=== PATIENT | male | born 1950 | race Caucasian/White ===

== ENCOUNTER 2017-08-21 06:51 | Inpatient (IN) | payer OTHER, MEDICARE ==
[2017-08-21] VITALS (21 sets, daily range): BP systolic 114–261; BP diastolic 72–143; PULSE 70–98; RESP 18–24; TEMP 97.6–98.5; O2SAT 94–99
[~2017-08-21] VITALS: Ht 182.9 cm; Wt 78.9 kg
[~2017-08-21 06:51] MED LIST: LAMO150; OMEP20CA5; WELL200T
[2017-08-21] MEDS ORDERED: SODIUM CHLOR 0.9% 1000 ML INJ 1,000 ML IV ONE (07:06)
[2017-08-21] MEDS ORDERED: niCARdipine INJ 25 MG in SODIUM CHLOR 0.9% 250 ML INJ 240 ML IV PRN ×2 (07:15→08:45)
--- NOTE | 2017-08-21 07:25 | PD ---
HPI Chief Complaint: stroke alert Time Seen by Provider: 07:06 Travel History International Travel<30 days: No Contact w/Intl Traveler<30days: No History of Present Illness HPI 67-year-old male patient presents to the ER today for several days history of headaches worsened at 6:30 AM today. He was noted to be disoriented this morning while he was at work, has a mild left facial droop and mild left-sided weakness. He could not give me much further history, appears somewhat disoriented. Modifying Factors: None Associated Signs & Symptoms: Stroke alert, disorientation, headache Risk Factors: None PFSH Past Medical History Depression: Yes Social History Alcohol Use: Yes (NONE TODAY. "NOT MY DRUG OF CHOICE.") Tobacco Use: Yes (HALF A PACK PER DAY) Substance Use: Yes (PT REFUSES TO ELABORATE. STATES "PRETTY MUCH EVERYTHING.") Allergies-Medications (Allergen,Severity, Reaction): Coded Allergies: No Known Allergies (Verified , 08/21/17) Reported Meds & Prescriptions Reported Meds & Active Scripts Active Active Prescriptions or Reported Medications Unobtainable Review of Systems ROS Limitations: Altered Mental Status Physical Exam Narrative GENERAL: Well-developed elderly white male patient currently in moderate distress, answering some questions. Awake, alert, disoriented. SKIN: Focused skin assessment warm/dry. HEAD: Atraumatic. Normocephalic. EYES: Pupils equal and round. No scleral icterus. No injection or drainage. ENT: No nasal bleeding or discharge. Mucous membranes pink and moist. NECK: Trachea midline. No JVD. CARDIOVASCULAR: Regular rate and rhythm. No murmur appreciated. RESPIRATORY: No accessory muscle use. Clear to auscultation. Breath sounds equal bilaterally. GASTROINTESTINAL: Abdomen soft, non-tender, nondistended. Hepatic and splenic margins not palpable. MUSCULOSKELETAL: No obvious deformities. No clubbing. No cyanosis. No edema. NEUROLOGICAL: Awake and alert, disoriented. Mild left facial droop. Mild left- sided weakness and drift. Normal speech. PSYCHIATRIC: Appropriate mood and affect; insight and judgment normal. Data Data Last Documented VS Vital Signs Date Time Temp Pulse Resp B/P (MAP) Pulse Ox O2 Delivery O2 Flow Rate FiO2 08/21/17 07:20 97 Nasal Cannula 2.00 08/21/17 07:20 08/21/17 07:00 98.0 85 18 Orders Orders Diet Npo (08/21/17 Breakfast) Activity Bed Rest (08/21/17 ) Electrocardiogram (08/21/17 ) I-Stat Creatinine (08/21/17 07:06) I-Stat Profile (08/21/17 07:06) Prothrombin Time / Inr (Pt) (08/21/17 07:06) Act Partial Throm Time (Ptt) (08/21/17 07:06) Complete Blood Count With Diff (08/21/17 07:06) Fibrinogen (08/21/17 07:06) Creatine Kinase (Cpk) (08/21/17 07:06) Troponin I (08/21/17 07:06) Ua Includes Microscopic (08/21/17 07:06) Drug Screen, Random Urine (08/21/17 07:06) Type And Screen (08/21/17 07:06) Ct Brain W/O Iv Contrast(Rout) (08/21/17 ) Consult Neurology (08/21/17 ) Blood Glucose (08/21/17 07:06) Ecg Monitoring (08/21/17 07:06) Neuro Checks Q2HX12,Q4H (08/21/17 07:06) Nursing Bedside Swallow Assess .ONCE (08/21/17 07:06) Iv Access Insert/Monitor (08/21/17 07:06) NPO (08/21/17 07:06) Oximetry (08/21/17 07:06) Oxygen Administration (08/21/17 07:06) Sodium Chlor 0.9% 1000 Ml Inj (Ns 1000 M (08/21/17 07:06) Resp Oxygen Ed C Titrat 1-4 L (08/21/17 07:06) Cath For Specimen (08/21/17 07:06) Nicardipine Inj (Cardene Inj) (08/21/17 07:15) Nicardipine Inj (Cardene Inj) (08/21/17 07:06) Cta Brain W Iv Contrast W 3d (08/21/17 07:25) Admit Order (Ed Use Only) (08/21/17 07:25) Labs Laboratory Tests Test 08/21/17 07:05 White Blood Count 12.9 TH/MM3 Red Blood Count 4.71 MIL/MM3 Hemoglobin 15.0 GM/DL Bedside Hemoglobin 15.3 G/DL Hematocrit 43.6 % Bedside Hematocrit 45.0 % Mean Corpuscular Volume 92.7 FL Mean Corpuscular Hemoglobin 31.8 PG Mean Corpuscular Hemoglobin Concent 34.3 % Red Cell Distribution Width 12.7 % Platelet Count 271 TH/MM3 Mean Platelet Volume 8.6 FL Neutrophils (%) (Auto) 68.4 % Lymphocytes (%) (Auto) 22.3 % Monocytes (%) (Auto) 8.3 % Eosinophils (%) (Auto) 0.6 % Basophils (%) (Auto) 0.4 % Neutrophils # (Auto) 8.9 TH/MM3 Lymphocytes # (Auto) 2.9 TH/MM3 Monocytes # (Auto) 1.1 TH/MM3 Eosinophils # (Auto) 0.1 TH/MM3 Basophils # (Auto) 0.0 TH/MM3 CBC Comment DIFF FINAL Differential Comment Prothrombin Time 10.6 SEC Prothromb Time International Ratio 1.0 RATIO Activated Partial Thromboplast Time 26.9 SEC Fibrinogen 337 mg/dL Bedside Sodium 140 MMOL/L Bedside Potassium 3.6 MMOL/L Bedside Chloride 101 MMOL/L Bedside Blood Urea Nitrogen 16 MG/DL Bedside Creatinine 1.0 MG/DL Bedside Glucose 135 MG/DL MDM Medical Screen Exam Complete: Yes Emergency Medical Condition: Yes Medical Record Reviewed: Yes Differential Diagnosis Stroke alert: Ischemic CVA versus hypertensive emergency versus ICH Narrative Course Stroke alert was initially called by Dr. Alexander, I arrived and took the case over in the room. Blood sugar is within normal limits. He is somewhat disoriented. History is limited by disorientation. However, he appears to have had several days of headaches and have worsened at work at 6:30 AM. CAT scan shows bilateral frontal hemorrhages and case was discussed with Dr. Kong who advises CTA for further evaluation to rule out aneurysm. He will accept the case For admission. In addition, case was discussed with Dr. Flores of radiology who advises MRI/MRA for further evaluation to rule out mass as well. Patient at this point was started on Cardene drip to decrease his blood pressure which was initially 200 systolic. Go blood pressure is 140/100. At this point, patient is admitted to neurosurgery service to the ICU for further treatment. While awaiting CTA, patient has a seizure and 2 mg IV of Ativan was given which stopped the seizure. I have discussed this issue with Dr. Kong who would like me to start the patient on 1000 mg of Cerebyx IV. Aggregate critical care time was 35 minutes. Time to perform other separately billable procedures was not included in the critical care time. My time did not include minutes spent treating any other patients simultaneously or on activities that did not directly contribute to the patient's treatment. The services I provided to this patient were to treat and/or prevent clinically significant deterioration that could result in: Worsening ICH, herniation, I provided critical care services requiring my management, as noted below: Chart data review, documentation time, medication orders and management, vital sign assessments/reviewing monitor data, ordering and reviewing lab tests, ordering and interpreting/reviewing x-rays and diagnostic studies, care of the patient and discussion of the patient with the admitting physicians. Stroke Alert NIHSS NIH Stroke Scale Result: 14 NIHSS Time Completed: 07:25 Thrombolytic Contraindications Contraindications: CT Intracranial Bleed Diagnosis Diagnosis: Primary Impression: Intracranial hemorrhage Admitting Physician Requests: Admit Scripts Unable to Obtain Active Prescriptions or Reported Meds Lisa Dykes MD Aug 21, 2017 07:25
[2017-08-21 07:30] LABS: AUTOMATED NEUTROPHIL # 8.9 TH/MM3 (1.8-7.7); BASOPHIL % 0.4 % (0.0-2.0); EOSINOPHIL # 0.1 TH/MM3 (0-0.4); EOSINOPHIL % 0.6 % (0.0-4.0); HEMATOCRIT 43.6 % (39.0-51.0); LYMPH % 22.3 % (9.0-44.0); LYMPHOCYTE # 2.9 TH/MM3 (1.0-4.8); MEAN CELL VOLUME 92.7 FL (80.0-100.0); MEAN CORPUSCULAR HEMOGLOBIN 31.8 PG (27.0-34.0); MEAN CORPUSCULAR HGB CONC 34.3 % (32.0-36.0); MEAN PLATELET VOLUME 8.6 FL (7.0-11.0); MONO % 8.3 % (0.0-8.0); MONOCYTE # 1.1 TH/MM3 (0-0.9); NEUT % 68.4 % (16.0-70.0); PLATELET COUNT 271 TH/MM3 (150-450); RED BLOOD COUNT 4.71 MIL/MM3 (4.50-5.90); RED CELL DISTRIBUTION WIDTH 12.7 % (11.6-17.2); WHITE BLOOD COUNT 12.9 TH/MM3 (4.0-11.0)
--- NOTE | 2017-08-21 07:35 | RADRPT ---
EXAM DATE/TIME: 08/21/2017 07:10 CORRECTION Corrected on: August 30, 2017; Removed the Copy To Dr. Sherie THACKER COMPARISON: No previous studies available for comparison. INDICATIONS : Stroke alert. Confused, left arm deficit RADIATION DOSE: 45.99 CTDIvol (mGy) This report was called by Dr. Flores to at 7: 25 AM on 08/21/17. MEDICAL HISTORY : Non-responsive. SURGICAL HISTORY : Non-responsive. ENCOUNTER: Initial ACUITY: 1 day PAIN SCALE: Non-responsive LOCATION: cranial TECHNIQUE: Multiple contiguous axial images were obtained of the head. Using automated exposure control and adj ustment of the mA and/or kV according to patient size, radiation dose was kept as low as reasonably a chievable to obtain optimal diagnostic quality images. DICOM format image data is available electro nically for review and comparison. FINDINGS: There is acute parenchymal hemorrhage within the frontal lobes bilaterally with associated edema thro ughout the frontal lobes. The hemorrhage measures 5.5 x 4.3 cm and extends across the midline. There is mass effect upon the corpus callosum. There is also probable extra-axial component along the right side of the falx which measures 1.8 cm transversex 3.2 cm AP. No significant midline shift is noted. The ventricles, sulci and cisterns are unremarkable. The bone windows are unremarkable. CONCLUSION: Acute parenchymal hemorrhage within the frontal lobes bilaterally measuring 5.5 x 4.3 cm which crosses midline and demonstrates associated edema throughout the frontal lobes and mass eff ect upon the corpus callosum. There is an extra-axial component along the right side of the false whi ch measures 1.8 cm transverse x 3.2 cm AP. Differential diagnosis includes hemorrhagic infarct, post- traumatic hemorrhage, hemorrhagic mass, and ruptured aneurysm. Lukas Flores MD on August 21, 2017 at 7:22 Board Certified Radiologist. Board Certified Radiologist. This report was verified electronically.
[2017-08-21] MEDS ORDERED: LORazepam 2 MG/ML VIAL ONE ×2 (07:38→07:40)
[2017-08-21 07:40] LABS: PROTHROMBIN TIME - PATIENT 10.6 SEC (9.8-11.6)
[2017-08-21] MEDS ORDERED: LORazepam 2 MG/ML VIAL IV PUSH ONE (07:45)
[2017-08-21 07:46] LABS: TROPONIN I LESS THAN 0.02 NG/ML (0.02-0.05)
[2017-08-21] MEDS ORDERED: IODIXANOL 320 MG/ML 10 ML VIAL (for Rad CT) IVCONTRAST ONE (07:51)
[2017-08-21] MEDS ORDERED: FOSPHENYTOIN INJ 1,000 MGPE in SODIUM CHLORIDE 0.9% INJ 50 ML IV ONE (08:00)
--- NOTE | 2017-08-21 08:13 | RADRPT ---
EXAM DATE/TIME: 08/21/2017 07:47 CORRECTION Corrected on: August 30, 2017; removed Copy ao Dr. THACKER COMPARISON: No previous studies available for comparison. INDICATIONS : Stroke alert, altered mental status. IV CONTRAST: 50 cc Visipaque (iodixanol) IV ; Cumulative dose for multiple exams. RADIATION DOSE: 26.15 CTDIvol (mGy) ; Combined studies MEDICAL HISTORY : Non-responsive. SURGICAL HISTORY : Non-responsive. ENCOUNTER: Initial ACUITY: 1 day PAIN SCALE: Non-responsive LOCATION: cranial TECHNIQUE: Volumetric scanning was performed using a multi-row detector CT scanner. The data was post processed with a variety of visualization algorithms including full volume maximum intensity projection, multi -planar sliding thin slab reformation, curved planar reformation, and surface rendering techniques. Using automated exposure control and adjustment of the mA and/or kV according to patient size, radiat ion dose was kept as low as reasonably achievable to obtain optimal diagnostic quality images. DICO M format image data is available electronically for review and comparison. FINDINGS: Anterior circulation: Distal intracranial internal carotid arteries are patent with flow extending to the middle and anteri or cerebral arteries. There is no evidence for aneurysm, vessel truncation or stenosis, and no eviden ce for vascular malformation. Posterior circulation: Symmetric distal vertebral arteries with flow extending to basilar artery. origin of the right MORN[employer] BAB[employer]. There is no evidence for aneurysm, vessel truncation or stenosis, and no evidence for vascular malformation. Redemonstration of intracranial hemorrhage in the bilateral frontal lobes. CONCLUSION: 1. Negative head CTA exam. Specifically, no evidence for aneurysm or large vessel occlusion. Wil Lopez MD on August 21, 2017 at 8:01 Board Certified Radiologist. Board Certified Radiologist. This report was verified electronically.
--- NOTE | 2017-08-21 08:24 | RADRPT ---
EXAM DATE/TIME: 08/21/2017 07:47 CORRECTION Corrected on: August 30, 2017; removed copy to Dr. Sherie THACKER COMPARISON: No previous studies available for comparison. INDICATIONS : Stroke alert, altered mental status. IV CONTRAST: 50 cc Visipaque (iodixanol) IV ; Cumulative dose for multiple exams. RADIATION DOSE: 26.15 CTDIvol (mGy) ; Combined studies MEDICAL HISTORY : Non-responsive. SURGICAL HISTORY : Non-responsive. ENCOUNTER: Initial ACUITY: 1 day PAIN SCALE: Non-responsive LOCATION: neck Elevated flow velocities and ICA/CCA ratios have been found to correlate with increased degrees of vessel stenosis, calculated as percentage of diameter relative to a normal segment of distal ICA/CCA. TECHNIQUE: Volumetric scanning was performed using a multirow detector CT scanner. The data was post processed with a variety of visualization algorithms including full-volume maximum intensity projection, multip lanar sliding thin-slab reformation, curved-planar reformation, and surface-rendering techniques. Us ing automated exposure control and adjustment of the mA and/or kV according to patient size, radiatio n dose was kept as low as reasonably achievable to obtain optimal diagnostic quality images. DICOM f ormat image data is available electronically for review and comparison. FINDINGS: AORTIC ARCH: There is a three-vessel origin of the great vessels from the aorta. No evidence of ostial narrowing. RIGHT CAROTID: The common carotid artery is intact. The carotid bulb has a normal configuration without ulceration o r narrowing. The internal carotid artery lumen is smooth without stenosis. The external carotid bret ry is intact. LEFT CAROTID: The common carotid artery is intact. The carotid bulb has a normal configuration without ulceration or narrowing. The internal carotid artery lumen is smooth without stenosis. The external carotid ar nel is intact. VERTEBRALS: The vertebral arteries have a symmetric diameter. No stenotic lesions are seen. CONCLUSION: 1. See the CT of the brain reported separately. 2. Patent carotid arteries and vertebral arteries. Alexis Villa Jr., MD on August 21, 2017 at 8:18 Board Certified Radiologist. Board Certified Radiologist. This report was verified electronically.
[2017-08-21] MEDS ORDERED: ONDANSETRON HCL 4 MG/2 ML VIAL IV PUSH PRN (08:45)
[2017-08-21] MEDS ORDERED: SODIUM CHLORIDE 0.9% FLUSH 10 ML FLUSH IV FLUSH PRN ×2 (08:45→10:45)
--- NOTE | 2017-08-21 08:52 | HHI.HP ---
HPI Service Neurosurgery Primary Care Physician Mateusz Rehman DO History of Present Illness 67-year-old male presents to the emergency room today approximately 7 AM with history of headache for several days, increasing significantly at 6:30 AM today. His initial blood pressure was 261/143. He was placed on a nicardipine drip for initial blood pressure control. 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 He was reportedly awake and alert upon presentation to the emergency room, with left facial and upper extremity weakness. He reportedly developed increasing speech difficulty following a CT scan this morning, and subsequently was noted to have a seizure which was initially treated with Ativan. Since then he has been more lethargic and nonverbal. Review of Systems Patient presently lethargic, nonverbal, unable to obtain review of systems Past Family Social History Allergies: Coded Allergies: No Known Allergies (Verified , 08/21/17) Social History Occasional alcohol Smokes one half pack cigarettes per day Physical Exam Vital Signs Vital Signs Date Time Temp Pulse Resp B/P (MAP) Pulse Ox O2 Delivery O2 Flow Rate FiO2 08/21/17 08:22 86 164/85 08/21/17 08:17 84 195/98 08/21/17 08:15 87 20 164/85 (111) 98 Nasal Cannula 2.00 08/21/17 07:45 83 18 176/87 (116) 98 Nasal Cannula 2.00 08/21/17 07:25 95 Nasal Cannula 2.00 08/21/17 07:20 81 20 195/98 (130) 96 Nasal Cannula 2.00 08/21/17 07:20 97 Nasal Cannula 2.00 08/21/17 07:20 97 Nasal Cannula 2.00 08/21/17 07:00 98.0 85 18 215/105 (141) 95 08/21/17 06:56 79 18 261/143 (182) 98 202/104 (136) Physical Exam GENERAL: This is a well-nourished, well-developed patient, examining the emergency room. Lethargic. SKIN: No abrasions, contusion, rash noted. Skin warm and dry. HEAD: Atraumatic. Normocephalic. No temporal or scalp tenderness. EYES: Sclerae are clear and nonicteric ENT: No facial edema or ecchymosis. No periorbital edema. No palpable facial fracture or deformity. NECK: Trachea midline. No cervical spine tenderness. CARDIOVASCULAR: Regular rate and rhythm without murmurs, gallops, or rubs. RESPIRATORY: Clear to auscultation. Breath sounds equal bilaterally. No wheezes , rales, or rhonchi. GASTROINTESTINAL: Abdomen soft, nondistended. No hepato-splenomegaly, or palpable masses. No guarding. MUSCULOSKELETAL: Extremities without cyanosis, or edema. No joint tenderness, or edema noted. No calf tenderness. Dorsalis pedis pulses 2+ bilateral NEUROLOGICAL: Lethargic Nonverbal Does not definitely follow commands. Mild right grasp, but not definitely to command. Primary judgment and insight cannot be assessed due to decreased mental status No agitation Pupils are 4 mm and reactive to light. He has a right gaze preference-disconjugate. Absent oculocephalic movements past the midline to the left. Withdraws right upper and lower extremity moderate to deep pain. Moderate movement spontaneous and to deep pain right upper and lower extremity. Diminished movements left upper and lower extremity to deep pain. Mohsen's absent bilaterally No ankle clonus Plantar responses absent bilateral Fine motor movements cannot be tested due to altered mental status Laboratory Laboratory Tests Test 08/21/17 07:05 White Blood Count 12.9 Red Blood Count 4.71 Hemoglobin 15.0 Bedside Hemoglobin 15.3 Hematocrit 43.6 Bedside Hematocrit 45.0 Mean Corpuscular Volume 92.7 Mean Corpuscular Hemoglobin 31.8 Mean Corpuscular Hemoglobin Concent 34.3 Red Cell Distribution Width 12.7 Platelet Count 271 Mean Platelet Volume 8.6 Neutrophils (%) (Auto) 68.4 Lymphocytes (%) (Auto) 22.3 Monocytes (%) (Auto) 8.3 Eosinophils (%) (Auto) 0.6 Basophils (%) (Auto) 0.4 Neutrophils # (Auto) 8.9 Lymphocytes # (Auto) 2.9 Monocytes # (Auto) 1.1 Eosinophils # (Auto) 0.1 Basophils # (Auto) 0.0 CBC Comment DIFF FINAL Differential Comment Prothrombin Time 10.6 Prothromb Time International Ratio 1.0 Activated Partial Thromboplast Time 26.9 Fibrinogen 337 Bedside Sodium 140 Bedside Potassium 3.6 Bedside Chloride 101 Bedside Blood Urea Nitrogen 16 Bedside Creatinine 1.0 Bedside Glucose 135 Total Creatine Kinase 85 Troponin I LESS THAN 0.02 Result Diagram: 08/21/17 0705 Caprini VTE Risk Assessment Caprini VTE Risk Assessment: Mod/High Risk (score >= 2) VTE Pharm Contraindication: Hemorrhage Caprini Risk Assessment Model Point Value = 1 Point Value = 2 Point Value = 3 Point Value = 5 Age 41-60 Minor surgery BMI > 25 kg/m2 Swollen legs Varicose veins or History of unexplained or recurrent spontaneous Oral contraceptives or hormone replacement Sepsis (< 1 month) Serious lung disease, including pneumonia (< 1 month) Abnormal pulmonary function Acute myocardial infarction Congestive heart failure (< 1 month) History of inflammatory bowel disease Medical patient at bed rest Age 61-74 Arthroscopic surgery Major open surgery (> 45 min) Laparoscopic surgery (> 45 min) Malignancy Confined to bed (> 72 hours) Immobilizing plaster cast Central venous access Age >= 75 History of VTE Family history of VTE Factor V Leiden Prothrombin [id number] Lupus anticoagulant Anticardiolipin antibodies Elevated serum homocysteine Heparin-induced thrombocytopenia Other congenital or acquired thrombophilia Stroke (< 1 month) Elective arthroplasty Hip, pelvis, or leg fracture Acute spinal cord injury (< 1 month) Prophylaxis Regimen Total Risk Factor Score Risk Level Prophylaxis Regimen 0-1 Low Early ambulation 2 Moderate Order ONE of the following: *Sequential Compression Device (SCD) *Heparin 5000 units SQ BID 3-4 Higher Order ONE of the following medications: *Heparin 5000 units SQ TID *Enoxaparin/Lovenox 40 mg SQ daily (WT < 150 kg, CrCl > 30 mL/min) *Enoxaparin/Lovenox 30 mg SQ daily (WT < 150 kg, CrCl > 10-29 mL/min) *Enoxaparin/Lovenox 30 mg SQ BID (WT < 150 kg, CrCl > 30 mL/min) AND/OR *Sequential Compression Device (SCD) 5 or more Highest Order ONE of the following medications: *Heparin 5000 units SQ TID (Preferred with Epidurals) *Enoxaparin/Lovenox 40 mg SQ daily (WT < 150 kg, CrCl > 30 mL/min) *Enoxaparin/Lovenox 30 mg SQ daily (WT < 150 kg, CrCl > 10-29 mL/min) *Enoxaparin/Lovenox 30 mg SQ BID (WT < 150 kg, CrCl > 30 mL/min) AND *Sequential Compression Device (SCD) Assessment and Plan Assessment and Plan Impression: 1. Bifrontal spontaneous intracranial hemorrhage 2. New onset seizure 3. Hypertension 4. Chronic tobacco use Plan: Admit intensive surgical care unit ISC vital signs and neuro checks Blood pressure control to target systolic blood pressure less than 140. Nicardipine initiated. Seizure. Initial Ativan in the emergency room. Cerebyx initiated in the emergency room MRI and MRA brain pending Follow-up CT scan head in a.m. 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
[2017-08-21] MEDS ORDERED: D5-NS + KCL 20 MEQ INJ 1,000 ML IV SCH (09:00)
[2017-08-21] MEDS ORDERED: SODIUM CHLORIDE 0.9% FLUSH 10 ML FLUSH IV FLUSH SCH (09:00)
[2017-08-21] MEDS: DOCUSATE SODIUM 100 MG CAP PO SCH ×2 (09:00→21:09)
[2017-08-21 09:20] LABS: BILIRUBIN, URINE NEG (NEG); BLOOD, URINE NEG (NEG); GLUCOSE,URINE 150 mg/dL (NEG); HYALINE CAST, URINE 4 /lpf (RARE); KETONE, URINE NEG (NEG); MUCUS URINE FEW /lpf (OCC); NITRITE,URINE NEG (NEG); SQUAMOUS EPITHELIAL CELL URINE <1 /hpf (0-5); URINE COLOR YELLOW (YELLW/STRAW); URINE LEUKOCYTE ESTERASE NEG (NEG)
[2017-08-21] MEDS ORDERED: ETOMIDATE 40 MG/20 ML VIAL ONE (09:30)
[2017-08-21] MEDS ORDERED: ROCURONIUM INJ 50 MG/5 ML VIAL ONE (09:30)
[2017-08-21] MEDS ORDERED: PROPOFOL 500 MG/50 ML INJ 50 ML ONE (09:32)
[2017-08-21] MEDS: PANTOPRAZOLE SODIUM 40 MG VIAL IVP SCH (10:11)
[2017-08-21] MEDS ORDERED: CHLORHEXIDINE GLUCONATE 2 % 1 PACK (2 CLOTHS) TOP PRN (10:45)
[2017-08-21] MEDS ORDERED: MISCELLANEOUS NURSING INFORMATION XX SCH (10:45)
--- NOTE | 2017-08-21 11:06 | RADRPT ---
EXAM DATE/TIME: 08/21/2017 11:31 CORRECTION Corrected on: August 30, 2017; removed copy to Dr. Sherie THACKER COMPARISON: No previous studies available for comparison. INDICATIONS : Verify central line placement. MEDICAL HISTORY : None. SURGICAL HISTORY : None. ENCOUNTER: Subsequent ACUITY: 1 day PAIN SCORE: Non-responsive. LOCATION: Bilateral chest FINDINGS: A single portable frontal view of the chest shows a right-sided internal jugular vein central venous line. The tip projects over the cavoatrial junction. No pneumothorax. Tip of the endotracheal tube 4 cm proximal to the jolene. Nasogastric tube tip in the region of the body the stomach. Heart is vincent l in size. No infiltrate or effusion. Aorta is calcified and mildly tortuous. Prior cement augmentati on changes at the thoracolumbar junction. CONCLUSION: 1. Central line in good position without pneumothorax. Alexis Villa Jr., MD on August 21, 2017 at 11:02 Board Certified Radiologist. Board Certified Radiologist. This report was verified electronically.
[2017-08-21] MEDS: SODIUM CHLOR 0.9% 1000 ML INJ 1,000 ML IV SCH (12:00)
[2017-08-21] MEDS: INSULIN ASPART SUPPLEMENTAL SCALE SQ SCH ×2 (12:00→17:57)
[2017-08-21] MEDS ORDERED: DEXTROSE 50% IN WATER 50 ML VIAL(D50) IV PUSH PRN (12:15)
[2017-08-21] MEDS ORDERED: GLUCAGON 1 MG/ML VIAL OTHER PRN (12:15)
[2017-08-21] MEDS: PROPOFOL 1000 MG/100 ML INJ 100 ML IV PRN ×3 (12:22→23:12)
--- NOTE | 2017-08-21 12:37 | PD.CONS ---
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 His headache worsened which worsened around 6:30 AM. Patient was evaluated in the ER stroke alert was called. A head CT revealed intraparenchymal hemorrhage involving frontal lobes. Patient was evaluated by Dr. Vizcaino from neurosurgery who admitted the patient to the ICU. Reportedly patient had seizures in the ER for which she received Ativan 2 mg IV and was loaded with fosphenytoin 1 g IV. Subsequently he was transferred to the ICU where I evaluated him immediately on his arrival. At that time he was extremely encephalopathic, stupor O's, nonverbal. I did not feel patient is protecting his airway at the time. I also noted some rhythmic jaw movements consistent with seizure activity. Patient was given Ativan 4 mg IV stat and I proceeded with emergent intubation and patient was placed on mechanical ventilation. A central line was placed emergently as well. Subsequently discussed with Dr. Vizcaino wish to proceed with MRI/MRA of the brain for further evaluation. Patient was sedated with propofol following intubation. He was on a nicardipine drip on arrival as his blood pressure in the ER was 200s systolic. History was obtained by reviewing records and discussion with Dr. Vizcaino and nursing staff. [facility] Past Medical History Depression: Yes Social History Alcohol Use: Yes (NONE TODAY. "NOT MY DRUG OF CHOICE.") Tobacco Use: Yes (HALF A PACK PER DAY) Substance Use: Yes (PT REFUSES TO ELABORATE. STATES "PRETTY MUCH EVERYTHING.") Allergies-Medications (Allergen,Severity, Reaction): Coded Allergies: No Known Allergies (Verified , 08/21/17) Reported Meds & Prescriptions Reported Meds & Active Scripts Active Active Prescriptions or Reported Medications Unobtainable Review of Systems ROS Limitations: Intubated Physical Exam Vital Signs Vital Signs Date Time Temp Pulse Resp B/P (MAP) Pulse Ox O2 Delivery O2 Flow Rate FiO2 08/21/17 12:17 94 50 08/21/17 10:10 98 50 08/21/17 09:15 95 24 97 Nasal Cannula 2.00 08/21/17 09:00 95 18 144/95 (111) 97 Nasal Cannula 2.00 08/21/17 08:45 90 18 153/83 (106) 96 Nasal Cannula 2.00 08/21/17 08:22 86 164/85 08/21/17 08:17 84 195/98 08/21/17 08:15 87 20 164/85 (111) 98 Nasal Cannula 2.00 08/21/17 07:45 83 18 176/87 (116) 98 Nasal Cannula 2.00 08/21/17 07:25 95 Nasal Cannula 2.00 08/21/17 07:20 81 20 195/98 (130) 96 Nasal Cannula 2.00 08/21/17 07:20 97 Nasal Cannula 2.00 08/21/17 07:20 97 Nasal Cannula 2.00 08/21/17 07:00 98.0 85 18 215/105 (141) 95 08/21/17 06:56 79 18 261/143 (182) 98 202/104 (136) Physical Exam Physical Exam Narrative HEENT/ Neuro: Sedated, orally intubated, no pallor or icterus, tongue/ mucosa moist, left-sided facial weakness, decreased movement in left upper and lower extremities compared to right with painful stimuli prior to intubation. Pupils 3 mm bilaterally reacting actively to light. Neck: No JVD Chest/Pulm: on mech vent, good air entry bilaterally, no wheezing or crackles CVS: S1-S2 regular, no murmur GI/abdomen: soft, nontender, bowel sounds sluggish Extremities: warm bilaterally, no edema Laboratory Laboratory Tests Test 08/21/17 07:05 08/21/17 08:30 08/21/17 11:52 White Blood Count 12.9 Red Blood Count 4.71 Hemoglobin 15.0 Bedside Hemoglobin 15.3 Hematocrit 43.6 Bedside Hematocrit 45.0 Mean Corpuscular Volume 92.7 Mean Corpuscular Hemoglobin 31.8 Mean Corpuscular Hemoglobin Concent 34.3 Red Cell Distribution Width 12.7 Platelet Count 271 Mean Platelet Volume 8.6 Neutrophils (%) (Auto) 68.4 Lymphocytes (%) (Auto) 22.3 Monocytes (%) (Auto) 8.3 Eosinophils (%) (Auto) 0.6 Basophils (%) (Auto) 0.4 Neutrophils # (Auto) 8.9 Lymphocytes # (Auto) 2.9 Monocytes # (Auto) 1.1 Eosinophils # (Auto) 0.1 Basophils # (Auto) 0.0 CBC Comment DIFF FINAL Differential Comment Prothrombin Time 10.6 Prothromb Time International Ratio 1.0 Activated Partial Thromboplast Time 26.9 Fibrinogen 337 Bedside Sodium 140 Bedside Potassium 3.6 Bedside Chloride 101 Bedside Blood Urea Nitrogen 16 Bedside Creatinine 1.0 Bedside Glucose 135 Total Creatine Kinase 85 Troponin I LESS THAN 0.02 Urine Color YELLOW Urine Turbidity CLEAR Urine pH 6.0 Urine Specific [place] 1.031 Urine Protein 30 Urine Glucose (UA) 150 Urine Ketones NEG Urine Occult Blood NEG Urine Nitrite NEG Urine Bilirubin NEG Urine Urobilinogen LESS THAN 2.0 Urine Leukocyte Esterase NEG Urine RBC 1 Urine WBC 3 Urine Squamous Epithelial Cells <1 Urine Hyaline Casts 4 Urine Mucus FEW Urine Opiates Screen NEG Urine Barbiturates Screen NEG Urine Amphetamines Screen POS Urine Benzodiazepines Screen NEG Urine Cocaine Screen NEG Urine Cannabinoids Screen NEG Blood Gas Puncture Site ART LINE Blood Gas Patient Temperature 98.6 Blood Gas HCO3 24 Blood Gas Base Excess -0.5 Blood Gas Oxygen Saturation 92 Arterial Blood pH 7.38 Arterial Blood Partial Pressure CO2 42 Arterial Blood Partial Pressure O2 76 Arterial Blood Oxygen Content 17.4 Arterial Blood Carboxyhemoglobin 1.4 Arterial Blood Methemoglobin 0.8 Blood Gas Hemoglobin 13.4 Oxygen Delivery Device VENTILATOR Blood Gas Ventilator Setting PRVC/VT500/R16/P5 Blood Gas Inspired Oxygen 50 Result Diagram: 08/21/17704 Imaging Last Impressions Neck CTA 08/21/1743 Signed Impressions: Service Date/Time: Monday, August 21, 2017 07:47 - CONCLUSION: 1. See the CT of the brain reported separately. 2. Patent carotid arteries and vertebral arteries. Alexis Villa Jr., MD Head CTA 08/21/17 0725 Signed Impressions: Service Date/Time: Monday, August 21, 2017 07:47 - CONCLUSION: 1. Negative head CTA exam. Specifically, no evidence for aneurysm or large vessel occlusion. Wil Lopez MD Head CT 08/21/17 0000 Signed Impressions: Service Date/Time: Monday, August 21, 2017 07:10 - CONCLUSION: Acute parenchymal hemorrhage within the frontal lobes bilaterally measuring 5.5 x 4.3 cm which crosses midline and demonstrates associated edema throughout the frontal lobes and mass effect upon the corpus callosum. There is an extra- axial component along the right side of the false which measures 1.8 cm transverse x 3.2 cm AP. Differential diagnosis includes hemorrhagic infarct, post-traumatic hemorrhage, hemorrhagic mass, and ruptured aneurysm. Lukas Flores MD Chest X-Ray 08/21/17 0000 Signed Impressions: Service Date/Time: Monday, August 21, 2017 11:31 - CONCLUSION: 1. Central line in good position without pneumothorax. Alexis Villa Jr., MD Assessment and Plan Assessment and Plan 67 year-old male with: Intracerebral hemorrhage involving frontal lobes Encephalopathy Seizure Acute respiratory failure requiring mechanical ventilation Hypertensive emergency Plan: Neuro: Sedation with propofol, follow neuro status. Awaiting MRI MRA brain. Neurosurgery following. Anticonvulsants per neurosurgery. Patient has been loaded with fosphenytoin. Repeat head CT in a.m. Cardiovascular: Nicardipine drip to keep systolic blood pressure below 1 40 mmHg. Pulmonary: Intubated for airway protection. Continue mechanical ventilation, vent bundle, bronchodilators as needed. GI/liver: Nothing by mouth for now. Start tube feeds if okay with neurosurgery Renal/: IV hydration, strict intake output, monitor and replete electrolytes, follow BUN/creatinine. ID: No indication for antibiotics at this time. Heme: Follow CBC and coags Endocrine: SSI for glycemic control if needed. Prophylaxis: PPI/SCDs. Subcutaneous heparin to be cleared by neurosurgery. Condition critical Time spent on critical care excluding procedures 60 minutes Nilson López MD Aug 21, 2017 12:37
--- NOTE | 2017-08-21 12:42 | PD.PROCEDR ---
Procedure Note Procedure Procedure: Endotracheal intubation Preop diagnosis: Intracerebral hemorrhage, seizures, hypertensive emergency Postop diagnosis: Same Indication: Airway protection Sedation used: Etomidate 40 mg, fentanyl 200 mcg, rocuronium 50 mg IV Procedure: Patient was preoxygenated with 100% oxygen via Ambu bag with bag mask ventilation, following induction of sedation and neuromuscular blockade, direct laryngoscopy was performed using a Mac 4 blade with good visualization of vocal cords. An 8 Icelandic ET tube was passed through the vocal cords under direct visualization up to the 23 centimeter desmond and after inflating cuff of ET tube, correct placement was confirmed using bagging with good color change on CO2 detector, 5 point auscultation and chest rise with ventilation. Patient was connected to mechanical ventilation. Patient tolerated the procedure well with no immediate complications noted. Postprocedure chest x-ray was ordered. Nilson López MD Aug 21, 2017 12:42
--- NOTE | 2017-08-21 12:44 | PD.PROCEDR ---
Central Line Procedure REASON FOR PROCEDURE Central venous access PROCEDURE PERFORMED Central line placement: Right internal jugular vein CONSENT Informed consent for procedure was not obtained as this was an emergent procedure. ANESTHESIA Local injection of 1% Lidocaine DESCRIPTION OF THE PROCEDURE The patient was placed in supine, mild Trendelenburg position. The area was exposed and cleansed with ChloraPrep, times two. Large sterile drape was used to cover the patient, with the site exposed, under sterile conditions including cap, face mask, sterile gown, and sterile gloves. On single attempt, the introducer needle was inserted with negative pressure in syringe and venous flash was obtained. The guide wire was then advanced without any restriction and the needle was removed. The dilator was used without any complications. Using Seldinger technique a 20 cm antimicrobial coated triple lumen catheter was advanced over the guide wire to a depth of 18 centimeters. The guide wire was removed. All ports were aspirated with dark venous blood return and flushed easily with sterile saline. All ports were capped. Antibiotic disc was placed around central line at puncture site. The central line was secured to the skin with a stat lock. The area was bandaged with sterile see-through central line bandage. Off note there was initial failed attempt at cannulating right subclavian vein. RADIOLOGICAL DATA Ultrasound guidance was used to locate the right internal jugular vein. COMPLICATIONS: No apparent complications ESTIMATED BLOOD LOSS: Less than 1 cc. Nilson López MD Aug 21, 2017 12:44
[2017-08-21] MEDS ORDERED: NOREPINEPHRINE 4 MG/4 ML AMP ONE (15:31)
[2017-08-21] MEDS ORDERED: GADODIAMIDE PF 287 MG/ML 20 ML VIAL (for RAD MRI) IVCONTRAST ONE (16:27)
[2017-08-21] MEDS: RESP: ALBUTEROL 2.5 MG/IPRATROPIUM 0.5 MG NEB (SCH) NEB ×2 (17:04→21:32)
--- NOTE | 2017-08-21 17:27 | RADRPT ---
EXAM DATE/TIME: 08/21/2017 16:02 [facility] COMPARISON: No previous studies available for comparison. INDICATIONS : Hemorrhage. Mass. Cephalgia. MEDICAL HISTORY : Sleep apnea. Hepatitis C. SURGICAL HISTORY : Kyphoplasty. ENCOUNTER: Subsequent ACUITY: 1 day PAIN SCORE: Nonresponsive. LOCATION: head. Please note a normal MRA of the brain does not entirely exclude the possibility of a small aneurysm, nor the possibility of distal intracranial vessel disease. TECHNIQUE: 3D time of flight MRA was performed. Source images, multiplanar STS MIP, and 3D volume MIP reconstru ctions were reviewed. FINDINGS: There is excellent visualization of the major intracranial arteries out to the second-order branch ve ssels. There is no evidence for aneurysm, vessel truncation or stenosis, and no evidence for vascula r malformation. Complete [place] with a widely patent right posterior communicating artery. Anterior to zulma cating artery is widely patent as well. Left posterior commuting artery is diminutive but also patent . Patient is right vertebral dominant. There appears to be parenchymal hemorrhage in both frontal lob es, left greater than right. CONCLUSION: 1. MRA suggest parenchymal hemorrhage in both frontal lobes, left greater than right. 2. However, the intracranial vessels are all widely patent without aneurysmal disease. Christiano Falk MD on August 21, 2017 at 17:21 Board Certified Radiologist. This report was verified electronically.
[2017-08-21] MEDS ORDERED: NOREPINEPHRINE INJ 4 MG in SODIUM CHLOR 0.9% 250 ML INJ 250 ML IV PRN (18:00)
[2017-08-21] MEDS: PHENYTOIN INJ 100 MG/2 ML VIAL IV SCH ×2 (18:20→21:08)
[2017-08-21] MEDS: cloNIDine HCL 0.1 MG TAB PO PRN (18:20)
[2017-08-21] MEDS: LABETALOL HCL 100 MG/20 ML VIAL IV PRN (18:21)
--- NOTE | 2017-08-21 18:41 | RADRPT ---
EXAM DATE/TIME: 08/21/2017 16:02 [facility] COMPARISON: MRA BRAIN W/O CONTRAST, August 21, 2017, 16:02. CT BRAIN W/O CONTRAST, August 21, 2017, 7:10. INDICATIONS : Hemorrhage. Mass. Cephalgia. CONTRAST: 16 cc Omniscan (gadodiamide) IV MEDICAL HISTORY : Sleep apnea. SURGICAL HISTORY : Kyphoplasty. ENCOUNTER: Subsequent ACUITY: 1 day PAIN SCORE: Nonresponsive. LOCATION: head. TECHNIQUE: Multiplanar, multisequence MRI of the brain was performed both prior to and following the administrat ion of paramagnetic contrast. FINDINGS: There is evolving hematoma in the frontal regions bilaterally, parafalcine in location on both sides with heterogeneous evolving signal characteristics indicating largely subacute age hemorrhage. There is moderate surrounding edema signal. The overall dimension of the process measuring approximately 4. 9 x 5.4 x 7 cm (sagittal x AP x transverse). There is effacement of the frontal cortical sulci. There is posterior displacement of the genu region of corpus callosum and of the frontal horns of the late ral ventricles which are moderately compressed. Other than mild subjective prominence of enhancing ve ssels along the falx in this region, there is no abnormal enhancement within the process to suggest a n underlying mass. No other similar lesions are present elsewhere. There is patchy mild T2 prolongati on in other areas in the periventricular and subcortical white matter which may be microvascular isch emic in etiology. There is nothing to elsewhere suggest acute infarction. There are tiny bilateral la cunar infarcts in the basal ganglia which appear old. The extracranial structures are grossly benign and intact. 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 Saw Higginbotham MD on August 21, 2017 at 18:22 Board Certified Radiologist. This report was verified electronically.
[2017-08-21] MEDS: CHLORHEXIDINE 0.12% (ORAL KIT) 15 ML CUP MT SCH (20:00)
[2017-08-21] MEDS: SODIUM CHLORIDE 0.9% FLUSH 10 ML FLUSH IV FLUSH SCH (21:00)
--- NOTE | 2017-08-21 21:08 | EKG ---
Date Performed: 08/21/2017 Time Performed: 07:24:16 PTAGE: 67 years EKG: Sinus rhythm BORDERLINE LEFT AXIS DEVIATION MINIMAL VOLTAGE CRITERIA FOR LVH, CONSIDER NORMAL VARIANT MINIMAL ST DEPRESSION BORDERLINE ECG NO PREVIOUS TRACING DOCTOR: Yoseph Saeed Interpretating Date/Time 08/21/2017 21:08:05
[2017-08-22] VITALS (21 sets, daily range): BP systolic 118–154; BP diastolic 58–80; PULSE 73–88; RESP 20–24; TEMP 98.1–99.6; O2SAT 92–100
[2017-08-22] MEDS: SODIUM CHLOR 0.9% 1000 ML INJ 1,000 ML IV SCH ×4 (01:20→14:15)
[2017-08-22 03:48] LABS: AUTOMATED NEUTROPHIL # 10.1 TH/MM3 (1.8-7.7); BASOPHIL # 0.1 TH/MM3 (0-0.2); BASOPHIL % 0.4 % (0.0-2.0); EOSINOPHIL # 0.1 TH/MM3 (0-0.4); EOSINOPHIL % 0.6 % (0.0-4.0); HEMATOCRIT 36.9 % (39.0-51.0); HEMOGLOBIN 12.7 GM/DL (13.0-17.0); LYMPHOCYTE # 1.8 TH/MM3 (1.0-4.8); MEAN CELL VOLUME 91.8 FL (80.0-100.0); MEAN CORPUSCULAR HEMOGLOBIN 31.6 PG (27.0-34.0); MEAN CORPUSCULAR HGB CONC 34.5 % (32.0-36.0); MEAN PLATELET VOLUME 8.6 FL (7.0-11.0); MONO % 8.3 % (0.0-8.0); MONOCYTE # 1.1 TH/MM3 (0-0.9); NEUT % 76.7 % (16.0-70.0); PLATELET COUNT 225 TH/MM3 (150-450); RED BLOOD COUNT 4.02 MIL/MM3 (4.50-5.90); WHITE BLOOD COUNT 13.2 TH/MM3 (4.0-11.0)
[2017-08-22] MEDS: LABETALOL HCL 100 MG/20 ML VIAL IV PRN ×2 (03:50→21:17)
[2017-08-22] MEDS: CHLORHEXIDINE GLUCONATE 2 % 1 PACK (2 CLOTHS) TOP SCH (03:57)
[2017-08-22] MEDS: PROPOFOL 1000 MG/100 ML INJ 100 ML IV PRN ×6 (03:58→23:44)
[2017-08-22 04:00] LABS: PROTHROMBIN TIME - PATIENT 10.6 SEC (9.8-11.6)
[2017-08-22] MEDS: RESP: ALBUTEROL 2.5 MG/IPRATROPIUM 0.5 MG NEB (SCH) NEB ×4 (04:06→19:24)
[2017-08-22] MEDS: cloNIDine HCL 0.1 MG TAB PO PRN (04:10)
[2017-08-22 04:11] LABS: BICARBONATE 24.5 MEQ/L (21.0-32.0); CALCIUM 8.2 MG/DL (8.5-10.1); CREATININE 0.87 MG/DL (0.60-1.30)
--- NOTE | 2017-08-22 04:52 | RADRPT ---
EXAM DATE/TIME: 08/22/2017 04:35 [facility] COMPARISON: No previous studies available for comparison. INDICATIONS : Follow up hemorrhage. RADIATION DOSE: 47.09 CTDIvol (mGy) MEDICAL HISTORY : Non-responsive. SURGICAL HISTORY : Non-responsive. ENCOUNTER: Subsequent ACUITY: 2 days PAIN SCALE: Non-responsive LOCATION: cranial TECHNIQUE: Multiple contiguous axial images were obtained of the head. Using automated exposure control and adj ustment of the mA and/or kV according to patient size, radiation dose was kept as low as reasonably a chievable to obtain optimal diagnostic quality images. DICOM format image data is available electro nically for review and comparison. FINDINGS: CEREBRUM: Bifrontal hemorrhages and adjacent to vasogenic edema are slightly less prominent. Intraventricular h emorrhage bilaterally. The ventricles are normal for age. No evidence of midline shift, mass lesion or acute infarction. No extra-axial fluid collections are seen. POSTERIOR FOSSA: The cerebellum and brainstem are intact. The 4th ventricle is midline. The cerebellopontine angle i s unremarkable. EXTRACRANIAL: The visualized portion of the orbits is intact. SKULL: The calvaria is intact. No evidence of skull fracture. CONCLUSION: 1. Evolving and slightly less prominent bifrontal hemorrhages. 2. Minimal intraventricular hemorrhage. Anthony Patel MD on August 22, 2017 at 4:49 Board Certified Radiologist. This report was verified electronically.
[2017-08-22] MEDS: INSULIN ASPART SUPPLEMENTAL SCALE SQ SCH ×4 (05:51→17:32)
[2017-08-22] MEDS: PHENYTOIN INJ 100 MG/2 ML VIAL IV SCH ×3 (05:51→22:01)
[2017-08-22] MEDS: CHLORHEXIDINE 0.12% (ORAL KIT) 15 ML CUP MT SCH ×2 (08:18→20:20)
[2017-08-22] MEDS: DOCUSATE SODIUM 100 MG CAP PO SCH ×2 (08:41→22:02)
[2017-08-22] MEDS: SODIUM CHLORIDE 0.9% FLUSH 10 ML FLUSH IV FLUSH SCH ×2 (08:41→20:20)
[2017-08-22] MEDS: PANTOPRAZOLE SODIUM 40 MG VIAL IVP SCH (08:41)
--- NOTE | 2017-08-22 09:37 | HHI.NSPN ---
(Issac Duncan) History Chief Complaint: Unable to obtain due to patient's clinical condition. (Issac Duncan) Interval History 08/21: 67-year-old male presents to the emergency room today approximately 7 AM with history of headache for several days, increasing significantly at 6:30 AM today. His initial blood pressure was 261/143. He was placed on a nicardipine drip for initial blood pressure control. 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 He was reportedly awake and alert upon presentation to the emergency room, with left facial and upper extremity weakness. He reportedly developed increasing speech difficulty following a CT scan this morning, and subsequently was noted to have a seizure which was initially treated with Ativan. Since then he has been more lethargic and nonverbal. 08/22: The patient is obtunded this morning but he is sedated with propofol. Nursing reports that he is off all other sedation and blood pressure drips. She also reports that the patient is spontaneously moving his extremities and responds to noxious stimulation. He did go for a repeat CT brain this morning (Issac Duncan) System Review Comments Unable to obtain due to patient's clinical condition. (Issac Duncan) Exam Results 08/20/17 08/20/17 08/21/17 08/21/17 08/22/17 08/22/17 06:00 18:00 06:00 18:00 06:00 18:00 Intake Total 1052 ml 1165 ml 1000 ml Output Total 1250 ml 625 ml Balance -198 ml 540 ml 1000 ml Intake IV Total 1052 ml 1165 ml 1000 ml Output Urine Total 1100 ml 375 ml Gastric Drainage Total 150 ml 250 ml # Bowel Movements 0 0 Laboratory Tests Vital Signs Date Time Temp Pulse Resp B/P (MAP) Pulse Ox O2 Delivery O2 Flow Rate FiO2 08/22/17 08:04 93 50 08/22/17 08:04 92 50 08/22/17 08:00 80 08/22/17 08:00 50 08/22/17 07:00 94 Mechanical Ventilator 50 08/22/17 06:00 77 08/22/17 05:12 99 100 08/22/17 04:06 100 Ventilator 08/22/17 04:00 50 08/22/17 04:00 100 50 08/22/17 04:00 79 08/22/17 04:00 98.1 81 24 126/80 (95) 98 08/22/17 02:00 88 08/22/17 00:19 96 50 08/22/17 00:18 97 Ventilator 08/22/17 00:09 96 50 08/22/17 00:00 50 08/22/17 00:00 98.9 81 24 121/66 (84) 96 08/22/17 00:00 83 08/21/17 22:00 80 08/21/17 21:33 95 50 08/21/17 21:33 95 50 08/21/17 20:00 98.5 70 24 114/75 (88) 98 08/21/17 20:00 70 08/21/17 20:00 50 08/21/17 19:00 97 Mechanical Ventilator 50 08/21/17 18:00 80 08/21/17 18:00 80 08/21/17 16:58 98 50 08/21/17 16:15 24 08/21/17 16:00 82 08/21/17 16:00 98.0 82 24 142/84 (103) 96 08/21/17 16:00 82 08/21/17 16:00 50 08/21/17 15:45 99 50 08/21/17 15:31 145/81 08/21/17 14:00 82 08/21/17 13:37 95 50 08/21/17 12:17 94 50 08/21/17 12:00 97.6 82 22 119/77 (91) 94 08/21/17 12:00 82 08/21/17 12:00 50 08/21/17 10:10 98 50 08/21/17 09:30 97.8 98 22 124/72 (89) 99 08/21/17 09:15 95 24 97 Nasal Cannula 2.00 08/21/17 09:00 95 18 144/95 (111) 97 Nasal Cannula 2.00 08/21/17 08:45 90 18 153/83 (106) 96 Nasal Cannula 2.00 08/21/17 08:22 86 164/85 08/21/17 08:17 84 195/98 08/21/17 08:15 87 20 164/85 (111) 98 Nasal Cannula 2.00 08/21/17 07:45 83 18 176/87 (116) 98 Nasal Cannula 2.00 08/21/17 07:25 95 Nasal Cannula 2.00 08/21/17 07:20 81 20 195/98 (130) 96 Nasal Cannula 2.00 08/21/17 07:20 97 Nasal Cannula 2.00 08/21/17 07:20 97 Nasal Cannula 2.00 08/21/17 07:00 98.0 85 18 215/105 (141) 95 08/21/17 06:56 79 18 261/143 (182) 98 202/104 (136) (Issac Duncan) Physical Examination GENERAL: Obtunded, sedated with propofol 50 mcg/kg/min, intubated and mechanically ventilated. No apparent distress. SKIN: Warm, dry & intact w/o any evident rashes, ulcerations or other lesions. HEENT: Normocephalic, atraumatic. PERRLA 4 mm brisk. Orally intubated. OGT. NECK: No JVD, trachea midline. CARDIOVASCULAR: S1S2 w/RRR w/o M/G/R, radial & pedal pulses 2+ bilaterally, cap refill < 2 sec, no pedal edema. RESPIRATORY: CTAB w/o W/R/R, equal excursion, nonlaboured, intubated and mechanically ventilated. GASTROINTESTINAL: Abdomen soft, bowel sounds not appreciated, OGT to LIWS. GENITOURINARY: Thomas catheter to BSD. MUSCULOSKELETAL: MOLINA to some degree to stimulation, no evident deformity or clubbing. NEUROLOGICAL: Obtunded, GCS 6T (E1 V1T M4). Orally intubated. No eye opening to any stimulation. PERRLA 4 mm brisk. Positive cough reflex. Does not follow any commands. Moves right foot > left foot to local noxious stimulation, no movement of BUE. Moves all extremities RLE>LLE>RUE>LUE to central noxious stimulation. (Issac Duncan) Lab, Micro, Other Results I have personally reviewed all imaging. The CT brain this morning demonstrates continued evolution of the bifrontal haemorrhages which are smaller in size when compared to yesterday. There is now present a small amount of intraventricular haemorrhage bilaterally. Recent Impressions Head CT 08/22/17 0600 Signed Impressions: Service Date/Time: July 04:35 - CONCLUSION: 1. Evolving and slightly less prominent bifrontal hemorrhages. 2. Minimal intraventricular hemorrhage. Anthony Patel MD Neck CTA 08/21/17 0743 Signed Impressions: Service Date/Time: Monday, August 21, 2017 07:47 - CONCLUSION: 1. See the CT of the brain reported separately. 2. Patent carotid arteries and vertebral arteries. Alexis Villa Jr., MD Head CTA 08/21/17 0725 Signed Impressions: Service Date/Time: Monday, August 21, 2017 07:47 - CONCLUSION: 1. Negative head CTA exam. Specifically, no evidence for aneurysm or large vessel occlusion. Wil Lopez MD Head Magnetic Resonance Angiography 08/21/17 0000 Signed Impressions: Service Date/Time: Monday, August 21, 2017 16:02 - CONCLUSION: 1. MRA suggest parenchymal hemorrhage in both frontal lobes, left greater than right. 2. However, the intracranial vessels are all widely patent without aneurysmal disease. Christiano Falk MD Head CT 08/21/17 0000 Signed Impressions: Service Date/Time: Monday, August 21, 2017 07:10 - CONCLUSION: Acute parenchymal hemorrhage within the frontal lobes bilaterally measuring 5.5 x 4.3 cm which crosses midline and demonstrates associated edema throughout the frontal lobes and mass effect upon the corpus callosum. There is an extra- axial component along the right side of the false which measures 1.8 cm transverse x 3.2 cm AP. Differential diagnosis includes hemorrhagic infarct, post-traumatic hemorrhage, hemorrhagic mass, and ruptured aneurysm. Lukas Flores MD Chest X-Ray 08/21/17 0000 Signed Impressions: Service Date/Time: Monday, August 21, 2017 11:31 - CONCLUSION: 1. Central line in good position without pneumothorax. 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 Saw Higginbotham MD Laboratory Tests Test 08/21/17 07:05 08/21/17 08:30 08/21/17 10:00 08/21/17 11:52 White Blood Count 12.9 TH/MM3 Red Blood Count 4.71 MIL/MM3 Hemoglobin 15.0 GM/DL Bedside Hemoglobin 15.3 G/DL Hematocrit 43.6 % Bedside Hematocrit 45.0 % Mean Corpuscular Volume 92.7 FL Mean Corpuscular Hemoglobin 31.8 PG Mean Corpuscular Hemoglobin Concent 34.3 % Red Cell Distribution Width 12.7 % Platelet Count 271 TH/MM3 Mean Platelet Volume 8.6 FL Neutrophils (%) (Auto) 68.4 % Lymphocytes (%) (Auto) 22.3 % Monocytes (%) (Auto) 8.3 % Eosinophils (%) (Auto) 0.6 % Basophils (%) (Auto) 0.4 % Neutrophils # (Auto) 8.9 TH/MM3 Lymphocytes # (Auto) 2.9 TH/MM3 Monocytes # (Auto) 1.1 TH/MM3 Eosinophils # (Auto) 0.1 TH/MM3 Basophils # (Auto) 0.0 TH/MM3 CBC Comment DIFF FINAL Differential Comment Prothrombin Time 10.6 SEC Prothromb Time International Ratio 1.0 RATIO Activated Partial Thromboplast Time 26.9 SEC Fibrinogen 337 mg/dL Bedside Sodium 140 MMOL/L Bedside Potassium 3.6 MMOL/L Bedside Chloride 101 MMOL/L Bedside Blood Urea Nitrogen 16 MG/DL Bedside Creatinine 1.0 MG/DL Bedside Glucose 135 MG/DL Total Creatine Kinase 85 U/L Troponin I LESS THAN 0.02 NG/ML Urine Color YELLOW Urine Turbidity CLEAR Urine pH 6.0 Urine Specific [place] 1.031 Urine Protein 30 mg/dL Urine Glucose (UA) 150 mg/dL Urine Ketones NEG mg/dL Urine Occult Blood NEG Urine Nitrite NEG Urine Bilirubin NEG Urine Urobilinogen LESS THAN 2.0 MG/DL Urine Leukocyte Esterase NEG Urine RBC 1 /hpf Urine WBC 3 /hpf Urine Squamous Epithelial Cells <1 /hpf Urine Hyaline Casts 4 /lpf Urine Mucus FEW /lpf Urine Opiates Screen NEG Urine Barbiturates Screen NEG Urine Amphetamines Screen POS Urine Benzodiazepines Screen NEG Urine Cocaine Screen NEG Urine Cannabinoids Screen NEG Nasal Screen MRSA (PCR) MRSA NOT DETECTED Blood Gas Puncture Site ART LINE Blood Gas Patient Temperature 98.6 Blood Gas HCO3 24 mmol/L Blood Gas Base Excess -0.5 mmol/L Blood Gas Oxygen Saturation 92 % Arterial Blood pH 7.38 Arterial Blood Partial Pressure CO2 42 mmHg Arterial Blood Partial Pressure O2 76 mmHg Arterial Blood Oxygen Content 17.4 Vol % Arterial Blood Carboxyhemoglobin 1.4 % Arterial Blood Methemoglobin 0.8 % Blood Gas Hemoglobin 13.4 G/DL Oxygen Delivery Device VENTILATOR Blood Gas Ventilator Setting PRVC/VT500/R16/P5 Blood Gas Inspired Oxygen 50 % Test 08/22/17 02:19 08/22/17 03:20 08/22/17 03:40 Blood Gas Puncture Site TD Blood Gas Patient Temperature 98.6 Blood Gas HCO3 22 mmol/L Blood Gas Base Excess -2.0 mmol/L Blood Gas Oxygen Saturation 92 % Arterial Blood pH 7.44 Arterial Blood Partial Pressure CO2 32 mmHg Arterial Blood Partial Pressure O2 69 mmHg Arterial Blood Oxygen Content 18.7 Vol % Arterial Blood Carboxyhemoglobin 1.2 % Arterial Blood Methemoglobin 0.7 % Blood Gas Hemoglobin 14.5 G/DL Oxygen Delivery Device VENTILATOR Blood Gas Ventilator Setting PRVC /AC Blood Gas Inspired Oxygen 50 % White Blood Count 13.2 TH/MM3 Red Blood Count 4.02 MIL/MM3 Hemoglobin 12.7 GM/DL Hematocrit 36.9 % Mean Corpuscular Volume 91.8 FL Mean Corpuscular Hemoglobin 31.6 PG Mean Corpuscular Hemoglobin Concent 34.5 % Red Cell Distribution Width 13.0 % Platelet Count 225 TH/MM3 Mean Platelet Volume 8.6 FL Neutrophils (%) (Auto) 76.7 % Lymphocytes (%) (Auto) 14.0 % Monocytes (%) (Auto) 8.3 % Eosinophils (%) (Auto) 0.6 % Basophils (%) (Auto) 0.4 % Neutrophils # (Auto) 10.1 TH/MM3 Lymphocytes # (Auto) 1.8 TH/MM3 Monocytes # (Auto) 1.1 TH/MM3 Eosinophils # (Auto) 0.1 TH/MM3 Basophils # (Auto) 0.1 TH/MM3 CBC Comment DIFF FINAL Differential Comment Prothrombin Time 10.6 SEC Prothromb Time International Ratio 1.0 RATIO Activated Partial Thromboplast Time 25.7 SEC Blood Urea Nitrogen 13 MG/DL Creatinine 0.87 MG/DL Random Glucose 109 MG/DL Calcium Level 8.2 MG/DL Sodium Level 139 MEQ/L Potassium Level 3.9 MEQ/L Chloride Level 107 MEQ/L Carbon Dioxide Level 24.5 MEQ/L Anion Gap 8 MEQ/L Estimat Glomerular Filtration Rate 88 ML/MIN (Issac Duncan) Medical Decision Making Impression and Plan Impression: 1. Bifrontal spontaneous intracranial hemorrhage 2. New onset seizure 3. Hypertension 4. Chronic tobacco use Obtunded but sedated, moves extremities to noxious stimulation. Labs & imaging reviewed. Evolving but slightly smaller bifrontal haemorrhages with small amount of intraventricular haemorrhage. Plan: Discussed plan of care with Nursing. Critical care management per [employer]. Frequent vital signs and neuro checks Target SBP < 140. Phenytoin for seizures. Non-chemical DVT prophylaxis. Ulcer prophylaxis. ADDENDUM at 1706: This practitioner called and spoke with the patient 's spouse around 1530 or so this afternoon in regards to the patient's physical exam and repeat CT findings from this morning. She verbalised her understanding and her questions were answered. BET (Issac Duncan) Attending Statement No significant change in neurologic exam today. Patient remains obtunded, not following commands. Follow-up CT scan had 08/22/17 images reviewed. Stable, slightly improved bifrontal hemorrhage. Continuing close neurologic checks and ISC. Ventilatory support Hypertension control Non chemical DVT prophylaxis (Martin Kong MD) Issac Duncna Aug 22, 2017 09:37 Martin Kong MD Aug 22, 2017 22:36
[2017-08-22] MEDS ORDERED: SOFO1TAB (12:58)
[2017-08-22] MEDS ORDERED: LAMI200T PO (13:02)
--- NOTE | 2017-08-22 14:01 | HHI.CCPN ---
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 His headache worsened which worsened around 6:30 AM. Patient was evaluated in the ER stroke alert was called. A head CT revealed intraparenchymal hemorrhage involving frontal lobes. Patient was evaluated by Dr. Kong from neurosurgery who admitted the patient to the ICU. Reportedly patient had seizures in the ER for which she received Ativan 2 mg IV and was loaded with fosphenytoin 1 g IV. Subsequently he was transferred to the ICU where I evaluated him immediately on his arrival. At that time he was extremely encephalopathic, stupor O's, nonverbal. I did not feel patient is protecting his airway at the time. I also noted some rhythmic jaw movements consistent with seizure activity. Patient was given Ativan 4 mg IV stat and I proceeded with emergent intubation and patient was placed on mechanical ventilation. A central line was placed emergently as well. Subsequently discussed with Dr. Kong wish to proceed with MRI/MRA of the brain for further evaluation. Patient was sedated with propofol following intubation. He was on a nicardipine drip on arrival as his blood pressure in the ER was 200s systolic. History was obtained by reviewing records and discussion with Dr. Kong and nursing staff. 08/22: Unresponsive aside from withdrawal lower extremities to painful stimulation. No obvious seizure activity. Ventilator dependent. Frontal bleeds are being absorbed, no new bleeding. Objective Vital Signs Date Time Temp Pulse Resp B/P (MAP) Pulse Ox O2 Delivery O2 Flow Rate FiO2 08/22/17 12:00 98.9 76 21 118/58 (78) 96 08/22/17 12:00 60 08/22/17 07:00 Mechanical Ventilator 08/21/17 09:15 2.00 Intake and Output 08/22/17 08/22/17 08/23/17 08:00 16:00 00:00 Intake Total 2076 ml Output Total 625 ml Balance 1451 ml Result Diagram: 08/22/17 0320 08/22/17 0320 Other Results Laboratory Tests Test 08/22/17 02:19 Blood Gas Puncture Site TD Blood Gas Patient Temperature 98.6 Blood Gas HCO3 22 mmol/L (22-26) Blood Gas Base Excess -2.0 mmol/L (-2-2) Blood Gas Oxygen Saturation 92 % (90-100) Arterial Blood pH 7.44 (7.380-7.420) Arterial Blood Partial Pressure CO2 32 mmHg (38-42) Arterial Blood Partial Pressure O2 69 mmHg (61-120) Arterial Blood Oxygen Content 18.7 Vol % (12.0-20.0) Arterial Blood Carboxyhemoglobin 1.2 % (0-4) Arterial Blood Methemoglobin 0.7 % (0-2) Blood Gas Hemoglobin 14.5 G/DL (12.0-16.0) Oxygen Delivery Device VENTILATOR Blood Gas Ventilator Setting PRVC /AC Blood Gas Inspired Oxygen 50 % Imaging Last Impressions Neck CTA 08/21/17 0743 Signed Impressions: Service Date/Time: Monday, August 21, 2017 07:47 - CONCLUSION: 1. See the CT of the brain reported separately. 2. Patent carotid arteries and vertebral arteries. Alexis Villa Jr., MD Head CTA 08/21/17 0725 Signed Impressions: Service Date/Time: Monday, August 21, 2017 07:47 - CONCLUSION: 1. Negative head CTA exam. Specifically, no evidence for aneurysm or large vessel occlusion. Wil Lopez MD Head CT 08/21/17 0000 Signed Impressions: Service Date/Time: Monday, August 21, 2017 07:10 - CONCLUSION: Acute parenchymal hemorrhage within the frontal lobes bilaterally measuring 5.5 x 4.3 cm which crosses midline and demonstrates associated edema throughout the frontal lobes and mass effect upon the corpus callosum. There is an extra- axial component along the right side of the false which measures 1.8 cm transverse x 3.2 cm AP. Differential diagnosis includes hemorrhagic infarct, post-traumatic hemorrhage, hemorrhagic mass, and ruptured aneurysm. Lukas Flores MD Chest X-Ray 08/21/17 0000 Signed Impressions: Service Date/Time: Monday, August 21, 2017 11:31 - CONCLUSION: 1. Central line in good position without pneumothorax. Alexis Villa Jr., MD Objective Remarks Physical Exam Narrative HEENT/ Neuro: Sedated, no pallor or icterus, tongue/ mucosa moist, left-sided facial weakness. Pupils 3 mm bilaterally reacting actively to light. Neck: No JVD, orally intubated. Chest/Pulm: on mech vent, good air entry bilaterally, no wheezing or crackles CVS: S1-S2 regular, no murmur, no JVD. GI/abdomen: soft, nontender, bowel sounds active. Extremities: warm bilaterally, no edema, well perfused. A/P Assessment and Plan 67 year-old male with: Intracerebral hemorrhage involving frontal lobes Encephalopathy Seizure Acute respiratory failure requiring mechanical ventilation Hypertensive emergency Plan: Neuro: Sedation with propofol, follow neuro status. Awaiting MRI MRA brain. Neurosurgery following. Anticonvulsants per neurosurgery. Patient has been loaded with fosphenytoin. Repeat head CT in a.m. Cardiovascular: Nicardipine drip to keep systolic blood pressure below 1 40 mmHg. Pulmonary: Intubated for airway protection. Continue mechanical ventilation, vent bundle, bronchodilators as needed. GI/liver: Nothing by mouth for now. Start tube feeds if okay with neurosurgery Renal/: IV hydration, strict intake output, monitor and replete electrolytes, follow BUN/creatinine. ID: No indication for antibiotics at this time. Heme: Follow CBC and coags Endocrine: SSI for glycemic control if needed. Prophylaxis: PPI/SCDs. Subcutaneous heparin to be cleared by neurosurgery. Overall impression: He remains critically ill and neurologically unstable following a bifrontal lobe brain hemorrhage. Unable to wean ventilator. Critical Care 39 mins Shan Seo MD Aug 22, 2017 14:01
--- NOTE | 2017-08-22 20:59 | OTSOAPIP ---
RN ASKED TO HOLD EVALUATION THIS AM DUE TO VITALS. WILL REATTEMPT. Therapist: Amanda Tai OTR/L Signature on file
--- NOTE | 2017-08-22 20:59 | OTSOAPIP ---
RN ASKED TO HOLD EVALUATION THIS AM DUE TO VITALS. WILL REATTEMPT. Therapist: Amanda Tai OTR/L Signature on file
--- NOTE | 2017-08-22 20:59 | OTSOAPIP ---
RN ASKED TO HOLD EVALUATION THIS AM DUE TO VITALS. WILL REATTEMPT. Therapist: Amanda Tai OTR/L Signature on file
[2017-08-22] MEDS: lamoTRIgine 100 MG TAB PO SCH (22:02)
[2017-08-23] VITALS (19 sets, daily range): BP systolic 115–138; BP diastolic 54–67; PULSE 70–84; RESP 19–27; TEMP 98.8–100.7; O2SAT 92–99
[2017-08-23] MEDS: RESP: ALBUTEROL 2.5 MG/IPRATROPIUM 0.5 MG NEB (SCH) NEB ×4 (00:54→20:10)
--- NOTE | 2017-08-23 02:13 | HHI.CCPN ---
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 His headache worsened which worsened around 6:30 AM. Patient was evaluated in the ER stroke alert was called. A head CT revealed intraparenchymal hemorrhage involving frontal lobes. Patient was evaluated by Dr. Kong from neurosurgery who admitted the patient to the ICU. Reportedly patient had seizures in the ER for which she received Ativan 2 mg IV and was loaded with fosphenytoin 1 g IV. Subsequently he was transferred to the ICU where I evaluated him immediately on his arrival. At that time he was extremely encephalopathic, stupor O's, nonverbal. I did not feel patient is protecting his airway at the time. I also noted some rhythmic jaw movements consistent with seizure activity. Patient was given Ativan 4 mg IV stat and I proceeded with emergent intubation and patient was placed on mechanical ventilation. A central line was placed emergently as well. Subsequently discussed with Dr. Kong wish to proceed with MRI/MRA of the brain for further evaluation. Patient was sedated with propofol following intubation. He was on a nicardipine drip on arrival as his blood pressure in the ER was 200s systolic. History was obtained by reviewing records and discussion with Dr. Kong and nursing staff. 08/22: Unresponsive aside from withdrawal lower extremities to painful stimulation. No obvious seizure activity. Ventilator dependent. Frontal bleeds are being absorbed, no new bleeding. 08/23: Remains sedated, orally intubated on mechanical ventilation. Reportedly is on Epclusa which is used for hepatitis C treatment. Objective Vital Signs Date Time Temp Pulse Resp B/P (MAP) Pulse Ox O2 Delivery O2 Flow Rate FiO2 08/23/17 00:54 95 50 08/23/17 00:00 99.2 76 25 135/66 (89) 08/22/17 07:00 Mechanical Ventilator 08/21/17 09:15 2.00 Result Diagram: 08/22/17 0320 08/22/17 0320 Other Results Laboratory Tests Test 08/22/17 02:19 Blood Gas Puncture Site TD Blood Gas Patient Temperature 98.6 Blood Gas HCO3 22 mmol/L (22-26) Blood Gas Base Excess -2.0 mmol/L (-2-2) Blood Gas Oxygen Saturation 92 % (90-100) Arterial Blood pH 7.44 (7.380-7.420) Arterial Blood Partial Pressure CO2 32 mmHg (38-42) Arterial Blood Partial Pressure O2 69 mmHg (61-120) Arterial Blood Oxygen Content 18.7 Vol % (12.0-20.0) Arterial Blood Carboxyhemoglobin 1.2 % (0-4) Arterial Blood Methemoglobin 0.7 % (0-2) Blood Gas Hemoglobin 14.5 G/DL (12.0-16.0) Oxygen Delivery Device VENTILATOR Blood Gas Ventilator Setting PRVC /AC Blood Gas Inspired Oxygen 50 % Imaging Last Impressions Neck CTA 08/21/17 0743 Signed Impressions: Service Date/Time: Monday, August 21, 2017 07:47 - CONCLUSION: 1. See the CT of the brain reported separately. 2. Patent carotid arteries and vertebral arteries. Alexis Villa Jr., MD Head CTA 08/21/17 0725 Signed Impressions: Service Date/Time: Monday, August 21, 2017 07:47 - CONCLUSION: 1. Negative head CTA exam. Specifically, no evidence for aneurysm or large vessel occlusion. Wil Lopez MD Head CT 08/21/17 0000 Signed Impressions: Service Date/Time: Monday, August 21, 2017 07:10 - CONCLUSION: Acute parenchymal hemorrhage within the frontal lobes bilaterally measuring 5.5 x 4.3 cm which crosses midline and demonstrates associated edema throughout the frontal lobes and mass effect upon the corpus callosum. There is an extra- axial component along the right side of the false which measures 1.8 cm transverse x 3.2 cm AP. Differential diagnosis includes hemorrhagic infarct, post-traumatic hemorrhage, hemorrhagic mass, and ruptured aneurysm. Lukas Flores MD Chest X-Ray 08/21/17 0000 Signed Impressions: Service Date/Time: Monday, August 21, 2017 11:31 - CONCLUSION: 1. Central line in good position without pneumothorax. Alexis Villa Jr., MD Objective Remarks Physical Exam Narrative HEENT/ Neuro: Sedated, no pallor or icterus, tongue/ mucosa moist, left-sided facial weakness. Pupils 3 mm bilaterally reacting actively to light. Neck: No JVD, orally intubated. Chest/Pulm: on mech vent, good air entry bilaterally, no wheezing or crackles CVS: S1-S2 regular, no murmur, no JVD. GI/abdomen: soft, nontender, bowel sounds active. Extremities: warm bilaterally, no edema, well perfused. A/P Assessment and Plan 67 year-old male with: Intracerebral hemorrhage involving frontal lobes Encephalopathy Seizure Acute respiratory failure requiring mechanical ventilation Hypertensive emergency ? Hepatitis C Plan: Neuro: Sedation with propofol, added fentanyl gtt. follow neuro status. Awaiting MRI MRA brain. Neurosurgery following. Continue phenytoin, check Dilantin level in a.m. Home dose Lamictal resumed 08/22. Repeat head CT per neurosurgery Cardiovascular: Nicardipine drip to keep systolic blood pressure below 140 mmHg. Pulmonary: Intubated for airway protection. Continue mechanical ventilation, vent bundle, bronchodilators as needed. Thick pulmonary secretions. We'll send sputum for Gram stain and cultures GI/liver: Start tube feeds with Jevity and advanced to goal as tolerated. Patient reportedly on Epclusa which is a medication for hepatitis C. Renal/: IV hydration, strict intake output, monitor and replete electrolytes, follow BUN/creatinine. ID: No indication for antibiotics at this time. On epclusa at home for ? Hep C Heme: Follow CBC and coags Endocrine: SSI for glycemic control if needed. Prophylaxis: PPI/SCDs. Subcutaneous heparin to be cleared by neurosurgery. Overall impression: He remains critically ill and neurologically unstable following a bifrontal lobe brain hemorrhage. Unable to wean ventilator. Critical Care 30 mins Nilson López MD Aug 23, 2017 02:13
[2017-08-23] MEDS: PROPOFOL 1000 MG/100 ML INJ 100 ML IV PRN ×6 (02:44→21:34)
[2017-08-23] MEDS: fentaNYL DRIP 250 ML IV PRN ×2 (02:45→22:25)
[2017-08-23] MEDS: CHLORHEXIDINE GLUCONATE 2 % 1 PACK (2 CLOTHS) TOP SCH (03:22)
[2017-08-23] MEDS: SODIUM CHLOR 0.9% 1000 ML INJ 1,000 ML IV SCH ×2 (03:22→15:36)
[2017-08-23] MEDS: LABETALOL HCL 100 MG/20 ML VIAL IV PRN (04:13)
[2017-08-23 04:30] LABS: AUTOMATED NEUTROPHIL # 9.6 TH/MM3 (1.8-7.7); BASOPHIL # 0.1 TH/MM3 (0-0.2); BASOPHIL % 0.6 % (0.0-2.0); EOSINOPHIL # 0.3 TH/MM3 (0-0.4); HEMOGLOBIN 11.6 GM/DL (13.0-17.0); LYMPH % 14.1 % (9.0-44.0); LYMPHOCYTE # 1.8 TH/MM3 (1.0-4.8); MEAN CELL VOLUME 93.1 FL (80.0-100.0); MEAN CORPUSCULAR HEMOGLOBIN 30.9 PG (27.0-34.0); MEAN CORPUSCULAR HGB CONC 33.2 % (32.0-36.0); MEAN PLATELET VOLUME 8.5 FL (7.0-11.0); MONOCYTE # 1.2 TH/MM3 (0-0.9); NEUT % 74.3 % (16.0-70.0); PLATELET COUNT 201 TH/MM3 (150-450); RED BLOOD COUNT 3.76 MIL/MM3 (4.50-5.90); WHITE BLOOD COUNT 12.9 TH/MM3 (4.0-11.0)
[2017-08-23 04:42] LABS: BICARBONATE 23.7 MEQ/L (21.0-32.0); CALCIUM 8.4 MG/DL (8.5-10.1); CREATININE 0.74 MG/DL (0.60-1.30)
[2017-08-23] MEDS: INSULIN ASPART SUPPLEMENTAL SCALE SQ SCH ×4 (05:23→18:00)
--- NOTE | 2017-08-23 06:14 | RADRPT ---
EXAM DATE/TIME: 08/23/2017 05:59 CORRECTION Corrected on: August 30, 2017; Removed Copy To Dr. Sherie THACKER COMPARISON: CHEST SINGLE AP, August 21, 2017, 11:31. INDICATIONS : Respiratory failure. MEDICAL HISTORY : None. SURGICAL HISTORY : None. ENCOUNTER: Subsequent ACUITY: 2 days PAIN SCORE: Non-responsive. LOCATION: Bilateral chest FINDINGS: A large right pneumothorax has developed. Mild bibasilar atelectasis noted. No pleural effusion. No Heart size stable, within normal limits. Endotracheal tube tip is approximately 3 cm above the jolene. There is a right internal jugular centr al venous catheter with tip in the right atrium. CONCLUSION: 1. New large pneumothorax on the right. Slight tension component. Patient's nurse Radha was notified by phone. 2. Mild atelectasis of both bases. Saw Peng MD on August 23, 2017 at 6:10 Board Certified Radiologist. Board Certified Radiologist. This report was verified electronically.
[2017-08-23] MEDS: PHENYTOIN INJ 100 MG/2 ML VIAL IV SCH ×3 (06:44→21:10)
--- NOTE | 2017-08-23 08:53 | HHI.NSPN ---
(Issac Duncan) History Chief Complaint: Unable to obtain due to patient's clinical condition. (Issac Duncan) Interval History 08/21: 67-year-old male presents to the emergency room today approximately 7 AM with history of headache for several days, increasing significantly at 6:30 AM today. His initial blood pressure was 261/143. He was placed on a nicardipine drip for initial blood pressure control. 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 He was reportedly awake and alert upon presentation to the emergency room, with left facial and upper extremity weakness. He reportedly developed increasing speech difficulty following a CT scan this morning, and subsequently was noted to have a seizure which was initially treated with Ativan. Since then he has been more lethargic and nonverbal. 08/22: The patient is obtunded this morning but he is sedated with propofol. Nursing reports that he is off all other sedation and blood pressure drips. She also reports that the patient is spontaneously moving his extremities and responds to noxious stimulation. He did go for a repeat CT brain this morning. 08/23: The patient is agitated and thrashing about in bed when seen. Nursing and the Hydrodynamics Professor are present and a needle decompression had been done for a pneumothorax on the right side which was demonstrated on his CXR this morning. They were preparing to place a right-sided chest tube. The patient continues to be intubated and mechanically ventilated. He does have propofol for sedation and fentanyl for pain management infusing. (Issac Duncan) System Review Comments Unable to obtain due to patient's clinical condition. (Issac Duncan) Exam Results 08/21/17 08/21/17 08/22/17 08/22/17 08/23/17 08/23/17 06:00 18:00 06:00 18:00 06:00 18:00 Intake Total 1052 ml 1165 ml 2000 ml 2638 ml 900 ml Output Total 1250 ml 625 ml 900 ml 2325 ml Balance -198 ml 540 ml 1100 ml 2638 ml -1425 ml Intake IV Total 1052 ml 1165 ml 2000 ml 2638 ml 900 ml Output Urine Total 1100 ml 375 ml 500 ml 1925 ml Gastric Drainage Total 150 ml 250 ml 400 ml 400 ml # Bowel Movements 0 0 0 0 Vital Signs Date Time Temp Pulse Resp B/P (MAP) Pulse Ox O2 Delivery O2 Flow Rate FiO2 08/23/17 07:39 93 40 08/23/17 07:32 94 40 08/23/17 06:00 79 08/23/17 04:00 80 08/23/17 04:00 99.9 80 22 120/54 (76) 92 08/23/17 04:00 40 08/23/17 03:57 96 45 08/23/17 02:00 77 08/23/17 00:54 95 50 08/23/17 00:00 99.2 76 25 135/66 (89) 98 08/23/17 00:00 60 08/23/17 00:00 76 08/22/17 22:00 73 08/22/17 20:00 79 08/22/17 20:00 60 08/22/17 20:00 99.1 79 21 154/69 (97) 99 08/22/17 19:24 95 60 08/22/17 18:00 79 08/22/17 16:00 60 08/22/17 16:00 99.6 78 22 146/72 (96) 99 08/22/17 16:00 86 08/22/17 15:43 95 60 08/22/17 14:00 78 08/22/17 12:00 98.9 76 21 118/58 (78) 96 08/22/17 12:00 60 08/22/17 12:00 76 08/22/17 11:53 97 60 08/22/17 10:28 60 08/22/17 10:00 79 08/22/17 09:31 50 08/22/17 08:04 93 50 08/22/17 08:04 92 50 08/22/17 08:00 98.9 76 20 126/64 (84) 94 Automatic Cuff 08/22/17 08:00 80 08/22/17 08:00 50 08/22/17 07:00 94 Mechanical Ventilator 50 08/22/17 06:00 77 08/22/17 05:12 99 100 08/22/17 04:06 100 Ventilator 08/22/17 04:00 50 08/22/17 04:00 100 50 08/22/17 04:00 79 08/22/17 04:00 98.1 81 24 126/80 (95) 98 08/22/17 02:00 88 08/22/17 00:19 96 50 08/22/17 00:18 97 Ventilator 08/22/17 00:09 96 50 08/22/17 00:00 50 08/22/17 00:00 98.9 81 24 121/66 (84) 96 08/22/17 00:00 83 08/21/17 22:00 80 08/21/17 21:33 95 50 08/21/17 21:33 95 50 08/21/17 20:00 98.5 70 24 114/75 (88) 98 08/21/17 20:00 70 08/21/17 20:00 50 08/21/17 19:00 97 Mechanical Ventilator 50 08/21/17 18:00 80 08/21/17 18:00 80 08/21/17 16:58 98 50 08/21/17 16:15 24 08/21/17 16:00 82 08/21/17 16:00 98.0 82 24 142/84 (103) 96 08/21/17 16:00 82 08/21/17 16:00 50 08/21/17 15:45 99 50 08/21/17 15:31 145/81 08/21/17 14:00 82 08/21/17 13:37 95 50 08/21/17 12:17 94 50 08/21/17 12:00 97.6 82 22 119/77 (91) 94 08/21/17 12:00 82 08/21/17 12:00 50 08/21/17 10:10 98 50 08/21/17 09:30 97.8 98 22 124/72 (89) 99 08/21/17 09:15 95 24 97 Nasal Cannula 2.00 08/21/17 09:00 95 18 144/95 (111) 97 Nasal Cannula 2.00 08/21/17 08:45 90 18 153/83 (106) 96 Nasal Cannula 2.00 08/21/17 08:22 86 164/85 08/21/17 08:17 84 195/98 08/21/17 08:15 87 20 164/85 (111) 98 Nasal Cannula 2.00 08/21/17 07:45 83 18 176/87 (116) 98 Nasal Cannula 2.00 08/21/17 07:25 95 Nasal Cannula 2.00 08/21/17 07:20 81 20 195/98 (130) 96 Nasal Cannula 2.00 08/21/17 07:20 97 Nasal Cannula 2.00 08/21/17 07:20 97 Nasal Cannula 2.00 08/21/17 07:00 98.0 85 18 215/105 (141) 95 08/21/17 06:56 79 18 261/143 (182) 98 202/104 (136) (Issac Duncan) Physical Examination GENERAL: Agitated and thrashing about in bed, propofol 50 mcg/kg/min infusing for sedation and has fentanyl 100 mcg/hr for pain control, intubated and mechanically ventilated. SKIN: Warm, dry & intact w/o any evident rashes, ulcerations or other lesions except for 16 gauge angiocath insertion site to right upper chest wall. HEENT: Normocephalic, atraumatic. PERRLA 4 mm brisk. Orally intubated. OGT. NECK: No JVD, trachea midline. CARDIOVASCULAR: S1S2 w/RRR w/o M/G/R, radial & pedal pulses 2+ bilaterally, cap refill < 2 sec, no pedal edema. RESPIRATORY: CTAB w/o W/R/R, equal excursion, moderately laboured, intubated and mechanically ventilated, 16 gauge angiocath to right upper chest wall for needle decompression. GASTROINTESTINAL: Abdomen soft, bowel sounds not appreciated, OGT to LIWS w/ greenish drainage. GENITOURINARY: Thomas catheter to BSD w/clear yellow urine. MUSCULOSKELETAL: Moving RUE & BLE spontaneously, no evident deformity or clubbing. NEUROLOGICAL: Agitated and thrashing about in bed, GCS 7T (E2 V1T M4). Orally intubated. Partial eye opening to central noxious stimulation. PERRLA 4 mm brisk. Positive cough reflex. Does not follow any commands. Withdraws BLE to local noxious stimulation and moves all extremities to central noxious stimulation. (Issac Duncan) Lab, Micro, Other Results Recent Impressions Chest X-Ray 10/27/17 0600 Signed Impressions: Service Date/Time: Wednesday, August 23, 2017 05:59 - CONCLUSION: 1. New large pneumothorax on the right. Slight tension component. Patient's nurse Radha was notified by phone. 2. Mild atelectasis of both bases. Saw Peng MD Chest X-Ray 08/23/17 0000 Signed Impressions: Service Date/Time: Wednesday, August 23, 2017 09:54 - CONCLUSION: 1. Interval right chest tube placement with resolution of right-sided pneumothorax. 2. Remaining tubes and lines are stable, as above. 3. Mild bibasilar airspace disease, likely atelectasis. Wil Lopez MD Head CT [id number] Signed Impressions: Service Date/Time: July 04:35 - CONCLUSION: 1. Evolving and slightly less prominent bifrontal hemorrhages. 2. Minimal intraventricular hemorrhage. Anthony Patel MD Neck CTA 08/21/1743 Signed Impressions: Service Date/Time: Monday, August 21, 2017 07:47 - CONCLUSION: 1. See the CT of the brain reported separately. 2. Patent carotid arteries and vertebral arteries. Alexis Villa Jr., MD Head CTA 08/21/[id number] Signed Impressions: Service Date/Time: Monday, August 21, 2017 07:47 - CONCLUSION: 1. Negative head CTA exam. Specifically, no evidence for aneurysm or large vessel occlusion. Wil Lopez MD Head Magnetic Resonance Angiography 08/21/17 Signed Impressions: Service Date/Time: Monday, August 21, 2017 16:02 - CONCLUSION: 1. MRA suggest parenchymal hemorrhage in both frontal lobes, left greater than right. 2. However, the intracranial vessels are all widely patent without aneurysmal disease. Christiano Falk MD Head CT 08/21/17 Signed Impressions: Service Date/Time: Monday, August 21, 2017 07:10 - CONCLUSION: Acute parenchymal hemorrhage within the frontal lobes bilaterally measuring 5.5 x 4.3 cm which crosses midline and demonstrates associated edema throughout the frontal lobes and mass effect upon the corpus callosum. There is an extra- axial component along the right side of the false which measures 1.8 cm transverse x 3.2 cm AP. Differential diagnosis includes hemorrhagic infarct, post-traumatic hemorrhage, hemorrhagic mass, and ruptured aneurysm. Lukas Flores MD Chest X-Ray 08/21/17 0000 Signed Impressions: Service Date/Time: Monday, August 21, 2017 11:31 - CONCLUSION: 1. Central line in good position without pneumothorax. 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 Saw Higginbotham MD Laboratory Tests Test 08/21/17 07:05 08/21/17 08:30 08/21/17 10:00 08/21/17 11:52 White Blood Count 12.9 TH/MM3 Red Blood Count 4.71 MIL/MM3 Hemoglobin 15.0 GM/DL Bedside Hemoglobin 15.3 G/DL Hematocrit 43.6 % Bedside Hematocrit 45.0 % Mean Corpuscular Volume 92.7 FL Mean Corpuscular Hemoglobin 31.8 PG Mean Corpuscular Hemoglobin Concent 34.3 % Red Cell Distribution Width 12.7 % Platelet Count 271 TH/MM3 Mean Platelet Volume 8.6 FL Neutrophils (%) (Auto) 68.4 % Lymphocytes (%) (Auto) 22.3 % Monocytes (%) (Auto) 8.3 % Eosinophils (%) (Auto) 0.6 % Basophils (%) (Auto) 0.4 % Neutrophils # (Auto) 8.9 TH/MM3 Lymphocytes # (Auto) 2.9 TH/MM3 Monocytes # (Auto) 1.1 TH/MM3 Eosinophils # (Auto) 0.1 TH/MM3 Basophils # (Auto) 0.0 TH/MM3 CBC Comment DIFF FINAL Differential Comment Prothrombin Time 10.6 SEC Prothromb Time International Ratio 1.0 RATIO Activated Partial Thromboplast Time 26.9 SEC Fibrinogen 337 mg/dL Bedside Sodium 140 MMOL/L Bedside Potassium 3.6 MMOL/L Bedside Chloride 101 MMOL/L Bedside Blood Urea Nitrogen 16 MG/DL Bedside Creatinine 1.0 MG/DL Bedside Glucose 135 MG/DL Total Creatine Kinase 85 U/L Troponin I LESS THAN 0.02 NG/ML Urine Color YELLOW Urine Turbidity CLEAR Urine pH 6.0 Urine Specific [place] 1.031 Urine Protein 30 mg/dL Urine Glucose (UA) 150 mg/dL Urine Ketones NEG mg/dL Urine Occult Blood NEG Urine Nitrite NEG Urine Bilirubin NEG Urine Urobilinogen LESS THAN 2.0 MG/DL Urine Leukocyte Esterase NEG Urine RBC 1 /hpf Urine WBC 3 /hpf Urine Squamous Epithelial Cells <1 /hpf Urine Hyaline Casts 4 /lpf Urine Mucus FEW /lpf Urine Opiates Screen NEG Urine Barbiturates Screen NEG Urine Amphetamines Screen POS Urine Benzodiazepines Screen NEG Urine Cocaine Screen NEG Urine Cannabinoids Screen NEG Nasal Screen MRSA (PCR) MRSA NOT DETECTED Blood Gas Puncture Site ART LINE Blood Gas Patient Temperature 98.6 Blood Gas HCO3 24 mmol/L Blood Gas Base Excess -0.5 mmol/L Blood Gas Oxygen Saturation 92 % Arterial Blood pH 7.38 Arterial Blood Partial Pressure CO2 42 mmHg Arterial Blood Partial Pressure O2 76 mmHg Arterial Blood Oxygen Content 17.4 Vol % Arterial Blood Carboxyhemoglobin 1.4 % Arterial Blood Methemoglobin 0.8 % Blood Gas Hemoglobin 13.4 G/DL Oxygen Delivery Device VENTILATOR Blood Gas Ventilator Setting [id number]/R16/[id number] Blood Gas Inspired Oxygen 50 % Test 08/22/17 02:19 08/22/17 03:20 08/22/17 03:40 08/23/17 04:20 Blood Gas Puncture Site TD Blood Gas Patient Temperature 98.6 Blood Gas HCO3 22 mmol/L Blood Gas Base Excess -2.0 mmol/L Blood Gas Oxygen Saturation 92 % Arterial Blood pH 7.44 Arterial Blood Partial Pressure CO2 32 mmHg Arterial Blood Partial Pressure O2 69 mmHg Arterial Blood Oxygen Content 18.7 Vol % Arterial Blood Carboxyhemoglobin 1.2 % Arterial Blood Methemoglobin 0.7 % Blood Gas Hemoglobin 14.5 G/DL Oxygen Delivery Device VENTILATOR Blood Gas Ventilator Setting PRVC /AC Blood Gas Inspired Oxygen 50 % White Blood Count 13.2 TH/MM3 12.9 TH/MM3 Red Blood Count 4.02 MIL/MM3 3.76 MIL/MM3 Hemoglobin 12.7 GM/DL 11.6 GM/DL Hematocrit 36.9 % 35.0 % Mean Corpuscular Volume 91.8 FL 93.1 FL Mean Corpuscular Hemoglobin 31.6 PG 30.9 PG Mean Corpuscular Hemoglobin Concent 34.5 % 33.2 % Red Cell Distribution Width 13.0 % 13.0 % Platelet Count 225 TH/MM3 201 TH/MM3 Mean Platelet Volume 8.6 FL 8.5 FL Neutrophils (%) (Auto) 76.7 % 74.3 % Lymphocytes (%) (Auto) 14.0 % 14.1 % Monocytes (%) (Auto) 8.3 % 9.0 % Eosinophils (%) (Auto) 0.6 % 2.0 % Basophils (%) (Auto) 0.4 % 0.6 % Neutrophils # (Auto) 10.1 TH/MM3 9.6 TH/MM3 Lymphocytes # (Auto) 1.8 TH/MM3 1.8 TH/MM3 Monocytes # (Auto) 1.1 TH/MM3 1.2 TH/MM3 Eosinophils # (Auto) 0.1 TH/MM3 0.3 TH/MM3 Basophils # (Auto) 0.1 TH/MM3 0.1 TH/MM3 CBC Comment DIFF FINAL DIFF FINAL Differential Comment Prothrombin Time 10.6 SEC Prothromb Time International Ratio 1.0 RATIO Activated Partial Thromboplast Time 25.7 SEC Blood Urea Nitrogen 13 MG/DL 9 MG/DL Creatinine 0.87 MG/DL 0.74 MG/DL Random Glucose 109 MG/DL 107 MG/DL Calcium Level 8.2 MG/DL 8.4 MG/DL Sodium Level 139 MEQ/L 143 MEQ/L Potassium Level 3.9 MEQ/L 3.7 MEQ/L Chloride Level 107 MEQ/L 111 MEQ/L Carbon Dioxide Level 24.5 MEQ/L 23.7 MEQ/L Anion Gap 8 MEQ/L 8 MEQ/L Estimat Glomerular Filtration Rate 88 ML/MIN 106 ML/MIN (Issac Duncan) Medical Decision Making Impression and Plan Impression: 1. Bifrontal spontaneous intracranial hemorrhage 2. New onset seizure 3. Hypertension 4. Chronic tobacco use Agitated due to pneumothorax, moves extremities to noxious stimulation. Evolving but slightly smaller bifrontal haemorrhages with small amount of intraventricular haemorrhage on CT . Reviewed labs & imaging for today. Plan: Discussed plan of care with Nursing & Hydrodynamics Professor. Critical care management per Hydrodynamics Professor. Frequent vital signs and neuro checks Target SBP < 140. Phenytoin for seizures. Non-chemical DVT prophylaxis. Ulcer prophylaxis. (Issac Duncan) Attending Statement The exam, history, and the medical decision-making described in the above note were completed with the assistance of the mid-level provider. I reviewed and agree with the findings presented. I attest that I had a [id number] encounter with the patient on the same day, and personally performed and documented my assessment and findings in the medical record. A chest tube has been placed for small pneumothorax On examination this morning the patient is intubated and sedated. Off sedation he opens his eyes spontaneously. He moves all extremities purposeful but does not definitely follow commands. He reaches up for the endotracheal tube. Pupils are 4 mm minimally reactive. Mild disconjugate extraocular movements. He tries to sit up in bed. somewhat agitated with sedation decreased. Continuing intensive care neurologic checks. CPAP trials Decreased sedation as tolerated Plan follow-up CT scan head next 2-3 days depending on clinical status Non-chemical DVT prophylaxis (Martin Kong MD) Issac Duncan Aug 23, 2017 08:53 Martin Kong MD Aug 23, 2017 21:06
--- NOTE | 2017-08-23 08:55 | PD.PROCEDR ---
Procedure Note Procedure DX: Spontaneous Pneumothorax OP: Insertion Right Chest Tube ([id number]) Surgeon: Jose De Jesus Seo M.D. Procedure: Time out performed. Large right pneumothorax confirmed by chest film. Right anterior chest wall prepped and draped. Sedation administered 100 mics Fentanyl, propofol infusing at 50 mics/kg/min. 11 blade knife used to make 2 mm skin incision over 3rd rib in the mid-clavicular line. 10 Fr pigtail catheter inserted over the top of the 3rd rib and angled to the apex. Ventilator disconnected during 5 seconds of insertion. Tube connected to suction device and air leak detected as expected. Tube connected to skin with stop lock. CXR ordered, will review. Shan Seo MD Aug 23, 2017 08:55
--- NOTE | 2017-08-23 08:55 | PD.PROCEDR ---
Procedure Note Procedure DX: Spontaneous Pneumothorax OP: Insertion Right Chest Tube ([id number]) Surgeon: Jose De Jesus Seo M.D. Procedure: Time out performed. Large right pneumothorax confirmed by chest film. Right anterior chest wall prepped and draped. Sedation administered 100 mics Fentanyl, propofol infusing at 50 mics/kg/min. 11 blade knife used to make 2 mm skin incision over 3rd rib in the mid-clavicular line. 10 Fr pigtail catheter inserted over the top of the 3rd rib and angled to the apex. Ventilator disconnected during 5 seconds of insertion. Tube connected to suction device and air leak detected as expected. Tube connected to skin with stop lock. CXR ordered, will review. Shan Seo MD Aug 23, 2017 08:55
--- NOTE | 2017-08-23 08:55 | PD.PROCEDR ---
Procedure Note Procedure DX: Spontaneous Pneumothorax OP: Insertion Right Chest Tube ([id number]) Surgeon: Jose De Jesus Seo M.D. Procedure: Time out performed. Large right pneumothorax confirmed by chest film. Right anterior chest wall prepped and draped. Sedation administered 100 mics Fentanyl, propofol infusing at 50 mics/kg/min. 11 blade knife used to make 2 mm skin incision over 3rd rib in the mid-clavicular line. 10 Fr pigtail catheter inserted over the top of the 3rd rib and angled to the apex. Ventilator disconnected during 5 seconds of insertion. Tube connected to suction device and air leak detected as expected. Tube connected to skin with stop lock. CXR ordered, will review. Shan Seo MD Aug 23, 2017 08:55
[2017-08-23] MEDS: SODIUM CHLORIDE 0.9% FLUSH 10 ML FLUSH IV FLUSH SCH ×2 (09:00→21:00)
[2017-08-23] MEDS: DOCUSATE SODIUM 100 MG CAP PO SCH ×2 (09:03→21:00)
[2017-08-23] MEDS: CHLORHEXIDINE 0.12% (ORAL KIT) 15 ML CUP MT SCH ×2 (09:03→20:00)
[2017-08-23] MEDS: lamoTRIgine 100 MG TAB PO SCH ×2 (09:05→21:09)
[2017-08-23] MEDS: PANTOPRAZOLE SODIUM 40 MG VIAL IVP SCH (09:06)
--- NOTE | 2017-08-23 09:25 | RADRPT ---
EXAM DATE/TIME: 08/23/2017 09:54 [facility] COMPARISON: CHEST SINGLE AP, August 23, 2017, 5:59. INDICATIONS : Pneumothorax. MEDICAL HISTORY : None. SURGICAL HISTORY : None. ENCOUNTER: Subsequent ACUITY: 1 day PAIN SCORE: Non-responsive. LOCATION: Bilateral chest FINDINGS: Stable ETT and right IJ central line. NGT courses beyond the GE junction with tip omitted from the im age. Interval placement of right-sided chest tube with tip in the upper right hemithorax with interva l resolution of right-sided pneumothorax. Mild bibasilar airspace disease. Cardiomediastinal contours are stable. Remainder of exam is unchanged. CONCLUSION: 1. Interval right chest tube placement with resolution of right-sided pneumothorax. 2. Remaining tubes and lines are stable, as above. 3. Mild bibasilar airspace disease, likely atelectasis. Wil Lopez MD on August 23, 2017 at 9:21 Board Certified Radiologist. This report was verified electronically.
--- NOTE | 2017-08-23 09:25 | RADRPT ---
EXAM DATE/TIME: 08/23/2017 09:54 [facility] COMPARISON: CHEST SINGLE AP, August 23, 2017, 5:59. INDICATIONS : Pneumothorax. MEDICAL HISTORY : None. SURGICAL HISTORY : None. ENCOUNTER: Subsequent ACUITY: 1 day PAIN SCORE: Non-responsive. LOCATION: Bilateral chest FINDINGS: Stable ETT and right IJ central line. NGT courses beyond the GE junction with tip omitted from the im age. Interval placement of right-sided chest tube with tip in the upper right hemithorax with interva l resolution of right-sided pneumothorax. Mild bibasilar airspace disease. Cardiomediastinal contours are stable. Remainder of exam is unchanged. CONCLUSION: 1. Interval right chest tube placement with resolution of right-sided pneumothorax. 2. Remaining tubes and lines are stable, as above. 3. Mild bibasilar airspace disease, likely atelectasis. iWl Lopez MD on August 23, 2017 at 9:21 Board Certified Radiologist. This report was verified electronically.
[2017-08-24] VITALS (17 sets, daily range): BP systolic 101–123; BP diastolic 46–50; PULSE 72–83; RESP 14; TEMP 98.8–101.5; O2SAT 95–100
[2017-08-24] MEDS: PROPOFOL 1000 MG/100 ML INJ 100 ML IV PRN ×7 (01:01→21:44)
[2017-08-24] MEDS: SODIUM CHLOR 0.9% 1000 ML INJ 1,000 ML IV SCH ×2 (03:16→16:39)
[2017-08-24] MEDS: RESP: ALBUTEROL 2.5 MG/IPRATROPIUM 0.5 MG NEB (SCH) NEB ×4 (03:23→19:47)
[2017-08-24] MEDS: CHLORHEXIDINE GLUCONATE 2 % 1 PACK (2 CLOTHS) TOP SCH (04:00)
[2017-08-24 04:35] LABS: AUTOMATED NEUTROPHIL # 5.1 TH/MM3 (1.8-7.7); BASOPHIL % 0.5 % (0.0-2.0); EOSINOPHIL # 0.5 TH/MM3 (0-0.4); EOSINOPHIL % 5.9 % (0.0-4.0); HEMATOCRIT 32.1 % (39.0-51.0); HEMOGLOBIN 10.8 GM/DL (13.0-17.0); LYMPH % 24.8 % (9.0-44.0); LYMPHOCYTE # 2.2 TH/MM3 (1.0-4.8); MEAN CELL VOLUME 94.3 FL (80.0-100.0); MEAN CORPUSCULAR HEMOGLOBIN 31.7 PG (27.0-34.0); MEAN CORPUSCULAR HGB CONC 33.6 % (32.0-36.0); MEAN PLATELET VOLUME 8.5 FL (7.0-11.0); MONO % 11.4 % (0.0-8.0); NEUT % 57.4 % (16.0-70.0); PLATELET COUNT 184 TH/MM3 (150-450); WHITE BLOOD COUNT 8.8 TH/MM3 (4.0-11.0)
[2017-08-24] MEDS: PHENYTOIN INJ 100 MG/2 ML VIAL IV SCH ×3 (05:08→21:31)
[2017-08-24] MEDS: INSULIN ASPART SUPPLEMENTAL SCALE SQ SCH ×5 (05:42→23:38)
--- NOTE | 2017-08-24 07:07 | HHI.CCPN ---
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 His headache worsened which worsened around 6:30 AM. Patient was evaluated in the ER stroke alert was called. A head CT revealed intraparenchymal hemorrhage involving frontal lobes. Patient was evaluated by Dr. Kong from neurosurgery who admitted the patient to the ICU. Reportedly patient had seizures in the ER for which she received Ativan 2 mg IV and was loaded with fosphenytoin 1 g IV. Subsequently he was transferred to the ICU where I evaluated him immediately on his arrival. At that time he was extremely encephalopathic, stupor O's, nonverbal. I did not feel patient is protecting his airway at the time. I also noted some rhythmic jaw movements consistent with seizure activity. Patient was given Ativan 4 mg IV stat and I proceeded with emergent intubation and patient was placed on mechanical ventilation. A central line was placed emergently as well. Subsequently discussed with Dr. Kong wish to proceed with MRI/MRA of the brain for further evaluation. Patient was sedated with propofol following intubation. He was on a nicardipine drip on arrival as his blood pressure in the ER was 200s systolic. History was obtained by reviewing records and discussion with Dr. Kong and nursing staff. 08/22: Unresponsive aside from withdrawal lower extremities to painful stimulation. No obvious seizure activity. Ventilator dependent. Frontal bleeds are being absorbed, no new bleeding. 08/23: Remains sedated, orally intubated on mechanical ventilation. Reportedly is on Epclusa which is used for hepatitis C treatment. 08/24: Moves 4 limbs. Gas exchange acceptable. Right lung expanded after chest tube. Family conveys concerns about prior drug habituation, will stop narcotics and stick with propofol. Objective Vital Signs Date Time Temp Pulse Resp B/P (MAP) Pulse Ox O2 Delivery O2 Flow Rate FiO2 08/24/17 04:00 98.8 74 14 108/46 (66) 97 08/24/17 04:00 40 08/22/17 07:00 Mechanical Ventilator 08/21/17 09:15 2.00 Intake and Output 08/24/17 08/24/17 08/25/17 08:00 16:00 00:00 Intake Total 2188 ml Output Total 550 ml Balance 1638 ml Result Diagram: 08/24/17 0417 08/23/17 0420 Imaging Last Impressions Neck CTA 08/21/17 0743 Signed Impressions: Service Date/Time: Monday, August 21, 2017 07:47 - CONCLUSION: 1. See the CT of the brain reported separately. 2. Patent carotid arteries and vertebral arteries. Alexis Villa Jr., MD Head CTA 08/21/17 0725 Signed Impressions: Service Date/Time: Monday, August 21, 2017 07:47 - CONCLUSION: 1. Negative head CTA exam. Specifically, no evidence for aneurysm or large vessel occlusion. Wil Lopez MD Head CT 08/21/17 0000 Signed Impressions: Service Date/Time: Monday, August 21, 2017 07:10 - CONCLUSION: Acute parenchymal hemorrhage within the frontal lobes bilaterally measuring 5.5 x 4.3 cm which crosses midline and demonstrates associated edema throughout the frontal lobes and mass effect upon the corpus callosum. There is an extra- axial component along the right side of the false which measures 1.8 cm transverse x 3.2 cm AP. Differential diagnosis includes hemorrhagic infarct, post-traumatic hemorrhage, hemorrhagic mass, and ruptured aneurysm. Lukas Flores MD Chest X-Ray 08/21/17 0000 Signed Impressions: Service Date/Time: Monday, August 21, 2017 11:31 - CONCLUSION: 1. Central line in good position without pneumothorax. Alexis Villa Jr., MD Objective Remarks Physical Exam Narrative HEENT/ Neuro: Sedated, no pallor or icterus, tongue/ mucosa moist. Pupils 2 mm bilaterally reacting actively to light. Neck: No JVD, orally intubated. Supple. Chest/Pulm: on mech vent, good air entry bilaterally, no wheezing or crackles CVS: S1-S2 regular, no murmur, no JVD. GI/abdomen: soft, nontender, bowel sounds active. Extremities: warm bilaterally, no edema, well perfused. Neuro: Moves 4 limbs. A/P Assessment and Plan 67 year-old male with: Intracerebral hemorrhage involving frontal lobes Encephalopathy Seizure Acute respiratory failure requiring mechanical ventilation Hypertensive emergency ? Hepatitis C Plan: Neuro: Sedation with propofol, added fentanyl gtt. follow neuro status. Awaiting MRI MRA brain. Neurosurgery following. Continue phenytoin, check Dilantin level in a.m. Home dose Lamictal resumed 08/22. Repeat head CT per neurosurgery Cardiovascular: Nicardipine drip to keep systolic blood pressure below 140 mmHg. Pulmonary: Intubated for airway protection. Continue mechanical ventilation, vent bundle, bronchodilators as needed. Thick pulmonary secretions. We'll send sputum for Gram stain and cultures GI/liver: Start tube feeds with Jevity and advanced to goal as tolerated. Patient reportedly on Epclusa which is a medication for hepatitis C. Renal/: IV hydration, strict intake output, monitor and replete electrolytes, follow BUN/creatinine. ID: No indication for antibiotics at this time. On epclusa at home for ? Hep C Heme: Follow CBC and coags Endocrine: SSI for glycemic control if needed. Prophylaxis: PPI/SCDs. Subcutaneous heparin to be cleared by neurosurgery. Overall impression: He remains critically ill and neurologically unstable following a bifrontal lobe brain hemorrhage. Unable to wean ventilator. Short SBTs not tolerated. I discussed his care in detail with his twin sister at the bedside. Critical Care 34 mins Shan Seo MD Aug 24, 2017 07:07
[2017-08-24] MEDS: CHLORHEXIDINE 0.12% (ORAL KIT) 15 ML CUP MT SCH ×2 (08:00→20:39)
[2017-08-24] MEDS: SODIUM CHLORIDE 0.9% FLUSH 10 ML FLUSH IV FLUSH SCH ×2 (08:05→20:39)
[2017-08-24] MEDS: PANTOPRAZOLE SODIUM 40 MG VIAL IVP SCH (08:31)
[2017-08-24] MEDS: lamoTRIgine 100 MG TAB PO SCH ×2 (08:31→20:39)
[2017-08-24] MEDS: DOCUSATE SODIUM 100 MG CAP PO SCH ×2 (08:31→20:40)
[2017-08-24] MEDS: SERTRALINE HCL 100 MG TAB PO SCH (10:32)
--- NOTE | 2017-08-24 10:45 | HHI.NSPN ---
(Issac Duncan) History Chief Complaint: Unable to obtain due to patient's clinical condition. (Issac Duncan) Interval History 08/21: 67-year-old male presents to the emergency room today approximately 7 AM with history of headache for several days, increasing significantly at 6:30 AM today. His initial blood pressure was 261/143. He was placed on a nicardipine drip for initial blood pressure control. 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 He was reportedly awake and alert upon presentation to the emergency room, with left facial and upper extremity weakness. He reportedly developed increasing speech difficulty following a CT scan this morning, and subsequently was noted to have a seizure which was initially treated with Ativan. Since then he has been more lethargic and nonverbal. 08/22: The patient is obtunded this morning but he is sedated with propofol. Nursing reports that he is off all other sedation and blood pressure drips. She also reports that the patient is spontaneously moving his extremities and responds to noxious stimulation. He did go for a repeat CT brain this morning. 08/23: The patient is agitated and thrashing about in bed when seen. Nursing and the Documentation Billing Clerk are present and a needle decompression had been done for a pneumothorax on the right side which was demonstrated on his CXR this morning. They were preparing to place a right-sided chest tube. The patient continues to be intubated and mechanically ventilated. He does have propofol for sedation and fentanyl for pain management infusing. 08/24: The patient is obtunded this morning when seen. He is on propofol for sedation. He remains intubated and mechanically ventilated with a right-sided chest tube. Nursing reports his fentanyl was stopped about 20 minutes prior to being seen. She also reports that the patient is being restarted on his psych meds prior to weaning his sedation. (Issac Duncan) System Review Comments Unable to obtain due to patient's clinical condition. (Issac Duncan) Exam Results 10/2608/22/17 08/23/17 08/23/17 08/24/17 08/24/17 06:00 18:00 06:00 18:00 06:00 18:00 Intake Total 1165 ml 2000 ml 2638 ml 1064 ml 2188 ml 107 ml Output Total 625 ml 900 ml 2925 ml 550 ml Balance 540 ml 1100 ml 2638 ml -1861 ml 1638 ml 107 ml Intake IV Total 1165 ml 2000 ml 2638 ml 1000 ml 1469 ml 107 ml Tube Feeding 64 ml 539 ml Other 180 ml Output Urine Total 375 ml 500 ml 2525 ml 550 ml Gastric Drainage Total 250 ml 400 ml 400 ml Chest Tube Drainage Total 0 ml 0 ml # Bowel Movements 0 0 0 0 Vital Signs Date Time Temp Pulse Resp B/P (MAP) Pulse Ox O2 Delivery O2 Flow Rate FiO2 08/24/17 08:34 97 40 08/24/17 08:00 83 08/24/17 08:00 40 08/24/17 04:00 98.8 74 14 108/46 (66) 97 08/24/17 04:00 74 08/24/17 04:00 40 08/24/17 03:24 99 40 08/24/17 02:00 74 08/24/17 00:00 98.8 74 14 110/50 (70) 99 08/24/17 00:00 99 40 08/24/17 00:00 40 08/24/17 00:00 74 08/23/17 22:00 76 08/23/17 20:11 96 40 08/23/17 20:00 40 08/23/17 20:00 79 08/23/17 20:00 98.8 79 27 126/64 (84) 98 08/23/17 18:00 70 08/23/17 16:00 76 08/23/17 16:00 40 08/23/17 16:00 100.4 76 19 129/54 (79) 99 08/23/17 15:48 98 40 08/23/17 14:00 82 08/23/17 12:00 99.6 76 20 138/67 (90) 98 08/23/17 12:00 76 08/23/17 12:00 40 08/23/17 11:32 40 08/23/17 11:32 96 40 08/23/17 10:00 84 08/23/17 08:00 84 08/23/17 08:00 100.7 84 22 115/58 (77) 93 08/23/17 08:00 40 08/23/17 07:39 93 40 08/23/17 07:32 94 40 08/23/17 06:00 79 08/23/17 04:00 80 08/23/17 04:00 99.9 80 22 120/54 (76) 92 08/23/17 04:00 40 08/23/17 03:57 96 45 08/23/17 02:00 77 08/23/17 00:54 95 50 08/23/17 00:00 99.2 76 25 135/66 (89) 98 08/23/17 00:00 60 08/23/17 00:00 76 08/22/17 22:00 73 08/22/17 20:00 79 08/22/17 20:00 60 08/22/17 20:00 99.1 79 21 154/69 (97) 99 08/22/17 19:24 95 60 08/22/17 18:00 79 08/22/17 16:00 60 08/22/17 16:00 99.6 78 22 146/72 (96) 99 08/22/17 16:00 86 08/22/17 15:43 95 60 08/22/17 14:00 78 08/22/17 12:00 98.9 76 21 118/58 (78) 96 08/22/17 12:00 60 08/22/17 12:00 76 08/22/17 11:53 97 60 08/22/17 10:28 60 08/22/17 10:00 79 08/22/17 09:31 50 08/22/17 08:04 93 50 08/22/17 08:04 92 50 08/22/17 08:00 98.9 76 20 126/64 (84) 94 Automatic Cuff 08/22/17 08:00 80 08/22/17 08:00 50 08/22/17 07:00 94 Mechanical Ventilator 50 08/22/17 06:00 77 08/22/17 05:12 99 100 08/22/17 04:06 100 Ventilator 08/22/17 04:00 50 08/22/17 04:00 100 50 08/22/17 04:00 79 08/22/17 04:00 98.1 81 24 126/80 (95) 98 08/22/17 02:00 88 08/22/17 00:19 96 50 08/22/17 00:18 97 Ventilator 08/22/17 00:09 96 50 08/22/17 00:00 50 08/22/17 00:00 98.9 81 24 121/66 (84) 96 08/22/17 00:00 83 08/21/17 22:00 80 08/21/17 21:33 95 50 08/21/17 21:33 95 50 08/21/17 20:00 98.5 70 24 114/75 (88) 98 08/21/17 20:00 70 08/21/17 20:00 50 08/21/17 19:00 97 Mechanical Ventilator 50 08/21/17 18:00 80 08/21/17 18:00 80 08/21/17 16:58 98 50 08/21/17 16:15 24 08/21/17 16:00 82 08/21/17 16:00 98.0 82 24 142/84 (103) 96 08/21/17 16:00 82 08/21/17 16:00 50 08/21/17 15:45 99 50 08/21/17 15:31 145/81 08/21/17 14:00 82 08/21/17 13:37 95 50 08/21/17 12:17 94 50 08/21/17 12:00 97.6 82 22 119/77 (91) 94 08/21/17 12:00 82 08/21/17 12:00 50 (Issac Duncan) Physical Examination GENERAL: Obtunded but on propofol 50 mcg/kg/min for sedation, intubated and mechanically ventilated. SKIN: Warm, dry & intact w/o any evident rashes, ulcerations or other lesions except for a right-sided chest tube insertion site. HEENT: Normocephalic, atraumatic. PERRLA 3 mm brisk. Orally intubated. OGT. NECK: No JVD, trachea midline. CARDIOVASCULAR: S1S2 w/RRR w/o M/G/R, radial & pedal pulses 2+ bilaterally, cap refill < 2 sec, no pedal edema. Monitor is sinus rhythm w/o any ectopy noted. RESPIRATORY: CTAB w/o W/R/R, equal excursion, nonlaboured, intubated and mechanically ventilated, right-sided chest tube. GASTROINTESTINAL: Abdomen soft, bowel sounds not appreciated, OGT w/enteral feeds. GENITOURINARY: Thomas catheter to BSD w/clear yellow urine. MUSCULOSKELETAL: MOLINA to noxious stimulation, no evident deformity or clubbing. NEUROLOGICAL: Obtunded but sedated, GCS 6T (E1 V1T M4). Orally intubated. No eye opening to central noxious stimulation. PERRLA 3 mm brisk. Positive cough reflex. Does not follow any commands. Slight withdrawal right foot > left foot w/trace movement LUE to local noxious stimulation but none to RUE, moves all extremities to central noxious stimulation. (Issac Duncan) Lab, Micro, Other Results Recent Impressions Chest X-Ray 08/23/17 0600 Signed Impressions: Service Date/Time: Wednesday, August 23, 2017 05:59 - CONCLUSION: 1. New large pneumothorax on the right. Slight tension component. Patient's nurse Radha was notified by phone. 2. Mild atelectasis of both bases. Saw Peng MD Chest X-Ray 08/23/17 0000 Signed Impressions: Service Date/Time: Wednesday, August 23, 2017 09:54 - CONCLUSION: 1. Interval right chest tube placement with resolution of right-sided pneumothorax. 2. Remaining tubes and lines are stable, as above. 3. Mild bibasilar airspace disease, likely atelectasis. Wil Lopez MD Head CT 08/22/17 0600 Signed Impressions: Service Date/Time: July 04:35 - CONCLUSION: 1. Evolving and slightly less prominent bifrontal hemorrhages. 2. Minimal intraventricular hemorrhage. Anthony Patel MD Laboratory Tests Test 08/21/17 11:52 08/22/17 02:19 08/22/17 03:20 08/22/17 03:40 Blood Gas Puncture Site ART LINE TD Blood Gas Patient Temperature 98.6 98.6 Blood Gas HCO3 24 mmol/L 22 mmol/L Blood Gas Base Excess -0.5 mmol/L -2.0 mmol/L Blood Gas Oxygen Saturation 92 % 92 % Arterial Blood pH 7.38 7.44 Arterial Blood Partial Pressure CO2 42 mmHg 32 mmHg Arterial Blood Partial Pressure O2 76 mmHg 69 mmHg Arterial Blood Oxygen Content 17.4 Vol % 18.7 Vol % Arterial Blood Carboxyhemoglobin 1.4 % 1.2 % Arterial Blood Methemoglobin 0.8 % 0.7 % Blood Gas Hemoglobin 13.4 G/DL 14.5 G/DL Oxygen Delivery Device VENTILATOR VENTILATOR Blood Gas Ventilator Setting PRVC/VT500/R16/P5 PRVC /AC Blood Gas Inspired Oxygen 50 % 50 % White Blood Count 13.2 TH/MM3 Red Blood Count 4.02 MIL/MM3 Hemoglobin 12.7 GM/DL Hematocrit 36.9 % Mean Corpuscular Volume 91.8 FL Mean Corpuscular Hemoglobin 31.6 PG Mean Corpuscular Hemoglobin Concent 34.5 % Red Cell Distribution Width 13.0 % Platelet Count 225 TH/MM3 Mean Platelet Volume 8.6 FL Neutrophils (%) (Auto) 76.7 % Lymphocytes (%) (Auto) 14.0 % Monocytes (%) (Auto) 8.3 % Eosinophils (%) (Auto) 0.6 % Basophils (%) (Auto) 0.4 % Neutrophils # (Auto) 10.1 TH/MM3 Lymphocytes # (Auto) 1.8 TH/MM3 Monocytes # (Auto) 1.1 TH/MM3 Eosinophils # (Auto) 0.1 TH/MM3 Basophils # (Auto) 0.1 TH/MM3 CBC Comment DIFF FINAL Differential Comment Prothrombin Time 10.6 SEC Prothromb Time International Ratio 1.0 RATIO Activated Partial Thromboplast Time 25.7 SEC Blood Urea Nitrogen 13 MG/DL Creatinine 0.87 MG/DL Random Glucose 109 MG/DL Calcium Level 8.2 MG/DL Sodium Level 139 MEQ/L Potassium Level 3.9 MEQ/L Chloride Level 107 MEQ/L Carbon Dioxide Level 24.5 MEQ/L Anion Gap 8 MEQ/L Estimat Glomerular Filtration Rate 88 ML/MIN Test 08/23/17 04:20 08/24/17 04:17 White Blood Count 12.9 TH/MM3 8.8 TH/MM3 Red Blood Count 3.76 MIL/MM3 3.40 MIL/MM3 Hemoglobin 11.6 GM/DL 10.8 GM/DL Hematocrit 35.0 % 32.1 % Mean Corpuscular Volume 93.1 FL 94.3 FL Mean Corpuscular Hemoglobin 30.9 PG 31.7 PG Mean Corpuscular Hemoglobin Concent 33.2 % 33.6 % Red Cell Distribution Width 13.0 % 13.0 % Platelet Count 201 TH/MM3 184 TH/MM3 Mean Platelet Volume 8.5 FL 8.5 FL Neutrophils (%) (Auto) 74.3 % 57.4 % Lymphocytes (%) (Auto) 14.1 % 24.8 % Monocytes (%) (Auto) 9.0 % 11.4 % Eosinophils (%) (Auto) 2.0 % 5.9 % Basophils (%) (Auto) 0.6 % 0.5 % Neutrophils # (Auto) 9.6 TH/MM3 5.1 TH/MM3 Lymphocytes # (Auto) 1.8 TH/MM3 2.2 TH/MM3 Monocytes # (Auto) 1.2 TH/MM3 1.0 TH/MM3 Eosinophils # (Auto) 0.3 TH/MM3 0.5 TH/MM3 Basophils # (Auto) 0.1 TH/MM3 0.0 TH/MM3 CBC Comment DIFF FINAL DIFF FINAL Differential Comment Blood Urea Nitrogen 9 MG/DL Creatinine 0.74 MG/DL Random Glucose 107 MG/DL Calcium Level 8.4 MG/DL Sodium Level 143 MEQ/L Potassium Level 3.7 MEQ/L Chloride Level 111 MEQ/L Carbon Dioxide Level 23.7 MEQ/L Anion Gap 8 MEQ/L Estimat Glomerular Filtration Rate 106 ML/MIN (Issac Duncan) Medical Decision Making Impression and Plan Impression: 1. Bifrontal spontaneous intracranial hemorrhage 2. New onset seizure 3. Hypertension 4. Chronic tobacco use Obtunded but sedated, moves extremities to noxious stimulation. Evolving but slightly smaller bifrontal haemorrhages with small amount of intraventricular haemorrhage on CT . Reviewed labs for today. Plan: Discussed plan of care with Nursing & patient's sister. Critical care management per Documentation Billing Clerk. Frequent vital signs and neuro checks Target SBP < 140. Phenytoin for seizures. Non-chemical DVT prophylaxis. Ulcer prophylaxis. (Issac Duncan) Attending Statement The exam, history, and the medical decision-making described in the above note were completed with the assistance of the mid-level provider. I reviewed and agree with the findings presented. I attest that I had a [id number] encounter with the patient on the same day, and personally performed and documented my assessment and findings in the medical record. On my examination today the patient remains intubated and sedated. He remains on propofol and a low dose fentanyl. Although fentanyl is being weaned as much as possible due to history of substance abuse, he still becomes agitated without a low dose and no coverage. With sedation decreased he has spontaneous eye opening. Does not follow commands but moves all extremities with good strength and is purposeful with the upper extremities. Continue to wean sedation as tolerated. Continuing Dilantin for seizure prophylaxis Anticipate follow-up CT scan on 08/26/17 if he otherwise remains neurologically stable. Call placed to the patient's sister today and a message left on voice mail. (Martin Kong MD) Issac Duncan Aug 24, 2017 10:45 Martin Kong MD Aug 24, 2017 21:31
[2017-08-24] MEDS: fentaNYL DRIP 250 ML IV PRN ×2 (12:01→21:32)
[2017-08-24] MEDS ORDERED: DICL75TA PO (12:51)
[2017-08-25] VITALS (15 sets, daily range): BP systolic 95–136; BP diastolic 54–78; PULSE 72–80; RESP 14–20; TEMP 98.4–100.9; O2SAT 92–97
[2017-08-25] MEDS: PROPOFOL 1000 MG/100 ML INJ 100 ML IV PRN ×2 (01:30→06:00)
[2017-08-25] MEDS: RESP: ALBUTEROL 2.5 MG/IPRATROPIUM 0.5 MG NEB (SCH) NEB ×3 (03:24→15:43)
[2017-08-25] MEDS: CHLORHEXIDINE GLUCONATE 2 % 1 PACK (2 CLOTHS) TOP SCH (03:24)
[2017-08-25] MEDS: SODIUM CHLOR 0.9% 1000 ML INJ 1,000 ML IV SCH ×2 (03:31→19:48)
[2017-08-25 03:42] LABS: BASOPHIL % 0.2 % (0.0-2.0); EOSINOPHIL # 0.6 TH/MM3 (0-0.4); EOSINOPHIL % 5.5 % (0.0-4.0); HEMATOCRIT 32.7 % (39.0-51.0); HEMOGLOBIN 10.8 GM/DL (13.0-17.0); LYMPH % 11.2 % (9.0-44.0); LYMPHOCYTE # 1.1 TH/MM3 (1.0-4.8); MEAN CELL VOLUME 93.6 FL (80.0-100.0); MEAN CORPUSCULAR HEMOGLOBIN 30.8 PG (27.0-34.0); MEAN CORPUSCULAR HGB CONC 32.9 % (32.0-36.0); MEAN PLATELET VOLUME 8.6 FL (7.0-11.0); MONO % 13.1 % (0.0-8.0); MONOCYTE # 1.3 TH/MM3 (0-0.9); PLATELET COUNT 194 TH/MM3 (150-450)
[2017-08-25 03:58] LABS: BICARBONATE 25.9 MEQ/L (21.0-32.0); CALCIUM 7.6 MG/DL (8.5-10.1); CREATININE 0.62 MG/DL (0.60-1.30)
[2017-08-25] MEDS: PHENYTOIN INJ 100 MG/2 ML VIAL IV SCH ×3 (05:23→21:17)
[2017-08-25] MEDS: fentaNYL DRIP 250 ML IV PRN (06:01)
--- NOTE | 2017-08-25 07:06 | HHI.CCPN ---
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 His headache worsened which worsened around 6:30 AM. Patient was evaluated in the ER stroke alert was called. A head CT revealed intraparenchymal hemorrhage involving frontal lobes. Patient was evaluated by Dr. Kong from neurosurgery who admitted the patient to the ICU. Reportedly patient had seizures in the ER for which she received Ativan 2 mg IV and was loaded with fosphenytoin 1 g IV. Subsequently he was transferred to the ICU where I evaluated him immediately on his arrival. At that time he was extremely encephalopathic, stupor O's, nonverbal. I did not feel patient is protecting his airway at the time. I also noted some rhythmic jaw movements consistent with seizure activity. Patient was given Ativan 4 mg IV stat and I proceeded with emergent intubation and patient was placed on mechanical ventilation. A central line was placed emergently as well. Subsequently discussed with Dr. Kong wish to proceed with MRI/MRA of the brain for further evaluation. Patient was sedated with propofol following intubation. He was on a nicardipine drip on arrival as his blood pressure in the ER was 200s systolic. History was obtained by reviewing records and discussion with Dr. Kong and nursing staff. 08/22: Unresponsive aside from withdrawal lower extremities to painful stimulation. No obvious seizure activity. Ventilator dependent. Frontal bleeds are being absorbed, no new bleeding. 08/23: Remains sedated, orally intubated on mechanical ventilation. Reportedly is on Epclusa which is used for hepatitis C treatment. 08/24: Moves 4 limbs. Gas exchange acceptable. Right lung expanded after chest tube. Family conveys concerns about prior drug habituation, will stop narcotics and stick with propofol. 08/25: Remains sedated, orally intubated on mechanical ventilation. Objective Vital Signs Date Time Temp Pulse Resp B/P (MAP) Pulse Ox O2 Delivery O2 Flow Rate FiO2 08/25/17 06:00 74 08/25/17 04:02 97 40 08/25/17 04:00 100.1 14 130/56 (80) 08/22/17 07:00 Mechanical Ventilator 08/21/17 09:15 2.00 Intake and Output 08/25/17 08/25/17 08/26/17 08:00 16:00 00:00 Intake Total 830 ml Output Total 628 ml Balance 202 ml Result Diagram: 08/25/17 0329 08/25/17 0329 Imaging Last Impressions Neck CTA 08/21/17 0743 Signed Impressions: Service Date/Time: Monday, August 21, 2017 07:47 - CONCLUSION: 1. See the CT of the brain reported separately. 2. Patent carotid arteries and vertebral arteries. Alexis Villa Jr., MD Head CTA 08/21/17 0725 Signed Impressions: Service Date/Time: Monday, August 21, 2017 07:47 - CONCLUSION: 1. Negative head CTA exam. Specifically, no evidence for aneurysm or large vessel occlusion. Wil Lopez MD Head CT 08/21/17 0000 Signed Impressions: Service Date/Time: Monday, August 21, 2017 07:10 - CONCLUSION: Acute parenchymal hemorrhage within the frontal lobes bilaterally measuring 5.5 x 4.3 cm which crosses midline and demonstrates associated edema throughout the frontal lobes and mass effect upon the corpus callosum. There is an extra- axial component along the right side of the false which measures 1.8 cm transverse x 3.2 cm AP. Differential diagnosis includes hemorrhagic infarct, post-traumatic hemorrhage, hemorrhagic mass, and ruptured aneurysm. Lukas Flores MD Chest X-Ray 08/21/17 0000 Signed Impressions: Service Date/Time: Monday, August 21, 2017 11:31 - CONCLUSION: 1. Central line in good position without pneumothorax. Alexis Villa Jr., MD Objective Remarks Physical Exam Narrative HEENT/ Neuro: Sedated, no pallor or icterus, tongue/ mucosa moist. Pupils 2 mm bilaterally reacting actively to light. Neck: No JVD, orally intubated. Supple. Chest/Pulm: on mech vent, good air entry bilaterally, no wheezing or crackles CVS: S1-S2 regular, no murmur, no JVD. GI/abdomen: soft, nontender, bowel sounds active. Extremities: warm bilaterally, no edema, well perfused. Neuro: Moves 4 limbs. A/P Assessment and Plan 67 year-old male with: Intracerebral hemorrhage involving frontal lobes Encephalopathy Seizure Acute respiratory failure requiring mechanical ventilation Hypertensive emergency Hepatitis C H/O substance abuse Plan: Neuro: Sedation with propofol, attempt to titrate off fentanyl gtt. follow neuro status. Awaiting MRI MRA brain. Neurosurgery following. Continue phenytoin, Home dose Lamictal resumed 08/22. Repeat head CT per neurosurgery Cardiovascular: Nicardipine drip to keep systolic blood pressure below 140 mmHg. Pulmonary: Intubated for airway protection. Continue mechanical ventilation, vent bundle, bronchodilators as needed. Thick pulmonary secretions. F/u sputum for Gram stain and cultures. s/p chest tube for rt pneumothorax. GI/liver: Continue tube feeds with Jevity and advanced to goal as tolerated. Patient reportedly on Epclusa which is a medication for hepatitis C. Renal/: IV hydration, strict intake output, monitor and replete electrolytes, follow BUN/creatinine. ID: No indication for antibiotics at this time. On epclusa at home for ? Hep C Heme: Follow CBC and coags Endocrine: SSI for glycemic control if needed. Prophylaxis: PPI/SCDs. Subcutaneous heparin to be cleared by neurosurgery. Overall impression: He remains critically ill and neurologically unstable following a bifrontal lobe brain hemorrhage. Unable to wean ventilator. Short SBTs not tolerated. Dr. Seo discussed his care in detail with his twin sister at the bedside on 08/24 Critical Care 30 mins Nilson López MD Aug 25, 2017 07:06
[2017-08-25] MEDS ORDERED: fentaNYL DRIP 250 ML IV PRN (07:30)
[2017-08-25] MEDS ORDERED: DEXMEDETOMIDINE HCL 200 MCG/2 ML VIAL IV PUSH ONE ×2 (07:30→08:00)
[2017-08-25] MEDS: CHLORHEXIDINE 0.12% (ORAL KIT) 15 ML CUP MT SCH ×2 (08:00→19:36)
[2017-08-25] MEDS: lamoTRIgine 100 MG TAB PO SCH ×2 (08:36→20:20)
[2017-08-25] MEDS: DEXMEDETOMIDINE INJ 200 MCG in SODIUM CHLORIDE 0.9% INJ 50 ML IV PRN ×6 (08:36→17:01)
[2017-08-25] MEDS: PANTOPRAZOLE SODIUM 40 MG VIAL IVP SCH (08:36)
[2017-08-25] MEDS: SERTRALINE HCL 100 MG TAB PO SCH (08:36)
[2017-08-25] MEDS: SODIUM CHLORIDE 0.9% FLUSH 10 ML FLUSH IV FLUSH SCH ×2 (08:36→20:20)
[2017-08-25] MEDS: DOCUSATE SODIUM 100 MG CAP PO SCH ×2 (08:36→20:20)
[2017-08-25] MEDS: PIPERACIL-TAZO 4.5 GM PREMIX 100 ML IV SCH ×3 (08:36→19:36)
[2017-08-25] MEDS ORDERED: NOREPINEPHRINE-DEXTROSE DRIP 250 ML IV ONE (08:50)
[2017-08-25] MEDS ORDERED: VANCOMYCIN INJ 1,350 MG in SODIUM CHLORID 0.9% 500 ML INJ 500 ML IV ONE (09:00)
--- NOTE | 2017-08-25 09:21 | HHI.NSPN ---
(Issac Duncan) History Chief Complaint: Unable to obtain due to patient's clinical condition. (Issac Duncan) Interval History 08/21: 67-year-old male presents to the emergency room today approximately 7 AM with history of headache for several days, increasing significantly at 6:30 AM today. His initial blood pressure was 261/143. He was placed on a nicardipine drip for initial blood pressure control. 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 He was reportedly awake and alert upon presentation to the emergency room, with left facial and upper extremity weakness. He reportedly developed increasing speech difficulty following a CT scan this morning, and subsequently was noted to have a seizure which was initially treated with Ativan. Since then he has been more lethargic and nonverbal. 08/22: The patient is obtunded this morning but he is sedated with propofol. Nursing reports that he is off all other sedation and blood pressure drips. She also reports that the patient is spontaneously moving his extremities and responds to noxious stimulation. He did go for a repeat CT brain this morning. 08/23: The patient is agitated and thrashing about in bed when seen. Nursing and the Emergency Man are present and a needle decompression had been done for a pneumothorax on the right side which was demonstrated on his CXR this morning. They were preparing to place a right-sided chest tube. The patient continues to be intubated and mechanically ventilated. He does have propofol for sedation and fentanyl for pain management infusing. 08/24: The patient is obtunded this morning when seen. He is on propofol for sedation. He remains intubated and mechanically ventilated with a right-sided chest tube. Nursing reports his fentanyl was stopped about 20 minutes prior to being seen. She also reports that the patient is being restarted on his psych meds prior to weaning his sedation. 08/25: When seen this morning the patient continues to be obtunded. He remains intubated and on mechanical ventilation. He had been on propofol which was discontinued and started on dexmedetomidine this morning. The fentanyl drip was also discontinued. The Emergency Man was in the room discussing the plan of care with the patient's sister when the patient was seen. After seen the Emergency Man notified this practitioner that the patient was now following commands and the patient was seen again and did follow commands for this practitioner and open his eyes to voice. (Issac Duncan) System Review Comments Unable to obtain due to patient's clinical condition. (Issac Duncan) Exam Results 08/23/17 08/23/17 08/24/17 08/24/17 08/25/17 08/25/17 06:00 18:00 06:00 18:00 06:00 18:00 Intake Total 2638 ml 1064 ml 2188 ml 2131 ml 863 ml Output Total 2925 ml 550 ml 650 ml 628 ml Balance 2638 ml -1861 ml 1638 ml 1481 ml 235 ml Intake IV Total 2638 ml 1000 ml 1469 ml 1314 ml 33 ml Tube Feeding 64 ml 539 ml 817 ml 590 ml Other 180 ml 240 ml Output Urine Total 2525 ml 550 ml 650 ml 625 ml Gastric Drainage Total 400 ml Chest Tube Drainage Total 0 ml 0 ml 0 ml 3 ml # Bowel Movements 0 0 0 0 Vital Signs Date Time Temp Pulse Resp B/P (MAP) Pulse Ox O2 Delivery O2 Flow Rate FiO2 08/25/17 08:32 94 40 08/25/17 06:00 74 08/25/17 04:02 97 40 08/25/17 04:00 100.1 76 14 130/56 (80) 97 08/25/17 04:00 40 08/25/17 04:00 76 08/25/17 02:00 74 08/25/17 01:20 92 40 08/25/17 00:00 40 08/25/17 00:00 72 08/25/17 00:00 99.3 72 14 126/54 (78) 96 08/24/17 22:00 74 08/24/17 20:00 99.1 72 14 120/50 (73) 100 08/24/17 20:00 72 08/24/17 20:00 40 08/24/17 19:48 98 40 08/24/17 18:00 72 08/24/17 16:05 98 40 08/24/17 16:00 100.2 75 14 117/49 (71) 95 08/24/17 16:00 40 08/24/17 16:00 75 08/24/17 14:00 77 08/24/17 12:30 96 40 08/24/17 12:00 83 08/24/17 12:00 40 08/24/17 12:00 101.5 83 14 101/50 (67) 95 08/24/17 10:00 83 08/24/17 08:34 97 40 08/24/17 08:00 83 08/24/17 08:00 40 08/24/17 08:00 98.9 78 14 123/48 (73) 97 08/24/17 07:45 96 50 08/24/17 04:00 98.8 74 14 108/46 (66) 97 08/24/17 04:00 74 08/24/17 04:00 40 08/24/17 03:24 99 40 08/24/17 02:00 74 08/24/17 00:00 98.8 74 14 110/50 (70) 99 08/24/17 00:00 99 40 08/24/17 00:00 40 08/24/17 00:00 74 08/23/17 22:00 76 08/23/17 20:11 96 40 08/23/17 20:00 40 08/23/17 20:00 79 08/23/17 20:00 98.8 79 27 126/64 (84) 98 08/23/17 18:00 70 08/23/17 16:00 76 08/23/17 16:00 40 08/23/17 16:00 100.4 76 19 129/54 (79) 99 08/23/17 15:48 98 40 08/23/17 14:00 82 08/23/17 12:00 99.6 76 20 138/67 (90) 98 08/23/17 12:00 76 08/23/17 12:00 40 08/23/17 11:32 40 08/23/17 11:32 96 40 08/23/17 10:00 84 08/23/17 08:00 84 08/23/17 08:00 100.7 84 22 115/58 (77) 93 08/23/17 08:00 40 08/23/17 07:39 93 40 08/23/17 07:32 94 40 08/23/17 06:00 79 08/23/17 04:00 80 08/23/17 04:00 99.9 80 22 120/54 (76) 92 08/23/17 04:00 40 08/23/17 03:57 96 45 08/23/17 02:00 77 08/23/17 00:54 95 50 08/23/17 00:00 99.2 76 25 135/66 (89) 98 08/23/17 00:00 60 08/23/17 00:00 76 08/22/17 22:00 73 08/22/17 20:00 79 08/22/17 20:00 60 08/22/17 20:00 99.1 79 21 154/69 (97) 99 08/22/17 19:24 95 60 08/22/17 18:00 79 08/22/17 16:00 60 08/22/17 16:00 99.6 78 22 146/72 (96) 99 08/22/17 16:00 86 08/22/17 15:43 95 60 08/22/17 14:00 78 08/22/17 12:00 98.9 76 21 118/58 (78) 96 08/22/17 12:00 60 08/22/17 12:00 76 08/22/17 11:53 97 60 08/22/17 10:28 60 08/22/17 10:00 79 08/22/17 09:31 50 (Issac Duncan) Physical Examination GENERAL: Obtunded but on dexmedetomidine 0.4 mcg/kg/hr for sedation, intubated and mechanically ventilated. SKIN: Warm, dry & intact w/o any evident rashes, ulcerations or other lesions except for a right-sided chest tube insertion site. HEENT: Normocephalic, atraumatic. PERRLA 3 mm brisk. Orally intubated. OGT. NECK: No JVD, trachea midline. CARDIOVASCULAR: S1S2 w/RRR w/o M/G/R, radial & pedal pulses 2+ bilaterally, cap refill < 2 sec, no pedal edema. Monitor is sinus rhythm w/o any ectopy noted. The patient had been on a norepinephrine drip at 2 mcg/min for blood pressure support due to it dropping when the dexmedetomidine was initiated. RESPIRATORY: CTAB w/o W/R/R but diminished, equal excursion, nonlaboured, intubated and mechanically ventilated, right-sided chest tube. GASTROINTESTINAL: Abdomen soft, bowel sounds not appreciated, OGT w/enteral feeds. GENITOURINARY: Thomas catheter to BSD w/clear yellow urine. MUSCULOSKELETAL: MOLINA to noxious stimulation, no evident deformity or clubbing. UPON REPEAT EXAMINATION MOVED ALL EXTREMITIES STRONGLY TO COMMAND. NEUROLOGICAL: Obtunded but sedated, GCS 6T (E1 V1T M4). UPON REPEAT EXAMINATION LETHARGIC, GCS 10T (E3 V1T M6). Orally intubated. No eye opening to central noxious stimulation. PERRLA 3 mm brisk. UPON REPEAT EXAMINATION OPENED EYES TO VOICE. Did not follow any commands. UPON REPEAT EXAMINATION THE PATIENT DID FOLLOW SIMPLE COMMANDS. Withdrawal both feet & RUE to local noxious stimulation but none to LUE, moves all extremities to central noxious stimulation. UPON REPEAT EXAMINATION THE PATIENT DID STRONGLY MOVE ALL EXTREMITIES TO COMMAND. (Issac Duncan) Lab, Micro, Other Results Recent Impressions Chest X-Ray 08/23/17 0600 Signed Impressions: Service Date/Time: Wednesday, August 23, 2017 05:59 - CONCLUSION: 1. New large pneumothorax on the right. Slight tension component. Patient's nurse Radha was notified by phone. 2. Mild atelectasis of both bases. Saw Peng MD Chest X-Ray 08/23/17 0000 Signed Impressions: Service Date/Time: Wednesday, August 23, 2017 09:54 - CONCLUSION: 1. Interval right chest tube placement with resolution of right-sided pneumothorax. 2. Remaining tubes and lines are stable, as above. 3. Mild bibasilar airspace disease, likely atelectasis. Wil Lopez MD Laboratory Tests Test 08/23/17 04:20 08/24/17 04:17 08/25/17 03:29 White Blood Count 12.9 TH/MM3 8.8 TH/MM3 10.0 TH/MM3 Red Blood Count 3.76 MIL/MM3 3.40 MIL/MM3 3.50 MIL/MM3 Hemoglobin 11.6 GM/DL 10.8 GM/DL 10.8 GM/DL Hematocrit 35.0 % 32.1 % 32.7 % Mean Corpuscular Volume 93.1 FL 94.3 FL 93.6 FL Mean Corpuscular Hemoglobin 30.9 PG 31.7 PG 30.8 PG Mean Corpuscular Hemoglobin Concent 33.2 % 33.6 % 32.9 % Red Cell Distribution Width 13.0 % 13.0 % 13.0 % Platelet Count 201 TH/MM3 184 TH/MM3 194 TH/MM3 Mean Platelet Volume 8.5 FL 8.5 FL 8.6 FL Neutrophils (%) (Auto) 74.3 % 57.4 % 70.0 % Lymphocytes (%) (Auto) 14.1 % 24.8 % 11.2 % Monocytes (%) (Auto) 9.0 % 11.4 % 13.1 % Eosinophils (%) (Auto) 2.0 % 5.9 % 5.5 % Basophils (%) (Auto) 0.6 % 0.5 % 0.2 % Neutrophils # (Auto) 9.6 TH/MM3 5.1 TH/MM3 7.0 TH/MM3 Lymphocytes # (Auto) 1.8 TH/MM3 2.2 TH/MM3 1.1 TH/MM3 Monocytes # (Auto) 1.2 TH/MM3 1.0 TH/MM3 1.3 TH/MM3 Eosinophils # (Auto) 0.3 TH/MM3 0.5 TH/MM3 0.6 TH/MM3 Basophils # (Auto) 0.1 TH/MM3 0.0 TH/MM3 0.0 TH/MM3 CBC Comment DIFF FINAL DIFF FINAL DIFF FINAL Differential Comment Blood Urea Nitrogen 9 MG/DL 8 MG/DL Creatinine 0.74 MG/DL 0.62 MG/DL Random Glucose 107 MG/DL 112 MG/DL Calcium Level 8.4 MG/DL 7.6 MG/DL Sodium Level 143 MEQ/L 139 MEQ/L Potassium Level 3.7 MEQ/L 3.7 MEQ/L Chloride Level 111 MEQ/L 107 MEQ/L Carbon Dioxide Level 23.7 MEQ/L 25.9 MEQ/L Anion Gap 8 MEQ/L 6 MEQ/L Estimat Glomerular Filtration Rate 106 ML/MIN 130 ML/MIN (Issac Duncan) Medical Decision Making Impression and Plan Impression: 1. Bifrontal spontaneous intracranial hemorrhage 2. New onset seizure 3. Hypertension 4. Chronic tobacco use Lethargic, responds to voice and follows commands, moves extremities. Evolving but slightly smaller bifrontal haemorrhages with small amount of intraventricular haemorrhage on CT . Reviewed labs for today. Plan: Discussed plan of care with Nursing, Emergency Man & patient's family. Critical care management per Emergency Man. Frequent vital signs and neuro checks Target SBP < 140. Phenytoin for seizures. Non-chemical DVT prophylaxis. Ulcer prophylaxis. Wean sedation & vent as possible. CT brain in AM. (Issac Duncan) Attending Statement The exam, history, and the medical decision-making described in the above note were completed with the assistance of the mid-level provider. I reviewed and agree with the findings presented. I attest that I had a [id number] encounter with the patient on the same day, and personally performed and documented my assessment and findings in the medical record. On my examination 08/25/17, the patient is recently extubated. Respirations cut auscultation, nonlabored Cardiac regular Abdomen soft Occasional eye opening spontaneously and to voice. Says a few words occasionally in response to questions. He moves all extremities with moderate strength intermittent but is not following commands well. Pupils 3-4 mm mildly reactive. Mildly disconjugate extraocular movements. Remainder of cranial nerves cannot be adequately tested due to altered mental status. Hoffmans response absent bilateral No ankle clonus Discussed with risk control consultant Discussed with family in the room On Precedex for agitation postextubation Continue close intensive care neurologic checks and vital signs Continue non-chemical DVT prophylaxis Ulcer prophylaxis Continuing medications for seizure Plan follow-up CT scan had 08/26/17 (Martin Kong MD) Issac Duncan Aug 25, 2017 09:21 Martin Kong MD Aug 25, 2017 11:43
[2017-08-25] MEDS: RESP: ALBUTEROL 2.5 MG/IPRATROPIUM 0.5 MG NEB (PRN) INH ×2 (10:00→19:23)
[2017-08-25] MEDS: methylPREDNISolone SOD SUCC 40 MG/1 ML VIAL IV PUSH SCH ×2 (10:00→20:20)
[2017-08-25] MEDS ORDERED: [UNRECOGNIZED DRUG - OTHER] PO SCH (10:06)
[2017-08-25] MEDS ORDERED: EPCLUSA PO SCH (10:06)
--- NOTE | 2017-08-25 10:37 | RADRPT ---
EXAM DATE/TIME: 08/25/2017 11:07 [facility] COMPARISON: CHEST SINGLE AP, August 23, 2017, 9:54. INDICATIONS : Short of breath. MEDICAL HISTORY : None. SURGICAL HISTORY : None. ENCOUNTER: Subsequent ACUITY: 4 - 6 days PAIN SCORE: Non-responsive. LOCATION: Bilateral chest FINDINGS: A small right-sided chest tube is again noted. There is no recurrent pneumothorax. A right internal jugular central line has its tip in the right atrium. The heart is stable. Bibasilar atelectatic c hanges are noted. CONCLUSION: 1. No recurrent pneumothorax. 2. Bibasilar atelectatic changes. Lukas Flores MD on August 25, 2017 at 10:32 Board Certified Radiologist. This report was verified electronically.
[2017-08-25] MEDS ORDERED: SOFOSBUVIR PO SCH (11:30)
[2017-08-25] MEDS ORDERED: VELPATASVIR PO SCH (11:30)
[2017-08-25] MEDS: INSULIN ASPART SUPPLEMENTAL SCALE SQ SCH ×3 (12:00→23:45)
[2017-08-25] MEDS: NICOTINE 7 MG/24 HR PATCH T-DERMAL SCH (13:40)
[2017-08-25 14:00] LABS: BILIRUBIN, URINE NEG (NEG); BLOOD, URINE SMALL (NEG); GLUCOSE,URINE 1000 mg/dL (NEG); KETONE, URINE NEG (NEG); MUCUS URINE FEW /lpf (OCC); NITRITE,URINE NEG (NEG); PH, URINE 6.5 (5.0-8.5); URINE COLOR YELLOW (YELLW/STRAW); URINE LEUKOCYTE ESTERASE NEG (NEG)
[2017-08-25] MEDS ORDERED: SODIUM CHLORID 0.9% 500 ML INJ 500 ML IV SCH (14:30)
[2017-08-25] MEDS ORDERED: LORazepam 2 MG/ML VIAL ONE (14:49)
[2017-08-25] MEDS: DEXMEDETOMIDINE INJ 1,000 MCG in SODIUM CHLOR 0.9% 250 ML INJ 240 ML IV PRN (19:48)
[2017-08-25] MEDS: LORazepam 2 MG/ML VIAL IV PRN (20:26)
[2017-08-26] VITALS (14 sets, daily range): BP systolic 121–132; BP diastolic 67–82; PULSE 71–82; RESP 13–24; TEMP 98.5–99.9; O2SAT 92–96
[2017-08-26] MEDS: LORazepam 2 MG/ML VIAL IV PRN ×2 (00:50→05:06)
[2017-08-26] MEDS: PIPERACIL-TAZO 4.5 GM PREMIX 100 ML IV SCH ×4 (01:14→20:06)
[2017-08-26] MEDS: RESP: ALBUTEROL 2.5 MG/IPRATROPIUM 0.5 MG NEB (PRN) INH (01:42)
[2017-08-26] MEDS: DEXMEDETOMIDINE INJ 1,000 MCG in SODIUM CHLOR 0.9% 250 ML INJ 240 ML IV PRN ×2 (02:40→06:33)
[2017-08-26 03:04] LABS: AUTOMATED NEUTROPHIL # 7.6 TH/MM3 (1.8-7.7); BASOPHIL % 0.2 % (0.0-2.0); EOSINOPHIL % 0.3 % (0.0-4.0); HEMATOCRIT 31.4 % (39.0-51.0); HEMOGLOBIN 10.7 GM/DL (13.0-17.0); LYMPH % 13.4 % (9.0-44.0); LYMPHOCYTE # 1.3 TH/MM3 (1.0-4.8); MEAN CELL VOLUME 91.8 FL (80.0-100.0); MEAN CORPUSCULAR HEMOGLOBIN 31.3 PG (27.0-34.0); MEAN CORPUSCULAR HGB CONC 34.1 % (32.0-36.0); MEAN PLATELET VOLUME 8.5 FL (7.0-11.0); MONOCYTE # 1.1 TH/MM3 (0-0.9); NEUT % 75.1 % (16.0-70.0); PLATELET COUNT 181 TH/MM3 (150-450); RED BLOOD COUNT 3.42 MIL/MM3 (4.50-5.90); RED CELL DISTRIBUTION WIDTH 12.5 % (11.6-17.2)
[2017-08-26 03:19] LABS: ALBUMIN 2.4 GM/DL (3.4-5.0); ALT (GPT) 17 U/L (12-78); AST (GOT) 21 U/L (15-37); BICARBONATE 24.6 MEQ/L (21.0-32.0); BLOOD UREA NITROGEN 13 MG/DL (7-18); CALCIUM 7.8 MG/DL (8.5-10.1); CHLORIDE 105 MEQ/L (98-107); CREATININE 0.74 MG/DL (0.60-1.30); GLOMERULAR FILTRATION RATE 106 ML/MIN (>89); GLUCOSE,RANDOM 134 MG/DL (74-106); SODIUM (NA) 136 MEQ/L (136-145)
[2017-08-26 03:21] LABS: ALKALINE PHOSPHATASE 40 U/L (45-117); TOTAL BILIRUBIN ADULT 0.7 MG/DL (0.2-1.0); TOTAL PROTEIN 6.4 GM/DL (6.4-8.2)
[2017-08-26] MEDS: CHLORHEXIDINE GLUCONATE 2 % 1 PACK (2 CLOTHS) TOP SCH (03:47)
--- NOTE | 2017-08-26 04:56 | RADRPT ---
EXAM DATE/TIME: 08/26/2017 04:35 [facility] COMPARISON: CTA BRAIN W 3D RECON, August 21, 2017, 7:47. MRA BRAIN W/O CONTRAST, August 21, 2017, 16:02. MRI BRAIN W & W/O CONTRAST, August 21, 2017, 16:02. CT BRAIN W/O CONTRAST, August 22, 2017, 4:35. INDICATIONS : Follow up hemorrhage. RADIATION DOSE: 61.99 CTDIvol (mGy) ; Tabletop CT Head MEDICAL HISTORY : Non-responsive. SURGICAL HISTORY : Non-responsive. ENCOUNTER: Subsequent ACUITY: 1 week PAIN SCALE: Non-responsive LOCATION: cranial TECHNIQUE: Multiple contiguous axial images were obtained of the head. Using automated exposure control and adj ustment of the mA and/or kV according to patient size, radiation dose was kept as low as reasonably a chievable to obtain optimal diagnostic quality images. DICOM format image data is available electro nically for review and comparison. FINDINGS: Evolving bifrontal hemorrhage is noted. No new acute findings present. Minimal intraventricular blood and subarachnoid blood is less conspicuous than on prior. Mass effect in the frontal regions is stab le. CONCLUSION: Evolving bifrontal hemorrhage Saw Higginbotham MD on August 26, 2017 at 4:51 Board Certified Radiologist. This report was verified electronically.
[2017-08-26] MEDS: PHENYTOIN INJ 100 MG/2 ML VIAL IV SCH ×3 (05:06→21:54)
[2017-08-26] MEDS: INSULIN ASPART SUPPLEMENTAL SCALE SQ SCH ×3 (05:55→18:00)
[2017-08-26] MEDS: RESP: ALBUTEROL 2.5 MG/IPRATROPIUM 0.5 MG NEB (SCH) NEB ×3 (07:33→21:44)
[2017-08-26] MEDS: CHLORHEXIDINE 0.12% (ORAL KIT) 15 ML CUP MT SCH ×2 (08:00→19:42)
[2017-08-26] MEDS: methylPREDNISolone SOD SUCC 40 MG/1 ML VIAL IV PUSH SCH ×2 (08:59→20:07)
[2017-08-26] MEDS: NICOTINE 7 MG/24 HR PATCH T-DERMAL SCH (08:59)
[2017-08-26] MEDS: PANTOPRAZOLE SODIUM 40 MG VIAL IVP SCH (08:59)
[2017-08-26] MEDS: SODIUM CHLORIDE 0.9% FLUSH 10 ML FLUSH IV FLUSH SCH ×2 (08:59→20:06)
[2017-08-26] MEDS: SERTRALINE HCL 100 MG TAB PO SCH (09:00)
[2017-08-26] MEDS: REMOVE OLD PATCH T-DERMAL SCH (09:00)
[2017-08-26] MEDS: DOCUSATE SODIUM 100 MG CAP PO SCH ×2 (09:00→20:07)
[2017-08-26] MEDS: lamoTRIgine 100 MG TAB PO SCH ×2 (09:00→20:07)
--- NOTE | 2017-08-26 09:30 | HHI.CCPN ---
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 His headache worsened which worsened around 6:30 AM. Patient was evaluated in the ER stroke alert was called. A head CT revealed intraparenchymal hemorrhage involving frontal lobes. Patient was evaluated by Dr. Kong from neurosurgery who admitted the patient to the ICU. Reportedly patient had seizures in the ER for which she received Ativan 2 mg IV and was loaded with fosphenytoin 1 g IV. Subsequently he was transferred to the ICU where I evaluated him immediately on his arrival. At that time he was extremely encephalopathic, stupor O's, nonverbal. I did not feel patient is protecting his airway at the time. I also noted some rhythmic jaw movements consistent with seizure activity. Patient was given Ativan 4 mg IV stat and I proceeded with emergent intubation and patient was placed on mechanical ventilation. A central line was placed emergently as well. Subsequently discussed with Dr. Kong wish to proceed with MRI/MRA of the brain for further evaluation. Patient was sedated with propofol following intubation. He was on a nicardipine drip on arrival as his blood pressure in the ER was 200s systolic. History was obtained by reviewing records and discussion with Dr. Kong and nursing staff. 08/22: Unresponsive aside from withdrawal lower extremities to painful stimulation. No obvious seizure activity. Ventilator dependent. Frontal bleeds are being absorbed, no new bleeding. 08/23: Remains sedated, orally intubated on mechanical ventilation. Reportedly is on Epclusa which is used for hepatitis C treatment. 08/24: Moves 4 limbs. Gas exchange acceptable. Right lung expanded after chest tube. Family conveys concerns about prior drug habituation, will stop narcotics and stick with propofol. 08/25: Remains sedated, orally intubated on mechanical ventilation. 08/26: Extubated following C Pap trial on 08/25. Was requiring nonrebreather facemask however now on 6 L nasal cannula. On Precedex gtt. Required Ativan when necessary for anxiety/severe restlessness. Currently drowsy at the time of my evaluation however just received Ativan earlier this morning. Appears comfortable on 6 L nasal cannula. Objective Vital Signs Date Time Temp Pulse Resp B/P (MAP) Pulse Ox O2 Delivery O2 Flow Rate FiO2 08/26/17 07:34 94 Nasal Cannula 6.00 1030/17 06:00 74 08/26/17 04:00 98.5 19 121/72 (88) 08/25/17 09:20 40 Intake and Output 08/26/17 08/26/17 08/27/17 08:00 16:00 00:00 Intake Total 20 ml Output Total 925 ml Balance -905 ml Result Diagram: 08/26/17 0253 08/26/17 0253 Imaging Last Impressions Neck CTA 08/21/17 0743 Signed Impressions: Service Date/Time: Monday, August 21, 2017 07:47 - CONCLUSION: 1. See the CT of the brain reported separately. 2. Patent carotid arteries and vertebral arteries. Alexis Villa Jr., MD Head CTA 08/21/1725 Signed Impressions: Service Date/Time: Monday, August 21, 2017 07:47 - CONCLUSION: 1. Negative head CTA exam. Specifically, no evidence for aneurysm or large vessel occlusion. Wil Lopez MD Head CT 08/21/17 0000 Signed Impressions: Service Date/Time: Monday, August 21, 2017 07:10 - CONCLUSION: Acute parenchymal hemorrhage within the frontal lobes bilaterally measuring 5.5 x 4.3 cm which crosses midline and demonstrates associated edema throughout the frontal lobes and mass effect upon the corpus callosum. There is an extra- axial component along the right side of the false which measures 1.8 cm transverse x 3.2 cm AP. Differential diagnosis includes hemorrhagic infarct, post-traumatic hemorrhage, hemorrhagic mass, and ruptured aneurysm. Lukas Flores MD Chest X-Ray 08/21/17 0000 Signed Impressions: Service Date/Time: Monday, August 21, 2017 11:31 - CONCLUSION: 1. Central line in good position without pneumothorax. Alexis Villa Jr., MD Objective Remarks Physical Exam Narrative HEENT/ Neuro: Drowsy, encephalopathic, no pallor or icterus, tongue/ mucosa moist. Pupils 2 mm bilaterally reacting actively to light. Moves all 4 extremities. Was following commands yesterday. Neck: No JVD, Supple. Chest/Pulm: good air entry bilaterally, no wheezing or crackles. Scattered rhonchi. CVS: S1-S2 regular, no murmur, no JVD. GI/abdomen: soft, nontender, bowel sounds active. Extremities: warm bilaterally, no edema, well perfused. A/P Assessment and Plan 67 year-old male with: Intracerebral hemorrhage involving frontal lobes Encephalopathy Seizure Acute respiratory failure Right pneumothorax status post chest tube placement MSSA pneumonia Sepsis Hypertensive emergency Hepatitis C H/O substance abuse Plan: Neuro: Off propofol and fentanyl drips since 08/25. Started on Precedex for agitation/delirium. Ativan/Haldol when necessary ordered following extubation on 08/25. Neurosurgery following. Continue phenytoin, Home dose Lamictal resumed 08/22. Repeat head CT per neurosurgery Cardiovascular: Off nicardipine gtt. Continue IV fluids. Pulmonary: Extubated on 08/25, initially on nonrebreather facemask, currently on 6 L nasal cannula. bronchodilators as needed. Thick pulmonary secretions. Sputum cultures growing MSSA. s/p chest tube for rt pneumothorax. Follow-up repeat chest x-ray. GI/liver: Speech and swallow evaluation if neurologic status improves. May require Dobbhoff for tube feeds. Patient reportedly on Epclusa which is a medication for hepatitis C. Renal/: IV hydration, strict intake output, monitor and replete electrolytes, follow BUN/creatinine. ID: Sputum cultures growing MSSA. Concern for aspiration. Started on IV Zosyn on 08/25. Received 1 dose of vancomycin on 08/25.. On epclusa at home for ? Hep C Heme: Follow CBC. Endocrine: SSI for glycemic control if needed. Prophylaxis: PPI/SCDs. Subcutaneous heparin to be cleared by neurosurgery. Further recommendations per neurosurgery. Updated patient's family on 08/25 as well as 08/26 regarding current clinical status and plan of care and they voiced understanding and were agreeable. Nilson López MD Aug 26, 2017 09:30
--- NOTE | 2017-08-26 09:34 | RADRPT ---
EXAM DATE/TIME: 08/26/2017 09:45 [facility] COMPARISON: CHEST SINGLE AP, August 25, 2017, 11:07. INDICATIONS : Follow up respiratory failure. MEDICAL HISTORY : Non-responsive. SURGICAL HISTORY : Non-responsive. ENCOUNTER: Subsequent ACUITY: 1 week PAIN SCORE: Non-responsive. LOCATION: Bilateral chest FINDINGS: A small right chest tube is again noted. There is no pneumothorax. Patchy opacity is noted within t he right upper lung field consistent with possible pneumonia. A right internal jugular central line has its tip in the right atrium. The heart is stable. CONCLUSION: 1. Patchy opacity within the right upper lung field consistent with probable pneumonia. Clinical co rrelation is recommended. No pneumothorax. Lukas Flores MD on August 26, 2017 at 9:22 Board Certified Radiologist. This report was verified electronically.
--- NOTE | 2017-08-26 09:49 | HHI.NSPN ---
History Chief Complaint: Unable to obtain due to patient's clinical condition. Interval History 08/21: 67-year-old male presents to the emergency room today approximately 7 AM with history of headache for several days, increasing significantly at 6:30 AM today. His initial blood pressure was 261/143. He was placed on a nicardipine drip for initial blood pressure control. 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 He was reportedly awake and alert upon presentation to the emergency room, with left facial and upper extremity weakness. He reportedly developed increasing speech difficulty following a CT scan this morning, and subsequently was noted to have a seizure which was initially treated with Ativan. Since then he has been more lethargic and nonverbal. 08/22: The patient is obtunded this morning but he is sedated with propofol. Nursing reports that he is off all other sedation and blood pressure drips. She also reports that the patient is spontaneously moving his extremities and responds to noxious stimulation. He did go for a repeat CT brain this morning. 08/23: The patient is agitated and thrashing about in bed when seen. Nursing and the Assistant Community Manager are present and a needle decompression had been done for a pneumothorax on the right side which was demonstrated on his CXR this morning. They were preparing to place a right-sided chest tube. The patient continues to be intubated and mechanically ventilated. He does have propofol for sedation and fentanyl for pain management infusing. 08/24: The patient is obtunded this morning when seen. He is on propofol for sedation. He remains intubated and mechanically ventilated with a right-sided chest tube. Nursing reports his fentanyl was stopped about 20 minutes prior to being seen. She also reports that the patient is being restarted on his psych meds prior to weaning his sedation. 08/25: When seen this morning the patient continues to be obtunded. He remains intubated and on mechanical ventilation. He had been on propofol which was discontinued and started on dexmedetomidine this morning. The fentanyl drip was also discontinued. The Assistant Community Manager was in the room discussing the plan of care with the patient's sister when the patient was seen. After seen the Assistant Community Manager notified this practitioner that the patient was now following commands and the patient was seen again and did follow commands for this practitioner and open his eyes to voice. 08/26/17: Extubated. Remains on Precedex drip for agitation. Spontaneous eye opening. He knows his family. Answers a few questions yes/no. Follows commands all extremities. 08/26/17 CT scan had stable right frontal intracranial hemorrhage with local mass effect. Exam Results Vital Signs Date Time Temp Pulse Resp B/P (MAP) Pulse Ox O2 Delivery O2 Flow Rate FiO2 08/26/17 07:34 94 Nasal Cannula 6.00 08/26/17 06:00 74 08/26/17 04:00 98.5 19 121/72 (88) 08/25/17 09:20 40 Intake and Output 08/26/17 08/26/17 08/27/17 08:00 16:00 00:00 Intake Total 20 ml Output Total 925 ml Balance -905 ml Physical Examination GENERAL: Moderately G. On Precedex IV. Mild agitation SKIN: Warm, dry & intact w/o any evident rashes, ulcerations or other lesions except for a right-sided chest tube insertion site. HEENT: No facial edema or ecchymosis. No periorbital edema. NECK: No JVD, trachea midline. CARDIOVASCULAR: Regular without murmur RESPIRATORY: Clear to auscultation. Mild tachypnea. Nonlabored GASTROINTESTINAL: Abdomen soft, bowel sounds diminished. GENITOURINARY: Thomas catheter to BSD w/clear yellow urine. MUSCULOSKELETAL: No edema or cyanosis in the extremities. The lumbar joint deformity NEUROLOGICAL: Moderate lethargy. Opens eyes briefly to voice and sternal rub Pupils mid range, reactive to light Mildly disconjugate extraocular movements Focuses and follows brief to command and voice. Answer some simple questions yes/no. Is able to tolerate living with his family at bedside. Moves all extremities with moderate strength brief to command Mohsen's response absent bilateral No ankle clonus Fine motor cannot be tested due to altered mental status Lab, Micro, Other Results 08/26/2017 CT scan head images reviewed. This study reveals relatively stable bifrontal parenchymal hemorrhages with local mass effect. Head CT 08/26/17 0600 Signed Impressions: Service Date/Time: Jules, August 26, 2017 04:35 - CONCLUSION: Evolving bifrontal hemorrhage Saw Higginbotham MD Laboratory Tests Test 08/25/17 13:29 08/26/17 02:53 Urine Color YELLOW Urine Turbidity CLEAR Urine pH 6.5 Urine Specific Allison 1.023 Urine Protein 30 mg/dL Urine Glucose (UA) 1000 mg/dL Urine Ketones NEG mg/dL Urine Occult Blood SMALL Urine Nitrite NEG Urine Bilirubin NEG Urine Urobilinogen 2.0 MG/DL Urine Leukocyte Esterase NEG Urine RBC 16 /hpf Urine Mucus FEW /lpf Microscopic Urinalysis Comment CATH-CULT NOT IND White Blood Count 10.0 TH/MM3 Red Blood Count 3.42 MIL/MM3 Hemoglobin 10.7 GM/DL Hematocrit 31.4 % Mean Corpuscular Volume 91.8 FL Mean Corpuscular Hemoglobin 31.3 PG Mean Corpuscular Hemoglobin Concent 34.1 % Red Cell Distribution Width 12.5 % Platelet Count 181 TH/MM3 Mean Platelet Volume 8.5 FL Neutrophils (%) (Auto) 75.1 % Lymphocytes (%) (Auto) 13.4 % Monocytes (%) (Auto) 11.0 % Eosinophils (%) (Auto) 0.3 % Basophils (%) (Auto) 0.2 % Neutrophils # (Auto) 7.6 TH/MM3 Lymphocytes # (Auto) 1.3 TH/MM3 Monocytes # (Auto) 1.1 TH/MM3 Eosinophils # (Auto) 0.0 TH/MM3 Basophils # (Auto) 0.0 TH/MM3 CBC Comment DIFF FINAL Differential Comment Blood Urea Nitrogen 13 MG/DL Creatinine 0.74 MG/DL Random Glucose 134 MG/DL Total Protein 6.4 GM/DL Albumin 2.4 GM/DL Calcium Level 7.8 MG/DL Alkaline Phosphatase 40 U/L Aspartate Amino Transf (AST/SGOT) 21 U/L Alanine Aminotransferase (ALT/SGPT) 17 U/L Total Bilirubin 0.7 MG/DL Sodium Level 136 MEQ/L Potassium Level 3.7 MEQ/L Chloride Level 105 MEQ/L Carbon Dioxide Level 24.6 MEQ/L Anion Gap 6 MEQ/L Estimat Glomerular Filtration Rate 106 ML/MIN Medical Decision Making Impression and Plan Impression: 1. Stable bifrontal parenchymal intracranial hemorrhages. 2. Hypertension 3. History of depression, bipolar Plan: Findings were discussed with the patient's family at bedside. His CT scan and neurologic exam remained stable. Plan to continue ISC observation at present due to persistent agitation, on Precedex drip. Continue scheduled and as needed antihypertensive medications. Plan follow-up CT scan head later in the week, or as needed if any significant neurologic changes. Sodium 136 today. Follow-up sodium level 08/27/17 Martin Kong MD Aug 26, 2017 09:49
[2017-08-26] MEDS ORDERED: INFLUENZA VIRUS VACCINE (QUADRIVALENT) 0.5 ML SYR IM ONE (10:00)
[2017-08-26] MEDS: SODIUM CHLOR 0.9% 1000 ML INJ 1,000 ML IV SCH (12:27)
[2017-08-26] MEDS ORDERED: POTASSIUM CHLOR 40 MEQ PREMIX 100 ML IV ONE (12:30)
[2017-08-26] MEDS ORDERED: FUROSEMIDE 20 MG/2 ML VIAL IV PUSH ONE (12:30)
[2017-08-26] MEDS ORDERED: LORazepam 2 MG/ML VIAL IV PRN (14:00)
[2017-08-27] VITALS (14 sets, daily range): BP systolic 121–161; BP diastolic 74–87; PULSE 68–87; RESP 23–26; TEMP 97.6–99; O2SAT 95–98
[2017-08-27] MEDS: DEXMEDETOMIDINE INJ 1,000 MCG in SODIUM CHLOR 0.9% 250 ML INJ 240 ML IV PRN ×2 (01:01→16:06)
[2017-08-27] MEDS: PIPERACIL-TAZO 4.5 GM PREMIX 100 ML IV SCH (01:46)
[2017-08-27] MEDS: CHLORHEXIDINE GLUCONATE 2 % 1 PACK (2 CLOTHS) TOP SCH (03:13)
[2017-08-27] MEDS: RESP: ALBUTEROL 2.5 MG/IPRATROPIUM 0.5 MG NEB (SCH) NEB ×4 (04:05→19:52)
[2017-08-27] MEDS: PHENYTOIN INJ 100 MG/2 ML VIAL IV SCH ×3 (05:40→21:06)
[2017-08-27] MEDS: INSULIN ASPART SUPPLEMENTAL SCALE SQ SCH ×3 (06:00→16:00)
[2017-08-27 06:22] LABS: BICARBONATE 22.6 MEQ/L (21.0-32.0); CALCIUM 7.8 MG/DL (8.5-10.1); CREATININE 0.7 MG/DL (0.60-1.30)
--- NOTE | 2017-08-27 08:29 | HHI.CCPN ---
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 His headache worsened which worsened around 6:30 AM. Patient was evaluated in the ER stroke alert was called. A head CT revealed intraparenchymal hemorrhage involving frontal lobes. Patient was evaluated by Dr. Kong from neurosurgery who admitted the patient to the ICU. Reportedly patient had seizures in the ER for which she received Ativan 2 mg IV and was loaded with fosphenytoin 1 g IV. Subsequently he was transferred to the ICU where I evaluated him immediately on his arrival. At that time he was extremely encephalopathic, stupor O's, nonverbal. I did not feel patient is protecting his airway at the time. I also noted some rhythmic jaw movements consistent with seizure activity. Patient was given Ativan 4 mg IV stat and I proceeded with emergent intubation and patient was placed on mechanical ventilation. A central line was placed emergently as well. Subsequently discussed with Dr. Kong wish to proceed with MRI/MRA of the brain for further evaluation. Patient was sedated with propofol following intubation. He was on a nicardipine drip on arrival as his blood pressure in the ER was 200s systolic. History was obtained by reviewing records and discussion with Dr. Kong and nursing staff. 08/22: Unresponsive aside from withdrawal lower extremities to painful stimulation. No obvious seizure activity. Ventilator dependent. Frontal bleeds are being absorbed, no new bleeding. 08/23: Remains sedated, orally intubated on mechanical ventilation. Reportedly is on Epclusa which is used for hepatitis C treatment. 08/24: Moves 4 limbs. Gas exchange acceptable. Right lung expanded after chest tube. Family conveys concerns about prior drug habituation, will stop narcotics and stick with propofol. 08/25: Remains sedated, orally intubated on mechanical ventilation. 08/26: Extubated following C Pap trial on 08/25. Was requiring nonrebreather facemask however now on 6 L nasal cannula. On Precedex gtt. Required Ativan when necessary for anxiety/severe restlessness. Currently drowsy at the time of my evaluation however just received Ativan earlier this morning. Appears comfortable on 6 L nasal cannula. 08/27: Had some disorientation and hallucinations last night. This morning he is awake and alert. Following commands. On 5 L nasal cannula. No air leak in right sided pigtail catheter which was placed to underwater seal. On Precedex 0.8 mcg/kg/hr at the time of my evaluation. Objective Vital Signs Date Time Temp Pulse Resp B/P (MAP) Pulse Ox O2 Delivery O2 Flow Rate FiO2 08/27/17 07:27 96 Nasal Cannula 4.00 08/27/17 06:00 68 08/27/17 04:00 98.5 25 129/76 (93) 08/25/17 09:20 40 Intake and Output 08/27/17 08/27/17 08/28/17 08:00 16:00 00:00 Intake Total 664 ml Output Total 1400 ml Balance -736 ml Result Diagram: 08/26/17 0253 08/27/17 0530 Imaging Last Impressions Neck CTA 08/21/17 0743 Signed Impressions: Service Date/Time: Monday, August 21, 2017 07:47 - CONCLUSION: 1. See the CT of the brain reported separately. 2. Patent carotid arteries and vertebral arteries. Alexis Villa Jr., MD Head CTA 08/21/1725 Signed Impressions: Service Date/Time: Monday, August 21, 2017 07:47 - CONCLUSION: 1. Negative head CTA exam. Specifically, no evidence for aneurysm or large vessel occlusion. Wil Lopez MD Head CT 08/21/17 0000 Signed Impressions: Service Date/Time: Monday, August 21, 2017 07:10 - CONCLUSION: Acute parenchymal hemorrhage within the frontal lobes bilaterally measuring 5.5 x 4.3 cm which crosses midline and demonstrates associated edema throughout the frontal lobes and mass effect upon the corpus callosum. There is an extra- axial component along the right side of the false which measures 1.8 cm transverse x 3.2 cm AP. Differential diagnosis includes hemorrhagic infarct, post-traumatic hemorrhage, hemorrhagic mass, and ruptured aneurysm. Lukas Flores MD Chest X-Ray 08/21/17 0000 Signed Impressions: Service Date/Time: Monday, August 21, 2017 11:31 - CONCLUSION: 1. Central line in good position without pneumothorax. Alexis Villa Jr., MD Objective Remarks Physical Exam Narrative HEENT/ Neuro: Drowsy, easily arousable, no pallor or icterus, tongue/ mucosa moist. Pupils 2 mm bilaterally reacting actively to light. Moves all 4 extremities. Following commands. Neck: No JVD, Supple. Chest/Pulm: good air entry bilaterally, no wheezing or crackles. Scattered rhonchi. Right sided pigtail catheter in place with no air leak changed from - 20 cm water pressure to underwater seal CVS: S1-S2 regular, no murmur, no JVD. GI/abdomen: soft, nontender, bowel sounds active. Extremities: warm bilaterally, no edema, well perfused. A/P Assessment and Plan 67 year-old male with: Intracerebral hemorrhage involving frontal lobes Encephalopathy Seizure Acute respiratory failure Right pneumothorax status post chest tube placement MSSA pneumonia Sepsis Hypertensive emergency Hepatitis C H/O substance abuse Plan: Neuro: Off propofol and fentanyl drips since 08/25. On Precedex for agitation/ delirium. Ativan/Haldol when necessary ordered following extubation on 08/25. Neurosurgery following. Continue phenytoin, Home dose Lamictal resumed 08/22. Repeat head CT per neurosurgery Cardiovascular: Off nicardipine gtt. Continue IV fluids. Pulmonary: Extubated on 08/25, initially on nonrebreather facemask, currently on 6 L nasal cannula. bronchodilators as needed. Thick pulmonary secretions. Sputum cultures growing MSSA. s/p chest tube for rt pneumothorax. Follow-up repeat chest x-ray and if no pneumothorax we'll plan on discontinuing chest tube. GI/liver: Speech and swallow evaluation if neurologic status improves. May require Dobbhoff for tube feeds. Patient reportedly on Epclusa for hepatitis C. Renal/: IV hydration, strict intake output, monitor and replete electrolytes, follow BUN/creatinine. ID: Sputum cultures growing MSSA. Concern for aspiration. Started on IV Zosyn on 08/25, de-escalate to Rocephin 1 g IV daily on 08/27. Received 1 dose of vancomycin on 08/25.. On epclusa at home for ? Hep C Heme: Follow CBC. Endocrine: SSI for glycemic control if needed. Prophylaxis: PPI/SCDs. Subcutaneous heparin to be cleared by neurosurgery. Further recommendations per neurosurgery. Updated patient's family on 08/25, 08/26, 08/27 regarding current clinical status and plan of care and they voiced understanding and were agreeable. Nilson López MD Aug 27, 2017 08:29
[2017-08-27] MEDS ORDERED: MAGNESIUM SULFATE INJ 2 GM in SODIUM CHLORIDE 0.9% INJ 96 ML IV PRN (08:30)
[2017-08-27] MEDS ORDERED: MAGNESIUM SULFATE INJ 4 GM in SODIUM CHLORIDE 0.9% INJ 92 ML IV PRN (08:30)
[2017-08-27] MEDS ORDERED: POTASSIUM CHLOR 40 MEQ PREMIX 100 ML IV PRN ×2 (08:30)
[2017-08-27] MEDS ORDERED: POTASSIUM PHOSPHATE MONOBASIC 500 MG TAB PO/TUBE PRN (08:30)
[2017-08-27] MEDS ORDERED: POTASSIUM PHOSPHATE MONOBASIC 500 MG TAB PO PRN (08:30)
[2017-08-27] MEDS ORDERED: MAGNESIUM OXIDE 400 MG TAB PO PRN (08:30)
[2017-08-27] MEDS ORDERED: POTASSIUM PHOSPHATE INJ 30 MMOL in SODIUM CHLOR 0.9% 250 ML INJ 250 ML IV PRN (08:30)
[2017-08-27] MEDS ORDERED: SODIUM PHOSPHATE INJ 30 MMOL in SODIUM CHLOR 0.9% 250 ML INJ 240 ML IV PRN (08:30)
[2017-08-27] MEDS: DOCUSATE SODIUM 100 MG CAP PO SCH ×2 (09:00→21:00)
[2017-08-27] MEDS: CHLORHEXIDINE 0.12% (ORAL KIT) 15 ML CUP MT SCH ×2 (09:01→21:06)
[2017-08-27] MEDS: SODIUM CHLORIDE 0.9% FLUSH 10 ML FLUSH IV FLUSH SCH ×2 (09:02→21:07)
[2017-08-27] MEDS: PANTOPRAZOLE SODIUM 40 MG VIAL IVP SCH (09:02)
[2017-08-27] MEDS: methylPREDNISolone SOD SUCC 40 MG/1 ML VIAL IV PUSH SCH (09:02)
[2017-08-27] MEDS: SERTRALINE HCL 100 MG TAB PO SCH (09:03)
[2017-08-27] MEDS: lamoTRIgine 100 MG TAB PO SCH ×2 (09:03→21:06)
[2017-08-27] MEDS: NICOTINE 7 MG/24 HR PATCH T-DERMAL SCH (09:04)
[2017-08-27] MEDS: REMOVE OLD PATCH T-DERMAL SCH (09:04)
[2017-08-27] MEDS: cefTRIAXone INJ 1,000 MG in SODIUM CHLORIDE 0.9% INJ 100 ML IV SCH (09:10)
--- NOTE | 2017-08-27 09:12 | RADRPT ---
EXAM DATE/TIME: 08/27/2017 08:30 CORRECTION Corrected on: August 27, 2017; Updated report time [facility] COMPARISON: CHEST SINGLE AP, August 26, 2017, 9:45. INDICATIONS : Shortness of breath. MEDICAL HISTORY : Sleep apnea. Hepatitis C. SURGICAL HISTORY : Kyphoplasty. ENCOUNTER: Subsequent ACUITY: 1 day PAIN SCORE: Non-responsive. LOCATION: Bilateral chest FINDINGS: Right chest instruments projected of the mid chest. Right internal jugular catheter tip projects at the right atrium. There is persistent patchy infiltrate in the lateral right upper lung, similar in size to prior. No new infiltrates seen. The heart is normal size. No evidence of pneumothorax. CONCLUSION: Stable patchy infiltrate in the upper lateral right lung. Alexis Rizo MD on August 27, 2017 at 9:09 Board Certified Radiologist. This report was verified electronically.
--- NOTE | 2017-08-27 09:13 | HHI.NSPN ---
(Issac Duncan) History Chief Complaint: Slight headache (Issac Duncan) Interval History 08/21: 67-year-old male presents to the emergency room today approximately 7 AM with history of headache for several days, increasing significantly at 6:30 AM today. His initial blood pressure was 261/143. He was placed on a nicardipine drip for initial blood pressure control. 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 He was reportedly awake and alert upon presentation to the emergency room, with left facial and upper extremity weakness. He reportedly developed increasing speech difficulty following a CT scan this morning, and subsequently was noted to have a seizure which was initially treated with Ativan. Since then he has been more lethargic and nonverbal. 08/22: The patient is obtunded this morning but he is sedated with propofol. Nursing reports that he is off all other sedation and blood pressure drips. She also reports that the patient is spontaneously moving his extremities and responds to noxious stimulation. He did go for a repeat CT brain this morning. 08/23: The patient is agitated and thrashing about in bed when seen. Nursing and the Textile Machinery Instructor are present and a needle decompression had been done for a pneumothorax on the right side which was demonstrated on his CXR this morning. They were preparing to place a right-sided chest tube. The patient continues to be intubated and mechanically ventilated. He does have propofol for sedation and fentanyl for pain management infusing. 08/24: The patient is obtunded this morning when seen. He is on propofol for sedation. He remains intubated and mechanically ventilated with a right-sided chest tube. Nursing reports his fentanyl was stopped about 20 minutes prior to being seen. She also reports that the patient is being restarted on his psych meds prior to weaning his sedation. 08/25: When seen this morning the patient continues to be obtunded. He remains intubated and on mechanical ventilation. He had been on propofol which was discontinued and started on dexmedetomidine this morning. The fentanyl drip was also discontinued. The Textile Machinery Instructor was in the room discussing the plan of care with the patient's sister when the patient was seen. After seen the Textile Machinery Instructor notified this practitioner that the patient was now following commands and the patient was seen again and did follow commands for this practitioner and open his eyes to voice. 08/26/17: Extubated. Remains on Precedex drip for agitation. Spontaneous eye opening. He knows his family. Answers a few questions yes/no. Follows commands all extremities. 08/26/17 CT scan had stable right frontal intracranial hemorrhage with local mass effect. 08/27: This morning the patient is awake and alert. He is mildly agitated and fidgeting about in bed. The dexmedetomidine is still infusing for sedation this morning. He replies he is doing good when asked. He does endorse a slight headache which he says is getting better as well as some slight dizziness. His is present in the room and states that he was up most of the night. (Issac Duncan) System Review Comments NEUROLOGICAL: Slight headache that is getting better, slight dizziness. The remainder of the ROS is negative. (Issac Duncan) Exam Results 08/25/17 08/25/17 08/26/17 08/26/17 08/27/17 08/27/17 06:00 18:00 06:00 18:00 06:00 18:00 Intake Total 863 ml 2951 ml 260 ml 1575 ml 964 ml Output Total 628 ml 920.0 ml 925 ml 1500 ml 1400 ml Balance 235 ml 2031.0 ml -665 ml 75 ml -436 ml Intake Oral 480 ml 260 ml 480 ml 240 ml IV Total 33 ml 2245 ml 1095 ml 724 ml Tube Feeding 590 ml 226 ml Other 240 ml Output Urine Total 625 ml 800 ml 925 ml 1500 ml 1400 ml Tube Feeding Residual Discard 120.0 ml Chest Tube Drainage Total 3 ml 0 ml 0 ml 0 ml 0 ml # Bowel Movements 0 0 0 0 4 Vital Signs Date Time Temp Pulse Resp B/P (MAP) Pulse Ox O2 Delivery O2 Flow Rate FiO2 08/27/17 07:27 96 Nasal Cannula 4.00 08/27/17 06:00 68 08/27/17 04:00 98.5 68 25 129/76 (93) 96 08/27/17 04:00 68 08/27/17 02:00 70 08/27/17 00:00 74 08/27/17 00:00 97.6 74 23 121/74 (90) 95 08/26/17 22:00 76 08/26/17 21:44 96 Nasal Cannula 5.00 08/26/17 20:00 72 08/26/17 20:00 98.7 72 24 132/82 (99) 93 08/26/17 19:00 94 Nasal Cannula 5.00 08/26/17 18:00 71 08/26/17 16:00 71 19 121/73 (89) 94 08/26/17 16:00 76 08/26/17 14:00 76 08/26/17 12:00 99.9 77 20 126/73 (90) 92 08/26/17 12:00 77 08/26/17 10:00 82 08/26/17 08:00 98.7 74 13 132/75 (94) 95 08/26/17 08:00 75 08/26/17 07:34 94 Nasal Cannula 6.00 08/26/17 07:00 95 Nasal Cannula 6.00 08/26/17 06:00 74 08/26/17 04:00 78 08/26/17 04:00 98.5 78 19 121/72 (88) 92 08/26/17 02:00 82 08/26/17 00:00 99.1 77 18 124/67 (86) 93 Arterial Line 08/26/17 00:00 77 08/25/17 22:00 76 08/25/17 20:00 98.4 80 20 136/58 (84) 93 08/25/17 20:00 80 08/25/17 19:23 93 Nasal Cannula 6.00 08/25/17 19:00 95 Nasal Cannula 6.00 08/25/17 18:10 99 Nasal Cannula 6.00 08/25/17 16:00 100.7 78 14 120/60 (80) 97 08/25/17 16:00 97 Partial Non-Rebreather 15.00 08/25/17 16:00 78 08/25/17 12:00 100.9 72 17 127/70 (89) 94 08/25/17 12:00 72 08/25/17 10:10 92 Partial Non-Rebreather 15.00 08/25/17 10:00 97 Partial Rebreather 15.00 08/25/17 09:45 94 15 08/25/17 09:45 94 Nasal Cannula 6.00 08/25/17 09:20 40 08/25/17 09:12 40 08/25/17 09:00 68 97/68 08/25/17 08:45 76 51/64 08/25/17 08:32 94 40 08/25/17 08:00 100.8 78 14 95/78 (84) 96 08/25/17 08:00 78 08/25/17 08:00 40 08/25/17 06:00 74 08/25/17 04:02 97 40 08/25/17 04:00 100.1 76 14 130/56 (80) 97 08/25/17 04:00 40 08/25/17 04:00 76 08/25/17 02:00 74 08/25/17 01:20 92 40 08/25/17 00:00 40 08/25/17 00:00 72 08/25/17 00:00 99.3 72 14 126/54 (78) 96 08/24/17 22:00 74 08/24/17 20:00 99.1 72 14 120/50 (73) 100 08/24/17 20:00 72 08/24/17 20:00 40 08/24/17 19:48 98 40 08/24/17 18:00 72 08/24/17 16:05 98 40 08/24/17 16:00 100.2 75 14 117/49 (71) 95 08/24/17 16:00 40 08/24/17 16:00 75 08/24/17 14:00 77 08/24/17 12:30 96 40 08/24/17 12:00 83 08/24/17 12:00 40 08/24/17 12:00 101.5 83 14 101/50 (67) 95 08/24/17 10:00 83 (Issac Duncan) Physical Examination GENERAL: Awake & alert, mildly agitated fidgeting in bed, on on dexmedetomidine 0.8 mcg/kg/hr for sedation. SKIN: Warm, dry & intact w/o any evident rashes, ulcerations or other lesions except for a right-sided chest tube insertion site. HEENT: Normocephalic, atraumatic. NECK: No JVD, trachea midline. CARDIOVASCULAR: S1S2 w/RRR w/o M/G/R, radial & pedal pulses 2+ bilaterally, cap refill < 2 sec, no pedal edema. Sinus rhythm w/o any ectopy noted on monitor. RESPIRATORY: CTAB w/o W/R/R, equal excursion, mild tachypnea, on NC, right- sided chest tube to water seal. GASTROINTESTINAL: Abdomen soft, positive bowel sounds. GENITOURINARY: Thomas catheter to BSD w/clear yellow urine. MUSCULOSKELETAL: MOLINA w/o difficulty, no evident deformity or clubbing. NEUROLOGICAL: Awake & alert, oriented to self, eventually said correct month & year on 2nd try after initially getting them wrong, confused as to where he was (friends' home). Eyes open spontaneously. Speech clear. Follows simple commands. PERRLA 3 mm brisk, EOMI, tracks w/eyes, tongue midline to protrusion, strong shoulder shrug, no facial weakness or numbness. Moves all extremities with moderate strength briefly to command. (Issac Duncan) Lab, Micro, Other Results Recent Impressions Head CT 08/26/17 0600 Signed Impressions: Service Date/Time: Saturday, August 26, 2017 04:35 - CONCLUSION: Evolving bifrontal hemorrhage Saw Higginbotham MD Chest X-Ray 08/26/17 0000 Signed Impressions: Service Date/Time: Saturday, August 26, 2017 09:45 - CONCLUSION: 1. Patchy opacity within the right upper lung field consistent with probable pneumonia. Clinical correlation is recommended. No pneumothorax. Lukas Flores MD Chest X-Ray 08/25/17 0000 Signed Impressions: Service Date/Time: Friday, August 25, 2017 11:07 - CONCLUSION: 1. No recurrent pneumothorax. 2. Bibasilar atelectatic changes. Lukas Flores MD Laboratory Tests Test 08/25/17 03:29 08/25/17 13:29 08/26/17 02:53 08/27/17 05:30 White Blood Count 10.0 TH/MM3 10.0 TH/MM3 Red Blood Count 3.50 MIL/MM3 3.42 MIL/MM3 Hemoglobin 10.8 GM/DL 10.7 GM/DL Hematocrit 32.7 % 31.4 % Mean Corpuscular Volume 93.6 FL 91.8 FL Mean Corpuscular Hemoglobin 30.8 PG 31.3 PG Mean Corpuscular Hemoglobin Concent 32.9 % 34.1 % Red Cell Distribution Width 13.0 % 12.5 % Platelet Count 194 TH/MM3 181 TH/MM3 Mean Platelet Volume 8.6 FL 8.5 FL Neutrophils (%) (Auto) 70.0 % 75.1 % Lymphocytes (%) (Auto) 11.2 % 13.4 % Monocytes (%) (Auto) 13.1 % 11.0 % Eosinophils (%) (Auto) 5.5 % 0.3 % Basophils (%) (Auto) 0.2 % 0.2 % Neutrophils # (Auto) 7.0 TH/MM3 7.6 TH/MM3 Lymphocytes # (Auto) 1.1 TH/MM3 1.3 TH/MM3 Monocytes # (Auto) 1.3 TH/MM3 1.1 TH/MM3 Eosinophils # (Auto) 0.6 TH/MM3 0.0 TH/MM3 Basophils # (Auto) 0.0 TH/MM3 0.0 TH/MM3 CBC Comment DIFF FINAL DIFF FINAL Differential Comment Blood Urea Nitrogen 8 MG/DL 13 MG/DL 15 MG/DL Creatinine 0.62 MG/DL 0.74 MG/DL 0.70 MG/DL Random Glucose 112 MG/DL 134 MG/DL 107 MG/DL Calcium Level 7.6 MG/DL 7.8 MG/DL 7.8 MG/DL Sodium Level 139 MEQ/L 136 MEQ/L 135 MEQ/L Potassium Level 3.7 MEQ/L 3.7 MEQ/L 3.2 MEQ/L Chloride Level 107 MEQ/L 105 MEQ/L 104 MEQ/L Carbon Dioxide Level 25.9 MEQ/L 24.6 MEQ/L 22.6 MEQ/L Anion Gap 6 MEQ/L 6 MEQ/L 8 MEQ/L Estimat Glomerular Filtration Rate 130 ML/MIN 106 ML/MIN 113 ML/MIN Urine Color YELLOW Urine Turbidity CLEAR Urine pH 6.5 Urine Specific [place] 1.023 Urine Protein 30 mg/dL Urine Glucose (UA) 1000 mg/dL Urine Ketones NEG mg/dL Urine Occult Blood SMALL Urine Nitrite NEG Urine Bilirubin NEG Urine Urobilinogen 2.0 MG/DL Urine Leukocyte Esterase NEG Urine RBC 16 /hpf Urine Mucus FEW /lpf Microscopic Urinalysis Comment CATH-CULT NOT IND Total Protein 6.4 GM/DL Albumin 2.4 GM/DL Alkaline Phosphatase 40 U/L Aspartate Amino Transf (AST/SGOT) 21 U/L Alanine Aminotransferase (ALT/SGPT) 17 U/L Total Bilirubin 0.7 MG/DL (Issac Duncan) Medical Decision Making Impression and Plan Impression: 1. Bifrontal spontaneous intracranial hemorrhage 2. New onset seizure 3. Hypertension 4. Chronic tobacco use Awake, following commands, still w/confusion, moving all extremities spontaneously. Evolving bifrontal haemorrhages on CT , no new acute findings. Reviewed labs for today, mild hyponatremia. Plan: Discussed plan of care with patient's family. Critical care management per Textile Machinery Instructor. Frequent vital signs and neuro checks Target SBP < 140. Phenytoin for seizures. Non-chemical DVT prophylaxis. Ulcer prophylaxis. (Issac Duncan) Attending Statement The exam, history, and the medical decision-making described in the above note were completed with the assistance of the mid-level provider. I reviewed and agree with the findings presented. I attest that I had a [id number] encounter with the patient on the same day, and personally performed and documented my assessment and findings in the medical record. Patient remains agitated, confused. 08/26/2017 CT scan head with relatively stable evolving bifrontal hemorrhages. Continuing ISC neuro checks. Seizure prophylaxis Sedation as needed for agitation and anxiety. No neurosurgical intervention planned at this point. (Martin Kong MD) Issac Duncan Aug 27, 2017 09:13 Martin Kong MD Aug 30, 2017 20:41
[2017-08-27] MEDS: HALOPERIDOL LACTATE 5 MG/ML AMP IV PRN ×2 (13:43→18:43)
[2017-08-27] MEDS: POTASSIUM CHLOR 20 MEQ PREMIX 100 ML IV PRN ×3 (16:03→22:55)
[2017-08-27] MEDS: FAMOTIDINE 20 MG TAB PO SCH (21:06)
[2017-08-27] MEDS: ACETAMINOPHEN 325 MG TAB PO PRN (22:00)
--- NOTE | 2017-08-27 22:11 | MG ---
cc: ELOY ELAM MD Lab No: Date: 08/27/2017 Age: Sex: M Race: DATE OF [address] López MEDICAL HISTORY Dizziness, headache, migraine, liver disease, anxiety, alcohol and substance abuse, intraparenchymal hemorrhage and seizure. MEDICATIONS 1. Solu-Medrol. 2. Ceftriaxone. 3. Dexmedetomidine, 4. Nicotine. 5. Zoloft. 6. Lamictal. 7. Dilantin. 8. Protonix. DESCRIPTION The background activity is 8-9 Hz alpha located posteriorly bilateral and symmetrical with superimposed beta activity. There is excessive movement / head movement artifact during the recording mainly at the frontal regions. Hyperventilation was not done. Photic stimulation did not elicit a driving response. There was intermittent background slowing in the theta range. There were no electrographic seizures or epileptiform discharges seen. INTERPRETATION This is an abnormal awake and drowsy EEG. The background slowing may indicate an encephalopathic pattern. Beta activity is nonspecific finding that may relate to medication adverse effect like benzos and barbiturates. Absence of electrographic seizures or epileptiform discharges does not exclude the diagnosis of epilepsy. Clinical correlation is recommended. Eloy Elam MD RGO/KK /9:50 PM /10:03 PM MTDVikas
[2017-08-28] VITALS (14 sets, daily range): BP systolic 140–179; BP diastolic 81–87; PULSE 64–96; RESP 19–31; TEMP 98.1–101.6; O2SAT 92–100
[2017-08-28] MEDS: cloNIDine HCL 0.1 MG TAB PO PRN (00:54)
[2017-08-28] MEDS: HALOPERIDOL LACTATE 5 MG/ML AMP IV PRN ×3 (00:54→20:58)
[2017-08-28] MEDS: RESP: ALBUTEROL 2.5 MG/IPRATROPIUM 0.5 MG NEB (SCH) NEB ×4 (03:36→21:07)
[2017-08-28] MEDS: CHLORHEXIDINE GLUCONATE 2 % 1 PACK (2 CLOTHS) TOP SCH (04:00)
[2017-08-28] MEDS ORDERED: SODIUM CHLORIDE 0.9% INJ 50 ML ONE (04:24)
[2017-08-28] MEDS: ENALAPRILAT 1.25 MG/ML VIAL IV PUSH PRN ×2 (04:26→05:44)
[2017-08-28] MEDS: DEXMEDETOMIDINE INJ 1,000 MCG in SODIUM CHLOR 0.9% 250 ML INJ 240 ML IV PRN ×2 (04:59→21:16)
[2017-08-28 05:24] LABS: AUTOMATED NEUTROPHIL # 6.3 TH/MM3 (1.8-7.7); BASOPHIL # 0.1 TH/MM3 (0-0.2); BASOPHIL % 0.6 % (0.0-2.0); EOSINOPHIL # 0.6 TH/MM3 (0-0.4); EOSINOPHIL % 5.6 % (0.0-4.0); HEMATOCRIT 35.5 % (39.0-51.0); LYMPH % 18.1 % (9.0-44.0); LYMPHOCYTE # 1.9 TH/MM3 (1.0-4.8); MEAN CELL VOLUME 92.6 FL (80.0-100.0); MEAN CORPUSCULAR HEMOGLOBIN 31.3 PG (27.0-34.0); MEAN CORPUSCULAR HGB CONC 33.9 % (32.0-36.0); MEAN PLATELET VOLUME 9.3 FL (7.0-11.0); MONO % 16.8 % (0.0-8.0); MONOCYTE # 1.8 TH/MM3 (0-0.9); NEUT % 58.9 % (16.0-70.0); PLATELET COUNT 231 TH/MM3 (150-450); RED BLOOD COUNT 3.84 MIL/MM3 (4.50-5.90); RED CELL DISTRIBUTION WIDTH 12.8 % (11.6-17.2); WHITE BLOOD COUNT 10.7 TH/MM3 (4.0-11.0)
[2017-08-28] MEDS: POTASSIUM CHLOR 20 MEQ PREMIX 100 ML IV PRN (05:44)
[2017-08-28 05:50] LABS: ALBUMIN 2.6 GM/DL (3.4-5.0); AST (GOT) 27 U/L (15-37); BICARBONATE 21.3 MEQ/L (21.0-32.0); BLOOD UREA NITROGEN 13 MG/DL (7-18); CALCIUM 8.5 MG/DL (8.5-10.1); CHLORIDE 105 MEQ/L (98-107); CREATININE 0.65 MG/DL (0.60-1.30); GLOMERULAR FILTRATION RATE 123 ML/MIN (>89); GLUCOSE,RANDOM 96 MG/DL (74-106); SODIUM (NA) 136 MEQ/L (136-145)
[2017-08-28 05:51] LABS: ALT (GPT) 29 U/L (12-78)
[2017-08-28 05:53] LABS: ALKALINE PHOSPHATASE 44 U/L (45-117); TOTAL BILIRUBIN ADULT 0.6 MG/DL (0.2-1.0)
[2017-08-28] MEDS: PHENYTOIN INJ 100 MG/2 ML VIAL IV SCH (06:37)
[2017-08-28] MEDS ORDERED: LORazepam 2 MG/ML VIAL IV PUSH STA (06:51)
[2017-08-28] MEDS: hydrALAZINE HCL 20 MG/ML VIAL IV PUSH PRN (07:00)
[2017-08-28] MEDS: INSULIN ASPART SUPPLEMENTAL SCALE SQ SCH ×2 (07:00→16:00)
--- NOTE | 2017-08-28 08:48 | MB ---
cc: ELOY CONTRERAS MD DATE OF CONSULTATION: 08/28/2017 REASON FOR CONSULTATION Intracerebral hemorrhage and seizures. HISTORY OF PRESENT ILLNESS Mr. Posey is a 67-year-old male who presented to the [facility] ER because of severe headache and disorientation. The patient was evaluated in the emergency room and a stroke alert was called. During the encounter the patient's and sister were present and provided much of the medical history and the rest of the medical history is obtained from the chart as the patient is a poor historian. In the emergency room head CT scan revealed intraparenchymal hemorrhage involving the frontal lobes, currently being followed by neurosurgery. Reportedly the patient had a seizure in the emergency room, loaded with fosphenytoin and received Ativan, admitted to the ICU, intubated and placed on mechanical ventilation. Upon arrival the blood pressure was 200 systolic. On 08/26/2017 he was extubated after C-PAP trial on 08/25. On 08/27 the patient was reportedly disoriented and occasional hallucination particularly at night, currently on nasal cannula. EEG done was indicative of an encephalopathic pattern with no ictal activity or epileptiform discharges. REVIEW OF SYSTEMS Unable to obtain but review of medical records revealed 12-point review of systems is negative except for what is stated in the HPI. PAST MEDICAL HISTORY 1. Hypertension for which he does not treat himself, as per . 2. Hep C. 3. Alcohol abuse. SOCIAL HISTORY Occasional alcohol, daily smoker, drug abuse. ALLERGIES No known allergies. FAMILY HISTORY Noncontributory but for hypertension. PHYSICAL EXAMINATION GENERAL: Awake, irritable, anxious with restraints, moves all extremities. HEENT: Atraumatic, normocephalic. Intact hearing. Intact vision. NECK: Supple. No carotid bruits. RESPIRATORY: Clear to auscultation. No wheezes. Scattered rhonchi. Right-sided catheter in place on the chest. CARDIOVASCULAR: Regular rate and rhythm. GASTROINTESTINAL: Soft abdomen, nontender. EXTREMITIES: No edema. No cyanosis. NEUROLOGIC: Awake, alert, oriented to time, person and place, anxious and irritable at times. Denies pain Cranial nerves II-XII are grossly intact. Moves all extremities equally, in restraints, unable to accurately assess motor function. Sensation is grossly intact. PSYCHIATRIC: Cooperative, anxious. No hallucinations. LABORATORY DATA White blood cells 10, hemoglobin 10.7, platelet count 181, sodium 135, potassium 3.2, BUN 15, creatinine 0.7, random glucose 107, calcium 7.8. UDS negative but positive for amphetamine. INR 1. DIAGNOSTIC IMAGING STUDIES - Head CT scan on 08/26/2017: Evolving bifrontal hemorrhage. No acute findings. - Head CT scan on 08/22/2017: Revealed evolving and slightly less prominent bifrontal hemorrhage, minimal intraventricular hemorrhage. - CTA on 08/21/2017: No evidence of significant stenosis. - Head CTA without contrast on 08/21/2017: Negative. Specifically no evidence for aneurysm or large vessel occlusion. 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 DIAGNOSTIC IMPRESSION 1. Bilateral frontal lobe intracerebral hemorrhages status post hypertension. 2. Encephalopathy. 3. New onset seizure, likely related to the hemorrhage status/ hypertensive urgency. 4. Acute respiratory failure. 5. Right pneumothorax status post chest tube placement. 6. Sepsis. 7. Hypertensive emergency. 8. Hep C. 9. History of substance abuse. PLAN 1. Neuro checks q. one hourly. 2. Seizure precautions. Continue Dilantin 200 mg three times daily. 3. Obtain total Dilantin level. 4. Continue home dose of Lamictal 200 mg twice daily. 5. Seizure precautions. 6. No anticoagulation or antiplatelet. 7. Maintain goal blood pressure of 135-140/75-80. 8. DVT prophylaxis with SCDs. 9. GI prophylaxis. 10. Continue supportive medical therapy. Thank you for the opportunity to participate in the care of your patient. MD DOMINGO Contreras/MARTA /7:56 AM /8:14 AM DARCY
[2017-08-28] MEDS: SODIUM CHLORIDE 0.9% FLUSH 10 ML FLUSH IV FLUSH SCH ×2 (09:00→20:59)
[2017-08-28] MEDS: REMOVE OLD PATCH T-DERMAL SCH (09:00)
[2017-08-28] MEDS: DOCUSATE SODIUM 100 MG CAP PO SCH ×2 (09:00→20:59)
[2017-08-28] MEDS: ACETAMINOPHEN 325 MG TAB PO PRN ×2 (09:23→21:46)
[2017-08-28] MEDS: methylPREDNISolone SOD SUCC 40 MG/1 ML VIAL IV PUSH SCH (09:23)
[2017-08-28] MEDS: lamoTRIgine 100 MG TAB PO SCH ×2 (09:24→20:58)
[2017-08-28] MEDS: cefTRIAXone INJ 1,000 MG in SODIUM CHLORIDE 0.9% INJ 100 ML IV SCH (09:24)
[2017-08-28] MEDS: NICOTINE 7 MG/24 HR PATCH T-DERMAL SCH (09:24)
[2017-08-28] MEDS: SERTRALINE HCL 100 MG TAB PO SCH (09:24)
[2017-08-28] MEDS: FAMOTIDINE 20 MG TAB PO SCH ×2 (09:24→20:59)
[2017-08-28] MEDS: LISINOPRIL 10 MG TAB PO SCH (09:25)
[2017-08-28] MEDS: HYDROCHLOROTHIAZIDE 12.5 MG CAP PO SCH (09:25)
[2017-08-28] MEDS: CHLORHEXIDINE 0.12% (ORAL KIT) 15 ML CUP MT SCH ×2 (09:27→20:00)
--- NOTE | 2017-08-28 11:12 | PD.HHIRCNE ---
Patient History Record/History Review Reason for Referral: The patient is a 67 year old right handed male who was admitted to [facility] on 08/21/2017 with complaints of severe CARTAGENA, elevated BP with left facial droop and UE weakness, seizures and mental status changes. Neuroimaging revealed bifrontal ICH. He now presents with disorientation and hallucinations , generally awake and alert and following commands. He is referred for baseline neurobehavioral status examination per trauma protocol to assess cognitive, behavioral and emotional aspects of the injury and to provide treatment recommendations. Neuropsych Precautions: To be determined. Past Surgical/Medical History Past Surgery: Yes (broken back) Major surgery in last 100 days: Unknown Hx Anesthesia Reactions: No Hx Orthopedic Surgery: Yes (back) Hx Cardiac Surgery: No Hx Chest Surgery: No Hx Abdominal Surgery: No Hx Genitourinary Surgery: No Hx Endocrine Surgery: No Hx Eye Surgery: Yes Hx Ear Surgery: No Hx Oral Surgery: No History of Transplant: No Hx of Neuro Prob: Yes Hx Seizures: No Cephalgia (Headaches): Yes Hx Migraines: Yes Hx Head Injury: No Hx Falls: Yes Hx Cerebrovascular Accident: No Hx Dizziness: Yes Hx Numbness: Yes (in thombs) Hx of Musculoskeletal Pro: Yes Hx Arthritis: Yes Hx Osteoporosis: No Hx Neck Problems: No Hx Back Problem: Yes Hx of Cardiovascular Prob: Yes Hypertension (High Blood Press: Yes Hx Clotting Problems: No Venous Thromboembolism Present: No Hx Chest Pain: No Hx Lightheadedness: Yes (working in sun) Hx Congestive Heart Failure: No Syncope (Fainting): No Hx of Respiratory Problem: Yes Hx Asthma: No Hx Wheezing: No Hx Chronic Obstructive Pulmona: No Hx Dyspnea: No Hx Snoring: Yes Hx Emphysema: No Hx Sleep Apnea: Yes Hx of GI Problems: Yes Hx Heartburn: Yes Hx Gastroesophageal Reflux: Yes Hx Hiatal Hernia: No Hx Ulcer: No Hx Liver Disease: Yes (Hep.C) Hx Gallbladder Disease: No Hx Inflammatory Bowel Disease: No Hx of Problems: Yes Hx Renal Disease: No Hx Renal Failure: No Hx Kidney Transplant: No Hx Kidney Stones: No Hx Nephrectomy: No Hx Infection: No Hx Prostate Problems: Yes Hx of Immuno Disor: Yes (rheumatoid arthritis) Hx of Endocrine Problems: No Hx of Eye Probl: Yes (near-far sited) Hx of Hearing or Ear Problems: No Hx Dental Problems: No Hx Psychiatric Problems: Yes Hx Anxiety: Yes Hx Depression: Yes Hx Blood Dyscrasias: No Hx of MDRO: No Hx of MRSA: No Hx of VRE: No Hx of Body/Medical Devices: No Hx Pacemaker: No Hx Internal Defibrillator: No Central Line/Ports (Type): No Hx Joint Replacement: No Insulin Pump: No Hx Arteriovenous Shunt: No Hx Dental Implants: No Hx Eye Prosthesis: No Genitourinary Device: No Genitourinary Ostomy: No Gastrointestinal Ostomy: No Blood Transfusion History Will receive Blood /Blood prod: No Hx Blood Transfusions: No Medication Active Medications Famotidine (Pepcid) 20 mg BID PO Last administered on 08/28/17 09:24; Admin Dose 20 MG; Start 08/27/17 at 21:00 Hydralazine HCl (Apresoline Inj) 20 mg Q4H PRN IV PUSH Last administered on 07:00; Admin Dose 20 MG; Start 08/28/17 at 07:00 Hydrochlorothiazide (Microzide) 12.5 mg DAILY PO Last administered on 08/28/17 09:25; Admin Dose 12.5 MG; Start 08/28/17 at 09:00 Insulin Aspart (NovoLOG SUPPLEMENTAL SCALE) 1 BIDAC SQ; Start 08/27/17 at 16:00 Lisinopril (Prinivil) 10 mg DAILY PO Last administered on 08/28/17 09:25; Admin Dose 10 MG; Start 08/28/17 at 09:00 Lorazepam (Ativan Inj) 1 mg ONCE STAT IV PUSH Last administered on 08/28/17 07 :00; Admin Dose 1 MG; Start 08/28/17 at 06:51; Stop 08/28/17 at 06:57; Status DC Sodium Chloride 50 ml @ As Directed STK-MED ONCE .ROUTE Last administered on 06:38; Admin Dose 50 MLS/HR; Start 08/28/17 at 04:24; Stop 08/28/17 at 04 :25; Status DC Mental Status Assessment Orientation: oriented to Self, oriented to Place, oriented to Time, oriented to Situation Mental Status: Impaired: Thought processing, Attention, Learning/Memory, Problem-Solving Observation The patient is alert and generally oriented to person, place, time and circumstances surrounding the reason for hospitalization. In terms of attention skills, the patient was able to remain on task and remember basic but not complex instructions. In terms of memory functioning, the patient was inconsistently able to demonstrate carryover across time. The patient initiated unable to initiate spontaneous conversation. Assessment of speech quality was attenuated by respiratory treatment currently being provided. Basic naming skills were intact. The patients comprehensions for basic one- and two-stage commands was inconsistent. Basic verbal abstraction and problem- solving skills were impaired. The patient appears to posses diminished insight and awareness into their situation and within the limits of this brief evaluation, diminished judgment. Impression Neurocognitive deficits 2T bifrontal ICH Adjustment/Coping Assessment Adjustment/Coping: Severe: Awareness, Insight Observation The patients thought content was free from suicidal, homicidal or paranoid ideation, and the patients thought processes were tangential. The patients mood was anxious, and the affect was worrisome. LTG Status: Deferred STG Status: Deferred Team Members: Neuropsychologist Behavior Assessment Agitation: Moderate Treatment Engagement: Average Observation Behaviorally, the patient demonstrated signs of agitation and restlessness. There was no remarkable evidence of a formal thought disorder or psychosis 2T psychiatric causes. LTG - Status: Deferred STG Status: Deferred Team Members: Neuropsychologist Diagnosis/Discharge Plan Impression This is a 67 year old man s/p bifrontal ICH on 08/21/2017 now with residual neurocognitive and neurobehavioral deficits including restlessness, agitation, disorientation and hallucinations. 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 This patients neuropathological challenges may limit their rehabilitation potential going forward, and these challenges will require specialized therapeutic skills to maximize outcome. Additionally, the patients family is experiencing ongoing issues of adjustment given the traumatic nature of the injury, and they may benefit from ongoing psychological assistance. More specifically, concerning his agitation/ restlessness and hallucinations, I would suggest Seroquel 25 q0800 and 1400, and 50 HS and adjust according to clinical response (additional 25 mg per dosing regimen) of improved versus ongoing impaired orientation and resistant hallucination (ensuring that he does not have QT-interval prolongation which would be a contraindication for Seroquel in this patient population), with efforts to optimize his sleep-wake cycle; I would suggest to avoid benzodiazepines as these medications typically exacerbate confusion in persons with traumatic and nontraumatic brain injuries, and I would suggest continuing the PRN Haldol order to manage breakthrough agitation, with the goal of eventually d/c'ing Haldol once the Seroquel titration has optimized his behavior . Discharge Planning Anticipated Problems Ongoing areas of concern will include behavioral impulsivity, lack of insight and judgment, which is expected to improve with time and treatment. Presently , the patient is following commands, but remains confused and disoriented. Treatment Plan This clinician will continue to follow with you throughout the course of this patients acute care treatment, and I will be available to meet with the patient s family/support system to facilitate their understanding and the ongoing care of their family member. The goals of neuropsychological intervention shall be both educational and supportive to the family/support system as is deemed clinically appropriate. I have consulted our nurse liaison here at [facility] to look at him for potential rehabilitation once his medical conditions have stabilized. Discharge Needs To be determined. Thank you Thank you for the opportunity to assist in this patients care. Brice Oswald, Ph.D., ABPP Board Certified in Clinical Neuropsychology [place] [employer] [place] Licensed Psychologist #[id number] Brice Oswald PhD Aug 28, 2017 11:11 am
--- NOTE | 2017-08-28 11:41 | HHI.NSPN ---
(Issac Duncan) History Chief Complaint: Slight headache (Issac Duncan) Interval History 08/21: 67-year-old male presents to the emergency room today approximately 7 AM with history of headache for several days, increasing significantly at 6:30 AM today. His initial blood pressure was 261/143. He was placed on a nicardipine drip for initial blood pressure control. 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 He was reportedly awake and alert upon presentation to the emergency room, with left facial and upper extremity weakness. He reportedly developed increasing speech difficulty following a CT scan this morning, and subsequently was noted to have a seizure which was initially treated with Ativan. Since then he has been more lethargic and nonverbal. 08/22: The patient is obtunded this morning but he is sedated with propofol. Nursing reports that he is off all other sedation and blood pressure drips. She also reports that the patient is spontaneously moving his extremities and responds to noxious stimulation. He did go for a repeat CT brain this morning. 08/23: The patient is agitated and thrashing about in bed when seen. Nursing and the Web Machine Tender are present and a needle decompression had been done for a pneumothorax on the right side which was demonstrated on his CXR this morning. They were preparing to place a right-sided chest tube. The patient continues to be intubated and mechanically ventilated. He does have propofol for sedation and fentanyl for pain management infusing. 08/24: The patient is obtunded this morning when seen. He is on propofol for sedation. He remains intubated and mechanically ventilated with a right-sided chest tube. Nursing reports his fentanyl was stopped about 20 minutes prior to being seen. She also reports that the patient is being restarted on his psych meds prior to weaning his sedation. 08/25: When seen this morning the patient continues to be obtunded. He remains intubated and on mechanical ventilation. He had been on propofol which was discontinued and started on dexmedetomidine this morning. The fentanyl drip was also discontinued. The Web Machine Tender was in the room discussing the plan of care with the patient's sister when the patient was seen. After seen the Web Machine Tender notified this practitioner that the patient was now following commands and the patient was seen again and did follow commands for this practitioner and open his eyes to voice. 08/26/17: Extubated. Remains on Precedex drip for agitation. Spontaneous eye opening. He knows his family. Answers a few questions yes/no. Follows commands all extremities. 08/26/17 CT scan had stable right frontal intracranial hemorrhage with local mass effect. 08/27: This morning the patient is awake and alert. He is mildly agitated and fidgeting about in bed. The dexmedetomidine is still infusing for sedation this morning. He replies he is doing good when asked. He does endorse a slight headache which he says is getting better as well as some slight dizziness. His is present in the room and states that he was up most of the night. 08/28: The patient is drowsy but does respond to voice. He is agitated. He does have dexmedetomidine infusing but the pump is beeping. The Nurse was in another room and notified. He is doing okay and endorses a slight headache. Family is at the bedside. (Issac Duncan) System Review Comments NEUROLOGICAL: Slight headache. The remainder of the ROS is negative. (Issac Duncan) Exam Results 08/26/17 08/26/17 08/27/17 08/27/17 08/28/17 08/28/17 06:00 18:00 06:00 18:00 06:00 18:00 Intake Total 260 ml 1575 ml 964 ml 1270 ml 1076 ml Output Total 925 ml 1500 ml 1400 ml 1200 ml 900 ml Balance -665 ml 75 ml -436 ml 70 ml 176 ml Intake Oral 260 ml 480 ml 240 ml 500 ml 200 ml IV Total 1095 ml 724 ml 770 ml 876 ml Output Urine Total 925 ml 1500 ml 1400 ml 1200 ml 900 ml Chest Tube Drainage Total 0 ml 0 ml 0 ml # Voids 3 2 # Bowel Movements 0 0 4 0 0 Vital Signs Date Time Temp Pulse Resp B/P (MAP) Pulse Ox O2 Delivery O2 Flow Rate FiO2 08/28/17 08:29 99 Nasal Cannula 2.00 08/28/17 06:00 74 08/28/17 04:00 70 08/28/17 04:00 98.1 70 19 179/86 (117) 100 08/28/17 02:00 64 08/28/17 00:00 98.8 66 20 140/81 (100) 92 08/28/17 00:00 66 08/27/17 23:00 18 08/27/17 22:00 68 08/27/17 20:00 76 08/27/17 20:00 98.3 76 23 126/75 (92) 95 08/27/17 19:54 97 Nasal Cannula 3.00 08/27/17 19:00 97 Nasal Cannula 4.00 08/27/17 18:00 70 08/27/17 16:00 80 08/27/17 16:00 98.7 76 23 161/87 (111) 97 08/27/17 14:00 81 08/27/17 12:00 82 08/27/17 12:00 99.0 82 24 149/82 (104) 98 08/27/17 10:00 72 08/27/17 08:00 87 08/27/17 08:00 98.2 87 26 134/78 (96) 97 08/27/17 07:27 96 Nasal Cannula 4.00 08/27/17 07:00 96 Nasal Cannula 4.00 08/27/17 06:00 68 08/27/17 04:00 98.5 68 25 129/76 (93) 96 08/27/17 04:00 68 08/27/17 02:00 70 08/27/17 00:00 74 08/27/17 00:00 97.6 74 23 121/74 (90) 95 08/26/17 22:00 76 08/26/17 21:44 96 Nasal Cannula 5.00 08/26/17 20:00 72 08/26/17 20:00 98.7 72 24 132/82 (99) 93 08/26/17 19:00 94 Nasal Cannula 5.00 08/26/17 18:00 71 08/26/17 16:00 71 19 121/73 (89) 94 08/26/17 16:00 76 08/26/17 14:00 76 08/26/17 12:00 99.9 77 20 126/73 (90) 92 10/30/17 12:00 77 08/26/17 10:00 82 08/26/17 08:00 98.7 74 13 132/75 (94) 95 08/26/17 08:00 75 08/26/17 07:34 94 Nasal Cannula 6.00 08/26/17 07:00 95 Nasal Cannula 6.00 08/26/17 06:00 74 08/26/17 04:00 78 08/26/17 04:00 98.5 78 19 121/72 (88) 92 08/26/17 02:00 82 08/26/17 00:00 99.1 77 18 124/67 (86) 93 Arterial Line 08/26/17 00:00 77 08/25/17 22:00 76 08/25/17 20:00 98.4 80 20 136/58 (84) 93 08/25/17 20:00 80 08/25/17 19:23 93 Nasal Cannula 6.00 08/25/17 19:00 95 Nasal Cannula 6.00 08/25/17 18:10 99 Nasal Cannula 6.00 08/25/17 16:00 100.7 78 14 120/60 (80) 97 08/25/17 16:00 97 Partial Non-Rebreather 15.00 08/25/17 16:00 78 08/25/17 12:00 100.9 72 17 127/70 (89) 94 08/25/17 12:00 72 (Issac Duncan) Physical Examination GENERAL: Drowsy but does respond to voice, agitated and fidgeting in bed, on dexmedetomidine for sedation. SKIN: Warm, dry & intact w/o any evident rashes, ulcerations or other lesions except for a right-sided chest tube insertion site w/intact dressing. HEENT: Normocephalic, atraumatic. NECK: No JVD, trachea midline. CARDIOVASCULAR: S1S2 w/RRR w/o M/G/R, radial & pedal pulses 2+ bilaterally, cap refill < 2 sec, no pedal edema. Sinus rhythm w/o any ectopy noted on monitor. RESPIRATORY: CTAB w/o W/R/R, equal excursion, mildly laboured, on NC, right- sided chest tube to water seal. GASTROINTESTINAL: Abdomen soft, positive bowel sounds. GENITOURINARY: Thomas catheter to BSD w/clear yellow urine. MUSCULOSKELETAL: MOLINA w/o difficulty, no evident deformity or clubbing. NEUROLOGICAL: Drowsy but responds to voice, oriented to self only. Opens eyes to voice. Speech essentially clear. Follows simple commands. PERRLA 3 mm brisk, tongue midline to protrusion, strong shoulder shrug, no facial weakness or numbness. Moves all extremities with moderate strength briefly to command. (Issac Duncan) Lab, Micro, Other Results Recent Impressions Chest X-Ray 08/27/17 0900 Signed Impressions: Service Date/Time: Sunday, August 27, 2017 08:30 - CONCLUSION: Stable patchy infiltrate in the upper lateral right lung. Alexis Rizo MD Head CT 08/26/17 0600 Signed Impressions: Service Date/Time: Saturday, August 26, 2017 04:35 - CONCLUSION: Evolving bifrontal hemorrhage Saw Higginbotham MD Chest X-Ray 08/26/17 0000 Signed Impressions: Service Date/Time: Saturday, August 26, 2017 09:45 - CONCLUSION: 1. Patchy opacity within the right upper lung field consistent with probable pneumonia. Clinical correlation is recommended. No pneumothorax. Lukas Flores MD Laboratory Tests Test 08/25/17 13:29 08/26/17 02:53 08/27/17 05:30 08/27/17 16:09 Urine Color YELLOW Urine Turbidity CLEAR Urine pH 6.5 Urine Specific Gary 1.023 Urine Protein 30 mg/dL Urine Glucose (UA) 1000 mg/dL Urine Ketones NEG mg/dL Urine Occult Blood SMALL Urine Nitrite NEG Urine Bilirubin NEG Urine Urobilinogen 2.0 MG/DL Urine Leukocyte Esterase NEG Urine RBC 16 /hpf Urine Mucus FEW /lpf Microscopic Urinalysis Comment CATH-CULT NOT IND White Blood Count 10.0 TH/MM3 Red Blood Count 3.42 MIL/MM3 Hemoglobin 10.7 GM/DL Hematocrit 31.4 % Mean Corpuscular Volume 91.8 FL Mean Corpuscular Hemoglobin 31.3 PG Mean Corpuscular Hemoglobin Concent 34.1 % Red Cell Distribution Width 12.5 % Platelet Count 181 TH/MM3 Mean Platelet Volume 8.5 FL Neutrophils (%) (Auto) 75.1 % Lymphocytes (%) (Auto) 13.4 % Monocytes (%) (Auto) 11.0 % Eosinophils (%) (Auto) 0.3 % Basophils (%) (Auto) 0.2 % Neutrophils # (Auto) 7.6 TH/MM3 Lymphocytes # (Auto) 1.3 TH/MM3 Monocytes # (Auto) 1.1 TH/MM3 Eosinophils # (Auto) 0.0 TH/MM3 Basophils # (Auto) 0.0 TH/MM3 CBC Comment DIFF FINAL Differential Comment Blood Urea Nitrogen 13 MG/DL 15 MG/DL Creatinine 0.74 MG/DL 0.70 MG/DL Random Glucose 134 MG/DL 107 MG/DL Total Protein 6.4 GM/DL Albumin 2.4 GM/DL Calcium Level 7.8 MG/DL 7.8 MG/DL Alkaline Phosphatase 40 U/L Aspartate Amino Transf (AST/SGOT) 21 U/L Alanine Aminotransferase (ALT/SGPT) 17 U/L Total Bilirubin 0.7 MG/DL Sodium Level 136 MEQ/L 135 MEQ/L Potassium Level 3.7 MEQ/L 3.2 MEQ/L Chloride Level 105 MEQ/L 104 MEQ/L Carbon Dioxide Level 24.6 MEQ/L 22.6 MEQ/L Anion Gap 6 MEQ/L 8 MEQ/L Estimat Glomerular Filtration Rate 106 ML/MIN 113 ML/MIN B-Type Natriuretic Peptide 624 PG/ML Test 08/28/17 04:09 White Blood Count 10.7 TH/MM3 Red Blood Count 3.84 MIL/MM3 Hemoglobin 12.0 GM/DL Hematocrit 35.5 % Mean Corpuscular Volume 92.6 FL Mean Corpuscular Hemoglobin 31.3 PG Mean Corpuscular Hemoglobin Concent 33.9 % Red Cell Distribution Width 12.8 % Platelet Count 231 TH/MM3 Mean Platelet Volume 9.3 FL Neutrophils (%) (Auto) 58.9 % Lymphocytes (%) (Auto) 18.1 % Monocytes (%) (Auto) 16.8 % Eosinophils (%) (Auto) 5.6 % Basophils (%) (Auto) 0.6 % Neutrophils # (Auto) 6.3 TH/MM3 Lymphocytes # (Auto) 1.9 TH/MM3 Monocytes # (Auto) 1.8 TH/MM3 Eosinophils # (Auto) 0.6 TH/MM3 Basophils # (Auto) 0.1 TH/MM3 CBC Comment DIFF FINAL Differential Comment Blood Urea Nitrogen 13 MG/DL Creatinine 0.65 MG/DL Random Glucose 96 MG/DL Total Protein 7.0 GM/DL Albumin 2.6 GM/DL Calcium Level 8.5 MG/DL Alkaline Phosphatase 44 U/L Aspartate Amino Transf (AST/SGOT) 27 U/L Alanine Aminotransferase (ALT/SGPT) 29 U/L Total Bilirubin 0.6 MG/DL Sodium Level 136 MEQ/L Potassium Level 3.5 MEQ/L Chloride Level 105 MEQ/L Carbon Dioxide Level 21.3 MEQ/L Anion Gap 10 MEQ/L Estimat Glomerular Filtration Rate 123 ML/MIN (Issac Duncan) Medical Decision Making Impression and Plan Impression: 1. Bifrontal spontaneous intracranial hemorrhage 2. New onset seizure 3. Hypertension 4. Chronic tobacco use Drowsy but readily interacts, following commands, still w/confusion, moving all extremities spontaneously. Evolving bifrontal haemorrhages on CT , no new acute findings. Reviewed labs for today, hyponatremia resolved. Plan: Discussed plan of care with patient's family. Critical care management per Web Machine Tender. Frequent vital signs and neuro checks Target SBP < 140. Phenytoin for seizures. Non-chemical DVT prophylaxis. Ulcer prophylaxis. CT brain in AM. Okay to start pharmacologic DVT prophylaxis today. Will wean NC since sats in upper 90s. (Issac Duncan) Attending Statement The exam, history, and the medical decision-making described in the above note were completed with the assistance of the mid-level provider. I reviewed and agree with the findings presented. I attest that I had a [id number] encounter with the patient on the same day, and personally performed and documented my assessment and findings in the medical record. On examination today patient with clear nonlabored respirations Persistent agitation, confusion Speech improving somewhat Family and bedside Discussed findings and prognosis Continuing Dilantin (Martin Kong MD) Issac Duncan Aug 28, 2017 11:41 Mratin Kong MD Aug 30, 2017 20:42
[2017-08-28] MEDS ORDERED: QUEtiapine FUMARATE 25 MG TAB PO ONE (11:45)
--- NOTE | 2017-08-28 12:05 | HHI.CCPN ---
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 His headache worsened which worsened around 6:30 AM. Patient was evaluated in the ER stroke alert was called. A head CT revealed intraparenchymal hemorrhage involving frontal lobes. Patient was evaluated by Dr. Kong from neurosurgery who admitted the patient to the ICU. Reportedly patient had seizures in the ER for which she received Ativan 2 mg IV and was loaded with fosphenytoin 1 g IV. Subsequently he was transferred to the ICU where I evaluated him immediately on his arrival. At that time he was extremely encephalopathic, stupor O's, nonverbal. I did not feel patient is protecting his airway at the time. I also noted some rhythmic jaw movements consistent with seizure activity. Patient was given Ativan 4 mg IV stat and I proceeded with emergent intubation and patient was placed on mechanical ventilation. A central line was placed emergently as well. Subsequently discussed with Dr. Kong wish to proceed with MRI/MRA of the brain for further evaluation. Patient was sedated with propofol following intubation. He was on a nicardipine drip on arrival as his blood pressure in the ER was 200s systolic. History was obtained by reviewing records and discussion with Dr. Kong and nursing staff. 08/22: Unresponsive aside from withdrawal lower extremities to painful stimulation. No obvious seizure activity. Ventilator dependent. Frontal bleeds are being absorbed, no new bleeding. 08/23: Remains sedated, orally intubated on mechanical ventilation. Reportedly is on Epclusa which is used for hepatitis C treatment. 08/24: Moves 4 limbs. Gas exchange acceptable. Right lung expanded after chest tube. Family conveys concerns about prior drug habituation, will stop narcotics and stick with propofol. 08/25: Remains sedated, orally intubated on mechanical ventilation. 08/26: Extubated following C Pap trial on 08/25. Was requiring nonrebreather facemask however now on 6 L nasal cannula. On Precedex gtt. Required Ativan when necessary for anxiety/severe restlessness. Currently drowsy at the time of my evaluation however just received Ativan earlier this morning. Appears comfortable on 6 L nasal cannula. 08/27: Had some disorientation and hallucinations last night. This morning he is awake and alert. Following commands. On 5 L nasal cannula. No air leak in right sided pigtail catheter which was placed to underwater seal. On Precedex 0.8 mcg/kg/hr at the time of my evaluation. 08/28: Having issues with delirium/hallucinations which are worse at night. Remains on Precedex drip. Given 1 mg Ativan this morning for significant agitation. When I evaluated the patient subsequently he was resting in bed with slightly labored breathing on 2 L nasal cannula. He knew he was in the hospital and couldn't give me the month and year. He was following commands appropriately. Objective Vital Signs Date Time Temp Pulse Resp B/P (MAP) Pulse Ox O2 Delivery O2 Flow Rate FiO2 08/28/17 08:29 99 Nasal Cannula 2.00 08/28/17 06:00 74 08/28/17 04:00 98.1 19 179/86 (117) 08/25/17 09:20 40 Intake and Output 08/28/17 08/28/17 08/29/17 08:00 16:00 00:00 Intake Total 200 ml Output Total 900 ml Balance -700 ml Result Diagram: 08/28/1740808/28/179 Imaging Last Impressions Neck CTA 08/21/1743 Signed Impressions: Service Date/Time: Monday, August 21, 2017 07:47 - CONCLUSION: 1. See the CT of the brain reported separately. 2. Patent carotid arteries and vertebral arteries. Alexis Villa Jr., MD Head CTA 08/21/17 0725 Signed Impressions: Service Date/Time: Monday, August 21, 2017 07:47 - CONCLUSION: 1. Negative head CTA exam. Specifically, no evidence for aneurysm or large vessel occlusion. Wil Lopez MD Head CT 08/21/17 0000 Signed Impressions: Service Date/Time: Monday, August 21, 2017 07:10 - CONCLUSION: Acute parenchymal hemorrhage within the frontal lobes bilaterally measuring 5.5 x 4.3 cm which crosses midline and demonstrates associated edema throughout the frontal lobes and mass effect upon the corpus callosum. There is an extra- axial component along the right side of the false which measures 1.8 cm transverse x 3.2 cm AP. Differential diagnosis includes hemorrhagic infarct, post-traumatic hemorrhage, hemorrhagic mass, and ruptured aneurysm. Lukas Flores MD Chest X-Ray 08/21/17 0000 Signed Impressions: Service Date/Time: Monday, August 21, 2017 11:31 - CONCLUSION: 1. Central line in good position without pneumothorax. Alexis Villa Jr., MD Objective Remarks Physical Exam Narrative HEENT/ Neuro: Awake and alert,, no pallor or icterus, tongue/ mucosa moist. Pupils 2 mm bilaterally reacting actively to light. Moves all 4 extremities. Following commands. Neck: No JVD, Supple. Chest/Pulm: good air entry bilaterally, no wheezing or crackles. Scattered rhonchi. CVS: S1-S2 regular, no murmur, no JVD. GI/abdomen: soft, nontender, bowel sounds active. Extremities: warm bilaterally, no edema, well perfused. A/P Assessment and Plan 67 year-old male with: Intracerebral hemorrhage involving frontal lobes Encephalopathy Seizure Acute respiratory failure Right pneumothorax status post chest tube placement (chest tube discontinued ) MSSA pneumonia Sepsis Hypertensive emergency Hepatitis C H/O substance abuse Plan: Neuro: Off propofol and fentanyl drips since 08/25. On Precedex for agitation/ delirium. Ativan/Haldol when necessary ordered following extubation on 08/25. Neurosurgery following. Switched phenytoin to PO on 08/28 and follow level. Home dose Lamictal resumed 08/22. On Zoloft 100 mg by mouth daily at bedtime. Neuropsychologist evaluation appreciated. Starting Seroquel 25 mg twice a day and 50 mg daily at bedtime for hallucinations/delirium. Repeat head CT per neurosurgery Cardiovascular: Off nicardipine gtt. started on hydrochlorothiazide 12.5 mg daily, lisinopril 10 mg daily. Labetalol/hydralazine when necessary. Off IV fluids. Pulmonary: Extubated on 08/25, initially on nonrebreather facemask, currently on 5 L nasal cannula. bronchodilators as needed. Sputum cultures growing MSSA. s/p chest tube for rt pneumothorax which was discontinued on 08/27. GI/liver: Tolerating by mouth diet. Past region swallow eval. Patient reportedly on Epclusa for hepatitis C. Renal/: strict intake output, monitor and replete electrolytes, follow BUN/ creatinine. ID: Sputum cultures growing MSSA. Concern for aspiration. Started on IV Zosyn on 08/25, de-escalate to Rocephin 1 g IV daily on 08/27. Received 1 dose of vancomycin on 08/25.. On epclusa at home for ? Hep C Heme: Follow CBC. Endocrine: SSI for glycemic control if needed. Prophylaxis: PPI/SCDs. Subcutaneous heparin to be cleared by neurosurgery. Further recommendations per neurosurgery. Updated patient's family on 08/25, 08/26, 08/27, 08/28 regarding current clinical status and plan of care and they voiced understanding and were agreeable. Nilson López MD Aug 28, 2017 12:05
[2017-08-28] MEDS ORDERED: NITROGLYCERIN 0.4 MG SL 25 TABS/BTL SL STA (13:17)
--- NOTE | 2017-08-28 13:24 | ECHRPT ---
Indication: Assess LV Fxn CONCLUSIONS Technically very difficult study. Normal left ventricular size and wall thickness. The left ventric ular systolic function is normal with an estimated ejection fraction of 60%. Left ventricular diastolic function p arameters are normal. No definite wall motion abnormalities. No definite valvular abnormalities noted. BP: 179 / 86 HR: 70 Rhythm: MEASUREMENTS (Male / Female) Normal Values Technical Quality: 2D ECHO LV Diastolic Diameter PLAX 4.5 cm 4.2 - 5.9 / 3.9 - 5.3 cm LV Systolic Diameter PLAX 3.9 cm IVS Diastolic Thickness 1.0 cm 0.6 - 1.0 / 0.6 - 0.9 cm LVPW Diastolic Thickness 0.8 cm 0.6 - 1.0 / 0.6 - 0.9 cm LV Relative Wall Thickness 0.4 RV Internal Dim ED PLAX 2.5 cm LA Systolic Diameter LX 3.7 cm 3.0 - 4.0 / 2.7 - 3.8 cm DOPPLER Mitral E Point Velocity 70.6 cm/s Mitral A Point Velocity 86.9 cm/s Mitral E to A Ratio 0.8 TR Peak Velocity 179.0 cm/s TR Peak Gradient 12.8 mmHg FINDINGS LEFT VENTRICLE Technically very difficult study. Normal left ventricular size and wall thickness. The left ventric ular systolic function is normal with an estimated ejection fraction of 60%. Left ventricular diastolic function p arameters are normal. No definite wall motion abnormalities. RIGHT VENTRICLE Normal right ventricular size and systolic function. LEFT ATRIUM The left atrial size is normal. RIGHT ATRIUM The right atrial size is normal. ATRIAL SEPTUM Normal atrial septal thickness without atrial level shunting by limited color doppler interrogation. AORTA The aortic root and proximal ascending aorta are normal in size on limited imaging. MITRAL VALVE Structurally normal mitral valve. No mitral valve stenosis or regurgitation. AORTIC VALVE Trileaflet aortic valve. No aortic valve stenosis or regurgitation. TRICUSPID VALVE Structurally normal tricuspid valve. No tricuspid valve stenosis or regurgitation. PULMONARY VALVE The pulmonary valve is not well visualized. VESSELS The inferior vena cava is normal in size. PERICARDIUM No pericardial effusion. Latrell Herndon MD (Electronically Signed) Final Date:28 August 2017 13:23
[2017-08-28] MEDS ORDERED: MORPHINE SULFATE 4 MG/ML INJ IV PUSH ONE (14:00)
--- NOTE | 2017-08-28 14:46 | RADRPT ---
EXAM DATE/TIME: 08/28/2017 13:27 [facility] COMPARISON: CHEST SINGLE AP, August 27, 2017, 8:30. INDICATIONS : Dyspnea. Right side chest tube removed yesterday. Patient complains of sudden onset of chest pain and shortness of breath. MEDICAL HISTORY : H/O pneumothorax right side. Sleep apnea. Hepatitis C. SURGICAL HISTORY : Kyphoplasty. ENCOUNTER: Subsequent ACUITY: 1 week PAIN SCORE: 10/10 LOCATION: Bilateral chest FINDINGS: Minimal patchiness is noted within the right upper lung field and to a lesser extent the lung bases b ilaterally consistent with possible pneumonia. The heart is stable. Degenerative changes are noted throughout the thoracic spine. No pneumothorax is noted. The previously noted small right chest has been removed. CONCLUSION: 1. Minimal patchiness within the right upper lung field and to a lesser extent the lung bases consis tent with possible pneumonia. Clinical correlation is recommended. 2. No evidence of pneumothorax status post removal of chest tube. Lukas Flores MD on August 28, 2017 at 14:33 Board Certified Radiologist. This report was verified electronically.
[2017-08-28] MEDS: PHENYTOIN SODIUM 100 MG CAP PO SCH ×2 (15:04→18:00)
[2017-08-28 16:47] LABS: TROPONIN I LESS THAN 0.02 NG/ML (0.02-0.05)
[2017-08-28] MEDS ORDERED: LORazepam 2 MG/ML VIAL IV PUSH ONE (18:00)
[2017-08-28] MEDS ORDERED: IOHEXOL 350 MG/ML 10 ML VIAL (for RAD DIAG) IVCONTRAST ONE (18:06)
--- NOTE | 2017-08-28 18:22 | RADRPT ---
EXAM DATE/TIME: 08/28/2017 18:11 [facility] COMPARISON: CHEST SINGLE AP, August 28, 2017, 13:27. INDICATIONS : Short of breath; rule out pulmonary embolus. IV CONTRAST: 100 cc Omnipaque 350 (iohexol) IV RADIATION DOSE: 23.08 CTDIvol (mGy) MEDICAL HISTORY : Cardiovascular disease. Hepatitis C. Hypertension. SURGICAL HISTORY : None. ENCOUNTER: Initial ACUITY: 1 day PAIN SCALE: 3/10 LOCATION: Bilateral chest TECHNIQUE: Volumetric scanning of the chest was performed using a pulmonary embolism protocol MIP images were re constructed. Using automated exposure control and adjustment of the mA and/or kV according to patien t size, radiation dose was kept as low as reasonably achievable to obtain optimal diagnostic quality images. DICOM format image data is available electronically for review and comparison. Follow-up recommendations for detected pulmonary nodules are based at a minimum on nodule size and pa tient risk factors according to Fleischner Society Guidelines. FINDINGS: PULMONARY ARTERIES: No filling defects are seen in the pulmonary arteries through the segmental level. LUNGS: There is no pneumothorax . No concerning pulmonary nodule is visualized. Alveolar infiltrates are pr esent in the central right upper lobe. There is more dense consolidation in the medial right lower lo be with air bronchograms. Consolidation is also noted in both posterior lung bases along the effusion s. There is minimal patchy infiltrate in the left upper lobe. PLEURAE: There is a small right pleural effusion and minimal left effusion. MEDIASTINUM: There is good visualization of the great vessels of the middle mediastinum. No evidence of mediastin al or hilar adenopathy/mass. MUSCULOSKELETAL: Within normal limits for patient age. MISCELLANEOUS: The visualized upper abdominal organs demonstrate no acute abnormality. The liver is enlarged with fa tty infiltration. There is a small to moderate retrocardiac hiatal hernia. CONCLUSION: 1. No evidence of pulmonary embolism. 2. Consolidative infiltrate in the right lung most characteristic of pneumonia. 3. Small pleural effusions right greater than left. Ion Holt MD on August 28, 2017 at 18:17 Board Certified Radiologist. This report was verified electronically.
[2017-08-28] MEDS: LABETALOL HCL 100 MG/20 ML VIAL IV PRN (20:58)
[2017-08-28] MEDS ORDERED: QUEtiapine FUMARATE 25 MG TAB PO SCH (21:00)
[2017-08-29] VITALS (16 sets, daily range): BP systolic 111–155; BP diastolic 59–81; PULSE 67–96; RESP 15–27; TEMP 99.1–100.3; O2SAT 93–98
[2017-08-29] MEDS: HALOPERIDOL LACTATE 5 MG/ML AMP IV PRN ×2 (01:13→05:17)
[2017-08-29] MEDS: POTASSIUM CHLOR 20 MEQ PREMIX 100 ML IV PRN ×2 (01:22→04:59)
[2017-08-29] MEDS: hydrALAZINE HCL 20 MG/ML VIAL IV PUSH PRN (02:04)
[2017-08-29] MEDS: CHLORHEXIDINE GLUCONATE 2 % 1 PACK (2 CLOTHS) TOP SCH (04:00)
--- NOTE | 2017-08-29 04:43 | RADRPT ---
EXAM DATE/TIME: 08/29/2017 04:25 [facility] COMPARISON: CT BRAIN W/O CONTRAST, August 26, 2017, 4:35. INDICATIONS : Follow up bleed. RADIATION DOSE: 32.75 CTDIvol (mGy) MEDICAL HISTORY : Cardiovascular disease. Hepatitis C. Hypertension. SURGICAL HISTORY : None. ENCOUNTER: Subsequent ACUITY: 1 week PAIN SCALE: 0/10 LOCATION: cranial TECHNIQUE: Multiple contiguous axial images were obtained of the head. Using automated exposure control and adj ustment of the mA and/or kV according to patient size, radiation dose was kept as low as reasonably a chievable to obtain optimal diagnostic quality images. DICOM format image data is available electro nically for review and comparison. FINDINGS: Evolving bifrontal hemorrhages and associated edema noted. Slightly diminishing mass effect upon the frontal horns. No new acute findings identified. CONCLUSION: Evolving bifrontal hemorrhages. No new acute findings. Saw Higginbotham MD on August 29, 2017 at 4:40 Board Certified Radiologist. This report was verified electronically.
[2017-08-29] MEDS: RESP: ALBUTEROL 2.5 MG/IPRATROPIUM 0.5 MG NEB (SCH) NEB ×4 (04:57→21:54)
[2017-08-29] MEDS: LABETALOL HCL 100 MG/20 ML VIAL IV PRN (06:27)
[2017-08-29] MEDS: INSULIN ASPART SUPPLEMENTAL SCALE SQ SCH ×2 (07:00→16:00)
[2017-08-29] MEDS ORDERED: cloNIDine HCL 0.1 MG/24 HR PATCH T-DERMAL ONE (07:30)
[2017-08-29] MEDS: CHLORHEXIDINE 0.12% (ORAL KIT) 15 ML CUP MT SCH ×2 (08:00→22:35)
[2017-08-29] MEDS: DOCUSATE SODIUM 100 MG CAP PO SCH ×2 (09:00→20:22)
[2017-08-29] MEDS: REMOVE OLD PATCH T-DERMAL SCH (09:00)
[2017-08-29] MEDS ORDERED: QUEtiapine FUMARATE 25 MG TAB PO SCH ×2 (09:00→14:00)
[2017-08-29] MEDS: SODIUM CHLORIDE 0.9% FLUSH 10 ML FLUSH IV FLUSH SCH ×2 (09:00→22:35)
[2017-08-29] MEDS: DEXMEDETOMIDINE INJ 1,000 MCG in SODIUM CHLOR 0.9% 250 ML INJ 240 ML IV PRN (09:42)
[2017-08-29] MEDS: methylPREDNISolone SOD SUCC 40 MG/1 ML VIAL IV PUSH SCH (09:43)
[2017-08-29] MEDS: cefTRIAXone INJ 1,000 MG in SODIUM CHLORIDE 0.9% INJ 100 ML IV SCH (09:43)
[2017-08-29] MEDS: PHENYTOIN SODIUM 100 MG CAP PO SCH ×3 (09:44→19:27)
[2017-08-29] MEDS: SERTRALINE HCL 100 MG TAB PO SCH (09:45)
[2017-08-29] MEDS: LISINOPRIL 10 MG TAB PO SCH (09:45)
[2017-08-29] MEDS: FAMOTIDINE 20 MG TAB PO SCH ×2 (09:45→22:34)
[2017-08-29] MEDS: lamoTRIgine 100 MG TAB PO SCH ×2 (09:45→22:35)
[2017-08-29] MEDS: HYDROCHLOROTHIAZIDE 12.5 MG CAP PO SCH (09:46)
[2017-08-29] MEDS: NICOTINE 7 MG/24 HR PATCH T-DERMAL SCH (09:46)
--- NOTE | 2017-08-29 09:51 | HHI.NSPN ---
(Issac Duncan) History Chief Complaint: Slight headache (Issac Duncan) Interval History 08/21: 67-year-old male presents to the emergency room today approximately 7 AM with history of headache for several days, increasing significantly at 6:30 AM today. His initial blood pressure was 261/143. He was placed on a nicardipine drip for initial blood pressure control. 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 He was reportedly awake and alert upon presentation to the emergency room, with left facial and upper extremity weakness. He reportedly developed increasing speech difficulty following a CT scan this morning, and subsequently was noted to have a seizure which was initially treated with Ativan. Since then he has been more lethargic and nonverbal. 08/22: The patient is obtunded this morning but he is sedated with propofol. Nursing reports that he is off all other sedation and blood pressure drips. She also reports that the patient is spontaneously moving his extremities and responds to noxious stimulation. He did go for a repeat CT brain this morning. 08/23: The patient is agitated and thrashing about in bed when seen. Nursing and the [employer] Executive Director are present and a needle decompression had been done for a pneumothorax on the right side which was demonstrated on his CXR this morning. They were preparing to place a right-sided chest tube. The patient continues to be intubated and mechanically ventilated. He does have propofol for sedation and fentanyl for pain management infusing. 08/24: The patient is obtunded this morning when seen. He is on propofol for sedation. He remains intubated and mechanically ventilated with a right-sided chest tube. Nursing reports his fentanyl was stopped about 20 minutes prior to being seen. She also reports that the patient is being restarted on his psych meds prior to weaning his sedation. 08/25: When seen this morning the patient continues to be obtunded. He remains intubated and on mechanical ventilation. He had been on propofol which was discontinued and started on dexmedetomidine this morning. The fentanyl drip was also discontinued. The [employer] Executive Director was in the room discussing the plan of care with the patient's sister when the patient was seen. After seen the [employer] Executive Director notified this practitioner that the patient was now following commands and the patient was seen again and did follow commands for this practitioner and open his eyes to voice. 08/26/17: Extubated. Remains on Precedex drip for agitation. Spontaneous eye opening. He knows his family. Answers a few questions yes/no. Follows commands all extremities. 08/26/17 CT scan had stable right frontal intracranial hemorrhage with local mass effect. 08/27: This morning the patient is awake and alert. He is mildly agitated and fidgeting about in bed. The dexmedetomidine is still infusing for sedation this morning. He replies he is doing good when asked. He does endorse a slight headache which he says is getting better as well as some slight dizziness. His is present in the room and states that he was up most of the night. 08/28: The patient is drowsy but does respond to voice. He is agitated. He does have dexmedetomidine infusing but the pump is beeping. The Nurse was in another room and notified. He is doing okay and endorses a slight headache. Family is at the bedside. 08/29: The patient is seen in rounds with Dr Kong this morning. He is awake and alert, laying calmly in the bed. He says he is doing good but does have a slight headache that is better. His family says that during the night he was agitated and was given three doses of haloperidol. She reports that the patient is to be started on clonazepam. (Issac Duncan) System Review Comments NEUROLOGICAL: Slight headache that is better. The undersigned acts as a scribe for the remainder of this note. (Issac Duncan) Exam Results 08/27/17 08/27/17 08/28/17 08/28/17 08/29/17 08/29/17 06:00 18:00 06:00 18:00 06:00 18:00 Intake Total 964 ml 1270 ml 1076 ml 390 ml 150 ml 100 ml Output Total 1400 ml 1200 ml 900 ml 500 ml Balance -436 ml 70 ml 176 ml 390 ml -350 ml 100 ml Intake Oral 240 ml 500 ml 200 ml 240 ml 50 ml IV Total 724 ml 770 ml 876 ml 150 ml 100 ml 100 ml Output Urine Total 1400 ml 1200 ml 900 ml 500 ml Chest Tube Drainage Total 0 ml # Voids 3 2 3 2 # Bowel Movements 4 0 0 1 2 Vital Signs Date Time Temp Pulse Resp B/P (MAP) Pulse Ox O2 Delivery O2 Flow Rate FiO2 08/29/17 07:00 Room Air 08/29/17 06:00 94 08/29/17 05:16 97 08/29/17 04:00 99.4 96 27 148/72 (97) 96 08/29/17 04:00 96 08/29/17 02:00 84 08/29/17 01:01 97 08/29/17 00:00 98 Room Air 08/29/17 00:00 78 08/29/17 00:00 99.9 78 15 153/66 (95) 98 08/28/17 22:00 82 08/28/17 21:05 95 Nasal Cannula 2.00 08/28/17 20:00 101.4 96 28 168/84 (112) 98 08/28/17 20:00 96 08/28/17 19:00 98 Nasal Cannula 4.00 08/28/17 18:00 96 08/28/17 16:00 98.9 78 19 164/87 (112) 99 08/28/17 16:00 78 08/28/17 14:00 74 08/28/17 12:00 82 08/28/17 12:00 100.2 82 31 179/86 (117) 98 08/28/17 10:00 84 08/28/17 08:29 99 Nasal Cannula 2.00 08/28/17 08:00 101.6 96 31 179/86 (117) 99 08/28/17 08:00 96 08/28/17 07:00 98 Nasal Cannula 4.00 08/28/17 06:00 74 08/28/17 04:00 70 08/28/17 04:00 98.1 70 19 179/86 (117) 100 08/28/17 02:00 64 08/28/17 00:00 98.8 66 20 140/81 (100) 92 08/28/17 00:00 66 08/27/17 23:00 18 08/27/17 22:00 68 08/27/17 20:00 76 08/27/17 20:00 98.3 76 23 126/75 (92) 95 08/27/17 19:54 97 Nasal Cannula 3.00 08/27/17 19:00 97 Nasal Cannula 4.00 08/27/17 18:00 70 08/27/17 16:00 80 08/27/17 16:00 98.7 76 23 161/87 (111) 97 08/27/17 14:00 81 08/27/17 12:00 82 08/27/17 12:00 99.0 82 24 149/82 (104) 98 08/27/17 10:00 72 08/27/17 08:00 87 08/27/17 08:00 98.2 87 26 134/78 (96) 97 08/27/17 07:27 96 Nasal Cannula 4.00 08/27/17 07:00 96 Nasal Cannula 4.00 08/27/17 06:00 68 08/27/17 04:00 98.5 68 25 129/76 (93) 96 08/27/17 04:00 68 08/27/17 02:00 70 08/27/17 00:00 74 08/27/17 00:00 97.6 74 23 121/74 (90) 95 08/26/17 22:00 76 08/26/17 21:44 96 Nasal Cannula 5.00 08/26/17 20:00 72 08/26/17 20:00 98.7 72 24 132/82 (99) 93 08/26/17 19:00 94 Nasal Cannula 5.00 08/26/17 18:00 71 08/26/17 16:00 71 19 121/73 (89) 94 08/26/17 16:00 76 08/26/17 14:00 76 08/26/17 12:00 99.9 77 20 126/73 (90) 92 08/26/17 12:00 77 08/26/17 10:00 82 (Issac Duncan) Physical Examination GENERAL: Awake & alert, laying calmly in bed, on dexmedetomidine for sedation. MUSCULOSKELETAL: MOLINA w/o difficulty. NEUROLOGICAL: Awake & alert. Eyes open spontaneously. Speech clear. Follows simple commands. Sensation intact to light touch. Muscle strength good. (Issac Duncan) Lab, Micro, Other Results Recent Impressions Chest X-Ray 08/28/17 0000 Signed Impressions: Service Date/Time: Monday, August 28, 2017 13:27 - CONCLUSION: 1. Minimal patchiness within the right upper lung field and to a lesser extent the lung bases consistent with possible pneumonia. Clinical correlation is recommended. 2. No evidence of pneumothorax status post removal of chest tube. Lukas Flores MD Chest X-Ray 08/27/17 0900 Signed Impressions: Service Date/Time: Sunday, August 27, 2017 08:30 - CONCLUSION: Stable patchy infiltrate in the upper lateral right lung. Alexis Rizo MD Laboratory Tests Test 08/27/17 05:30 08/27/17 16:09 08/28/17 04:09 08/28/17 16:02 Blood Urea Nitrogen 15 MG/DL 13 MG/DL Creatinine 0.70 MG/DL 0.65 MG/DL Random Glucose 107 MG/DL 96 MG/DL Calcium Level 7.8 MG/DL 8.5 MG/DL Sodium Level 135 MEQ/L 136 MEQ/L Potassium Level 3.2 MEQ/L 3.5 MEQ/L Chloride Level 104 MEQ/L 105 MEQ/L Carbon Dioxide Level 22.6 MEQ/L 21.3 MEQ/L Anion Gap 8 MEQ/L 10 MEQ/L Estimat Glomerular Filtration Rate 113 ML/MIN 123 ML/MIN B-Type Natriuretic Peptide 624 PG/ML White Blood Count 10.7 TH/MM3 Red Blood Count 3.84 MIL/MM3 Hemoglobin 12.0 GM/DL Hematocrit 35.5 % Mean Corpuscular Volume 92.6 FL Mean Corpuscular Hemoglobin 31.3 PG Mean Corpuscular Hemoglobin Concent 33.9 % Red Cell Distribution Width 12.8 % Platelet Count 231 TH/MM3 Mean Platelet Volume 9.3 FL Neutrophils (%) (Auto) 58.9 % Lymphocytes (%) (Auto) 18.1 % Monocytes (%) (Auto) 16.8 % Eosinophils (%) (Auto) 5.6 % Basophils (%) (Auto) 0.6 % Neutrophils # (Auto) 6.3 TH/MM3 Lymphocytes # (Auto) 1.9 TH/MM3 Monocytes # (Auto) 1.8 TH/MM3 Eosinophils # (Auto) 0.6 TH/MM3 Basophils # (Auto) 0.1 TH/MM3 CBC Comment DIFF FINAL Differential Comment Total Protein 7.0 GM/DL Albumin 2.6 GM/DL Alkaline Phosphatase 44 U/L Aspartate Amino Transf (AST/SGOT) 27 U/L Alanine Aminotransferase (ALT/SGPT) 29 U/L Total Bilirubin 0.6 MG/DL Total Creatine Kinase 158 U/L Creatine Kinase MB 1.5 NG/ML Troponin I LESS THAN 0.02 NG/ML Phenytoin (Dilantin) Level 10.0 MCG/ML Test 08/28/17 23:01 Potassium Level 3.5 MEQ/L (Issac Duncan) Medical Decision Making Impression and Plan The Impression & Plan are carried forward from the note of except for deletion of the authors daily impression and as noted Modified or Deleted entry. Impression: 1. Bifrontal spontaneous intracranial hemorrhage 2. New onset seizure 3. Hypertension 4. Chronic tobacco use Plan: Discussed plan of care with patient & family. (Modified) Critical care management per [employer] Executive [employer]. Frequent vital signs and neuro checks Target SBP < 140. Phenytoin for seizures. Non-chemical DVT prophylaxis. Ulcer prophylaxis. -C-T- -b-r-a-i-n- -i-n- -A-M-.- (Deleted) Okay for pharmacologic DVT prophylaxis. (Modified) -W-i-l-l- -w-e-a-n- -N-C- -s-i-n-c-e- -s-a-t-s- -i-n- -u-p-p-e-r- -9-0-s-.- ( Deleted) (Issac Duncan) Attending Statement The exam, history, and the medical decision-making described in the above note were completed with the assistance of the mid-level provider. I reviewed and agree with the findings presented. I attest that I had a [id number] encounter with the patient on the same day, and personally performed and documented my assessment and findings in the medical record. Somewhat less agitation today Moves all extremities well Extraocular movements intact Follow simple commands Speech relatively clear Remains with significant confusion Converses with his family Blood pressure controlled Continuing Dilantin for seizures Check follow-up CT scan of the head 08/29/2017 with stable involving bifrontal hemorrhages without significant mass effect Discussed with family at bedside (Martin Kong MD) Issac Duncan Aug 29, 2017 09:51 Martin Kong MD Aug 30, 2017 20:44
--- NOTE | 2017-08-29 12:01 | HHI.CCPN ---
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 His headache worsened which worsened around 6:30 AM. Patient was evaluated in the ER stroke alert was called. A head CT revealed intraparenchymal hemorrhage involving frontal lobes. Patient was evaluated by Dr. Kong from neurosurgery who admitted the patient to the ICU. Reportedly patient had seizures in the ER for which she received Ativan 2 mg IV and was loaded with fosphenytoin 1 g IV. Subsequently he was transferred to the ICU where I evaluated him immediately on his arrival. At that time he was extremely encephalopathic, stupor O's, nonverbal. I did not feel patient is protecting his airway at the time. I also noted some rhythmic jaw movements consistent with seizure activity. Patient was given Ativan 4 mg IV stat and I proceeded with emergent intubation and patient was placed on mechanical ventilation. A central line was placed emergently as well. Subsequently discussed with Dr. Kong wish to proceed with MRI/MRA of the brain for further evaluation. Patient was sedated with propofol following intubation. He was on a nicardipine drip on arrival as his blood pressure in the ER was 200s systolic. History was obtained by reviewing records and discussion with Dr. Kong and nursing staff. 08/22: Unresponsive aside from withdrawal lower extremities to painful stimulation. No obvious seizure activity. Ventilator dependent. Frontal bleeds are being absorbed, no new bleeding. 08/23: Remains sedated, orally intubated on mechanical ventilation. Reportedly is on Epclusa which is used for hepatitis C treatment. 08/24: Moves 4 limbs. Gas exchange acceptable. Right lung expanded after chest tube. Family conveys concerns about prior drug habituation, will stop narcotics and stick with propofol. 08/25: Remains sedated, orally intubated on mechanical ventilation. 08/26: Extubated following C Pap trial on 08/25. Was requiring nonrebreather facemask however now on 6 L nasal cannula. On Precedex gtt. Required Ativan when necessary for anxiety/severe restlessness. Currently drowsy at the time of my evaluation however just received Ativan earlier this morning. Appears comfortable on 6 L nasal cannula. 08/27: Had some disorientation and hallucinations last night. This morning he is awake and alert. Following commands. On 5 L nasal cannula. No air leak in right sided pigtail catheter which was placed to underwater seal. On Precedex 0.8 mcg/kg/hr at the time of my evaluation. 08/28: Having issues with delirium/hallucinations which are worse at night. Remains on Precedex drip. Given 1 mg Ativan this morning for significant agitation. When I evaluated the patient subsequently he was resting in bed with slightly labored breathing on 2 L nasal cannula. He knew he was in the hospital and couldn't give me the month and year. He was following commands appropriately. 08/29: Received 3 doses of Haldol last night. This morning he is drowsy, arousable easily on Precedex gtt. at 1.5 mics per KG per hour. Added clonidine patch 0.1 mg per day single dose for 7 days to see that helps with weaning off Precedex as well as hypertension. CT chest negative for PE done yesterday. It did show significant right sided pneumonia. Patient did have some fevers overnight. He is currently on IV Rocephin for MSSA pneumonia. Tolerating by mouth diet. He has been cleared for subcutaneous heparin by neurosurgery which is being started today. Seroquel being increased to attempt to titrate off Precedex gtt. Objective Vital Signs Date Time Temp Pulse Resp B/P (MAP) Pulse Ox O2 Delivery O2 Flow Rate FiO2 08/29/17 10:41 97 21 08/29/17 10:00 76 08/29/17 08:00 100.3 19 111/59 (76) 08/29/17 07:00 Room Air 08/28/17 21:05 2.00 Intake and Output 08/29/17 08/29/17 08/30/17 08:00 16:00 00:00 Intake Total 250 ml Output Total 500 ml Balance -250 ml Result Diagram: 08/28/17 0409 08/28/17 2301 Imaging Last Impressions Neck CTA 08/21/17 0743 Signed Impressions: Service Date/Time: Monday, August 21, 2017 07:47 - CONCLUSION: 1. See the CT of the brain reported separately. 2. Patent carotid arteries and vertebral arteries. Alexis Villa Jr., MD Head CTA 08/21/17 0745 Signed Impressions: Service Date/Time: Monday, August 21, 2017 07:47 - CONCLUSION: 1. Negative head CTA exam. Specifically, no evidence for aneurysm or large vessel occlusion. Wil Lopez MD Head CT 08/21/17 0000 Signed Impressions: Service Date/Time: Monday, August 21, 2017 07:10 - CONCLUSION: Acute parenchymal hemorrhage within the frontal lobes bilaterally measuring 5.5 x 4.3 cm which crosses midline and demonstrates associated edema throughout the frontal lobes and mass effect upon the corpus callosum. There is an extra- axial component along the right side of the false which measures 1.8 cm transverse x 3.2 cm AP. Differential diagnosis includes hemorrhagic infarct, post-traumatic hemorrhage, hemorrhagic mass, and ruptured aneurysm. Lukas Flores MD Chest X-Ray 08/21/17 0000 Signed Impressions: Service Date/Time: Monday, August 21, 2017 11:31 - CONCLUSION: 1. Central line in good position without pneumothorax. Alexis Villa Jr., MD Objective Remarks Physical Exam Narrative HEENT/ Neuro: Drowsy, easily arousable, following commands, no pallor or icterus , tongue/ mucosa moist. Pupils 2 mm bilaterally reacting actively to light. Moves all 4 extremities. Neck: No JVD, Supple. Chest/Pulm: good air entry bilaterally, no wheezing or crackles. Scattered rhonchi. CVS: S1-S2 regular, no murmur, no JVD. GI/abdomen: soft, nontender, bowel sounds active. Extremities: warm bilaterally, no edema, well perfused. A/P Assessment and Plan 67 year-old male with: Intracerebral hemorrhage involving frontal lobes Encephalopathy Seizure Acute respiratory failure Right pneumothorax status post chest tube placement (chest tube discontinued ) MSSA pneumonia Sepsis Hypertensive emergency Hepatitis C H/O substance abuse Plan: Neuro: Off propofol and fentanyl drips since 08/25. On Precedex for agitation/ delirium. Discontinue Haldol on 08/29. Neurosurgery following. Switched phenytoin to PO on 08/28 and follow level. Home dose Lamictal resumed 08/22. On Zoloft 100 mg by mouth daily at bedtime. Neuropsychologist evaluation appreciated. Increasing Seroquel 50 -25-100 mg for hallucinations/delirium. Repeat head CT per neurosurgery Cardiovascular: Off nicardipine gtt. started on hydrochlorothiazide 12.5 mg daily, lisinopril 10 mg daily. Labetalol/hydralazine when necessary. Off IV fluids. Added clonidine patch 0.1 mg per day single dose for 7 days on 08/29 Pulmonary: Extubated on 08/25, initially on nonrebreather facemask, currently on 5 L nasal cannula. bronchodilators as needed. Sputum cultures growing MSSA. s/p chest tube for rt pneumothorax which was discontinued on 08/27. CT chest negative for PE however showed significant right sided pneumonia on 08/28. GI/liver: Tolerating by mouth diet. Past region swallow eval. Patient reportedly on Epclusa for hepatitis C-neurosurgery wanted to hold as it may increase bleeding risk. Renal/: strict intake output, monitor and replete electrolytes, follow BUN/ creatinine. ID: Sputum cultures growing MSSA. Concern for aspiration. Started on IV Zosyn on 08/25, de-escalate to Rocephin 1 g IV daily on 08/27. Received 1 dose of vancomycin on 08/25.. On epclusa at home for ? Hep C Heme: Follow CBC. Endocrine: SSI for glycemic control if needed. Prophylaxis: PPI/SCDs. Subcutaneous heparin cleared by neurosurgery and being started on 08/29. Further recommendations per neurosurgery. Updated patient's family on 08/25, 08/26, 08/27, 08/28, 08/29 regarding current clinical status and plan of care and they voiced understanding and were agreeable. Nilson López MD Aug 29, 2017 12:01
--- NOTE | 2017-08-29 13:28 | EKG ---
Date Performed: 08/28/2017 Time Performed: 13:20:48 PTAGE: 67 years EKG: Sinus rhythm Normal ECG Compared to prior tracing no significant change PREVIOUS TRACING : 08/21/2017 07.24 DOCTOR: Musa Baez Interpretating Date/Time 08/29/2017 13:25:52
[2017-08-29] MEDS: QUEtiapine FUMARATE 25 MG TAB PO SCH (15:11)
[2017-08-29] MEDS: HEPARIN SODIUM - SQ 10,000 UNITS/ML VIAL SQ SCH ×2 (15:11→22:34)
[2017-08-29] MEDS: LACTOBACILLUS ACIDOPHILUS 1 GM PACKET PO SCH (19:27)
[2017-08-29] MEDS: QUEtiapine FUMARATE 100 MG TAB PO SCH (22:34)
[2017-08-30] VITALS (14 sets, daily range): BP systolic 117–162; BP diastolic 72–94; PULSE 68–90; RESP 17–27; TEMP 98.2–99; O2SAT 92–100
[2017-08-30] MEDS: DEXMEDETOMIDINE INJ 1,000 MCG in SODIUM CHLOR 0.9% 250 ML INJ 240 ML IV PRN (01:27)
[2017-08-30] MEDS: POTASSIUM CHLOR 20 MEQ PREMIX 100 ML IV PRN ×3 (01:30→05:38)
[2017-08-30] MEDS ORDERED: HALOPERIDOL LACTATE 5 MG/ML AMP IV PUSH ONE (02:15)
[2017-08-30] MEDS ORDERED: LORazepam 2 MG/ML VIAL IV PUSH ONE (02:15)
[2017-08-30] MEDS: CHLORHEXIDINE GLUCONATE 2 % 1 PACK (2 CLOTHS) TOP SCH (04:00)
[2017-08-30] MEDS: RESP: ALBUTEROL 2.5 MG/IPRATROPIUM 0.5 MG NEB (SCH) NEB (04:51)
[2017-08-30 05:18] LABS: AUTOMATED NEUTROPHIL # 7.9 TH/MM3 (1.8-7.7); BASOPHIL % 0.4 % (0.0-2.0); EOSINOPHIL # 0.3 TH/MM3 (0-0.4); EOSINOPHIL % 2.6 % (0.0-4.0); HEMATOCRIT 35.6 % (39.0-51.0); LYMPH % 18.6 % (9.0-44.0); LYMPHOCYTE # 2.3 TH/MM3 (1.0-4.8); MEAN CELL VOLUME 92.5 FL (80.0-100.0); MEAN CORPUSCULAR HEMOGLOBIN 31.3 PG (27.0-34.0); MEAN CORPUSCULAR HGB CONC 33.8 % (32.0-36.0); MEAN PLATELET VOLUME 8.8 FL (7.0-11.0); MONO % 13.1 % (0.0-8.0); MONOCYTE # 1.6 TH/MM3 (0-0.9); NEUT % 65.3 % (16.0-70.0); PLATELET COUNT 319 TH/MM3 (150-450); RED BLOOD COUNT 3.85 MIL/MM3 (4.50-5.90); WHITE BLOOD COUNT 12.1 TH/MM3 (4.0-11.0)
[2017-08-30] MEDS: HEPARIN SODIUM - SQ 10,000 UNITS/ML VIAL SQ SCH ×3 (05:24→21:18)
[2017-08-30 05:42] LABS: ALBUMIN 2.3 GM/DL (3.4-5.0); ALT (GPT) 31 U/L (12-78); AST (GOT) 21 U/L (15-37); BICARBONATE 23.4 MEQ/L (21.0-32.0); BLOOD UREA NITROGEN 14 MG/DL (7-18); CHLORIDE 103 MEQ/L (98-107); CREATININE 0.77 MG/DL (0.60-1.30); GLOMERULAR FILTRATION RATE 101 ML/MIN (>89); GLUCOSE,RANDOM 111 MG/DL (74-106); SODIUM (NA) 136 MEQ/L (136-145)
[2017-08-30 05:44] LABS: ALKALINE PHOSPHATASE 41 U/L (45-117); TOTAL BILIRUBIN ADULT 0.4 MG/DL (0.2-1.0); TOTAL PROTEIN 6.7 GM/DL (6.4-8.2)
[2017-08-30] MEDS: INSULIN ASPART SUPPLEMENTAL SCALE SQ SCH ×2 (07:00→16:00)
[2017-08-30] MEDS: CHLORHEXIDINE 0.12% (ORAL KIT) 15 ML CUP MT SCH ×2 (08:00→20:00)
[2017-08-30] MEDS: DOCUSATE SODIUM 100 MG CAP PO SCH ×2 (08:02→20:03)
[2017-08-30] MEDS: REMOVE OLD PATCH T-DERMAL SCH (09:00)
[2017-08-30] MEDS: SODIUM CHLORIDE 0.9% FLUSH 10 ML FLUSH IV FLUSH SCH ×2 (09:00→20:03)
[2017-08-30] MEDS ORDERED: QUEtiapine FUMARATE 25 MG TAB PO SCH (09:00)
[2017-08-30] MEDS: LACTOBACILLUS ACIDOPHILUS 1 GM PACKET PO SCH ×3 (09:04→17:44)
[2017-08-30] MEDS: QUEtiapine FUMARATE 25 MG TAB PO SCH (09:04)
[2017-08-30] MEDS: FAMOTIDINE 20 MG TAB PO SCH ×2 (09:05→20:03)
--- NOTE | 2017-08-30 09:06 | HHI.NSPN ---
(Issac Duncan) History Chief Complaint: Slight headache (Issac Duncan) Interval History 08/21: 67-year-old male presents to the emergency room today approximately 7 AM with history of headache for several days, increasing significantly at 6:30 AM today. His initial blood pressure was 261/143. He was placed on a nicardipine drip for initial blood pressure control. 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 He was reportedly awake and alert upon presentation to the emergency room, with left facial and upper extremity weakness. He reportedly developed increasing speech difficulty following a CT scan this morning, and subsequently was noted to have a seizure which was initially treated with Ativan. Since then he has been more lethargic and nonverbal. 08/22: The patient is obtunded this morning but he is sedated with propofol. Nursing reports that he is off all other sedation and blood pressure drips. She also reports that the patient is spontaneously moving his extremities and responds to noxious stimulation. He did go for a repeat CT brain this morning. 08/23: The patient is agitated and thrashing about in bed when seen. Nursing and the Dialysis Biomed Technician are present and a needle decompression had been done for a pneumothorax on the right side which was demonstrated on his CXR this morning. They were preparing to place a right-sided chest tube. The patient continues to be intubated and mechanically ventilated. He does have propofol for sedation and fentanyl for pain management infusing. 08/24: The patient is obtunded this morning when seen. He is on propofol for sedation. He remains intubated and mechanically ventilated with a right-sided chest tube. Nursing reports his fentanyl was stopped about 20 minutes prior to being seen. She also reports that the patient is being restarted on his psych meds prior to weaning his sedation. 08/25: When seen this morning the patient continues to be obtunded. He remains intubated and on mechanical ventilation. He had been on propofol which was discontinued and started on dexmedetomidine this morning. The fentanyl drip was also discontinued. The Dialysis Biomed Technician was in the room discussing the plan of care with the patient's sister when the patient was seen. After seen the Dialysis Biomed Technician notified this practitioner that the patient was now following commands and the patient was seen again and did follow commands for this practitioner and open his eyes to voice. 08/26/17: Extubated. Remains on Precedex drip for agitation. Spontaneous eye opening. He knows his family. Answers a few questions yes/no. Follows commands all extremities. 08/26/17 CT scan had stable right frontal intracranial hemorrhage with local mass effect. 08/27: This morning the patient is awake and alert. He is mildly agitated and fidgeting about in bed. The dexmedetomidine is still infusing for sedation this morning. He replies he is doing good when asked. He does endorse a slight headache which he says is getting better as well as some slight dizziness. His is present in the room and states that he was up most of the night. 08/28: The patient is drowsy but does respond to voice. He is agitated. He does have dexmedetomidine infusing but the pump is beeping. The Nurse was in another room and notified. He is doing okay and endorses a slight headache. Family is at the bedside. 08/29: The patient is seen in rounds with Dr Kong this morning. He is awake and alert, laying calmly in the bed. He says he is doing good but does have a slight headache that is better. His family says that during the night he was agitated and was given three doses of haloperidol. She reports that the patient is to be started on clonazepam. 08/30: When seen this morning the patient is awake and alert. He does say he has a slight headache that is improving. He is in soft restraints and is on a dexmedetomidine drip for agitation. He appears calm when seen. Nursing reports that a Psychiatric consult is to be ordered. (Issac Duncan) System Review Comments GASTROINTESTINAL: No nausea. NEUROLOGICAL: Slight headache that is better. No dizziness. No pain, numbness, tingling or weakness to the extremities. (Issac Duncan) Exam Results 08/28/17 08/28/17 08/29/17 08/29/17 08/30/17 08/30/17 06:00 18:00 06:00 18:00 06:00 18:00 Intake Total 1076 ml 390 ml 150 ml 580 ml 50 ml Output Total 900 ml 500 ml 1075 ml 900 ml Balance 176 ml 390 ml -350 ml -495 ml -850 ml Intake Oral 200 ml 240 ml 50 ml 480 ml 50 ml IV Total 876 ml 150 ml 100 ml 100 ml Output Urine Total 900 ml 500 ml 1075 ml 900 ml # Voids 2 3 2 2 # Bowel Movements 0 1 2 2 Vital Signs Date Time Temp Pulse Resp B/P (MAP) Pulse Ox O2 Delivery O2 Flow Rate FiO2 08/30/17 07:00 94 Room Air 08/30/17 06:00 76 08/30/17 04:51 92 Nasal Cannula 2.00 08/30/17 04:00 96 Room Air 08/30/17 04:00 98.7 68 17 117/72 (87) 96 08/30/17 04:00 68 08/30/17 02:00 82 08/30/17 00:00 98.2 80 20 133/74 (93) 96 08/30/17 00:00 80 08/29/17 23:00 94 Nasal Cannula 2.00 08/29/17 22:00 80 08/29/17 20:00 80 08/29/17 20:00 99.2 80 27 155/81 (105) 93 08/29/17 19:00 92 Room Air 08/29/17 18:00 86 08/29/17 16:00 99.1 70 20 130/76 (94) 95 08/29/17 16:00 74 08/29/17 14:00 74 08/29/17 12:00 99.6 78 26 130/70 (90) 97 08/29/17 12:00 78 08/29/17 10:41 97 21 08/29/17 10:00 76 08/29/17 08:00 67 08/29/17 08:00 100.3 67 19 111/59 (76) 97 08/29/17 07:00 Room Air 08/29/17 06:00 94 08/29/17 05:16 97 08/29/17 04:00 99.4 96 27 148/72 (97) 96 08/29/17 04:00 96 08/29/17 02:00 84 08/29/17 01:01 97 08/29/17 00:00 98 Room Air 08/29/17 00:00 78 08/29/17 00:00 99.9 78 15 153/66 (95) 98 08/28/17 22:00 82 08/28/17 21:05 95 Nasal Cannula 2.00 08/28/17 20:00 101.4 96 28 168/84 (112) 98 08/28/17 20:00 96 08/28/17 19:00 98 Nasal Cannula 4.00 08/28/17 18:00 96 08/28/17 16:00 98.9 78 19 164/87 (112) 99 08/28/17 16:00 78 08/28/17 14:00 74 08/28/17 12:00 82 08/28/17 12:00 100.2 82 31 179/86 (117) 98 08/28/17 10:00 84 08/28/17 08:29 99 Nasal Cannula 2.00 08/28/17 08:00 101.6 96 31 179/86 (117) 99 08/28/17 08:00 96 08/28/17 07:00 98 Nasal Cannula 4.00 08/28/17 06:00 74 08/28/17 04:00 70 08/28/17 04:00 98.1 70 19 179/86 (117) 100 08/28/17 02:00 64 08/28/17 00:00 98.8 66 20 140/81 (100) 92 08/28/17 00:00 66 08/27/17 23:00 18 08/27/17 22:00 68 08/27/17 20:00 76 08/27/17 20:00 98.3 76 23 126/75 (92) 95 08/27/17 19:54 97 Nasal Cannula 3.00 08/27/17 19:00 97 Nasal Cannula 4.00 08/27/17 18:00 70 08/27/17 16:00 80 08/27/17 16:00 98.7 76 23 161/87 (111) 97 08/27/17 14:00 81 08/27/17 12:00 82 08/27/17 12:00 99.0 82 24 149/82 (104) 98 08/27/17 10:00 72 (Issac Duncan) Physical Examination GENERAL: Awake & alert, laying calmly in bed, on dexmedetomidine at 1.2 mcg/kg/ hr for sedation. HEENT: Normocephalic, atraumatic. PERRLA 3 mm brisk, EOMI. MMM & pink, tongue midline to protrusion. MUSCULOSKELETAL: MOLINA spontaneously w/o difficulty. NEUROLOGICAL: AAOx2 (some confusion as to place). Eyes open spontaneously. CN II-XII appear grossly intact. Speech clear and wandering. Follows simple commands w/o difficulty. Sensation intact to light touch to all extremities. Motor strength strong & symmetrical. (Issac Duncan) Lab, Micro, Other Results Recent Impressions Head CT 08/29/17 0600 Signed Impressions: Service Date/Time: August 04:25 - CONCLUSION: Evolving bifrontal hemorrhages. No new acute findings. Saw Higginbotham MD Chest X-Ray 08/28/17 0000 Signed Impressions: Service Date/Time: Monday, August 28, 2017 13:27 - CONCLUSION: 1. Minimal patchiness within the right upper lung field and to a lesser extent the lung bases consistent with possible pneumonia. Clinical correlation is recommended. 2. No evidence of pneumothorax status post removal of chest tube. Lukas Flores MD CT Angiography 08/28/17 0000 Signed Impressions: Service Date/Time: Monday, August 28, 2017 18:11 - CONCLUSION: 1. No evidence of pulmonary embolism. 2. Consolidative infiltrate in the right lung most characteristic of pneumonia. 3. Small pleural effusions right greater than left. Ion Holt MD Chest X-Ray 08/27/17 0900 Signed Impressions: Service Date/Time: Sunday, August 27, 2017 08:30 - CONCLUSION: Stable patchy infiltrate in the upper lateral right lung. Alexis Rizo MD Laboratory Tests Test 08/27/17 16:09 08/28/17 04:09 08/28/17 16:02 08/28/17 23:01 B-Type Natriuretic Peptide 624 PG/ML White Blood Count 10.7 TH/MM3 Red Blood Count 3.84 MIL/MM3 Hemoglobin 12.0 GM/DL Hematocrit 35.5 % Mean Corpuscular Volume 92.6 FL Mean Corpuscular Hemoglobin 31.3 PG Mean Corpuscular Hemoglobin Concent 33.9 % Red Cell Distribution Width 12.8 % Platelet Count 231 TH/MM3 Mean Platelet Volume 9.3 FL Neutrophils (%) (Auto) 58.9 % Lymphocytes (%) (Auto) 18.1 % Monocytes (%) (Auto) 16.8 % Eosinophils (%) (Auto) 5.6 % Basophils (%) (Auto) 0.6 % Neutrophils # (Auto) 6.3 TH/MM3 Lymphocytes # (Auto) 1.9 TH/MM3 Monocytes # (Auto) 1.8 TH/MM3 Eosinophils # (Auto) 0.6 TH/MM3 Basophils # (Auto) 0.1 TH/MM3 CBC Comment DIFF FINAL Differential Comment Blood Urea Nitrogen 13 MG/DL Creatinine 0.65 MG/DL Random Glucose 96 MG/DL Total Protein 7.0 GM/DL Albumin 2.6 GM/DL Calcium Level 8.5 MG/DL Alkaline Phosphatase 44 U/L Aspartate Amino Transf (AST/SGOT) 27 U/L Alanine Aminotransferase (ALT/SGPT) 29 U/L Total Bilirubin 0.6 MG/DL Sodium Level 136 MEQ/L Potassium Level 3.5 MEQ/L 3.5 MEQ/L Chloride Level 105 MEQ/L Carbon Dioxide Level 21.3 MEQ/L Anion Gap 10 MEQ/L Estimat Glomerular Filtration Rate 123 ML/MIN Total Creatine Kinase 158 U/L Creatine Kinase MB 1.5 NG/ML Troponin I LESS THAN 0.02 NG/ML Phenytoin (Dilantin) Level 10.0 MCG/ML Test 08/29/17 19:28 08/30/17 00:40 08/30/17 04:10 Stool C. difficile Toxin (PCR) NEGATIVE Stl C. difficile Toxin Epiderm 027 PRESUMPTIVE NEGATIVE Potassium Level 3.1 MEQ/L 3.7 MEQ/L White Blood Count 12.1 TH/MM3 Red Blood Count 3.85 MIL/MM3 Hemoglobin 12.0 GM/DL Hematocrit 35.6 % Mean Corpuscular Volume 92.5 FL Mean Corpuscular Hemoglobin 31.3 PG Mean Corpuscular Hemoglobin Concent 33.8 % Red Cell Distribution Width 13.0 % Platelet Count 319 TH/MM3 Mean Platelet Volume 8.8 FL Neutrophils (%) (Auto) 65.3 % Lymphocytes (%) (Auto) 18.6 % Monocytes (%) (Auto) 13.1 % Eosinophils (%) (Auto) 2.6 % Basophils (%) (Auto) 0.4 % Neutrophils # (Auto) 7.9 TH/MM3 Lymphocytes # (Auto) 2.3 TH/MM3 Monocytes # (Auto) 1.6 TH/MM3 Eosinophils # (Auto) 0.3 TH/MM3 Basophils # (Auto) 0.0 TH/MM3 CBC Comment DIFF FINAL Differential Comment Blood Urea Nitrogen 14 MG/DL Creatinine 0.77 MG/DL Random Glucose 111 MG/DL Total Protein 6.7 GM/DL Albumin 2.3 GM/DL Calcium Level 8.0 MG/DL Alkaline Phosphatase 41 U/L Aspartate Amino Transf (AST/SGOT) 21 U/L Alanine Aminotransferase (ALT/SGPT) 31 U/L Total Bilirubin 0.4 MG/DL Sodium Level 136 MEQ/L Chloride Level 103 MEQ/L Carbon Dioxide Level 23.4 MEQ/L Anion Gap 10 MEQ/L Estimat Glomerular Filtration Rate 101 ML/MIN (Issac Duncan) Medical Decision Making Impression and Plan Impression: 1. Bifrontal spontaneous intracranial hemorrhage 2. New onset seizure 3. Hypertension 4. Chronic tobacco use Patient continues to show improvement in mental status. Reviewed labs for today, slight leukocytosis, will follow. Plan: Discussed plan of care with patient & Nursing. Critical care management per Dialysis Biomed Technician. Frequent vital signs and neuro checks Target SBP < 140. Phenytoin for seizures. Non-chemical DVT prophylaxis. Ulcer prophylaxis. Okay for pharmacologic DVT prophylaxis. Concur w/Psych consult. (Issac Duncan) Attending Statement The exam, history, and the medical decision-making described in the above note were completed with the assistance of the mid-level provider. I reviewed and agree with the findings presented. I attest that I had a [id number] encounter with the patient on the same day, and personally performed and documented my assessment and findings in the medical record. Patient seems a little less agitated on examination 08/30/17 Still has significant confusion He knows that he is in the hospital He knows the month Follow that she has simple commands No focal extremity motor deficits Vital signs satisfactory Discussed with family at bedside Seems to be improving slowly They be able to go to the regular floor over the next few days if agitation improves (Martin Kong MD) Issac Duncan Aug 30, 2017 09:06 Martin Kong MD Aug 30, 2017 20:46
[2017-08-30] MEDS: lamoTRIgine 100 MG TAB PO SCH ×2 (09:07→20:03)
[2017-08-30] MEDS: HYDROCHLOROTHIAZIDE 12.5 MG CAP PO SCH (09:07)
[2017-08-30] MEDS: SERTRALINE HCL 100 MG TAB PO SCH (09:07)
[2017-08-30] MEDS: PHENYTOIN SODIUM 100 MG CAP PO SCH ×3 (09:07→17:42)
[2017-08-30] MEDS: LISINOPRIL 10 MG TAB PO SCH (09:07)
[2017-08-30] MEDS: NICOTINE 7 MG/24 HR PATCH T-DERMAL SCH (09:08)
[2017-08-30] MEDS: cefTRIAXone INJ 1,000 MG in SODIUM CHLORIDE 0.9% INJ 100 ML IV SCH (09:10)
[2017-08-30] MEDS ORDERED: hydrALAZINE HCL 20 MG/ML VIAL IV PUSH PRN (10:30)
--- NOTE | 2017-08-30 13:26 | HHI.CCPN ---
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 His headache worsened which worsened around 6:30 AM. Patient was evaluated in the ER stroke alert was called. A head CT revealed intraparenchymal hemorrhage involving frontal lobes. Patient was evaluated by Dr. Kong from neurosurgery who admitted the patient to the ICU. Reportedly patient had seizures in the ER for which she received Ativan 2 mg IV and was loaded with fosphenytoin 1 g IV. Subsequently he was transferred to the ICU where I evaluated him immediately on his arrival. At that time he was extremely encephalopathic, stupor O's, nonverbal. I did not feel patient is protecting his airway at the time. I also noted some rhythmic jaw movements consistent with seizure activity. Patient was given Ativan 4 mg IV stat and I proceeded with emergent intubation and patient was placed on mechanical ventilation. A central line was placed emergently as well. Subsequently discussed with Dr. Kong wish to proceed with MRI/MRA of the brain for further evaluation. Patient was sedated with propofol following intubation. He was on a nicardipine drip on arrival as his blood pressure in the ER was 200s systolic. History was obtained by reviewing records and discussion with Dr. Kong and nursing staff. 08/22: Unresponsive aside from withdrawal lower extremities to painful stimulation. No obvious seizure activity. Ventilator dependent. Frontal bleeds are being absorbed, no new bleeding. 08/23: Remains sedated, orally intubated on mechanical ventilation. Reportedly is on Epclusa which is used for hepatitis C treatment. 08/24: Moves 4 limbs. Gas exchange acceptable. Right lung expanded after chest tube. Family conveys concerns about prior drug habituation, will stop narcotics and stick with propofol. 08/25: Remains sedated, orally intubated on mechanical ventilation. 08/26: Extubated following C Pap trial on 08/25. Was requiring nonrebreather facemask however now on 6 L nasal cannula. On Precedex gtt. Required Ativan when necessary for anxiety/severe restlessness. Currently drowsy at the time of my evaluation however just received Ativan earlier this morning. Appears comfortable on 6 L nasal cannula. 08/27: Had some disorientation and hallucinations last night. This morning he is awake and alert. Following commands. On 5 L nasal cannula. No air leak in right sided pigtail catheter which was placed to underwater seal. On Precedex 0.8 mcg/kg/hr at the time of my evaluation. 08/28: Having issues with delirium/hallucinations which are worse at night. Remains on Precedex drip. Given 1 mg Ativan this morning for significant agitation. When I evaluated the patient subsequently he was resting in bed with slightly labored breathing on 2 L nasal cannula. He knew he was in the hospital and couldn't give me the month and year. He was following commands appropriately. 08/29: Received 3 doses of Haldol last night. This morning he is drowsy, arousable easily on Precedex gtt. at 1.5 mics per KG per hour. Added clonidine patch 0.1 mg per day single dose for 7 days to see that helps with weaning off Precedex as well as hypertension. CT chest negative for PE done yesterday. It did show significant right sided pneumonia. Patient did have some fevers overnight. He is currently on IV Rocephin for MSSA pneumonia. Tolerating by mouth diet. He has been cleared for subcutaneous heparin by neurosurgery which is being started today. Seroquel being increased to attempt to titrate off Precedex gtt. Subjective 08/30: Tmax 99.2. 2 bowel movements. Continues on dexmedetomidine drip at 1.2 micrograms per kilogram per minute. Attempts to wean results in extreme agitation with patient. Objective Vital Signs Date Time Temp Pulse Resp B/P (MAP) Pulse Ox O2 Delivery O2 Flow Rate FiO2 08/30/17 10:00 78 08/30/17 09:37 97 21 08/30/17 08:00 98.4 25 139/87 (104) 08/30/17 07:00 Room Air 08/30/17 04:51 2.00 Intake and Output 08/30/17 08/30/17 08/31/17 08:00 16:00 00:00 Intake Total 50 ml Output Total 900 ml Balance -850 ml Result Diagram: 08/30/17 0410 08/30/17 0410 Other Results Microbiology Date/Time Source Procedure Growth Status 08/25/17 13:40 Blood Peripheral Aerobic Blood Culture - Final NO GROWTH IN 5 DAYS Complete 08/25/17 13:40 Blood Peripheral Anaerobic Blood Culture - Final NO GROWTH IN 5 DAYS Complete 08/23/17 02:15 Sputum Endotracheal Gram Stain - Final Complete 08/23/17 02:15 Sputum Culture - Final Staphylococcus Aureus Complete Imaging Last Impressions Head CT 08/29/17 0600 Signed Impressions: Service Date/Time: August 04:25 - CONCLUSION: Evolving bifrontal hemorrhages. No new acute findings. Saw Higginbotham MD Chest X-Ray 08/28/17 0000 Signed Impressions: Service Date/Time: Monday, August 28, 2017 13:27 - CONCLUSION: 1. Minimal patchiness within the right upper lung field and to a lesser extent the lung bases consistent with possible pneumonia. Clinical correlation is recommended. 2. No evidence of pneumothorax status post removal of chest tube. Lukas Flores MD CT Angiography 08/28/17 0000 Signed Impressions: Service Date/Time: Monday, August 28, 2017 18:11 - CONCLUSION: 1. No evidence of pulmonary embolism. 2. Consolidative infiltrate in the right lung most characteristic of pneumonia. 3. Small pleural effusions right greater than left. Ion Holt MD Neck CTA 08/21/17 0743 Signed Impressions: Service Date/Time: Monday, August 21, 2017 07:47 - CONCLUSION: 1. See the CT of the brain reported separately. 2. Patent carotid arteries and vertebral arteries. Alexis Villa Jr., MD Head CTA 08/21/17 0725 Signed Impressions: Service Date/Time: Monday, August 21, 2017 07:47 - CONCLUSION: 1. Negative head CTA exam. Specifically, no evidence for aneurysm or large vessel occlusion. Wil Lopez MD Head Magnetic Resonance Angiography 08/21/17 0000 Signed Impressions: Service Date/Time: Monday, August 21, 2017 16:02 - CONCLUSION: 1. MRA suggest parenchymal hemorrhage in both frontal lobes, left greater than right. 2. However, the intracranial vessels are all widely patent without aneurysmal disease. 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 Saw Higginbotham MD Objective Remarks GENERAL: 67-year-old male, resting in bed in no acute distress SKIN: Warm and dry. HEAD: Atraumatic. Normocephalic. EYES: Pupils equal and round about 2 mm bilaterally and reactive. No scleral icterus. No injection or drainage. ENT: No nasal bleeding or discharge. Mucous membranes pink and moist. NECK: Trachea midline. No JVD. CARDIOVASCULAR: Regular rate and rhythm. S1, S2. No S4. RESPIRATORY: No accessory muscle use. Clear to auscultation. Breath sounds equal bilaterally. GASTROINTESTINAL: Abdomen soft, non-tender, nondistended. Hepatic and splenic margins not palpable. MUSCULOSKELETAL: Extremities without significant peripheral edema. No obvious deformities. NEUROLOGICAL: Awake and alert. No obvious cranial nerve deficits. Motor grossly within normal limits. Five out of 5 muscle strength in the arms and legs. Normal speech. Procedures Chest tube A/P Assessment and Plan 67 year-old male with: Intracerebral hemorrhage involving frontal lobes Encephalopathy Seizure Acute respiratory failure - resolved Right pneumothorax status post chest tube placement (chest tube discontinued ) MSSA pneumonia Sepsis Hypertensive emergency - resolved Hepatitis C H/O substance abuse UDS+ amphetamines Leukocytosis Normocytic anemia Plan: Neuro: Off propofol and fentanyl drips since 08/25. On dexmedetomidine for agitation/delirium currently at 1.2 mg/kg per minute. Discontinue haloperidol on 08/29. Neurosurgery following. Switched phenytoin to PO 200 mg 3 times a day on 08/28 and follow level. Home dose Lamotrigine 200 mg twice a day resumed 08/22. On sertraline 100 mg by mouth daily at bedtime. Neuropsychologist evaluation appreciated. Increasing quetiapine 50 a.m. -100 mg at night for hallucinations/delirium. Repeat head CT per neurosurgery on 08/29 revealed evolving bifrontal hemorrhages. Family requesting no narcotics secondary to history of polysubstance also requesting no benzodiazepines Cardiovascular: Off nicardipine gtt. started on hydrochlorothiazide 12.5 mg daily, lisinopril 10 mg daily. Enalapril/ Labetalol/hydralazine when necessary. Off IV fluids. Added clonidine patch 0.1 mg per week single dose for 7 days on 08/29 Pulmonary: Extubated on 08/25, initially on nonrebreather facemask, currently on 2 L nasal cannula. bronchodilators as needed. Sputum cultures growing MSSA. s/p chest tube for rt pneumothorax which was discontinued on 08/27. CT chest negative for PE however showed significant right sided pneumonia on 08/28. GI/liver: Tolerating by mouth diet. Passed swallow eval. Patient reportedly on sufosbuvir/velpalasivir for hepatitis C-neurosurgery wanted to hold as it may increase bleeding risk. Renal/: strict intake output, monitor and replete electrolytes, follow BUN/ creatinine. ID: Sputum cultures growing MSSA. Concern for aspiration. Started on IV piperacillin/tazobactam on 08/25, de-escalate to ceftriaxone 1 g IV daily on . Received 1 dose of vancomycin on 08/25.. On sufosbuvir/velpalasivir at home for ? Hep C Heme: Follow CBC. Endocrine: SSI for glycemic control if needed. Prophylaxis: PPI/SCDs. Subcutaneous heparin cleared by neurosurgery and being started on 08/29. Further recommendations per neurosurgery. Sergey Rizvi MD Aug 30, 2017 13:26
[2017-08-30] MEDS ORDERED: ZIPRASIDONE MESYLATE 20 MG VIAL IM PRN (14:45)
[2017-08-30] MEDS: QUEtiapine FUMARATE 100 MG TAB PO SCH (20:03)
[2017-08-30] MEDS: ENALAPRILAT 1.25 MG/ML VIAL IV PUSH PRN (22:03)
[2017-08-31] VITALS (9 sets, daily range): BP systolic 117–153; BP diastolic 71–89; PULSE 62–86; RESP 14–27; TEMP 97.9–98.9; O2SAT 94–100
[2017-08-31] MEDS: POTASSIUM CHLOR 20 MEQ PREMIX 100 ML IV PRN (01:07)
[2017-08-31] MEDS: CHLORHEXIDINE GLUCONATE 2 % 1 PACK (2 CLOTHS) TOP SCH (04:00)
[2017-08-31 04:43] LABS: AUTOMATED NEUTROPHIL # 7.6 TH/MM3 (1.8-7.7); BASOPHIL # 0.1 TH/MM3 (0-0.2); BASOPHIL % 0.5 % (0.0-2.0); EOSINOPHIL # 0.4 TH/MM3 (0-0.4); EOSINOPHIL % 3.9 % (0.0-4.0); HEMATOCRIT 37.8 % (39.0-51.0); HEMOGLOBIN 12.6 GM/DL (13.0-17.0); LYMPH % 18.7 % (9.0-44.0); LYMPHOCYTE # 2.1 TH/MM3 (1.0-4.8); MEAN CELL VOLUME 92.8 FL (80.0-100.0); MEAN CORPUSCULAR HEMOGLOBIN 31.1 PG (27.0-34.0); MEAN CORPUSCULAR HGB CONC 33.4 % (32.0-36.0); MEAN PLATELET VOLUME 8.5 FL (7.0-11.0); MONO % 10.5 % (0.0-8.0); MONOCYTE # 1.2 TH/MM3 (0-0.9); NEUT % 66.4 % (16.0-70.0); PLATELET COUNT 413 TH/MM3 (150-450); RED BLOOD COUNT 4.07 MIL/MM3 (4.50-5.90); RED CELL DISTRIBUTION WIDTH 13.2 % (11.6-17.2); WHITE BLOOD COUNT 11.4 TH/MM3 (4.0-11.0)
[2017-08-31 05:09] LABS: ALBUMIN 2.5 GM/DL (3.4-5.0); AST (GOT) 23 U/L (15-37); BICARBONATE 23.7 MEQ/L (21.0-32.0); BLOOD UREA NITROGEN 12 MG/DL (7-18); CALCIUM 8.5 MG/DL (8.5-10.1); CHLORIDE 103 MEQ/L (98-107); CREATININE 0.78 MG/DL (0.60-1.30); GLOMERULAR FILTRATION RATE 100 ML/MIN (>89); GLUCOSE,RANDOM 104 MG/DL (74-106); MAGNESIUM 2.1 MG/DL (1.5-2.5); SODIUM (NA) 135 MEQ/L (136-145)
[2017-08-31 05:11] LABS: ALT (GPT) 44 U/L (12-78); PHENYTOIN (DILANTIN) 6.1 MCG/ML (10.0-20.0); PHOSPHORUS 2.8 MG/DL (2.5-4.9)
[2017-08-31 05:20] LABS: ALKALINE PHOSPHATASE 47 U/L (45-117); TOTAL BILIRUBIN ADULT 0.4 MG/DL (0.2-1.0); TOTAL PROTEIN 7.2 GM/DL (6.4-8.2)
[2017-08-31] MEDS: HEPARIN SODIUM - SQ 10,000 UNITS/ML VIAL SQ SCH ×3 (05:58→21:16)
[2017-08-31] MEDS: INSULIN ASPART SUPPLEMENTAL SCALE SQ SCH ×2 (06:41→16:00)
[2017-08-31] MEDS: CHLORHEXIDINE 0.12% (ORAL KIT) 15 ML CUP MT SCH ×2 (08:00→20:00)
[2017-08-31] MEDS: cefTRIAXone INJ 1,000 MG in SODIUM CHLORIDE 0.9% INJ 100 ML IV SCH (08:58)
[2017-08-31] MEDS: SODIUM CHLORIDE 0.9% FLUSH 10 ML FLUSH IV FLUSH SCH ×2 (09:00→21:17)
[2017-08-31] MEDS: DOCUSATE SODIUM 100 MG CAP PO SCH ×2 (09:00→21:00)
[2017-08-31] MEDS: NICOTINE 7 MG/24 HR PATCH T-DERMAL SCH (09:00)
[2017-08-31] MEDS: REMOVE OLD PATCH T-DERMAL SCH (09:00)
[2017-08-31] MEDS: HYDROCHLOROTHIAZIDE 12.5 MG CAP PO SCH (09:01)
[2017-08-31] MEDS: FAMOTIDINE 20 MG TAB PO SCH ×2 (09:01→21:16)
[2017-08-31] MEDS: LACTOBACILLUS ACIDOPHILUS 1 GM PACKET PO SCH ×3 (09:01→17:23)
[2017-08-31] MEDS: LISINOPRIL 10 MG TAB PO SCH (09:01)
[2017-08-31] MEDS: PHENYTOIN SODIUM 100 MG CAP PO SCH ×3 (09:04→17:23)
[2017-08-31] MEDS: lamoTRIgine 100 MG TAB PO SCH ×2 (09:04→21:16)
[2017-08-31] MEDS: SERTRALINE HCL 100 MG TAB PO SCH (09:05)
[2017-08-31] MEDS: QUEtiapine FUMARATE 25 MG TAB PO SCH (09:06)
--- NOTE | 2017-08-31 10:54 | HHI.CCPN ---
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 His headache worsened which worsened around 6:30 AM. Patient was evaluated in the ER stroke alert was called. A head CT revealed intraparenchymal hemorrhage involving frontal lobes. Patient was evaluated by Dr. Kong from neurosurgery who admitted the patient to the ICU. Reportedly patient had seizures in the ER for which she received Ativan 2 mg IV and was loaded with fosphenytoin 1 g IV. Subsequently he was transferred to the ICU where I evaluated him immediately on his arrival. At that time he was extremely encephalopathic, stupor O's, nonverbal. I did not feel patient is protecting his airway at the time. I also noted some rhythmic jaw movements consistent with seizure activity. Patient was given Ativan 4 mg IV stat and I proceeded with emergent intubation and patient was placed on mechanical ventilation. A central line was placed emergently as well. Subsequently discussed with Dr. Kong wish to proceed with MRI/MRA of the brain for further evaluation. Patient was sedated with propofol following intubation. He was on a nicardipine drip on arrival as his blood pressure in the ER was 200s systolic. History was obtained by reviewing records and discussion with Dr. Kong and nursing staff. 08/22: Unresponsive aside from withdrawal lower extremities to painful stimulation. No obvious seizure activity. Ventilator dependent. Frontal bleeds are being absorbed, no new bleeding. 08/23: Remains sedated, orally intubated on mechanical ventilation. Reportedly is on Epclusa which is used for hepatitis C treatment. 08/24: Moves 4 limbs. Gas exchange acceptable. Right lung expanded after chest tube. Family conveys concerns about prior drug habituation, will stop narcotics and stick with propofol. 08/25: Remains sedated, orally intubated on mechanical ventilation. 08/26: Extubated following C Pap trial on 08/25. Was requiring nonrebreather facemask however now on 6 L nasal cannula. On Precedex gtt. Required Ativan when necessary for anxiety/severe restlessness. Currently drowsy at the time of my evaluation however just received Ativan earlier this morning. Appears comfortable on 6 L nasal cannula. 08/27: Had some disorientation and hallucinations last night. This morning he is awake and alert. Following commands. On 5 L nasal cannula. No air leak in right sided pigtail catheter which was placed to underwater seal. On Precedex 0.8 mcg/kg/hr at the time of my evaluation. 08/28: Having issues with delirium/hallucinations which are worse at night. Remains on Precedex drip. Given 1 mg Ativan this morning for significant agitation. When I evaluated the patient subsequently he was resting in bed with slightly labored breathing on 2 L nasal cannula. He knew he was in the hospital and couldn't give me the month and year. He was following commands appropriately. 08/29: Received 3 doses of Haldol last night. This morning he is drowsy, arousable easily on Precedex gtt. at 1.5 mics per KG per hour. Added clonidine patch 0.1 mg per day single dose for 7 days to see that helps with weaning off Precedex as well as hypertension. CT chest negative for PE done yesterday. It did show significant right sided pneumonia. Patient did have some fevers overnight. He is currently on IV Rocephin for MSSA pneumonia. Tolerating by mouth diet. He has been cleared for subcutaneous heparin by neurosurgery which is being started today. Seroquel being increased to attempt to titrate off Precedex gtt. 08/30: Tmax 99.2. 2 bowel movements. Continues on dexmedetomidine drip at 1.2 micrograms per kilogram per minute. Attempts to wean results in extreme agitation with patient. Subjective 08/31: Currently afebrile. One bowel movement. Continues on dexmedetomidine drip at 0.7 aki as per kilo Per minute. Was informed of restrictive rapid currently very appropriate. Increasing quetiapine 200 mg twice a day. Cleared by neurosurgery to go outside today. Objective Vital Signs Date Time Temp Pulse Resp B/P (MAP) Pulse Ox O2 Delivery O2 Flow Rate FiO2 08/31/17 06:00 73 08/31/17 04:00 97.9 18 150/85 (106) 98 08/30/17 09:37 21 08/30/17 07:00 Room Air 08/30/17 04:51 2.00 Intake and Output 08/31/17 08/31/17 09/01/17 08:00 16:00 00:00 Intake Total 686 ml Output Total 2000 ml Balance -1314 ml Result Diagram: 08/31/17 0400 08/31/17 0400 Other Results Microbiology Date/Time Source Procedure Growth Status 10/29/17 13:40 Blood Peripheral Aerobic Blood Culture - Final NO GROWTH IN 5 DAYS Complete 08/25/17 13:40 Blood Peripheral Anaerobic Blood Culture - Final NO GROWTH IN 5 DAYS Complete 08/23/17 02:15 Sputum Endotracheal Gram Stain - Final Complete 08/23/17 02:15 Sputum Culture - Final Staphylococcus Aureus Complete Imaging Last Impressions Head CT 08/29/17 0600 Signed Impressions: Service Date/Time: August 04:25 - CONCLUSION: Evolving bifrontal hemorrhages. No new acute findings. Saw Higginbotham MD Chest X-Ray 08/28/17 0000 Signed Impressions: Service Date/Time: Monday, August 28, 2017 13:27 - CONCLUSION: 1. Minimal patchiness within the right upper lung field and to a lesser extent the lung bases consistent with possible pneumonia. Clinical correlation is recommended. 2. No evidence of pneumothorax status post removal of chest tube. Lukas Flores MD CT Angiography 08/28/17 0000 Signed Impressions: Service Date/Time: Monday, August 28, 2017 18:11 - CONCLUSION: 1. No evidence of pulmonary embolism. 2. Consolidative infiltrate in the right lung most characteristic of pneumonia. 3. Small pleural effusions right greater than left. Ion Holt MD Neck CTA 08/21/17 0743 Signed Impressions: Service Date/Time: Monday, August 21, 2017 07:47 - CONCLUSION: 1. See the CT of the brain reported separately. 2. Patent carotid arteries and vertebral arteries. Alexis Villa Jr., MD Head CTA 08/21/17 0725 Signed Impressions: Service Date/Time: Monday, August 21, 2017 07:47 - CONCLUSION: 1. Negative head CTA exam. Specifically, no evidence for aneurysm or large vessel occlusion. Wil oLpez MD Head Magnetic Resonance Angiography 08/21/17 0000 Signed Impressions: Service Date/Time: Monday, August 21, 2017 16:02 - CONCLUSION: 1. MRA suggest parenchymal hemorrhage in both frontal lobes, left greater than right. 2. However, the intracranial vessels are all widely patent without aneurysmal disease. 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 Saw Higginbotham MD Objective Remarks GENERAL: 67-year-old male, resting in bed in no acute distress SKIN: Warm and dry. HEAD: Atraumatic. Normocephalic. EYES: Pupils equal and round about 2 mm bilaterally and reactive. No scleral icterus. No injection or drainage. ENT: No nasal bleeding or discharge. Mucous membranes pink and moist. NECK: Trachea midline. No JVD. CARDIOVASCULAR: Regular rate and rhythm. S1, S2. No S4. RESPIRATORY: No accessory muscle use. Clear to auscultation. Breath sounds equal bilaterally. GASTROINTESTINAL: Abdomen soft, non-tender, nondistended. Hepatic and splenic margins not palpable. MUSCULOSKELETAL: Extremities without significant peripheral edema. No obvious deformities. NEUROLOGICAL: Awake and alert. No obvious cranial nerve deficits. Motor grossly within normal limits. Five out of 5 muscle strength in the arms and legs. Normal speech. Procedures Chest tube A/P Assessment and Plan 67 year-old male with: Intracerebral hemorrhage involving frontal lobes Encephalopathy Seizure Acute respiratory failure - resolved Right pneumothorax status post chest tube placement (chest tube discontinued ) MSSA pneumonia Sepsis Hypertensive emergency - resolved Hepatitis C H/O substance abuse UDS+ amphetamines Leukocytosis Normocytic anemia Plan: Neuro: Off propofol and fentanyl drips since 08/25. On dexmedetomidine for agitation/delirium currently at 0.7 mg/kg per minute. Discontinue haloperidol on 08/29. Neurosurgery following. Switched phenytoin to PO 200 mg 3 times a day on 08/28 and follow level. Home dose Lamotrigine 200 mg twice a day resumed 08/22. On sertraline 100 mg by mouth daily at bedtime. Neuropsychologist evaluation appreciated. Increasing quetiapine 100 milligrams a.m. -100 mg at night for hallucinations/delirium. On when necessary ziprasidone 10 mg IM every 12 hours for maximum of 3 days severe agitation. Repeat head CT per neurosurgery on 08/29 revealed evolving bifrontal hemorrhages. Family requesting no narcotics secondary to history of polysubstance also requesting no benzodiazepines Cardiovascular: Off nicardipine gtt. started on hydrochlorothiazide 12.5 mg daily, lisinopril 10 mg daily. Enalapril/ Labetalol/hydralazine when necessary. Off IV fluids. Added clonidine patch 0.1 mg per week single dose for 7 days on 08/29 Pulmonary: Extubated on 08/25, initially on nonrebreather facemask, currently on 2 L nasal cannula. bronchodilators as needed. Sputum cultures growing MSSA. s/p chest tube for rt pneumothorax which was discontinued on 08/27. CT chest negative for PE however showed significant right sided pneumonia on 08/28. GI/liver: Tolerating by mouth diet. Passed swallow eval. Patient reportedly on sufosbuvir/velpalasivir for hepatitis C-neurosurgery wanted to hold as it may increase bleeding risk. Renal/: strict intake output, monitor and replete electrolytes, follow BUN/ creatinine. ID: Sputum cultures growing MSSA. Concern for aspiration. Started on IV piperacillin/tazobactam on 08/25, de-escalate to ceftriaxone 1 g IV daily on . Received 1 dose of vancomycin on 08/25.. On sufosbuvir/velpalasivir at home for ? Hep C. Heme: Follow CBC. Endocrine: SSI for glycemic control if needed. Prophylaxis: PPI/SCDs. Subcutaneous heparin cleared by neurosurgery and being started on 08/29. Further recommendations per neurosurgery. Level II follow-up Sergey Rizvi MD Aug 31, 2017 10:54
[2017-08-31] MEDS ORDERED: POTASSIUM CHLORIDE 10 MEQ CONTROLLED RELEASE TAB PO ONE (11:00)
--- NOTE | 2017-08-31 11:27 | HHI.NSPN ---
(Judith Estrada) Note Status Status: Progress Note (Judith Estrada) Interval History Interval History 08/21: 67-year-old male presents to the emergency room today approximately 7 AM with history of headache for several days, increasing significantly at 6:30 AM today. His initial blood pressure was 261/143. He was placed on a nicardipine drip for initial blood pressure control. 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 He was reportedly awake and alert upon presentation to the emergency room, with left facial and upper extremity weakness. He reportedly developed increasing speech difficulty following a CT scan this morning, and subsequently was noted to have a seizure which was initially treated with Ativan. Since then he has been more lethargic and nonverbal. 08/22: The patient is obtunded this morning but he is sedated with propofol. Nursing reports that he is off all other sedation and blood pressure drips. She also reports that the patient is spontaneously moving his extremities and responds to noxious stimulation. He did go for a repeat CT brain this morning. 08/23: The patient is agitated and thrashing about in bed when seen. Nursing and the Review Scheduling Coordinator are present and a needle decompression had been done for a pneumothorax on the right side which was demonstrated on his CXR this morning. They were preparing to place a right-sided chest tube. The patient continues to be intubated and mechanically ventilated. He does have propofol for sedation and fentanyl for pain management infusing. 08/24: The patient is obtunded this morning when seen. He is on propofol for sedation. He remains intubated and mechanically ventilated with a right-sided chest tube. Nursing reports his fentanyl was stopped about 20 minutes prior to being seen. She also reports that the patient is being restarted on his psych meds prior to weaning his sedation. 08/25: When seen this morning the patient continues to be obtunded. He remains intubated and on mechanical ventilation. He had been on propofol which was discontinued and started on dexmedetomidine this morning. The fentanyl drip was also discontinued. The Review Scheduling Coordinator was in the room discussing the plan of care with the patient's sister when the patient was seen. After seen the Review Scheduling Coordinator notified this practitioner that the patient was now following commands and the patient was seen again and did follow commands for this practitioner and open his eyes to voice. 08/26/17: Extubated. Remains on Precedex drip for agitation. Spontaneous eye opening. He knows his family. Answers a few questions yes/no. Follows commands all extremities. 08/26/17 CT scan had stable right frontal intracranial hemorrhage with local mass effect. 08/27: This morning the patient is awake and alert. He is mildly agitated and fidgeting about in bed. The dexmedetomidine is still infusing for sedation this morning. He replies he is doing good when asked. He does endorse a slight headache which he says is getting better as well as some slight dizziness. His is present in the room and states that he was up most of the night. 08/28: The patient is drowsy but does respond to voice. He is agitated. He does have dexmedetomidine infusing but the pump is beeping. The Nurse was in another room and notified. He is doing okay and endorses a slight headache. Family is at the bedside. 08/29: The patient is seen in rounds with Dr Kong this morning. He is awake and alert, laying calmly in the bed. He says he is doing good but does have a slight headache that is better. His family says that during the night he was agitated and was given three doses of haloperidol. She reports that the patient is to be started on clonazepam. 08/30: When seen this morning the patient is awake and alert. He does say he has a slight headache that is improving. He is in soft restraints and is on a dexmedetomidine drip for agitation. He appears calm when seen. Nursing reports that a Psychiatric consult is to be ordered. 08/31: agitation better, weaning down on Precedex. family reports mental status improving, requests daily therapy. (Judith Estrada) Labs, Micro, & Vital Signs Results Date Time Temp Pulse Resp B/P (MAP) Pulse Ox O2 Delivery O2 Flow Rate FiO2 08/31/17 06:00 73 08/31/17 04:00 83 08/31/17 04:00 97.9 76 18 150/85 (106) 98 08/31/17 02:00 73 08/31/17 00:00 62 08/31/17 00:00 98.9 66 19 134/82 (99) 100 08/30/17 22:00 71 08/30/17 20:00 72 08/30/17 20:00 98.6 78 18 145/82 (103) 100 08/30/17 18:00 86 08/30/17 16:00 90 08/30/17 16:00 98.2 84 18 162/94 (116) 96 08/30/17 14:00 82 08/30/17 12:00 86 08/30/17 12:00 99.0 82 27 139/82 (101) 95 Constitutional Vital Signs Date Time Temp Pulse Resp B/P (MAP) Pulse Ox O2 Delivery O2 Flow Rate FiO2 08/31/17 06:00 73 08/31/17 04:00 83 08/31/17 04:00 97.9 76 18 150/85 (106) 98 08/31/17 02:00 73 08/31/17 00:00 62 08/31/17 00:00 98.9 66 19 134/82 (99) 100 08/30/17 22:00 71 08/30/17 20:00 72 08/30/17 20:00 98.6 78 18 145/82 (103) 100 08/30/17 18:00 86 08/30/17 16:00 90 08/30/17 16:00 98.2 84 18 162/94 (116) 96 08/30/17 14:00 82 08/30/17 12:00 86 08/30/17 12:00 99.0 82 27 139/82 (101) 95 (Judith Estrada) Review of Systems Constitutional: DENIES: Fever Cardiovascular: DENIES: Chest pain Gastrointestinal: DENIES: Vomiting Neurologic: COMPLAINS OF: Speech Problems, DENIES: Headache, Seizures Psychiatric: COMPLAINS OF: Confusion (Judith Estrada) Physical Exam Sitting up in chair, alert, awake, oriented to name and year, difficulty in place. Intermittent speech dysphasia Appears calm and comfortable CN: pupils equal. EOMS intact. facial motor grossly symmetric. tongue midline Neck: soft, supple Motor: moving all four extremities well Sensory: reports intact to light touch x 4 (Judith Estrada) Medications Current Medications Current Medications Medications (Trade) Dose Ordered Sig/Raul Route PRN Reason Start Time Stop Time Status Last Admin Dose Admin Docusate Sodium (Colace) 100 mg BID PO 08/21/17 09:00 08/26/17 20:07 Ondansetron HCl (Zofran Inj) 4 mg Q6H PRN IV PUSH NAUSEA OR VOMITING 08/21/17 08:45 08/22/17 22:00 Labetalol HCl (Trandate Inj) 10 mg Q1H PRN IV SYS BP GREATER THAN 140 MMHG 08/21/17 08:45 08/29/17 06:27 Clonidine (Catapres) 0.1 mg Q6H PRN PO SYS BP GREATER THAN 140 MMHG 08/21/17 08:45 08/28/17 00:54 Enalaprilat (Vasotec Inj) 1.25 mg Q8H PRN IV PUSH SBP>140, DBP>90 08/21/17 08:45 08/30/17 22:03 Sodium Chloride (NS Flush) 2 ml UNSCH PRN IV FLUSH FLUSH AFTER USING IV ACCESS 08/21/17 10:45 Sodium Chloride (NS Flush) 2 ml BID IV FLUSH 08/21/17 21:00 08/30/17 20:03 Albuterol/ Ipratropium (Duoneb Neb) 1 ampule Q4HR NEB PRN INH SHORTNESS OF BREATH 08/21/17 10:45 08/26/17 01:42 Chlorhexidine Gluconate (Peridex 0.12% Liq) 15 ml BID@08,20 MT 08/21/17 20:00 08/29/17 22:35 Miscellaneous Information 1 Q361D XX 08/21/17 10:45 Chlorhexidine Gluconate (Chlorhexidine 2% Cloth) Taper DAILY@04 TOP 08/22/17 04:00 08/18/18 03:59 Chlorhexidine Gluconate (Chlorhexidine 2% Cloth) 3 pack UNSCH PRN TOP HYGIENIC CARE 08/21/17 10:45 Dextrose (D50w (Vial) Inj) 50 ml UNSCH PRN IV PUSH HYPOGLYCEMIA - SEE COMMENTS 08/21/17 12:15 Glucagon (Glucagon Inj) 1 mg UNSCH PRN OTHER HYPOGLYCEMIA-SEE COMMENTS 08/21/17 12:15 Lamotrigine (LaMICtal) 200 mg BID PO 08/22/17 21:00 08/31/17 09:04 Sertraline HCl (Zoloft) 100 mg DAILY PO 08/24/17 09:30 08/31/17 09:05 Acetaminophen (Tylenol) 650 mg Q6H PRN PO TEMP>101F 08/24/17 15:00 08/28/17 21:46 Nicotine (Habitrol 7 Mg Patch.24 Hr) 1 patch DAILY T-DERMAL 08/25/17 10:00 08/31/17 09:00 Miscellaneous Information 1 DAILY T-DERMAL 08/26/17 09:00 08/31/17 09:00 Dexmedetomidine HCl 1000 mcg/ Sodium Chloride 250 ml @ 4.52 mls/hr TITRATE PRN IV SEDATION 08/25/17 19:30 08/30/17 01:27 Insulin Aspart (NovoLOG SUPPLEMENTAL SCALE) 1 BIDAC SQ 08/27/17 16:00 Potassium Chloride 100 ml @ 50 mls/hr Q2H PRN IV For Potassium 2.8 - 3.2 mEq/L 08/27/17 08:30 Potassium Chloride 100 ml @ 50 mls/hr Q2H PRN IV For Potassium 2.8 - 3.2 mEq/L 08/27/17 08:30 08/30/17 05:38 Potassium Chloride 100 ml @ 25 mls/hr UNSCH PRN IV For Potassium 3.3 - 3.5 mEq/L 08/27/17 08:30 Potassium Chloride 100 ml @ 50 mls/hr Q2H PRN IV For Potassium 3.3 - 3.5 mEq/L 08/27/17 08:30 08/31/17 01:07 Magnesium Sulfate 4 gm/Sodium Chloride 100 ml @ 50 mls/hr UNSCH PRN IV For Magnesium 0.9 - 1.1 mg/dL 08/27/17 08:30 Magnesium Oxide (Mag-Ox) 800 mg UNSCH PRN PO For Magnesium 1.2 - 1.6 mg/dL 08/27/17 08:30 Magnesium Sulfate 2 gm/Sodium Chloride 100 ml @ 50 mls/hr UNSCH PRN IV For Magnesium 1.2 - 1.6 mg/dL 08/27/17 08:30 Potassium Phosphate (K-Phos) 2,000 mg Q4H PRN PO For Phosphorus < 2.5 mg/dL 08/27/17 08:30 Sodium Phosphate 30 mmol/Sodium Chloride 250 ml @ 42 mls/hr UNSCH PRN IV For Phosphorus < 2.5 mg/dL 08/27/17 08:30 Potassium Phosphate (K-Phos) 2,000 mg UNSCH PRN PO/TUBE SEE LABEL COMMENTS 08/27/17 08:30 Potassium Phosphate 30 mmol/ Sodium Chloride 260 ml @ 42 mls/hr UNSCH PRN IV SEE LABEL COMMENTS 08/27/17 08:30 Ceftriaxone Sodium 1000 mg/ Sodium Chloride 100 ml @ 200 mls/hr Q24H IV 08/27/17 09:00 08/31/17 08:58 Famotidine (Pepcid) 20 mg BID PO 08/27/17 21:00 08/31/17 09:01 Hydrochlorothiazide (Microzide) 12.5 mg DAILY PO 08/28/17 09:00 08/31/17 09:01 Lisinopril (Prinivil) 10 mg DAILY PO 08/28/17 09:00 08/31/17 09:01 Phenytoin (Dilantin) 200 mg TID PO 08/28/17 13:00 08/31/17 09:04 Quetiapine Fumarate (SEROquel) 100 mg HS PO 08/29/17 21:00 08/30/17 20:03 Heparin Sodium (Porcine) (Heparin Inj) 5,000 units Q8HR SQ 08/29/17 14:00 08/31/17 05:58 Lactobacillus Acidophilus (Lactinex Pkt) 1 gm TID PO 08/29/17 18:00 08/31/17 09:01 Hydralazine HCl (Apresoline Inj) 10 mg Q1H PRN IV PUSH SBP greater than 145mm Hg 08/30/17 10:30 Ziprasidone (Geodon Inj) 10 mg Q12H PRN IM AGITATION 08/30/17 14:45 09/02/17 14:44 08/30/17 21:18 Quetiapine Fumarate (SEROquel) 100 mg DAILY PO 09/01/17 09:00 (Judith Estrada) Medical Decision Making MDM Remarks 67 y/o male with 1. Bifrontal spontaneous intracranial hemorrhage 2. New onset seizure 3. Hypertension 4. Chronic tobacco use Clinically improving, mental status improving (Judith Estrada) Plan Plan Remarks cont neuro checks in [facility] weaning off Precedex per family request therapy 7 days a week gas controller following cont blood pressure control (Judith Estrada) Attending Statement The exam, history, and the medical decision-making described in the above note were completed with the assistance of the mid-level provider. I reviewed and agree with the findings presented. I attest that I had a [id number] encounter with the patient on the same day, and personally performed and documented my assessment and findings in the medical record. (Teja Zuluaga MD) Judith Estrada Aug 31, 2017 11:27 Teja Zuluaga MD Sep 01, 2017 20:27
[2017-08-31] MEDS: cloNIDine HCL 0.1 MG TAB PO PRN (13:46)
[2017-08-31] MEDS: QUEtiapine FUMARATE 100 MG TAB PO SCH (21:16)
--- NOTE | 2017-08-31 23:26 | HHI.PR ---
Review/Management Diagnosis 1. Bilateral frontal lobe intracerebral hemorrhages status post hypertension. 2. Encephalopathy, resolving. 3. New onset seizure, likely related to the hemorrhage/ hypertensive urgency. 4. Acute respiratory failure. 5. Right pneumothorax status post chest tube placement. 6. Sepsis. 7. Hypertensive emergency. 8. Hep C. 9. History of substance abuse. Plan 1. Neuro checks q. 4 hourly. 2. Seizure precautions. Continue Dilantin 200 mg three times daily. 3. Obtain total Dilantin level. 4. Continue home dose of Lamictal 200 mg twice daily. 5. Seizure precautions. 6. No anticoagulation or antiplatelet. 7. Maintain goal blood pressure of 135-140/75-80. 8. DVT prophylaxis with SCDs. 9. GI prophylaxis. 10. Continue supportive medical therapy 11. Stable for transfer out of ICU. Diagnosis/Plan: Subjective Subjective Comments No acute events reported at bed side No new complaint No reported seizures Dilantin levels are subtherapeutic Active Medications Current Medications Medications (Trade) Dose Ordered Sig/Raul Route Start Time Stop Time Status Last Admin (Colace) 100 mg BID PO 08/21/17 09:00 08/26/17 20:07 (Zofran Inj) 4 mg Q6H PRN IV PUSH 08/21/17 08:45 08/22/17 22:00 (Trandate Inj) 10 mg Q1H PRN IV 08/21/17 08:45 08/29/17 06:27 (Catapres) 0.1 mg Q6H PRN PO 08/21/17 08:45 08/31/17 13:46 (Vasotec Inj) 1.25 mg Q8H PRN IV PUSH 08/21/17 08:45 08/30/17 22:03 (NS Flush) 2 ml UNSCH PRN IV FLUSH 08/21/17 10:45 (NS Flush) 2 ml BID IV FLUSH 08/21/17 21:00 08/31/17 21:17 (Duoneb Neb) 1 ampule Q4HR NEB PRN INH 08/21/17 10:45 08/26/17 01:42 (Peridex 0.12% Liq) 15 ml BID@08,20 MT 08/21/17 20:00 08/29/17 22:35 Miscellaneous Information 1 Q361D XX 08/21/17 10:45 (Chlorhexidine 2% Cloth) Taper DAILY@04 TOP 08/22/17 04:00 08/18/18 03:59 (Chlorhexidine 2% Cloth) 3 pack UNSCH PRN TOP 08/21/17 10:45 (D50w (Vial) Inj) 50 ml UNSCH PRN IV PUSH 08/21/17 12:15 (Glucagon Inj) 1 mg UNSCH PRN OTHER 08/21/17 12:15 (LaMICtal) 200 mg BID PO 08/22/17 21:00 08/31/17 21:16 (Zoloft) 100 mg DAILY PO 08/24/17 09:30 08/31/17 09:05 (Tylenol) 650 mg Q6H PRN PO 08/24/17 15:00 08/28/17 21:46 (Habitrol 7 Mg Patch.24 Hr) 1 patch DAILY T-DERMAL 08/25/17 10:00 08/31/17 09:00 Miscellaneous Information 1 DAILY T-DERMAL 08/26/17 09:00 08/31/17 09:00 Dexmedetomidine HCl 1000 mcg/ Sodium Chloride 250 ml @ 4.52 mls/hr TITRATE PRN IV 08/25/17 19:30 08/30/17 01:27 (NovoLOG SUPPLEMENTAL SCALE) 1 BIDAC SQ 08/27/17 16:00 Potassium Chloride 100 ml @ 50 mls/hr Q2H PRN IV 08/27/17 08:30 Potassium Chloride 100 ml @ 50 mls/hr Q2H PRN IV 08/27/17 08:30 08/30/17 05:38 Potassium Chloride 100 ml @ 25 mls/hr UNSCH PRN IV 08/27/17 08:30 Potassium Chloride 100 ml @ 50 mls/hr Q2H PRN IV 08/27/17 08:30 08/31/17 01:07 Magnesium Sulfate 4 gm/Sodium Chloride 100 ml @ 50 mls/hr UNSCH PRN IV 08/27/17 08:30 (Mag-Ox) 800 mg UNSCH PRN PO 08/27/17 08:30 Magnesium Sulfate 2 gm/Sodium Chloride 100 ml @ 50 mls/hr UNSCH PRN IV 08/27/17 08:30 (K-Phos) 2,000 mg Q4H PRN PO 08/27/17 08:30 Sodium Phosphate 30 mmol/Sodium Chloride 250 ml @ 42 mls/hr UNSCH PRN IV 08/27/17 08:30 (K-Phos) 2,000 mg UNSCH PRN PO/TUBE 08/27/17 08:30 Potassium Phosphate 30 mmol/ Sodium Chloride 260 ml @ 42 mls/hr UNSCH PRN IV 08/27/17 08:30 Ceftriaxone Sodium 1000 mg/ Sodium Chloride 100 ml @ 200 mls/hr Q24H IV 08/27/17 09:00 08/31/17 08:58 (Pepcid) 20 mg BID PO 08/27/17 21:00 08/31/17 21:16 (Microzide) 12.5 mg DAILY PO 08/28/17 09:00 08/31/17 09:01 (Prinivil) 10 mg DAILY PO 08/28/17 09:00 08/31/17 09:01 (Dilantin) 200 mg TID PO 08/28/17 13:00 08/31/17 17:23 (SEROquel) 100 mg HS PO 08/29/17 21:00 08/31/17 21:16 (Heparin Inj) 5,000 units Q8HR SQ 08/29/17 14:00 08/31/17 21:16 (Lactinex Pkt) 1 gm TID PO 08/29/17 18:00 08/31/17 17:23 (Apresoline Inj) 10 mg Q1H PRN IV PUSH 08/30/17 10:30 (Geodon Inj) 10 mg Q12H PRN IM 08/30/17 14:45 09/02/17 14:44 08/30/17 21:18 (SEROquel) 100 mg DAILY PO 09/01/17 09:00 Allergies Allergies Coded Allergies No Known Allergies ([id number]/25/17) Review of Systems All other ROS: ROS reviewed as documented in chart Exam I&O / VS 08/31/17 08/31/17 09/01/17 15:00 23:00 07:00 Intake Total 1450 ml Output Total 750 ml Balance 700 ml Intake Oral 700 ml IV Total 750 ml Output Urine Total 750 ml Vital Signs Date Time Temp Pulse Resp B/P (MAP) Pulse Ox O2 Delivery O2 Flow Rate FiO2 08/31/17 16:00 97.9 86 27 153/89 (110) 98 08/31/17 12:00 98.9 79 14 139/71 (93) 98 08/31/17 08:00 98.3 68 16 117/76 (90) 98 08/31/17 06:00 73 08/31/17 04:00 83 08/31/17 04:00 97.9 76 18 150/85 (106) 98 08/31/17 02:00 73 08/31/17 00:00 62 08/31/17 00:00 98.9 66 19 134/82 (99) 100 General: Alert and Oriented, No acute distress Eye: PERRL, EOMI Cardiology: Normal rate, No murmur Neurologic: Alert, Oriented, Normal sensory, Normal motor, No focal defects, CN II-XII intact Psychiatric: Cooperative, Appropriate mood & affect Objective Micro and Labs Laboratory Tests Test 08/31/17 04:00 White Blood Count 11.4 Red Blood Count 4.07 Hemoglobin 12.6 Hematocrit 37.8 Mean Corpuscular Volume 92.8 Mean Corpuscular Hemoglobin 31.1 Mean Corpuscular Hemoglobin Concent 33.4 Red Cell Distribution Width 13.2 Platelet Count 413 Mean Platelet Volume 8.5 Neutrophils (%) (Auto) 66.4 Lymphocytes (%) (Auto) 18.7 Monocytes (%) (Auto) 10.5 Eosinophils (%) (Auto) 3.9 Basophils (%) (Auto) 0.5 Neutrophils # (Auto) 7.6 Lymphocytes # (Auto) 2.1 Monocytes # (Auto) 1.2 Eosinophils # (Auto) 0.4 Basophils # (Auto) 0.1 CBC Comment DIFF FINAL Differential Comment Blood Urea Nitrogen 12 Creatinine 0.78 Random Glucose 104 Total Protein 7.2 Albumin 2.5 Calcium Level 8.5 Phosphorus Level 2.8 Magnesium Level 2.1 Alkaline Phosphatase 47 Aspartate Amino Transf (AST/SGOT) 23 Alanine Aminotransferase (ALT/SGPT) 44 Total Bilirubin 0.4 Sodium Level 135 Potassium Level 3.6 Chloride Level 103 Carbon Dioxide Level 23.7 Anion Gap 8 Estimat Glomerular Filtration Rate 100 Thyroid Stimulating Hormone 3rd Gen 2.010 Phenytoin (Dilantin) Level 6.1 Date/Time Source Procedure Growth Status 08/25/17 13:40 Blood Peripheral Aerobic Blood Culture - Final NO GROWTH IN 5 DAYS Complete 08/25/17 13:40 Blood Peripheral Anaerobic Blood Culture - Final NO GROWTH IN 5 DAYS Complete 08/23/17 02:15 Sputum Endotracheal Gram Stain - Final Complete 08/23/17 02:15 Sputum Culture - Final Staphylococcus Aureus Complete Doe Elam MD Aug 31, 2017 23:26
[2017-09-01] VITALS (7 sets, daily range): BP systolic 126–157; BP diastolic 67–96; PULSE 68–94; RESP 12–22; TEMP 98–99; O2SAT 94–99
[2017-09-01 06:22] LABS: AUTOMATED NEUTROPHIL # 4.8 TH/MM3 (1.8-7.7); BASOPHIL # 0.1 TH/MM3 (0-0.2); BASOPHIL % 0.6 % (0.0-2.0); EOSINOPHIL # 0.4 TH/MM3 (0-0.4); EOSINOPHIL % 5.1 % (0.0-4.0); HEMOGLOBIN 12.3 GM/DL (13.0-17.0); LYMPH % 29.3 % (9.0-44.0); LYMPHOCYTE # 2.5 TH/MM3 (1.0-4.8); MEAN CELL VOLUME 93.1 FL (80.0-100.0); MEAN CORPUSCULAR HEMOGLOBIN 30.9 PG (27.0-34.0); MEAN CORPUSCULAR HGB CONC 33.2 % (32.0-36.0); MEAN PLATELET VOLUME 8.2 FL (7.0-11.0); MONOCYTE # 0.8 TH/MM3 (0-0.9); PLATELET COUNT 467 TH/MM3 (150-450); RED BLOOD COUNT 3.98 MIL/MM3 (4.50-5.90); RED CELL DISTRIBUTION WIDTH 13.2 % (11.6-17.2); WHITE BLOOD COUNT 8.5 TH/MM3 (4.0-11.0)
[2017-09-01 06:43] LABS: ALBUMIN 2.4 GM/DL (3.4-5.0); AST (GOT) 23 U/L (15-37); BICARBONATE 23.7 MEQ/L (21.0-32.0); BLOOD UREA NITROGEN 14 MG/DL (7-18); CALCIUM 8.4 MG/DL (8.5-10.1); CHLORIDE 103 MEQ/L (98-107); CREATININE 0.78 MG/DL (0.60-1.30); GLOMERULAR FILTRATION RATE 100 ML/MIN (>89); GLUCOSE,RANDOM 87 MG/DL (74-106); MAGNESIUM 2.1 MG/DL (1.5-2.5); SODIUM (NA) 138 MEQ/L (136-145)
[2017-09-01 06:47] LABS: ALKALINE PHOSPHATASE 49 U/L (45-117); ALT (GPT) 47 U/L (12-78); PHOSPHORUS 3.4 MG/DL (2.5-4.9); TOTAL BILIRUBIN ADULT 0.3 MG/DL (0.2-1.0); TOTAL PROTEIN 7.4 GM/DL (6.4-8.2)
[2017-09-01] MEDS: cloNIDine HCL 0.1 MG TAB PO PRN ×2 (06:52→23:54)
[2017-09-01] MEDS: HEPARIN SODIUM - SQ 10,000 UNITS/ML VIAL SQ SCH ×3 (06:53→20:11)
[2017-09-01] MEDS: INSULIN ASPART SUPPLEMENTAL SCALE SQ SCH ×2 (07:00→16:00)
[2017-09-01] MEDS: CHLORHEXIDINE GLUCONATE 2 % 1 PACK (2 CLOTHS) TOP SCH ×2 (07:00→20:11)
[2017-09-01] MEDS: DOCUSATE SODIUM 100 MG CAP PO SCH ×2 (07:45→19:27)
[2017-09-01] MEDS: CHLORHEXIDINE 0.12% (ORAL KIT) 15 ML CUP MT SCH ×2 (07:45→19:27)
[2017-09-01] MEDS: SODIUM CHLORIDE 0.9% FLUSH 10 ML FLUSH IV FLUSH SCH ×2 (09:00→20:11)
[2017-09-01] MEDS: REMOVE OLD PATCH T-DERMAL SCH (09:00)
[2017-09-01] MEDS: cefTRIAXone INJ 1,000 MG in SODIUM CHLORIDE 0.9% INJ 100 ML IV SCH (09:00)
[2017-09-01] MEDS: LACTOBACILLUS ACIDOPHILUS 1 GM PACKET PO SCH ×3 (09:28→18:21)
[2017-09-01] MEDS: NICOTINE 7 MG/24 HR PATCH T-DERMAL SCH (09:28)
[2017-09-01] MEDS: LISINOPRIL 10 MG TAB PO SCH (09:29)
[2017-09-01] MEDS: QUEtiapine FUMARATE 25 MG TAB PO SCH (09:29)
[2017-09-01] MEDS: lamoTRIgine 100 MG TAB PO SCH ×2 (09:30→20:04)
[2017-09-01] MEDS: FAMOTIDINE 20 MG TAB PO SCH ×2 (09:31→20:04)
[2017-09-01] MEDS: HYDROCHLOROTHIAZIDE 12.5 MG CAP PO SCH (09:31)
[2017-09-01] MEDS: PHENYTOIN SODIUM 100 MG CAP PO SCH ×3 (09:31→18:21)
[2017-09-01] MEDS: SERTRALINE HCL 100 MG TAB PO SCH (09:31)
--- NOTE | 2017-09-01 11:19 | HHI.NSPN ---
(Judith Estrada) Note Status Status: Progress Note (Judith Estrada) Interval History Interval History 08/21: 67-year-old male presents to the emergency room today approximately 7 AM with history of headache for several days, increasing significantly at 6:30 AM today. His initial blood pressure was 261/143. He was placed on a nicardipine drip for initial blood pressure control. 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 He was reportedly awake and alert upon presentation to the emergency room, with left facial and upper extremity weakness. He reportedly developed increasing speech difficulty following a CT scan this morning, and subsequently was noted to have a seizure which was initially treated with Ativan. Since then he has been more lethargic and nonverbal. 08/22: The patient is obtunded this morning but he is sedated with propofol. Nursing reports that he is off all other sedation and blood pressure drips. She also reports that the patient is spontaneously moving his extremities and responds to noxious stimulation. He did go for a repeat CT brain this morning. 08/23: The patient is agitated and thrashing about in bed when seen. Nursing and the Key Account Manager are present and a needle decompression had been done for a pneumothorax on the right side which was demonstrated on his CXR this morning. They were preparing to place a right-sided chest tube. The patient continues to be intubated and mechanically ventilated. He does have propofol for sedation and fentanyl for pain management infusing. 08/24: The patient is obtunded this morning when seen. He is on propofol for sedation. He remains intubated and mechanically ventilated with a right-sided chest tube. Nursing reports his fentanyl was stopped about 20 minutes prior to being seen. She also reports that the patient is being restarted on his psych meds prior to weaning his sedation. 08/25: When seen this morning the patient continues to be obtunded. He remains intubated and on mechanical ventilation. He had been on propofol which was discontinued and started on dexmedetomidine this morning. The fentanyl drip was also discontinued. The Key Account Manager was in the room discussing the plan of care with the patient's sister when the patient was seen. After seen the Key Account Manager notified this practitioner that the patient was now following commands and the patient was seen again and did follow commands for this practitioner and open his eyes to voice. 08/26/17: Extubated. Remains on Precedex drip for agitation. Spontaneous eye opening. He knows his family. Answers a few questions yes/no. Follows commands all extremities. 08/26/17 CT scan had stable right frontal intracranial hemorrhage with local mass effect. 08/27: This morning the patient is awake and alert. He is mildly agitated and fidgeting about in bed. The dexmedetomidine is still infusing for sedation this morning. He replies he is doing good when asked. He does endorse a slight headache which he says is getting better as well as some slight dizziness. His is present in the room and states that he was up most of the night. 08/28: The patient is drowsy but does respond to voice. He is agitated. He does have dexmedetomidine infusing but the pump is beeping. The Nurse was in another room and notified. He is doing okay and endorses a slight headache. Family is at the bedside. 08/29: The patient is seen in rounds with Dr Kong this morning. He is awake and alert, laying calmly in the bed. He says he is doing good but does have a slight headache that is better. His family says that during the night he was agitated and was given three doses of haloperidol. She reports that the patient is to be started on clonazepam. 08/30: When seen this morning the patient is awake and alert. He does say he has a slight headache that is improving. He is in soft restraints and is on a dexmedetomidine drip for agitation. He appears calm when seen. Nursing reports that a Psychiatric consult is to be ordered. 08/31: agitation better, weaning down on Precedex. family reports mental status improving, requests daily therapy. 09/01: reports thinking clearer, PT in room. denies headaches, seizures, vomiting. (Judith Estrada) Labs, Micro, & Vital Signs Results Date Time Temp Pulse Resp B/P (MAP) Pulse Ox O2 Delivery O2 Flow Rate FiO2 09/01/17 08:00 98.7 94 18 133/71 (91) 94 09/01/17 04:00 98.3 68 17 157/81 (106) 96 09/01/17 00:00 98.0 78 22 126/67 (86) 98 08/31/17 22:00 70 08/31/17 20:00 82 08/31/17 20:00 98.5 82 22 144/85 (104) 94 08/31/17 16:00 97.9 86 27 153/89 (110) 98 08/31/17 12:00 98.9 79 14 139/71 (93) 98 Constitutional Vital Signs Date Time Temp Pulse Resp B/P (MAP) Pulse Ox O2 Delivery O2 Flow Rate FiO2 09/01/17 08:00 98.7 94 18 133/71 (91) 94 09/01/17 04:00 98.3 68 17 157/81 (106) 96 09/01/17 00:00 98.0 78 22 126/67 (86) 98 08/31/17 22:00 70 08/31/17 20:00 82 08/31/17 20:00 98.5 82 22 144/85 (104) 94 08/31/17 16:00 97.9 86 27 153/89 (110) 98 08/31/17 12:00 98.9 79 14 139/71 (93) 98 (Judith Estrada) Review of Systems Constitutional: DENIES: Fever Neurologic: DENIES: Headache Psychiatric: COMPLAINS OF: Confusion (improved) (Judith Estrada) Physical Exam Alert, oriented to x 3, answering questions quicker and conversing better today Appears calm and comfortable CN: pupils equal. EOMS intact. facial motor grossly symmetric. tongue midline Neck: soft, supple Motor: moving all four extremities well Sensory: reports intact to light touch x 4 Cerebellar: grossly intact finger to nose (Judith Estrada) Medications Current Medications Current Medications Medications (Trade) Dose Ordered Sig/Raul Route PRN Reason Start Time Stop Time Status Last Admin Dose Admin Docusate Sodium (Colace) 100 mg BID PO 08/21/17 09:00 08/26/17 20:07 Ondansetron HCl (Zofran Inj) 4 mg Q6H PRN IV PUSH NAUSEA OR VOMITING 08/21/17 08:45 08/22/17 22:00 Labetalol HCl (Trandate Inj) 10 mg Q1H PRN IV SYS BP GREATER THAN 140 MMHG 08/21/17 08:45 08/29/17 06:27 Clonidine (Catapres) 0.1 mg Q6H PRN PO SYS BP GREATER THAN 140 MMHG 08/21/17 08:45 09/01/17 06:52 Enalaprilat (Vasotec Inj) 1.25 mg Q8H PRN IV PUSH SBP>140, DBP>90 08/21/17 08:45 08/30/17 22:03 Sodium Chloride (NS Flush) 2 ml UNSCH PRN IV FLUSH FLUSH AFTER USING IV ACCESS 08/21/17 10:45 Sodium Chloride (NS Flush) 2 ml BID IV FLUSH 08/21/17 21:00 09/01/17 09:00 Albuterol/ Ipratropium (Duoneb Neb) 1 ampule Q4HR NEB PRN INH SHORTNESS OF BREATH 08/21/17 10:45 08/26/17 01:42 Chlorhexidine Gluconate (Peridex 0.12% Liq) 15 ml BID@08,20 MT 08/21/17 20:00 08/29/17 22:35 Miscellaneous Information 1 Q361D XX 08/21/17 10:45 Chlorhexidine Gluconate (Chlorhexidine 2% Cloth) Taper DAILY@04 TOP 08/22/17 04:00 08/18/18 03:59 09/01/17 07:00 Chlorhexidine Gluconate (Chlorhexidine 2% Cloth) 3 pack UNSCH PRN TOP HYGIENIC CARE 08/21/17 10:45 Dextrose (D50w (Vial) Inj) 50 ml UNSCH PRN IV PUSH HYPOGLYCEMIA - SEE COMMENTS 08/21/17 12:15 Glucagon (Glucagon Inj) 1 mg UNSCH PRN OTHER HYPOGLYCEMIA-SEE COMMENTS 08/21/17 12:15 Lamotrigine (LaMICtal) 200 mg BID PO 08/22/17 21:00 09/01/17 09:30 Sertraline HCl (Zoloft) 100 mg DAILY PO 08/24/17 09:30 09/01/17 09:31 Acetaminophen (Tylenol) 650 mg Q6H PRN PO TEMP>101F 08/24/17 15:00 08/28/17 21:46 Nicotine (Habitrol 7 Mg Patch.24 Hr) 1 patch DAILY T-DERMAL 08/25/17 10:00 09/01/17 09:28 Miscellaneous Information 1 DAILY T-DERMAL 08/26/17 09:00 09/01/17 09:00 Dexmedetomidine HCl 1000 mcg/ Sodium Chloride 250 ml @ 4.52 mls/hr TITRATE PRN IV SEDATION 08/25/17 19:30 08/30/17 01:27 Insulin Aspart (NovoLOG SUPPLEMENTAL SCALE) 1 BIDAC SQ 08/27/17 16:00 Potassium Chloride 100 ml @ 50 mls/hr Q2H PRN IV For Potassium 2.8 - 3.2 mEq/L 08/27/17 08:30 Potassium Chloride 100 ml @ 50 mls/hr Q2H PRN IV For Potassium 2.8 - 3.2 mEq/L 08/27/17 08:30 08/30/17 05:38 Potassium Chloride 100 ml @ 25 mls/hr UNSCH PRN IV For Potassium 3.3 - 3.5 mEq/L 08/27/17 08:30 Potassium Chloride 100 ml @ 50 mls/hr Q2H PRN IV For Potassium 3.3 - 3.5 mEq/L 08/27/17 08:30 08/31/17 01:07 Magnesium Sulfate 4 gm/Sodium Chloride 100 ml @ 50 mls/hr UNSCH PRN IV For Magnesium 0.9 - 1.1 mg/dL 08/27/17 08:30 Magnesium Oxide (Mag-Ox) 800 mg UNSCH PRN PO For Magnesium 1.2 - 1.6 mg/dL 08/27/17 08:30 Magnesium Sulfate 2 gm/Sodium Chloride 100 ml @ 50 mls/hr UNSCH PRN IV For Magnesium 1.2 - 1.6 mg/dL 08/27/17 08:30 Potassium Phosphate (K-Phos) 2,000 mg Q4H PRN PO For Phosphorus < 2.5 mg/dL 08/27/17 08:30 Sodium Phosphate 30 mmol/Sodium Chloride 250 ml @ 42 mls/hr UNSCH PRN IV For Phosphorus < 2.5 mg/dL 08/27/17 08:30 Potassium Phosphate (K-Phos) 2,000 mg UNSCH PRN PO/TUBE SEE LABEL COMMENTS 08/27/17 08:30 Potassium Phosphate 30 mmol/ Sodium Chloride 260 ml @ 42 mls/hr UNSCH PRN IV SEE LABEL COMMENTS 08/27/17 08:30 Ceftriaxone Sodium 1000 mg/ Sodium Chloride 100 ml @ 200 mls/hr Q24H IV 08/27/17 09:00 09/01/17 09:00 Famotidine (Pepcid) 20 mg BID PO 08/27/17 21:00 09/01/17 09:31 Hydrochlorothiazide (Microzide) 12.5 mg DAILY PO 08/28/17 09:00 09/01/17 09:31 Lisinopril (Prinivil) 10 mg DAILY PO 08/28/17 09:00 09/01/17 09:29 Phenytoin (Dilantin) 200 mg TID PO 08/28/17 13:00 09/01/17 09:31 Quetiapine Fumarate (SEROquel) 100 mg HS PO 08/29/17 21:00 08/31/17 21:16 Heparin Sodium (Porcine) (Heparin Inj) 5,000 units Q8HR SQ 08/29/17 14:00 09/01/17 06:53 Lactobacillus Acidophilus (Lactinex Pkt) 1 gm TID PO 08/29/17 18:00 09/01/17 09:28 Hydralazine HCl (Apresoline Inj) 10 mg Q1H PRN IV PUSH SBP greater than 145mm Hg 08/30/17 10:30 Ziprasidone (Geodon Inj) 10 mg Q12H PRN IM AGITATION 08/30/17 14:45 09/02/17 14:44 08/30/17 21:18 Quetiapine Fumarate (SEROquel) 100 mg DAILY PO 09/01/17 09:00 09/01/17 09:29 (Judith Estrada) Medical Decision Making MDM Remarks 67 y/o male with 1. Bifrontal spontaneous intracranial hemorrhage 2. New onset seizure 3. Hypertension 4. Chronic tobacco use Clinically improving, mental status improving (Judith Estrada) Plan Plan Remarks cont serial neuro checks weaning off Precedex cont therapy 7 days a week cont blood pressure control - per critical care rehab efforts dw family members (Judith Estrada) Attending Statement The exam, history, and the medical decision-making described in the above note were completed with the assistance of the mid-level provider. I reviewed and agree with the findings presented. I attest that I had a [id number] encounter with the patient on the same day, and personally performed and documented my assessment and findings in the medical record. (eTja Zuluaga MD) Judith Estrada Sep 01, 2017 11:19 Teja Zuluaga MD Sep 01, 2017 20:14
[2017-09-01] MEDS: LABETALOL HCL 100 MG/20 ML VIAL IV PRN (12:06)
[2017-09-01] MEDS ORDERED: ACETAMINOPHEN 1000 MG/100 ML 100 ML IV PRN (12:15)
--- NOTE | 2017-09-01 12:21 | HHI.CCPN ---
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 His headache worsened which worsened around 6:30 AM. Patient was evaluated in the ER stroke alert was called. A head CT revealed intraparenchymal hemorrhage involving frontal lobes. Patient was evaluated by Dr. Kong from neurosurgery who admitted the patient to the ICU. Reportedly patient had seizures in the ER for which she received Ativan 2 mg IV and was loaded with fosphenytoin 1 g IV. Subsequently he was transferred to the ICU where I evaluated him immediately on his arrival. At that time he was extremely encephalopathic, stupor O's, nonverbal. I did not feel patient is protecting his airway at the time. I also noted some rhythmic jaw movements consistent with seizure activity. Patient was given Ativan 4 mg IV stat and I proceeded with emergent intubation and patient was placed on mechanical ventilation. A central line was placed emergently as well. Subsequently discussed with Dr. Kong wish to proceed with MRI/MRA of the brain for further evaluation. Patient was sedated with propofol following intubation. He was on a nicardipine drip on arrival as his blood pressure in the ER was 200s systolic. History was obtained by reviewing records and discussion with Dr. Kong and nursing staff. 08/22: Unresponsive aside from withdrawal lower extremities to painful stimulation. No obvious seizure activity. Ventilator dependent. Frontal bleeds are being absorbed, no new bleeding. 08/23: Remains sedated, orally intubated on mechanical ventilation. Reportedly is on Epclusa which is used for hepatitis C treatment. 08/24: Moves 4 limbs. Gas exchange acceptable. Right lung expanded after chest tube. Family conveys concerns about prior drug habituation, will stop narcotics and stick with propofol. 08/25: Remains sedated, orally intubated on mechanical ventilation. 08/26: Extubated following C Pap trial on 08/25. Was requiring nonrebreather facemask however now on 6 L nasal cannula. On Precedex gtt. Required Ativan when necessary for anxiety/severe restlessness. Currently drowsy at the time of my evaluation however just received Ativan earlier this morning. Appears comfortable on 6 L nasal cannula. 08/27: Had some disorientation and hallucinations last night. This morning he is awake and alert. Following commands. On 5 L nasal cannula. No air leak in right sided pigtail catheter which was placed to underwater seal. On Precedex 0.8 mcg/kg/hr at the time of my evaluation. 08/28: Having issues with delirium/hallucinations which are worse at night. Remains on Precedex drip. Given 1 mg Ativan this morning for significant agitation. When I evaluated the patient subsequently he was resting in bed with slightly labored breathing on 2 L nasal cannula. He knew he was in the hospital and couldn't give me the month and year. He was following commands appropriately. 08/29: Received 3 doses of Haldol last night. This morning he is drowsy, arousable easily on Precedex gtt. at 1.5 mics per KG per hour. Added clonidine patch 0.1 mg per day single dose for 7 days to see that helps with weaning off Precedex as well as hypertension. CT chest negative for PE done yesterday. It did show significant right sided pneumonia. Patient did have some fevers overnight. He is currently on IV Rocephin for MSSA pneumonia. Tolerating by mouth diet. He has been cleared for subcutaneous heparin by neurosurgery which is being started today. Seroquel being increased to attempt to titrate off Precedex gtt. 08/30: Tmax 99.2. 2 bowel movements. Continues on dexmedetomidine drip at 1.2 micrograms per kilogram per minute. Attempts to wean results in extreme agitation with patient. Subjective 08/31: Currently afebrile. One bowel movement. Continues on dexmedetomidine drip at 0.7 aki as per kilo Per minute. Was informed of restrictive rapid currently very appropriate. Increasing quetiapine 200 mg twice a day. Cleared by neurosurgery to go outside today. 09/01: Last evening patient have one episode of extreme agitation requiring reinitiation of Precedex infusion for several hours. Resolution this a.m.. Plans to go outside in wheelchair today with monitoring. Objective Vital Signs Date Time Temp Pulse Resp B/P (MAP) Pulse Ox O2 Delivery O2 Flow Rate FiO2 09/01/17 08:00 98.7 94 18 133/71 (91) 94 08/30/17 09:37 21 08/30/17 07:00 Room Air 08/30/17 04:51 2.00 Intake and Output 09/01/17 09/01/17 09/02/17 08:00 16:00 00:00 Intake Total 458 ml Output Total 900 ml Balance -442 ml Result Diagram: 09/01/17 0450 09/01/17 0450 Imaging Last Impressions Head CT 08/29/17 0600 Signed Impressions: Service Date/Time: August 04:25 - CONCLUSION: Evolving bifrontal hemorrhages. No new acute findings. Saw Higginbotham MD Chest X-Ray 08/28/17 0000 Signed Impressions: Service Date/Time: Monday, August 28, 2017 13:27 - CONCLUSION: 1. Minimal patchiness within the right upper lung field and to a lesser extent the lung bases consistent with possible pneumonia. Clinical correlation is recommended. 2. No evidence of pneumothorax status post removal of chest tube. Lukas Flores MD CT Angiography 08/28/17 Signed Impressions: Service Date/Time: Monday, August 28, 2017 18:11 - CONCLUSION: 1. No evidence of pulmonary embolism. 2. Consolidative infiltrate in the right lung most characteristic of pneumonia. 3. Small pleural effusions right greater than left. Ion Holt MD Neck CTA 08/21/17 0743 Signed Impressions: Service Date/Time: Monday, August 21, 2017 07:47 - CONCLUSION: 1. See the CT of the brain reported separately. 2. Patent carotid arteries and vertebral arteries. Alexis Villa Jr., MD Head CTA 08/21/17 0725 Signed Impressions: Service Date/Time: Monday, August 21, 2017 07:47 - CONCLUSION: 1. Negative head CTA exam. Specifically, no evidence for aneurysm or large vessel occlusion. Wil Lopez MD Head Magnetic Resonance Angiography 08/21/17 0000 Signed Impressions: Service Date/Time: Monday, August 21, 2017 16:02 - CONCLUSION: 1. MRA suggest parenchymal hemorrhage in both frontal lobes, left greater than right. 2. However, the intracranial vessels are all widely patent without aneurysmal disease. 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 Saw Higginbotham MD Objective Remarks GENERAL: 67-year-old male, sitting up in a recliner chair in no acute distress SKIN: Warm and dry. Small ecchymotic blister resolving right lower anterior chest HEAD: Atraumatic. Normocephalic. EYES: Pupils equal and round about 2 mm bilaterally and reactive. No scleral icterus. No injection or drainage. ENT: No nasal bleeding or discharge. Mucous membranes pink and moist. NECK: Trachea midline. No JVD. CARDIOVASCULAR: Regular rate and rhythm. S1, S2. No S4. RESPIRATORY: No accessory muscle use. Clear to auscultation. Breath sounds equal bilaterally. GASTROINTESTINAL: Abdomen soft, non-tender, nondistended. Hepatic and splenic margins not palpable. MUSCULOSKELETAL: Extremities without significant peripheral edema. No obvious deformities. NEUROLOGICAL: Awake and alert. No obvious cranial nerve deficits. Motor grossly within normal limits. 5/5 muscle strength in the arms and legs. Normal speech. A/P Assessment and Plan 67 year-old male with: Intracerebral hemorrhage involving frontal lobes Encephalopathy Seizure Acute respiratory failure - resolved Right pneumothorax status post chest tube placement (chest tube discontinued ) MSSA pneumonia Sepsis Hypertensive emergency - resolved Hepatitis C H/O substance abuse UDS+ amphetamines Leukocytosis Normocytic anemia ICU delirium Pain secondary to previous chest tube placement Plan: Neuro: Off propofol and fentanyl drips since 08/25. On dexmedetomidine for agitation/delirium currently at 0.7 mg/kg per minute discontinued 08/31. Discontinue haloperidol on 08/29. Neurosurgery following. Switched phenytoin to PO 200 mg 3 times a day on 08/28 and follow level. Home dose Lamotrigine 200 mg twice a day resumed 08/22. On sertraline 100 mg by mouth daily at bedtime. Neuropsychologist evaluation appreciated. Increasing quetiapine 100 milligrams a.m. -100 mg at night for hallucinations/delirium. On when necessary ziprasidone 10 mg IM every 12 hours for maximum of 3 days severe agitation. Repeat head CT per neurosurgery on 08/29 revealed evolving bifrontal hemorrhages. Family requesting no narcotics secondary to history of polysubstance also requesting no benzodiazepines. Maintain sleep-wake cycle. Ensure sleep hygiene, melatonin 10 mg every at bedtime when necessary for insomnia Provide Ofirmev 1 g every 6 hours when necessary 24 hours for VAS pain scale greater than 8/10 Cardiovascular: Off nicardipine gtt. started on hydrochlorothiazide 12.5 mg daily, lisinopril 10 mg daily. Enalapril/ Labetalol/hydralazine when necessary. Off IV fluids. Added clonidine patch 0.1 mg per week single dose for 7 days on 08/29 Labetalol when necessary. Plan to maintain SBP 135-140mmHg Pulmonary: Extubated on 08/25, initially on nonrebreather facemask, currently on 2 L nasal cannula. bronchodilators as needed. Sputum cultures growing MSSA. s/p chest tube for rt pneumothorax which was discontinued on 08/27. CT chest negative for PE however showed significant right sided pneumonia on 08/28. Renal/: strict intake output, monitor and replete electrolytes, follow BUN/ creatinine. ID: Sputum cultures growing MSSA. Concern for aspiration. Started on IV piperacillin/tazobactam on 08/25, de-escalate to ceftriaxone 1 g IV daily on . Received 1 dose of vancomycin on 08/25.. On sufosbuvir/velpalasivir at home for ? Hep C. On hold currently per neurosurgery recommendations Heme: Follow CBC. Endocrine: SSI for glycemic control if needed. Musculoskeletal PT treatment OT treatment Possible transferred to [facility] in the near future Prophylaxis: PPI/SCDs. Subcutaneous heparin cleared by neurosurgery and being started on 08/29. Further recommendations per neurosurgery. Level II follow-up. Plan for possible transferred to [facility] consult cardiac rehabilitation specialist Physician Lauryn Canela MD Sep 01, 2017 12:21
--- NOTE | 2017-09-01 13:09 | HHI.PR ---
Review/Management Diagnosis 1. Bilateral frontal lobe intracerebral hemorrhages status post hypertension. 2. Encephalopathy, resolving. 3. New onset seizure, likely related to the hemorrhage/ hypertensive urgency. 4. Acute respiratory failure. 5. Right pneumothorax status post chest tube placement. 6. Sepsis. 7. Hypertensive emergency. 8. Hep C. 9. History of substance abuse. Plan 1. Neuro checks q. 4 hourly. 2. Seizure precautions. Continue Dilantin 200 mg three times daily. 3. Obtain total Dilantin level next am. 4. Continue home dose of Lamictal 200 mg twice daily. 5. Seizure precautions. 6. No anticoagulation or antiplatelet. 7. Maintain goal blood pressure of 135-140/75-80. 8. DVT prophylaxis with SCDs. 9. GI prophylaxis. 10. Continue supportive medical therapy 11. Stable for transfer out of ICU from neurologic standpoint 12. Discussed with RN, she will inquire from pharmacy, and get their expert opinion and help in finding out whether there is an interaction of Dilantin with another medication on the medication list that are slowing down absorption or affecting the pharmacokinetic or pharmacodynamics of Phenytoin Diagnosis/Plan: Subjective Subjective Comments No acute events reported Dilantin level is sub therapeutic, even lower level today Patient is on Dilantin 200mg Q8h No reported seizure activity Family at bedside No new complaints Active Medications Current Medications Medications (Trade) Dose Ordered Sig/Raul Route Start Time Stop Time Status Last Admin (Colace) 100 mg BID PO 08/21/17 09:00 08/26/17 20:07 (Zofran Inj) 4 mg Q6H PRN IV PUSH 08/21/17 08:45 08/22/17 22:00 (Trandate Inj) 10 mg Q1H PRN IV 08/21/17 08:45 09/01/17 12:06 (Catapres) 0.1 mg Q6H PRN PO 08/21/17 08:45 09/01/17 06:52 (Vasotec Inj) 1.25 mg Q8H PRN IV PUSH 08/21/17 08:45 08/30/17 22:03 (NS Flush) 2 ml UNSCH PRN IV FLUSH 08/21/17 10:45 (NS Flush) 2 ml BID IV FLUSH 08/21/17 21:00 09/01/17 09:00 (Duoneb Neb) 1 ampule Q4HR NEB PRN INH 08/21/17 10:45 08/26/17 01:42 (Peridex 0.12% Liq) 15 ml BID@08,20 MT 08/21/17 20:00 08/29/17 22:35 Miscellaneous Information 1 Q361D XX 08/21/17 10:45 (Chlorhexidine 2% Cloth) Taper DAILY@04 TOP 08/22/17 04:00 08/18/18 03:59 09/01/17 07:00 (Chlorhexidine 2% Cloth) 3 pack UNSCH PRN TOP 08/21/17 10:45 (D50w (Vial) Inj) 50 ml UNSCH PRN IV PUSH 08/21/17 12:15 (Glucagon Inj) 1 mg UNSCH PRN OTHER 08/21/17 12:15 (LaMICtal) 200 mg BID PO 08/22/17 21:00 09/01/17 09:30 (Zoloft) 100 mg DAILY PO 08/24/17 09:30 09/01/17 09:31 (Tylenol) 650 mg Q6H PRN PO 08/24/17 15:00 08/28/17 21:46 (Habitrol 7 Mg Patch.24 Hr) 1 patch DAILY T-DERMAL 08/25/17 10:00 09/01/17 09:28 Miscellaneous Information 1 DAILY T-DERMAL 08/26/17 09:00 09/01/17 09:00 Dexmedetomidine HCl 1000 mcg/ Sodium Chloride 250 ml @ 4.52 mls/hr TITRATE PRN IV 08/25/17 19:30 Future Hold 08/30/17 01:27 (NovoLOG SUPPLEMENTAL SCALE) 1 BIDAC SQ 08/27/17 16:00 Potassium Chloride 100 ml @ 50 mls/hr Q2H PRN IV 08/27/17 08:30 Potassium Chloride 100 ml @ 50 mls/hr Q2H PRN IV 08/27/17 08:30 08/30/17 05:38 Potassium Chloride 100 ml @ 25 mls/hr UNSCH PRN IV 08/27/17 08:30 Potassium Chloride 100 ml @ 50 mls/hr Q2H PRN IV 08/27/17 08:30 08/31/17 01:07 Magnesium Sulfate 4 gm/Sodium Chloride 100 ml @ 50 mls/hr UNSCH PRN IV 08/27/17 08:30 (Mag-Ox) 800 mg UNSCH PRN PO 08/27/17 08:30 Magnesium Sulfate 2 gm/Sodium Chloride 100 ml @ 50 mls/hr UNSCH PRN IV 08/27/17 08:30 (K-Phos) 2,000 mg Q4H PRN PO 08/27/17 08:30 Sodium Phosphate 30 mmol/Sodium Chloride 250 ml @ 42 mls/hr UNSCH PRN IV 08/27/17 08:30 (K-Phos) 2,000 mg UNSCH PRN PO/TUBE 08/27/17 08:30 Potassium Phosphate 30 mmol/ Sodium Chloride 260 ml @ 42 mls/hr UNSCH PRN IV 08/27/17 08:30 Ceftriaxone Sodium 1000 mg/ Sodium Chloride 100 ml @ 200 mls/hr Q24H IV 08/27/17 09:00 09/01/17 09:00 (Pepcid) 20 mg BID PO 08/27/17 21:00 09/01/17 09:31 (Microzide) 12.5 mg DAILY PO 08/28/17 09:00 09/01/17 09:31 (Prinivil) 10 mg DAILY PO 08/28/17 09:00 09/01/17 09:29 (Dilantin) 200 mg TID PO 08/28/17 13:00 09/01/17 12:06 (SEROquel) 100 mg HS PO 08/29/17 21:00 08/31/17 21:16 (Heparin Inj) 5,000 units Q8HR SQ 08/29/17 14:00 09/01/17 06:53 (Lactinex Pkt) 1 gm TID PO 08/29/17 18:00 09/01/17 12:06 (Apresoline Inj) 10 mg Q1H PRN IV PUSH 08/30/17 10:30 (Geodon Inj) 10 mg Q12H PRN IM 08/30/17 14:45 09/02/17 14:44 08/30/17 21:18 (SEROquel) 100 mg DAILY PO 09/01/17 09:00 09/01/17 09:29 Acetaminophen 100 ml @ 400 mls/hr Q6H PRN IV 09/01/17 12:15 09/02/17 12:15 (Melatonin) 10 mg HS PRN PO 09/01/17 12:15 Allergies Allergies Coded Allergies No Known Allergies ([id number]/25/17) Review of Systems All other ROS: ROS reviewed as documented in chart Exam I&O / VS Vital Signs Date Time Temp Pulse Resp B/P (MAP) Pulse Ox O2 Delivery O2 Flow Rate FiO2 09/01/17 08:00 98.7 94 18 133/71 (91) 94 09/01/17 04:00 98.3 68 17 157/81 (106) 96 09/01/17 00:00 98.0 78 22 126/67 (86) 98 08/31/17 22:00 70 08/31/17 20:00 82 08/31/17 20:00 98.5 82 22 144/85 (104) 94 08/31/17 16:00 97.9 86 27 153/89 (110) 98 General: Alert and Oriented, No acute distress Eye: PERRL, EOMI Cardiology: Normal rate, No murmur Neurologic: Alert, Oriented, Normal sensory, Normal motor, No focal defects, CN II-XII intact Psychiatric: Cooperative, Appropriate mood & affect Objective Micro and Labs Laboratory Tests Test 09/01/17 04:50 White Blood Count 8.5 Red Blood Count 3.98 Hemoglobin 12.3 Hematocrit 37.0 Mean Corpuscular Volume 93.1 Mean Corpuscular Hemoglobin 30.9 Mean Corpuscular Hemoglobin Concent 33.2 Red Cell Distribution Width 13.2 Platelet Count 467 Mean Platelet Volume 8.2 Neutrophils (%) (Auto) 56.0 Lymphocytes (%) (Auto) 29.3 Monocytes (%) (Auto) 9.0 Eosinophils (%) (Auto) 5.1 Basophils (%) (Auto) 0.6 Neutrophils # (Auto) 4.8 Lymphocytes # (Auto) 2.5 Monocytes # (Auto) 0.8 Eosinophils # (Auto) 0.4 Basophils # (Auto) 0.1 CBC Comment DIFF FINAL Differential Comment Blood Urea Nitrogen 14 Creatinine 0.78 Random Glucose 87 Total Protein 7.4 Albumin 2.4 Calcium Level 8.4 Phosphorus Level 3.4 Magnesium Level 2.1 Alkaline Phosphatase 49 Aspartate Amino Transf (AST/SGOT) 23 Alanine Aminotransferase (ALT/SGPT) 47 Total Bilirubin 0.3 Sodium Level 138 Potassium Level 3.3 Chloride Level 103 Carbon Dioxide Level 23.7 Anion Gap 11 Estimat Glomerular Filtration Rate 100 Phenytoin (Dilantin) Level 2.7 Date/Time Source Procedure Growth Status 08/25/17 13:40 Blood Peripheral Aerobic Blood Culture - Final NO GROWTH IN 5 DAYS Complete 08/25/17 13:40 Blood Peripheral Anaerobic Blood Culture - Final NO GROWTH IN 5 DAYS Complete 08/23/17 02:15 Sputum Endotracheal Gram Stain - Final Complete 08/23/17 02:15 Sputum Culture - Final Staphylococcus Aureus Complete Doe Elam MD Sep 01, 2017 13:09
[2017-09-01] MEDS: QUEtiapine FUMARATE 100 MG TAB PO SCH (20:04)
[2017-09-01] MEDS: MELATONIN 5 MG TAB PO PRN (20:04)
[2017-09-02] VITALS (9 sets, daily range): BP systolic 130–174; BP diastolic 74–90; PULSE 76–86; RESP 16–22; TEMP 98–98.4; O2SAT 93–95
[2017-09-02] MEDS: HEPARIN SODIUM - SQ 10,000 UNITS/ML VIAL SQ SCH ×3 (05:26→21:28)
[2017-09-02] MEDS: CHLORHEXIDINE 0.12% (ORAL KIT) 15 ML CUP MT SCH ×2 (08:00→20:00)
--- NOTE | 2017-09-02 08:10 | HHI.PR ---
Neuropsych Behavior Behavior: Intact: Coping/Acceptance, Cooperative w/ Treatment, Motivation, Mild : Impulsive/Agitated Cognitive Cognitive: Intact: Confused/Orientation, Mild: Attention/Concentration, Moderate: Insight/Awareness, Judgement/Problem-Solving Psychosocial Psychosocial: Intact: Psychosocial, Family/Other Adjustment, Realistic Expectation, Unable to Asses: Self-Esteem/Confidence Progress Notes/Response to Tx Contents of Sessions: Adjustment Time with Patient: 15 minutes Premorbid psychological status Premorbid Cognitive, Emotional and Behavioral Status: Stable. The patient has some college years of education and a solid work history prior to this injury. The patient has no psychiatric difficulties, as described above. Substance abuse history is unremarkable. Behavioral Reactions of Patient and Family/Support System: Stable. The patient s family is experiencing ongoing issues of adjustment given the nature of the injury, and this aspect of recovery will require ongoing monitoring. Emotional/Behavioral Status of Patient and Family/Support System: Stable. Pertinent issues, if appropriate to this patients clinical care, are described in detail above. Maximizing acute care outcome It is recommended that the patient be monitored for emergent behavioral impulsivity as the medical condition evolves. This patients neuropathological challenges may limit their rehabilitation potential going forward, and these challenges will require specialized therapeutic skills to maximize outcome. Anticipated Problems Ongoing areas of concern will include behavioral impulsivity, lack of insight and judgment, which is expected to improve with time and treatment. Presently , the patient awake and alert, but frequently agitated/restless consistent with his brain injury. Treatment Plan This clinician will continue to follow with you throughout the course of this patients acute care treatment, and I will be available to meet with the patient s family/support system to facilitate their understanding and the ongoing care of their family member. The goals of neuropsychological intervention shall be both educational and supportive to the family/support system as is deemed clinically appropriate. Additionally, I would recommend a referral to Dr. Ely for ongoing patient and family adjustment issues if they are coming to [place]. Impression This is a 67 year old man s/p bifrontal ICH on 08/21/2017 now with residual neurocognitive and neurobehavioral deficits including restlessness, agitation, disorientation and hallucinations. 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 This is day 12 post stroke. He is awake, alert and following commands, but is frequently agitated and restless, requiring chemical restraints. He is presently maintained on Seroquel 100 BID and Geodon 10 q12 PRN (has not required the latter since 08/30). There had been notation that he received Haldol as well but not for some time. The plan is for him to go to [place], and that would be appropriate. I discussed this case with Dr. Mata concerning neurobehavioral management, specifically the need to manage on Seroquel with a d/c Haldol order being required before he goes to [place]. I will continue to follow. Brice Oswald PhD Sep 02, 2017 8:10 am
[2017-09-02] MEDS: NICOTINE 7 MG/24 HR PATCH T-DERMAL SCH (08:53)
[2017-09-02] MEDS: QUEtiapine FUMARATE 25 MG TAB PO SCH (08:53)
[2017-09-02] MEDS: cefTRIAXone INJ 1,000 MG in SODIUM CHLORIDE 0.9% INJ 100 ML IV SCH (08:53)
[2017-09-02] MEDS: LISINOPRIL 10 MG TAB PO SCH (08:54)
[2017-09-02] MEDS: PHENYTOIN SODIUM 100 MG CAP PO SCH (08:54)
[2017-09-02] MEDS: SERTRALINE HCL 100 MG TAB PO SCH (08:54)
[2017-09-02] MEDS: lamoTRIgine 100 MG TAB PO SCH ×2 (08:54→21:27)
[2017-09-02] MEDS: LACTOBACILLUS ACIDOPHILUS 1 GM PACKET PO SCH ×3 (08:55→16:35)
[2017-09-02] MEDS: DOCUSATE SODIUM 100 MG CAP PO SCH ×2 (08:55→20:58)
[2017-09-02] MEDS: HYDROCHLOROTHIAZIDE 12.5 MG CAP PO SCH (08:55)
[2017-09-02] MEDS: FAMOTIDINE 20 MG TAB PO SCH ×2 (08:55→21:28)
[2017-09-02] MEDS: SODIUM CHLORIDE 0.9% FLUSH 10 ML FLUSH IV FLUSH SCH ×2 (09:00→20:58)
[2017-09-02] MEDS: REMOVE OLD PATCH T-DERMAL SCH (09:00)
--- NOTE | 2017-09-02 11:02 | HHI.NSPN ---
History Chief Complaint: Headache earlier. Interval History 08/21: 67-year-old male presents to the emergency room today approximately 7 AM with history of headache for several days, increasing significantly at 6:30 AM today. His initial blood pressure was 261/143. He was placed on a nicardipine drip for initial blood pressure control. 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 He was reportedly awake and alert upon presentation to the emergency room, with left facial and upper extremity weakness. He reportedly developed increasing speech difficulty following a CT scan this morning, and subsequently was noted to have a seizure which was initially treated with Ativan. Since then he has been more lethargic and nonverbal. 08/22: The patient is obtunded this morning but he is sedated with propofol. Nursing reports that he is off all other sedation and blood pressure drips. She also reports that the patient is spontaneously moving his extremities and responds to noxious stimulation. He did go for a repeat CT brain this morning. 08/23: The patient is agitated and thrashing about in bed when seen. Nursing and the Head Of Digital are present and a needle decompression had been done for a pneumothorax on the right side which was demonstrated on his CXR this morning. They were preparing to place a right-sided chest tube. The patient continues to be intubated and mechanically ventilated. He does have propofol for sedation and fentanyl for pain management infusing. 08/24: The patient is obtunded this morning when seen. He is on propofol for sedation. He remains intubated and mechanically ventilated with a right-sided chest tube. Nursing reports his fentanyl was stopped about 20 minutes prior to being seen. She also reports that the patient is being restarted on his psych meds prior to weaning his sedation. 08/25: When seen this morning the patient continues to be obtunded. He remains intubated and on mechanical ventilation. He had been on propofol which was discontinued and started on dexmedetomidine this morning. The fentanyl drip was also discontinued. The Head Of Digital was in the room discussing the plan of care with the patient's sister when the patient was seen. After seen the Head Of Digital notified this practitioner that the patient was now following commands and the patient was seen again and did follow commands for this practitioner and open his eyes to voice. 08/26/17: Extubated. Remains on Precedex drip for agitation. Spontaneous eye opening. He knows his family. Answers a few questions yes/no. Follows commands all extremities. 08/26/17 CT scan had stable right frontal intracranial hemorrhage with local mass effect. 08/27: This morning the patient is awake and alert. He is mildly agitated and fidgeting about in bed. The dexmedetomidine is still infusing for sedation this morning. He replies he is doing good when asked. He does endorse a slight headache which he says is getting better as well as some slight dizziness. His is present in the room and states that he was up most of the night. 08/28: The patient is drowsy but does respond to voice. He is agitated. He does have dexmedetomidine infusing but the pump is beeping. The Nurse was in another room and notified. He is doing okay and endorses a slight headache. Family is at the bedside. 08/29: The patient is seen in rounds with Dr Kong this morning. He is awake and alert, laying calmly in the bed. He says he is doing good but does have a slight headache that is better. His family says that during the night he was agitated and was given three doses of haloperidol. She reports that the patient is to be started on clonazepam. 3: When seen this morning the patient is awake and alert. He does say he has a slight headache that is improving. He is in soft restraints and is on a dexmedetomidine drip for agitation. He appears calm when seen. Nursing reports that a Psychiatric consult is to be ordered. 4: agitation better, weaning down on Precedex. family reports mental status improving, requests daily therapy. 5: reports thinking clearer, PT in room. denies headaches, seizures, vomiting. 6: The patient is seen in rounds with Dr Kong this morning. He says he is doing good. He reported a headache earlier that was relieved with intravenous acetaminophen. He states that he has been up ambulating and that his gait is steady. He did say he had some chest pain that felt like his indigestion but none at present. His did say his memory is better. She reports he does become more agitated in the evenings. He is not on any drips when seen. Nursing reports [facility] authorisation for him there. System Review Comments CARDIOVASCULAR: Chest pain similar to his indigestion but none at present. NEUROLOGICAL: Headache earlier that resolved with IV acetaminophen. The undersigned acts as a scribe for the remainder of this note. Exam Results 08/31/17 08/31/17 09/01/17 09/01/17 09/02/17 09/02/17 06:00 18:00 06:00 18:00 06:00 18:00 Intake Total 2136 ml 458 ml 800 ml 360 ml Output Total 2750 ml 900 ml 800 ml 550 ml Balance -614 ml -442 ml 0 ml -190 ml Intake Oral 1000 ml 400 ml 800 ml 360 ml IV Total 1136 ml 58 ml Output Urine Total 2750 ml 900 ml 800 ml 550 ml # Bowel Movements 1 2 4 0 Vital Signs Date Time Temp Pulse Resp B/P (MAP) Pulse Ox O2 Delivery O2 Flow Rate FiO2 09/02/17 06:30 141/82 (101) 09/02/17 06:00 81 09/02/17 04:00 82 09/02/17 04:00 98.4 78 16 174/90 (118) 95 09/02/17 02:00 80 09/02/17 00:00 81 09/02/17 00:00 98.4 81 16 155/76 (102) 95 09/01/17 22:00 82 09/01/17 20:00 98.2 72 12 156/75 (102) 99 09/01/17 16:00 99.0 87 22 146/80 (102) 97 09/01/17 12:00 98.7 90 20 153/96 (115) 96 09/01/17 08:00 98.7 94 18 133/71 (91) 94 09/01/17 04:00 98.3 68 17 157/81 (106) 96 09/01/17 00:00 98.0 78 22 126/67 (86) 98 08/31/17 22:00 70 08/31/17 20:00 82 08/31/17 20:00 98.5 82 22 144/85 (104) 94 08/31/17 16:00 97.9 86 27 153/89 (110) 98 08/31/17 12:00 98.9 79 14 139/71 (93) 98 08/31/17 08:00 98.3 68 16 117/76 (90) 98 08/31/17 06:00 73 08/31/17 04:00 83 08/31/17 04:00 97.9 76 18 150/85 (106) 98 08/31/17 02:00 73 08/31/17 00:00 62 08/31/17 00:00 98.9 66 19 134/82 (99) 100 08/30/17 22:00 71 08/30/17 20:00 72 08/30/17 20:00 98.6 78 18 145/82 (103) 100 08/30/17 18:00 86 08/30/17 16:00 90 08/30/17 16:00 98.2 84 18 162/94 (116) 96 08/30/17 14:00 82 08/30/17 12:00 86 08/30/17 12:00 99.0 82 27 139/82 (101) 95 Physical Examination GENERAL: Sitting up in chair talking with . Calm. Essentially normal affect. No apparent distress. MUSCULOSKELETAL: MOLINA w/o difficulty spontaneously. NEUROLOGICAL: Awake, alert & oriented x3. Moves all extremities with purpose spontaneously. Lab, Micro, Other Results Laboratory Tests Test 08/30/17 22:19 08/31/17 04:00 09/01/17 04:50 09/01/17 18:37 Potassium Level 3.4 MEQ/L 3.6 MEQ/L 3.3 MEQ/L White Blood Count 11.4 TH/MM3 8.5 TH/MM3 Red Blood Count 4.07 MIL/MM3 3.98 MIL/MM3 Hemoglobin 12.6 GM/DL 12.3 GM/DL Hematocrit 37.8 % 37.0 % Mean Corpuscular Volume 92.8 FL 93.1 FL Mean Corpuscular Hemoglobin 31.1 PG 30.9 PG Mean Corpuscular Hemoglobin Concent 33.4 % 33.2 % Red Cell Distribution Width 13.2 % 13.2 % Platelet Count 413 TH/MM3 467 TH/MM3 Mean Platelet Volume 8.5 FL 8.2 FL Neutrophils (%) (Auto) 66.4 % 56.0 % Lymphocytes (%) (Auto) 18.7 % 29.3 % Monocytes (%) (Auto) 10.5 % 9.0 % Eosinophils (%) (Auto) 3.9 % 5.1 % Basophils (%) (Auto) 0.5 % 0.6 % Neutrophils # (Auto) 7.6 TH/MM3 4.8 TH/MM3 Lymphocytes # (Auto) 2.1 TH/MM3 2.5 TH/MM3 Monocytes # (Auto) 1.2 TH/MM3 0.8 TH/MM3 Eosinophils # (Auto) 0.4 TH/MM3 0.4 TH/MM3 Basophils # (Auto) 0.1 TH/MM3 0.1 TH/MM3 CBC Comment DIFF FINAL DIFF FINAL Differential Comment Blood Urea Nitrogen 12 MG/DL 14 MG/DL Creatinine 0.78 MG/DL 0.78 MG/DL Random Glucose 104 MG/DL 87 MG/DL Total Protein 7.2 GM/DL 7.4 GM/DL Albumin 2.5 GM/DL 2.4 GM/DL Calcium Level 8.5 MG/DL 8.4 MG/DL Phosphorus Level 2.8 MG/DL 3.4 MG/DL Magnesium Level 2.1 MG/DL 2.1 MG/DL Alkaline Phosphatase 47 U/L 49 U/L Aspartate Amino Transf (AST/SGOT) 23 U/L 23 U/L Alanine Aminotransferase (ALT/SGPT) 44 U/L 47 U/L Total Bilirubin 0.4 MG/DL 0.3 MG/DL Sodium Level 135 MEQ/L 138 MEQ/L Chloride Level 103 MEQ/L 103 MEQ/L Carbon Dioxide Level 23.7 MEQ/L 23.7 MEQ/L Anion Gap 8 MEQ/L 11 MEQ/L Estimat Glomerular Filtration Rate 100 ML/MIN 100 ML/MIN Thyroid Stimulating Hormone 3rd Gen 2.010 uIU/ML Phenytoin (Dilantin) Level 6.1 MCG/ML 2.7 MCG/ML Troponin I LESS THAN 0.02 NG/ML Test 09/02/17 04:15 Phenytoin (Dilantin) Level 3.7 MCG/ML Medical Decision Making Impression and Plan The Impression & Plan are carried forward from the note of except for updating the POD #, deletion of the authors daily impression and as Added, Deleted, Modified or New Order. Impression: 1. Bifrontal spontaneous intracranial hemorrhage 2. New onset seizure 3. Hypertension 4. Chronic tobacco use Plan: Discussed plan of care with patient & Nursing. Critical care management per Head Of Digital. Frequent vital signs and neuro checks Target SBP < 140. Phenytoin for seizures. Non-chemical DVT prophylaxis. Ulcer prophylaxis. Okay for pharmacologic DVT prophylaxis. Concur w/Psych consult. Will discharge patient from [place] for transfer to [place] once a bed is available. (New order) If no bed available patient may go to a regular med/surg floor today. (Added) Issac Duncan [facility] Sep 02, 2017 11:02
--- NOTE | 2017-09-02 11:12 | HHI.DCPOC ---
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 Acetaminophen 325 mg tablets - take 2 tablets every 6 hours as needed for pain. Take your other medications as prescribed on the label. Avoid taking any medication that contains aspirin or NSAIDs (ibuprofen, naproxen , Motrin, Advil, Naprosyn) for at least a month. Follow up with Neurosurgery in one month. Follow up with Neuropsych in one week. Follow up with Neurology as directed by him. Follow up with your Primary Care Provider in 1 to 2 weeks for continuation of your blood pressure medication, and if needed your other medications. Directions to Meet Your Goals Take your medications as prescribed Follow your dietary instruction Follow activity as directed No lifting, bending, pushing, pulling or other strenuous activity. Acetaminophen 325 mg tablets - take 2 tablets every 6 hours as needed for pain. Take your other medications as prescribed on the label. Avoid taking any medication that contains aspirin or NSAIDs (ibuprofen, naproxen , Motrin, Advil, Naprosyn) for at least a month. Follow up with Neurosurgery in one month. Follow up with Neuropsych in one week. Follow up with Neurology as directed by him. Follow up with your Primary Care Provider in 1 to 2 weeks for continuation of your blood pressure medication, and if needed your other medications. Keep your appointments as scheduled Take your immunizations and boosters as scheduled If your symptoms worsen call your PCP, if no PCP go to Urgent Care Center or Emergency Room Smoking is Dangerous to Your Health. Avoid second hand smoke Call the 24-hour hour crisis hotline for domestic abuse at Issac Duncan Sep 02, 2017 11:12
--- NOTE | 2017-09-02 11:16 | HHI.DS ---
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 His initial blood pressure was 261/143. He was placed on a nicardipine drip for initial blood pressure control. 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 He was reportedly awake and alert upon presentation to the emergency room, with left facial and upper extremity weakness. He reportedly developed increasing speech difficulty following a CT scan this morning, and subsequently was noted to have a seizure which was initially treated with Ativan. Since then he has been more lethargic and nonverbal. CBC/BMP: 09/01/17 0450 09/01/17 0450 Significant Findings Laboratory Tests Test 08/30/17 22:19 08/31/17 04:00 09/01/17 04:50 09/01/17 18:37 Potassium Level 3.4 MEQ/L (3.5-5.1) 3.3 MEQ/L (3.5-5.1) White Blood Count 11.4 TH/MM3 (4.0-11.0) Red Blood Count 4.07 MIL/MM3 (4.50-5.90) 3.98 MIL/MM3 (4.50-5.90) Hemoglobin 12.6 GM/DL (13.0-17.0) 12.3 GM/DL (13.0-17.0) Hematocrit 37.8 % (39.0-51.0) 37.0 % (39.0-51.0) Monocytes (%) (Auto) 10.5 % (0.0-8.0) 9.0 % (0.0-8.0) Monocytes # (Auto) 1.2 TH/MM3 (0-0.9) Albumin 2.5 GM/DL (3.4-5.0) 2.4 GM/DL (3.4-5.0) Sodium Level 135 MEQ/L (136-145) Phenytoin (Dilantin) Level 6.1 MCG/ML (10.0-20.0) 2.7 MCG/ML (10.0-20.0) Platelet Count 467 TH/MM3 (150-450) Eosinophils (%) (Auto) 5.1 % (0.0-4.0) Calcium Level 8.4 MG/DL (8.5-10.1) Troponin I LESS THAN 0.02 NG/ML Test 09/02/17 04:15 Phenytoin (Dilantin) Level 3.7 MCG/ML (10.0-20.0) Hospital Course 08/21: 67-year-old male presents to the emergency room today approximately 7 AM with history of headache for several days, increasing significantly at 6:30 AM today. His initial blood pressure was 261/143. He was placed on a nicardipine drip for initial blood pressure control. 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 He was reportedly awake and alert upon presentation to the emergency room, with left facial and upper extremity weakness. He reportedly developed increasing speech difficulty following a CT scan this morning, and subsequently was noted to have a seizure which was initially treated with Ativan. Since then he has been more lethargic and nonverbal. 08/22: The patient is obtunded this morning but he is sedated with propofol. Nursing reports that he is off all other sedation and blood pressure drips. She also reports that the patient is spontaneously moving his extremities and responds to noxious stimulation. He did go for a repeat CT brain this morning. 08/23: The patient is agitated and thrashing about in bed when seen. Nursing and the Sales Development Consultant are present and a needle decompression had been done for a pneumothorax on the right side which was demonstrated on his CXR this morning. They were preparing to place a right-sided chest tube. The patient continues to be intubated and mechanically ventilated. He does have propofol for sedation and fentanyl for pain management infusing. 08/24: The patient is obtunded this morning when seen. He is on propofol for sedation. He remains intubated and mechanically ventilated with a right-sided chest tube. Nursing reports his fentanyl was stopped about 20 minutes prior to being seen. She also reports that the patient is being restarted on his psych meds prior to weaning his sedation. 08/25: When seen this morning the patient continues to be obtunded. He remains intubated and on mechanical ventilation. He had been on propofol which was discontinued and started on dexmedetomidine this morning. The fentanyl drip was also discontinued. The Sales Development Consultant was in the room discussing the plan of care with the patient's sister when the patient was seen. After seen the Sales Development Consultant notified this practitioner that the patient was now following commands and the patient was seen again and did follow commands for this practitioner and open his eyes to voice. 08/26/17: Extubated. Remains on Precedex drip for agitation. Spontaneous eye opening. He knows his family. Answers a few questions yes/no. Follows commands all extremities. 08/26/17 CT scan had stable right frontal intracranial hemorrhage with local mass effect. 08/27: This morning the patient is awake and alert. He is mildly agitated and fidgeting about in bed. The dexmedetomidine is still infusing for sedation this morning. He replies he is doing good when asked. He does endorse a slight headache which he says is getting better as well as some slight dizziness. His is present in the room and states that he was up most of the night. 08/28: The patient is drowsy but does respond to voice. He is agitated. He does have dexmedetomidine infusing but the pump is beeping. The Nurse was in another room and notified. He is doing okay and endorses a slight headache. Family is at the bedside. 08/29: The patient is seen in rounds with Dr Kong this morning. He is awake and alert, laying calmly in the bed. He says he is doing good but does have a slight headache that is better. His family says that during the night he was agitated and was given three doses of haloperidol. She reports that the patient is to be started on clonazepam. 3: When seen this morning the patient is awake and alert. He does say he has a slight headache that is improving. He is in soft restraints and is on a dexmedetomidine drip for agitation. He appears calm when seen. Nursing reports that a Psychiatric consult is to be ordered. 08/31: agitation better, weaning down on Precedex. family reports mental status improving, requests daily therapy. 115: reports thinking clearer, PT in room. denies headaches, seizures, vomiting. 09/02: The patient is seen in rounds with Dr Kong this morning. He says he is doing good. He reported a headache earlier that was relieved with intravenous acetaminophen. He states that he has been up ambulating and that his gait is steady. He did say he had some chest pain that felt like his indigestion but none at present. His did say his memory is better. She reports he does become more agitated in the evenings. He is not on any drips when seen. Nursing reports that [facility] is in the process of getting authorisation for him there. 09/03: Prior to being seen this morning the patient is seen ambulating around [facility] w/a steady gait. He had no complaints when seen except for epigastric/mid chest discomfort that feels like his GERD symptoms and started when his antibiotic was hung. He did state that he had a headache last night but none at present. Pt Condition on Discharge: Good Discharge Disposition: Discharge Home Discharge Instructions DIET: Follow Instructions for: As Tolerated, No Restrictions ACTIVITIES You can perform: Shower/Bath, Full Weight Bearing Activities to Avoid: Contact Sports, Lifting/Bending, Strenuous Activity, Driving Additional Information Acetaminophen 325 mg tablets - take 2 tablets every 6 hours as needed for pain. Take your other medications as prescribed on the label. Avoid taking any medication that contains aspirin or NSAIDs (ibuprofen, naproxen , Motrin, Advil, Naprosyn) for at least a month. Follow up with Neurosurgery in one month. Follow up with Neuropsych in one week. Follow up with Neurology as directed by him. Follow up with your Primary Care Provider in 1 to 2 weeks for continuation of your blood pressure medication, and if needed your other medications. Issac Duncan Sep 02, 2017 11:16
--- NOTE | 2017-09-02 13:13 | HHI.CCPN ---
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 His headache worsened which worsened around 6:30 AM. Patient was evaluated in the ER stroke alert was called. A head CT revealed intraparenchymal hemorrhage involving frontal lobes. Patient was evaluated by Dr. Kong from neurosurgery who admitted the patient to the ICU. Reportedly patient had seizures in the ER for which she received Ativan 2 mg IV and was loaded with fosphenytoin 1 g IV. Subsequently he was transferred to the ICU where I evaluated him immediately on his arrival. At that time he was extremely encephalopathic, stupor O's, nonverbal. I did not feel patient is protecting his airway at the time. I also noted some rhythmic jaw movements consistent with seizure activity. Patient was given Ativan 4 mg IV stat and I proceeded with emergent intubation and patient was placed on mechanical ventilation. A central line was placed emergently as well. Subsequently discussed with Dr. Kong wish to proceed with MRI/MRA of the brain for further evaluation. Patient was sedated with propofol following intubation. He was on a nicardipine drip on arrival as his blood pressure in the ER was 200s systolic. History was obtained by reviewing records and discussion with Dr. Kong and nursing staff. 08/22: Unresponsive aside from withdrawal lower extremities to painful stimulation. No obvious seizure activity. Ventilator dependent. Frontal bleeds are being absorbed, no new bleeding. 08/23: Remains sedated, orally intubated on mechanical ventilation. Reportedly is on Epclusa which is used for hepatitis C treatment. 08/24: Moves 4 limbs. Gas exchange acceptable. Right lung expanded after chest tube. Family conveys concerns about prior drug habituation, will stop narcotics and stick with propofol. 08/25: Remains sedated, orally intubated on mechanical ventilation. 08/26: Extubated following C Pap trial on 08/25. Was requiring nonrebreather facemask however now on 6 L nasal cannula. On Precedex gtt. Required Ativan when necessary for anxiety/severe restlessness. Currently drowsy at the time of my evaluation however just received Ativan earlier this morning. Appears comfortable on 6 L nasal cannula. 08/27: Had some disorientation and hallucinations last night. This morning he is awake and alert. Following commands. On 5 L nasal cannula. No air leak in right sided pigtail catheter which was placed to underwater seal. On Precedex 0.8 mcg/kg/hr at the time of my evaluation. 08/28: Having issues with delirium/hallucinations which are worse at night. Remains on Precedex drip. Given 1 mg Ativan this morning for significant agitation. When I evaluated the patient subsequently he was resting in bed with slightly labored breathing on 2 L nasal cannula. He knew he was in the hospital and couldn't give me the month and year. He was following commands appropriately. 08/29: Received 3 doses of Haldol last night. This morning he is drowsy, arousable easily on Precedex gtt. at 1.5 mics per KG per hour. Added clonidine patch 0.1 mg per day single dose for 7 days to see that helps with weaning off Precedex as well as hypertension. CT chest negative for PE done yesterday. It did show significant right sided pneumonia. Patient did have some fevers overnight. He is currently on IV Rocephin for MSSA pneumonia. Tolerating by mouth diet. He has been cleared for subcutaneous heparin by neurosurgery which is being started today. Seroquel being increased to attempt to titrate off Precedex gtt. 08/30: Tmax 99.2. 2 bowel movements. Continues on dexmedetomidine drip at 1.2 micrograms per kilogram per minute. Attempts to wean results in extreme agitation with patient. Subjective 08/31: Currently afebrile. One bowel movement. Continues on dexmedetomidine drip at 0.7 aki as per kilo Per minute. Was informed of restrictive rapid currently very appropriate. Increasing quetiapine 200 mg twice a day. Cleared by neurosurgery to go outside today. 09/01: Last evening patient have one episode of extreme agitation requiring reinitiation of Precedex infusion for several hours. Resolution this a.m.. Plans to go outside in wheelchair today with monitoring. 09/02: No acute issues overnight. Patient was able to maintain sleep hygiene with institution of melatonin. Pain well controlled with dose of Ofirmev .Patient ambulated around ICU unit today. Discharged to [facility] tentative. Objective Vital Signs Date Time Temp Pulse Resp B/P (MAP) Pulse Ox O2 Delivery O2 Flow Rate FiO2 09/02/17 12:00 98.0 86 18 145/85 (105) 09/02/17 04:00 95 08/30/17 09:37 21 08/30/17 07:00 Room Air 08/30/17 04:51 2.00 Intake and Output 09/02/17 09/02/17 09/03/17 08:00 16:00 00:00 Intake Total 360 ml Output Total 550 ml Balance -190 ml Result Diagram: 09/01/17 0450 09/01/17 0450 Imaging Last Impressions Head CT 08/29/17 0600 Signed Impressions: Service Date/Time: August 04:25 - CONCLUSION: Evolving bifrontal hemorrhages. No new acute findings. Saw Higginbotham MD Chest X-Ray 08/28/17 Signed Impressions: Service Date/Time: Monday, August 28, 2017 13:27 - CONCLUSION: 1. Minimal patchiness within the right upper lung field and to a lesser extent the lung bases consistent with possible pneumonia. Clinical correlation is recommended. 2. No evidence of pneumothorax status post removal of chest tube. Lukas Flores MD CT Angiography 08/28/17 Signed Impressions: Service Date/Time: Monday, August 28, 2017 18:11 - CONCLUSION: 1. No evidence of pulmonary embolism. 2. Consolidative infiltrate in the right lung most characteristic of pneumonia. 3. Small pleural effusions right greater than left. Ion Holt MD Neck CTA 08/21/1743 Signed Impressions: Service Date/Time: Monday, August 21, 2017 07:47 - CONCLUSION: 1. See the CT of the brain reported separately. 2. Patent carotid arteries and vertebral arteries. Alexis Villa Jr., MD Head CTA 08/21/17 0725 Signed Impressions: Service Date/Time: Monday, August 21, 2017 07:47 - CONCLUSION: 1. Negative head CTA exam. Specifically, no evidence for aneurysm or large vessel occlusion. Wil Lopez MD Head Magnetic Resonance Angiography 08/21/17 Signed Impressions: Service Date/Time: Monday, August 21, 2017 16:02 - CONCLUSION: 1. MRA suggest parenchymal hemorrhage in both frontal lobes, left greater than right. 2. However, the intracranial vessels are all widely patent without aneurysmal disease. 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 Saw Higginbotham MD Objective Remarks GENERAL: 67-year-old male, sitting up in a recliner chair in no acute distress SKIN: Warm and dry. Small ecchymotic blister resolving right lower anterior chest HEAD: Atraumatic. Normocephalic. EYES: Pupils equal and round about 2 mm bilaterally and reactive. No scleral icterus. No injection or drainage. ENT: No nasal bleeding or discharge. Mucous membranes pink and moist. NECK: Trachea midline. No JVD. CARDIOVASCULAR: Regular rate and rhythm. S1, S2. No S4. RESPIRATORY: No accessory muscle use. Clear to auscultation. Breath sounds equal bilaterally. GASTROINTESTINAL: Abdomen soft, non-tender, nondistended. Hepatic and splenic margins not palpable. MUSCULOSKELETAL: Extremities without significant peripheral edema. No obvious deformities. NEUROLOGICAL: Awake and alert. No obvious cranial nerve deficits. Motor grossly within normal limits. 5/5 muscle strength in the arms and legs. Normal speech. A/P Assessment and Plan 67 year-old male with: Intracerebral hemorrhage involving frontal lobes Encephalopathy Seizure Acute respiratory failure - resolved Right pneumothorax status post chest tube placement (chest tube discontinued ) MSSA pneumonia Sepsis Hypertensive emergency - resolved Hepatitis C H/O substance abuse UDS+ amphetamines Leukocytosis Normocytic anemia ICU delirium Pain secondary to previous chest tube placement Plan: Neuro: Off propofol and fentanyl drips since 08/25. On dexmedetomidine for agitation/delirium currently at 0.7 mg/kg per minute discontinued 08/31. Discontinue haloperidol on 08/29. Neurosurgery following. Switched phenytoin to PO 200 mg 3 times a day on 08/28 and follow level. Home dose Lamotrigine 200 mg twice a day resumed 08/22. On sertraline 100 mg by mouth daily at bedtime. Neuropsychologist evaluation appreciated. Increasing quetiapine 100 milligrams a.m. -100 mg at night for hallucinations/delirium. On when necessary ziprasidone 10 mg IM every 12 hours for maximum of 3 days severe agitation. Repeat head CT per neurosurgery on 08/29 revealed evolving bifrontal hemorrhages. Family requesting no narcotics secondary to history of polysubstance also requesting no benzodiazepines. Maintain sleep-wake cycle. Ensure sleep hygiene, melatonin 10 mg every at bedtime when necessary for insomnia Provide Ofirmev 1 g every 6 hours when necessary 24 hours for VAS pain scale greater than 8/10 Obtain cognitive evaluation from speech therapy Obtain psychiatry consult regarding impulsivity and bouts of agitation. Plan increase Seroquel per neuropsychologist Dr. Oswald recommendation Cardiovascular: Off nicardipine gtt. started on hydrochlorothiazide 12.5 mg daily, lisinopril 10 mg daily. Enalapril/ Labetalol/hydralazine when necessary. Off IV fluids. Added clonidine patch 0.1 mg per week single dose for 7 days on 08/29 Labetalol when necessary. Plan to maintain SBP 135-140mmHg Pulmonary: Extubated on 08/25, initially on nonrebreather facemask, currently on 2 L nasal cannula. bronchodilators as needed. Sputum cultures growing MSSA. s/p chest tube for rt pneumothorax which was discontinued on 08/27. CT chest negative for PE however showed significant right sided pneumonia on 08/28. Renal/: strict intake output, monitor and replete electrolytes, follow BUN/ creatinine. ID: Sputum cultures growing MSSA. Concern for aspiration. Started on IV piperacillin/tazobactam on 08/25, de-escalate to ceftriaxone 1 g IV daily on . Received 1 dose of vancomycin on 08/25.. On sufosbuvir/velpalasivir at home for ? Hep C. On hold currently per neurosurgery recommendations Heme: Follow CBC. Endocrine: SSI for glycemic control if needed. Musculoskeletal PT treatment OT treatment Possible transferred to [facility] in the near future Prophylaxis: PPI/SCDs. Subcutaneous heparin cleared by neurosurgery and being started on 08/29. Further recommendations per neurosurgery. Level 2 follow-up. Plan for possible transferred to [facility] will consult cash reconciliation specialist[facility] Physician Lauryn Canela MD Sep 02, 2017 13:13
--- NOTE | 2017-09-02 13:46 | HHI.PR ---
Review/Management Diagnosis 1. Bilateral frontal lobe intracerebral hemorrhages status post hypertension. 2. Encephalopathy, resolving. 3. New onset seizure, likely related to the hemorrhage/ hypertensive urgency. 4. Acute respiratory failure. 5. Right pneumothorax status post chest tube placement. 6. Sepsis. 7. Hypertensive emergency. 8. Hep C. 9. History of substance abuse. Plan 1. Neuro checks q. 4 hourly. 2. Seizure precautions. 3. Discontinue Dilantin, I have had a phone conversation with pharmacy, and we both did not find a clue why he is continually having subtherapeutic level. I discussed with the patient and explained to him that I will discontinue Dilantin and substituted with another antiseizure medication he agrees 3. Obtain total Dilantin level next am. 4. Continue home dose of Lamictal 200 mg twice daily. 5. Seizure precautions. 6. No anticoagulation or antiplatelet. 7. Maintain goal blood pressure of 135-140/75-80. 8. DVT prophylaxis with SCDs. 9. GI prophylaxis. 10. Continue supportive medical therapy 11. Stable for transfer out of ICU from neurologic standpoint 12. Start Oxcarbazepine 300mg twice daily Diagnosis/Plan: Subjective Subjective Comments No acute events reported Patient with no new complaints Dilantin level is sub therapeutic at 3.7 Active Medications Current Medications Medications (Trade) Dose Ordered Sig/Raul Route Start Time Stop Time Status Last Admin (Colace) 100 mg BID PO 08/21/17 09:00 09/02/17 08:55 (Zofran Inj) 4 mg Q6H PRN IV PUSH 08/21/17 08:45 08/22/17 22:00 (Trandate Inj) 10 mg Q1H PRN IV 08/21/17 08:45 09/01/17 12:06 (Catapres) 0.1 mg Q6H PRN PO 08/21/17 08:45 09/01/17 23:54 (Vasotec Inj) 1.25 mg Q8H PRN IV PUSH 08/21/17 08:45 08/30/17 22:03 (NS Flush) 2 ml UNSCH PRN IV FLUSH 08/21/17 10:45 (NS Flush) 2 ml BID IV FLUSH 08/21/17 21:00 09/02/17 09:00 (Duoneb Neb) 1 ampule Q4HR NEB PRN INH 08/21/17 10:45 08/26/17 01:42 (Peridex 0.12% Liq) 15 ml BID@08,20 MT 08/21/17 20:00 08/29/17 22:35 Miscellaneous Information 1 Q361D XX 08/21/17 10:45 (Chlorhexidine 2% Cloth) Taper DAILY@04 TOP 08/22/17 04:00 08/18/18 03:59 09/01/17 07:00 (Chlorhexidine 2% Cloth) 3 pack UNSCH PRN TOP 08/21/17 10:45 (LaMICtal) 200 mg BID PO 08/22/17 21:00 09/02/17 08:54 (Zoloft) 100 mg DAILY PO 08/24/17 09:30 09/02/17 08:54 (Tylenol) 650 mg Q6H PRN PO 08/24/17 15:00 08/28/17 21:46 (Habitrol 7 Mg Patch.24 Hr) 1 patch DAILY T-DERMAL 08/25/17 10:00 09/02/17 08:53 Miscellaneous Information 1 DAILY T-DERMAL 08/26/17 09:00 09/02/17 09:00 Dexmedetomidine HCl 1000 mcg/ Sodium Chloride 250 ml @ 4.52 mls/hr TITRATE PRN IV 08/25/17 19:30 Future Hold 08/30/17 01:27 Potassium Chloride 100 ml @ 50 mls/hr Q2H PRN IV 08/27/17 08:30 Potassium Chloride 100 ml @ 50 mls/hr Q2H PRN IV 08/27/17 08:30 08/30/17 05:38 Potassium Chloride 100 ml @ 25 mls/hr UNSCH PRN IV 08/27/17 08:30 Potassium Chloride 100 ml @ 50 mls/hr Q2H PRN IV 08/27/17 08:30 08/31/17 01:07 Magnesium Sulfate 4 gm/Sodium Chloride 100 ml @ 50 mls/hr UNSCH PRN IV 08/27/17 08:30 (Mag-Ox) 800 mg UNSCH PRN PO 08/27/17 08:30 Magnesium Sulfate 2 gm/Sodium Chloride 100 ml @ 50 mls/hr UNSCH PRN IV 08/27/17 08:30 (K-Phos) 2,000 mg Q4H PRN PO 08/27/17 08:30 Sodium Phosphate 30 mmol/Sodium Chloride 250 ml @ 42 mls/hr UNSCH PRN IV 08/27/17 08:30 (K-Phos) 2,000 mg UNSCH PRN PO/TUBE 08/27/17 08:30 Potassium Phosphate 30 mmol/ Sodium Chloride 260 ml @ 42 mls/hr UNSCH PRN IV 08/27/17 08:30 Ceftriaxone Sodium 1000 mg/ Sodium Chloride 100 ml @ 200 mls/hr Q24H IV 08/27/17 09:00 09/02/17 08:53 (Pepcid) 20 mg BID PO 08/27/17 21:00 09/02/17 08:55 (Microzide) 12.5 mg DAILY PO 08/28/17 09:00 09/02/17 08:55 (Prinivil) 10 mg DAILY PO 08/28/17 09:00 09/02/17 08:54 (Dilantin) 200 mg TID PO 08/28/17 13:00 09/02/17 08:54 (SEROquel) 100 mg HS PO 08/29/17 21:00 09/01/17 20:04 (Heparin Inj) 5,000 units Q8HR SQ 08/29/17 14:00 09/02/17 05:26 (Lactinex Pkt) 1 gm TID PO 08/29/17 18:00 09/02/17 08:55 (Apresoline Inj) 10 mg Q1H PRN IV PUSH 08/30/17 10:30 (Geodon Inj) 10 mg Q12H PRN IM 08/30/17 14:45 09/02/17 14:44 08/30/17 21:18 (Melatonin) 10 mg HS PRN PO 09/01/17 12:15 09/01/17 20:04 (SEROquel) 100 mg Q12HR PO 09/02/17 21:00 UNV Allergies Allergies Coded Allergies No Known Allergies ([id number]/25/17) Review of Systems All other ROS: ROS reviewed as documented in chart Exam I&O / VS Vital Signs Date Time Temp Pulse Resp B/P (MAP) Pulse Ox O2 Delivery O2 Flow Rate FiO2 09/02/17 12:00 98.0 86 18 145/85 (105) 09/02/17 08:00 98.0 84 18 139/75 (96) 09/02/17 06:30 141/82 (101) 09/02/17 06:00 81 09/02/17 04:00 82 09/02/17 04:00 98.4 78 16 174/90 (118) 95 09/02/17 02:00 80 09/02/17 00:00 81 09/02/17 00:00 98.4 81 16 155/76 (102) 95 09/01/17 22:00 82 09/01/17 20:00 98.2 72 12 156/75 (102) 99 09/01/17 16:00 99.0 87 22 146/80 (102) 97 General: Alert and Oriented, No acute distress Eye: PERRL, EOMI Cardiology: Normal rate, No murmur Neurologic: Alert, Oriented, Normal sensory, Normal motor, No focal defects, CN II-XII intact Psychiatric: Cooperative, Appropriate mood & affect Objective Micro and Labs Laboratory Tests Test 09/01/17 18:37 09/02/17 04:15 Troponin I LESS THAN 0.02 Phenytoin (Dilantin) Level 3.7 Date/Time Source Procedure Growth Status 08/25/17 13:40 Blood Peripheral Aerobic Blood Culture - Final NO GROWTH IN 5 DAYS Complete 08/25/17 13:40 Blood Peripheral Anaerobic Blood Culture - Final NO GROWTH IN 5 DAYS Complete 08/23/17 02:15 Sputum Endotracheal Gram Stain - Final Complete 08/23/17 02:15 Sputum Culture - Final Staphylococcus Aureus Complete Doe Elam MD Sep 02, 2017 13:46
[2017-09-02] MEDS: ACETAMINOPHEN 325 MG TAB PO PRN (16:35)
[2017-09-02] MEDS: QUEtiapine FUMARATE 100 MG TAB PO SCH (21:28)
[2017-09-02] MEDS: MELATONIN 5 MG TAB PO PRN (21:53)
[2017-09-02] MEDS: OXcarbazepine 300 MG TAB PO SCH (21:57)
[2017-09-03] VITALS: BP 138/84; PULSE 88; RESP 21; TEMP 98.6; O2SAT 95
[2017-09-03] MEDS: CHLORHEXIDINE GLUCONATE 2 % 1 PACK (2 CLOTHS) TOP SCH (03:59)
[2017-09-03 04:00] VITALS: BP 137/99; PULSE 82; RESP 20; TEMP 98.6; O2SAT 96
[2017-09-03] MEDS: HEPARIN SODIUM - SQ 10,000 UNITS/ML VIAL SQ SCH ×3 (05:18→21:58)
[2017-09-03 08:00] VITALS: BP_SYST 114; BP_SYST 141; BP_DIAS 56; BP_DIAS 94; PULSE 105; PULSE 68; RESP 14; RESP 20; TEMP 98.7; TEMP 99; O2SAT 98
[2017-09-03] MEDS: CHLORHEXIDINE 0.12% (ORAL KIT) 15 ML CUP MT SCH ×2 (08:00→20:00)
--- NOTE | 2017-09-03 08:07 | HHI.PR ---
Neuropsych Emotional Emotional: Moderate: Irritable/Angry/Frustrate Behavior Behavior: Intact: Coping/Acceptance, Cooperative w/ Treatment, Motivation, Moderate: Frustration Tolerance/[place], Impulsive/Agitated Cognitive Cognitive: Intact: Attention/Concentration, Confused/Orientation, Memory, Moderate: Insight/Awareness, Judgement/Problem-Solving Psychosocial Psychosocial: Intact: Psychosocial, Family/Other Adjustment, Realistic Expectation, Unable to Asses: Self-Esteem/Confidence Progress Notes/Response to Tx Contents of Sessions: Adjustment Time with Patient: 15 minutes Premorbid psychological status Premorbid Cognitive, Emotional and Behavioral Status: Stable. The patient has some college years of education and a solid work history prior to this injury. The patient has no psychiatric difficulties, as described above. Substance abuse history is unremarkable. Behavioral Reactions of Patient and Family/Support System: Stable. The patient s family is experiencing ongoing issues of adjustment given the nature of the injury, and this aspect of recovery will require ongoing monitoring. Emotional/Behavioral Status of Patient and Family/Support System: Stable. Pertinent issues, if appropriate to this patients clinical care, are described in detail above. Maximizing acute care outcome It is recommended that the patient be monitored for emergent behavioral impulsivity as the medical condition evolves. This patients neuropathological challenges may limit their rehabilitation potential going forward, and these challenges will require specialized therapeutic skills to maximize outcome. Anticipated Problems Ongoing areas of concern will include behavioral impulsivity, lack of insight and judgment, which is expected to improve with time and treatment. Presently , the patient awake and alert, but frequently agitated/restless consistent with his brain injury. Treatment Plan This clinician will continue to follow with you throughout the course of this patients acute care treatment, and I will be available to meet with the patient s family/support system to facilitate their understanding and the ongoing care of their family member. The goals of neuropsychological intervention shall be both educational and supportive to the family/support system as is deemed clinically appropriate. Additionally, I would recommend a referral to Dr. Ely for ongoing patient and family adjustment issues if they are coming to [place]. Impression This is a 67 year old man s/p bifrontal ICH on 08/21/2017 now with residual neurocognitive and neurobehavioral deficits including restlessness, agitation, disorientation and hallucinations. 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 This is day 13 post stroke. The patient is stable overnight from a neurobehavioral standpoint, with normalization of sleep-wake cycle with melatonin. He is on seroquel 100 BID; Haldol order d/c'ed along with Jeanine for the past 24 hours. The greatest issues with this patient will be neurobehavioral, specifically impulsivity, easily agitated when frustrated (hence need for seroquel to mollify this tendency), diminished insight, awareness and judgment. Note that he appears more cognitively intact that he actually is. I discussed this patient with Dr. Gautam, who was also independently completing an evaluation. I will continue to follow once he transfers to rehab. Brice Oswald PhD Sep 03, 2017 08:07
[2017-09-03] MEDS: OXcarbazepine 300 MG TAB PO SCH ×2 (08:22→21:57)
[2017-09-03] MEDS: LISINOPRIL 10 MG TAB PO SCH (08:22)
[2017-09-03] MEDS: HYDROCHLOROTHIAZIDE 12.5 MG CAP PO SCH (08:22)
[2017-09-03] MEDS: lamoTRIgine 100 MG TAB PO SCH ×2 (08:22→21:57)
[2017-09-03] MEDS: FAMOTIDINE 20 MG TAB PO SCH ×2 (08:23→21:57)
[2017-09-03] MEDS: SERTRALINE HCL 100 MG TAB PO SCH (08:23)
[2017-09-03] MEDS: QUEtiapine FUMARATE 100 MG TAB PO SCH ×2 (08:23→21:57)
[2017-09-03] MEDS: cefTRIAXone INJ 1,000 MG in SODIUM CHLORIDE 0.9% INJ 100 ML IV SCH (08:24)
[2017-09-03] MEDS: LACTOBACILLUS ACIDOPHILUS 1 GM PACKET PO SCH ×3 (08:24→17:43)
[2017-09-03] MEDS: DOCUSATE SODIUM 100 MG CAP PO SCH ×2 (08:24→21:57)
[2017-09-03] MEDS: SODIUM CHLORIDE 0.9% FLUSH 10 ML FLUSH IV FLUSH SCH ×2 (08:24→21:58)
[2017-09-03] MEDS: REMOVE OLD PATCH T-DERMAL SCH (09:00)
[2017-09-03] MEDS: NICOTINE 7 MG/24 HR PATCH T-DERMAL SCH (09:00)
--- NOTE | 2017-09-03 09:16 | HHI.NSPN ---
History Chief Complaint: GERD symptoms Interval History 08/21: 67-year-old male presents to the emergency room today approximately 7 AM with history of headache for several days, increasing significantly at 6:30 AM today. His initial blood pressure was 261/143. He was placed on a nicardipine drip for initial blood pressure control. 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 He was reportedly awake and alert upon presentation to the emergency room, with left facial and upper extremity weakness. He reportedly developed increasing speech difficulty following a CT scan this morning, and subsequently was noted to have a seizure which was initially treated with Ativan. Since then he has been more lethargic and nonverbal. 08/22: The patient is obtunded this morning but he is sedated with propofol. Nursing reports that he is off all other sedation and blood pressure drips. She also reports that the patient is spontaneously moving his extremities and responds to noxious stimulation. He did go for a repeat CT brain this morning. 08/23: The patient is agitated and thrashing about in bed when seen. Nursing and the Imaging Services Director are present and a needle decompression had been done for a pneumothorax on the right side which was demonstrated on his CXR this morning. They were preparing to place a right-sided chest tube. The patient continues to be intubated and mechanically ventilated. He does have propofol for sedation and fentanyl for pain management infusing. 08/24: The patient is obtunded this morning when seen. He is on propofol for sedation. He remains intubated and mechanically ventilated with a right-sided chest tube. Nursing reports his fentanyl was stopped about 20 minutes prior to being seen. She also reports that the patient is being restarted on his psych meds prior to weaning his sedation. 08/25: When seen this morning the patient continues to be obtunded. He remains intubated and on mechanical ventilation. He had been on propofol which was discontinued and started on dexmedetomidine this morning. The fentanyl drip was also discontinued. The Imaging Services Director was in the room discussing the plan of care with the patient's sister when the patient was seen. After seen the Imaging Services Director notified this practitioner that the patient was now following commands and the patient was seen again and did follow commands for this practitioner and open his eyes to voice. 08/26/17: Extubated. Remains on Precedex drip for agitation. Spontaneous eye opening. He knows his family. Answers a few questions yes/no. Follows commands all extremities. 08/26/17 CT scan had stable right frontal intracranial hemorrhage with local mass effect. 08/27: This morning the patient is awake and alert. He is mildly agitated and fidgeting about in bed. The dexmedetomidine is still infusing for sedation this morning. He replies he is doing good when asked. He does endorse a slight headache which he says is getting better as well as some slight dizziness. His is present in the room and states that he was up most of the night. 08/28: The patient is drowsy but does respond to voice. He is agitated. He does have dexmedetomidine infusing but the pump is beeping. The Nurse was in another room and notified. He is doing okay and endorses a slight headache. Family is at the bedside. 08/29: The patient is seen in rounds with Dr Kong this morning. He is awake and alert, laying calmly in the bed. He says he is doing good but does have a slight headache that is better. His family says that during the night he was agitated and was given three doses of haloperidol. She reports that the patient is to be started on clonazepam. 3: When seen this morning the patient is awake and alert. He does say he has a slight headache that is improving. He is in soft restraints and is on a dexmedetomidine drip for agitation. He appears calm when seen. Nursing reports that a Psychiatric consult is to be ordered. 4: agitation better, weaning down on Precedex. family reports mental status improving, requests daily therapy. 115: reports thinking clearer, PT in room. denies headaches, seizures, vomiting. 6: The patient is seen in rounds with Dr Kong this morning. He says he is doing good. He reported a headache earlier that was relieved with intravenous acetaminophen. He states that he has been up ambulating and that his gait is steady. He did say he had some chest pain that felt like his indigestion but none at present. His did say his memory is better. She reports he does become more agitated in the evenings. He is not on any drips when seen. Nursing reports that [facility] is in the process of getting authorisation for him there. 09/03: Prior to being seen this morning the patient is seen ambulating around [facility] w/a steady gait. He had no complaints when seen except for epigastric/mid chest discomfort that feels like his GERD symptoms and started when his antibiotic was hung. He did state that he had a headache last night but none at present. System Review Comments ROS is negative except as noted in the Interval History. Exam Results 09/01/17 09/01/17 09/02/17 09/02/17 09/03/17 09/03/17 06:00 18:00 06:00 18:00 06:00 18:00 Intake Total 458 ml 800 ml 360 ml 100 ml 360 ml Output Total 900 ml 800 ml 550 ml 500 ml Balance -442 ml 0 ml -190 ml 100 ml -140 ml Intake Oral 400 ml 800 ml 360 ml 360 ml IV Total 58 ml 100 ml Output Urine Total 900 ml 800 ml 550 ml 500 ml # Voids 1 1 # Bowel Movements 2 4 0 0 Vital Signs Date Time Temp Pulse Resp B/P (MAP) Pulse Ox O2 Delivery O2 Flow Rate FiO2 09/03/17 04:00 98.6 82 20 137/99 (112) 96 09/03/17 00:00 98.6 88 21 138/84 (102) 95 09/02/17 20:00 98.2 76 22 130/87 (101) 93 09/02/17 19:00 21 09/02/17 16:00 98.0 78 18 130/74 (92) 09/02/17 12:00 98.0 86 18 145/85 (105) 09/02/17 08:00 98.0 84 18 139/75 (96) 09/02/17 06:30 141/82 (101) 09/02/17 06:00 81 09/02/17 04:00 82 09/02/17 04:00 98.4 78 16 174/90 (118) 95 09/02/17 02:00 80 09/02/17 00:00 81 09/02/17 00:00 98.4 81 16 155/76 (102) 95 09/01/17 22:00 82 09/01/17 20:00 98.2 72 12 156/75 (102) 99 09/01/17 16:00 99.0 87 22 146/80 (102) 97 09/01/17 12:00 98.7 90 20 153/96 (115) 96 09/01/17 08:00 98.7 94 18 133/71 (91) 94 09/01/17 04:00 98.3 68 17 157/81 (106) 96 09/01/17 00:00 98.0 78 22 126/67 (86) 98 08/31/17 22:00 70 08/31/17 20:00 82 08/31/17 20:00 98.5 82 22 144/85 (104) 94 08/31/17 16:00 97.9 86 27 153/89 (110) 98 08/31/17 12:00 98.9 79 14 139/71 (93) 98 Physical Examination GENERAL: When seen the patient is sitting up in the chair texting on his cellphone. His affect is normal and he is not in any apparent distress. HEENT: Normocephalic, atraumatic. PERRLA 3 mm brisk, EOMI. MMM & pink, tongue midline to protrusion. MUSCULOSKELETAL: MOLINA w/o difficulty spontaneously. NEUROLOGICAL: AAOx2 (Person & place, didn't know year, eventually got month and that next holiday was . Initially thought Ariel was our last President but eventually said Obama.) Speech clear & appropriate. Follows simple commands w/o difficulty. CN II-XII appear grossly intact. Sensation intact to light touch to all extremities. Motor strength 4+ to 5/5 to all major flexion & extension muscle groups except left deltoid is 4/5. Lab, Micro, Other Results Laboratory Tests Test 09/01/17 04:50 09/01/17 18:37 09/02/17 04:15 White Blood Count 8.5 TH/MM3 Red Blood Count 3.98 MIL/MM3 Hemoglobin 12.3 GM/DL Hematocrit 37.0 % Mean Corpuscular Volume 93.1 FL Mean Corpuscular Hemoglobin 30.9 PG Mean Corpuscular Hemoglobin Concent 33.2 % Red Cell Distribution Width 13.2 % Platelet Count 467 TH/MM3 Mean Platelet Volume 8.2 FL Neutrophils (%) (Auto) 56.0 % Lymphocytes (%) (Auto) 29.3 % Monocytes (%) (Auto) 9.0 % Eosinophils (%) (Auto) 5.1 % Basophils (%) (Auto) 0.6 % Neutrophils # (Auto) 4.8 TH/MM3 Lymphocytes # (Auto) 2.5 TH/MM3 Monocytes # (Auto) 0.8 TH/MM3 Eosinophils # (Auto) 0.4 TH/MM3 Basophils # (Auto) 0.1 TH/MM3 CBC Comment DIFF FINAL Differential Comment Blood Urea Nitrogen 14 MG/DL Creatinine 0.78 MG/DL Random Glucose 87 MG/DL Total Protein 7.4 GM/DL Albumin 2.4 GM/DL Calcium Level 8.4 MG/DL Phosphorus Level 3.4 MG/DL Magnesium Level 2.1 MG/DL Alkaline Phosphatase 49 U/L Aspartate Amino Transf (AST/SGOT) 23 U/L Alanine Aminotransferase (ALT/SGPT) 47 U/L Total Bilirubin 0.3 MG/DL Sodium Level 138 MEQ/L Potassium Level 3.3 MEQ/L Chloride Level 103 MEQ/L Carbon Dioxide Level 23.7 MEQ/L Anion Gap 11 MEQ/L Estimat Glomerular Filtration Rate 100 ML/MIN Phenytoin (Dilantin) Level 2.7 MCG/ML 3.7 MCG/ML Troponin I LESS THAN 0.02 NG/ML Medical Decision Making Impression and Plan Impression: 1. Bifrontal spontaneous intracranial hemorrhage 2. New onset seizure 3. Hypertension 4. Chronic tobacco use Patient doing well although w/some mild confusion. Plan: Discussed plan of care with patient & Nursing. Critical care management per Imaging Services Director. Frequent vital signs and neuro checks Target SBP < 140. Phenytoin for seizures. Non-chemical DVT prophylaxis. Ulcer prophylaxis. Okay for pharmacologic DVT prophylaxis. Concur w/Psych consult. Will discharge patient to SNF once arrangements completed. Patient may go to a regular med/surg floor until SNF arrangements are completed. Issac Duncan Sep 03, 2017 09:16
[2017-09-03 12:00] VITALS: BP 114/56; PULSE 68; RESP 20; TEMP 98.7; O2SAT 98
--- NOTE | 2017-09-03 14:36 | PD.PSY.CON ---
Provisional Diagnosis Admission Date Aug 21, 2017 at 07:28 [place] I. 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 Deferred History of Present Illness Service Psychiatry Consult Requested By Surgical team Reason for Consult Disinhibited behavior and cognitive impairment Primary Care Physician Unknown HPI The patient is a 67 year-old man, domiciled with his in 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 Patient was evaluated in the ER stroke alert was called. A head CT revealed intraparenchymal hemorrhage involving frontal lobes. Patient was evaluated by Dr. Vizcaino from neurosurgery who admitted the patient to the ICU. Reportedly patient had seizures in the ER for which she received Ativan 2 mg IV and was loaded with fosphenytoin 1 g IV. Subsequently he was transferred to the ICU and posteriorly once stable to the medical floor. Patient had showed episodic agitation and aggressive behavior has been treated with Haldol IM. Consulted psychiatry for assessment of cognition patient. She was discussed with Dr. Oswald who has been following him closely. She is now much better compared to before. On psychiatric evaluation patient is calm, cooperative and pleasant. Patient reports good mood , he says that he is very motivated to continue his medical treatment, to go to rehabilitation and continue his cognition improvement. He reported that his memory is now much better and he feels clearer. He denies depressive symptoms, he denies anhedonia, he denies lack of motivation, and anxiety, he denies kristin , he denies suicidal and homicidal ideation, he denies visual and auditory hallucinations. During this evaluation patient is logical, coherent and relevant. Please oriented 3, without attention deficit, no gross cognitive impairment present. Folstein Mini-Mental state is 30/30. Dr. Oswald has suggested that the patient is bridge from Haldol IM to Seroquel 50 mg twice a day for behavioral regulation and for impulse control. Patient denies the use of illicit drugs and alcohol. Review of Systems Constitutional: DENIES: Diaphoretic episodes, Fatigue, Fever, Weight gain, Weight loss, Chills, Dizziness, Change in appetite, Night Sweats Endocrine: DENIES: Heat/cold intolerance, Polydipsia, Polyuria, Polyphagia Eyes: DENIES: Blurred vision, Diplopia, Eye inflammation, Eye pain, Vision loss , Photosensitivity, Double Vision Ears, nose, mouth, throat: DENIES: Tinnitus, Hearing loss, Vertigo, Nasal discharge, Oral lesions, Throat pain, Hoarseness, Ear Pain, Running Nose, Epistaxis, Sinus Pain, Toothache, Odynophagia Respiratory: DENIES: Apneas, Cough, Snoring, Wheezing, Hemoptysis, Sputum production, Shortness of breath Cardiovascular: DENIES: Chest pain, Palpitations, Syncope, Dyspnea on Exertion , PND, Lower Extremity Edema, Orthopnea, Claudication Gastrointestinal: DENIES: Abdominal pain, Black stools, Bloody stools, Constipation, Diarrhea, Nausea, Vomiting, Difficulty Swallowing, Anorexia Genitourinary: DENIES: Sexual dysfunction, Urinary frequency, Urinary incontinence, Urgency, Hematuria, Dysuria, Nocturia, Penile Discharge, Testicular Pain, Testicular Swelling Musculoskeletal: DENIES: Joint pain, Muscle aches, Stiffness, Joint Swelling, Back pain, Neck pain Integumentary: DENIES: Abnormal pigmentation, Nail changes, Pruritus, Rash Hematologic/lymphatic: DENIES: Bruising, Lymphadenopathy Immunologic/allergic: DENIES: Eczema, Urticaria Neurologic: DENIES: Abnormal gait, Headache, Localized weakness, Paresthesias, Seizures, Speech Problems, Tremor, Poor Balance Psychiatric: DENIES: Anxiety, Confusion, Mood changes, Depression, Hallucinations, Agitation, Suicidal Ideation, Homicidal Ideation, Delusions Past Family Social History Coded Allergies: No Known Allergies (Verified , 08/21/17) Reported Medications Diclofenac Sodium DR (Diclofenac Sodium DR) 75 Mg Tabdr, 75 MG PO BID, #60 TAB 0 Refills 08/24/17 Lamotrigine (Lamictal) 200 Mg Tab, 200 MG PO BID for Control Seizures, #60 TAB 0 Refills 08/22/17 Sofosbuvir/Velpatasvir (Epclusa 400 mg-100 mg Tablet) 400 Mg-100 Mg Tablet 08/22/17 Current Medications Medications (Trade) Dose Ordered Sig/Raul Route Start Time Stop Time Status Last Admin (Colace) 100 mg BID PO 08/21/17 09:00 09/02/17 08:55 (Zofran Inj) 4 mg Q6H PRN IV PUSH 08/21/17 08:45 08/22/17 22:00 (Trandate Inj) 10 mg Q1H PRN IV 08/21/17 08:45 09/01/17 12:06 (Catapres) 0.1 mg Q6H PRN PO 08/21/17 08:45 09/01/17 23:54 (Vasotec Inj) 1.25 mg Q8H PRN IV PUSH 08/21/17 08:45 08/30/17 22:03 (NS Flush) 2 ml UNSCH PRN IV FLUSH 08/21/17 10:45 (NS Flush) 2 ml BID IV FLUSH 08/21/17 21:00 09/03/17 08:24 (Duoneb Neb) 1 ampule Q4HR NEB PRN INH 08/21/17 10:45 08/26/17 01:42 (Peridex 0.12% Liq) 15 ml BID@08,20 MT 08/21/17 20:00 08/29/17 22:35 Miscellaneous Information 1 Q361D XX 08/21/17 10:45 (Chlorhexidine 2% Cloth) Taper DAILY@04 TOP 08/22/17 04:00 08/18/18 03:59 09/01/17 07:00 (Chlorhexidine 2% Cloth) 3 pack UNSCH PRN TOP 08/21/17 10:45 (LaMICtal) 200 mg BID PO 08/22/17 21:00 09/03/17 08:22 (Zoloft) 100 mg DAILY PO 08/24/17 09:30 09/03/17 08:23 (Tylenol) 650 mg Q6H PRN PO 08/24/17 15:00 09/02/17 16:35 (Habitrol 7 Mg Patch.24 Hr) 1 patch DAILY T-DERMAL 08/25/17 10:00 09/03/17 09:00 Miscellaneous Information 1 DAILY T-DERMAL 08/26/17 09:00 09/03/17 09:00 Dexmedetomidine HCl 1000 mcg/ Sodium Chloride 250 ml @ 4.52 mls/hr TITRATE PRN IV 08/25/17 19:30 Future Hold 08/30/17 01:27 Potassium Chloride 100 ml @ 50 mls/hr Q2H PRN IV 08/27/17 08:30 Potassium Chloride 100 ml @ 50 mls/hr Q2H PRN IV 08/27/17 08:30 08/30/17 05:38 Potassium Chloride 100 ml @ 25 mls/hr UNSCH PRN IV 08/27/17 08:30 Potassium Chloride 100 ml @ 50 mls/hr Q2H PRN IV 08/27/17 08:30 08/31/17 01:07 Magnesium Sulfate 4 gm/Sodium Chloride 100 ml @ 50 mls/hr UNSCH PRN IV 08/27/17 08:30 (Mag-Ox) 800 mg UNSCH PRN PO 08/27/17 08:30 Magnesium Sulfate 2 gm/Sodium Chloride 100 ml @ 50 mls/hr UNSCH PRN IV 08/27/17 08:30 (K-Phos) 2,000 mg Q4H PRN PO 08/27/17 08:30 Sodium Phosphate 30 mmol/Sodium Chloride 250 ml @ 42 mls/hr UNSCH PRN IV 08/27/17 08:30 (K-Phos) 2,000 mg UNSCH PRN PO/TUBE 08/27/17 08:30 Potassium Phosphate 30 mmol/ Sodium Chloride 260 ml @ 42 mls/hr UNSCH PRN IV 08/27/17 08:30 Ceftriaxone Sodium 1000 mg/ Sodium Chloride 100 ml @ 200 mls/hr Q24H IV 08/27/17 09:00 09/03/17 08:24 (Pepcid) 20 mg BID PO 08/27/17 21:00 09/03/17 08:23 (Microzide) 12.5 mg DAILY PO 08/28/17 09:00 09/03/17 08:22 (Prinivil) 10 mg DAILY PO 08/28/17 09:00 09/03/17 08:22 (Heparin Inj) 5,000 units Q8HR SQ 08/29/17 14:00 09/03/17 14:04 (Lactinex Pkt) 1 gm TID PO 08/29/17 18:00 09/03/17 14:04 (Apresoline Inj) 10 mg Q1H PRN IV PUSH 08/30/17 10:30 (Melatonin) 10 mg HS PRN PO 09/01/17 12:15 09/02/17 21:53 (SEROquel) 100 mg Q12HR PO 09/02/17 21:00 09/03/17 08:23 (Trileptal) 300 mg BID PO 09/02/17 21:00 09/03/17 08:22 Family Psych History Patient has a causing with bipolar disorder Social History Patient was born and raised in [place], he lives in 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 2) Family support, high level of education Physical Exam Vital Signs Vital Signs Date Time Temp Pulse Resp B/P (MAP) Pulse Ox O2 Delivery O2 Flow Rate FiO2 09/03/17 12:00 98.7 68 20 114/56 (75) 98 08/30/17 09:37 21 08/30/17 07:00 Room Air I/O 09/03/17 09/03/17 09/04/17 08:00 16:00 00:00 Intake Total 120 ml 100 ml Output Total 500 ml Balance -380 ml 100 ml Lab Results Date/Time Source Procedure Growth Status 08/25/17 13:40 Blood Peripheral Aerobic Blood Culture - Final NO GROWTH IN 5 DAYS Complete 08/25/17 13:40 Blood Peripheral Anaerobic Blood Culture - Final NO GROWTH IN 5 DAYS Complete 08/23/17 02:15 Sputum Endotracheal Gram Stain - Final Complete 08/23/17 02:15 Sputum Culture - Final Staphylococcus Aureus Complete Mental Status Examination Appearance: Appropriate Consciousness: Alert Orientation: x4 Motor Activity: Normal gait Speech: Unremarkable Language: Adequate Fund of Knowledge: Adequate Attention and Concentration: Adequate Memory: Unremarkable Mood: Appropriate Affect: Appropriate Thought Process & Associations: Intact Thought Content: Appropriate Hallucination Type: None Delusion Type: None Suicidal Ideation: No Suicidal Plan: No Suicidal Intention: No Homicidal Ideation: No Homicidal Plan: No Homicidal Intention: No Insight: Adequate Judgment: Adequate Assessment & Plan Problem List: (1) 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 Denies suicidal and homicidal ideation, he denies visual and auditory hallucinations. In a brief admitted test to Folstein Mini-Mental state, patient is scored 30 of 30, without any evidence of prominent executive function at this moment. Patient does not meet criteria for psychiatric admission at this moment. Patient does have an increased risk for poor impulse control and agitation due to the geography of brain damage and due to his history of bipolar disorder, but at this moment there is no agitation, no restlessness, no aggressive behavior, no paranoia, no ideas of reference, no psychosis present. Agree with bridging from Haldol IM to Seroquel 50 mg twice a day to control behavior and impulse. Try to avoid benzodiazepines/anticholinergics to avoid worsening of cognition and due to the elevator risk of paradoxical reaction. Extensive support, motivation and psychoeducation provided. Consult appreciated. Assessment & Plan Estimated LOS: Silvino Wagner MD Sep 03, 2017 14:36
[2017-09-03 16:00] VITALS: BP 147/88; PULSE 80; RESP 20; TEMP 99.1; O2SAT 94
--- NOTE | 2017-09-03 16:03 | HHI.PR ---
Neuropsych Behavior Behavior: Moderate: Frustration Tolerance/Grant, Impulsive/Agitated Cognitive Cognitive: Intact: Attention/Concentration, Confused/Orientation, Memory, Moderate: Cognitive, Insight/Awareness, Judgement/Problem-Solving Psychosocial Psychosocial: Intact: Psychosocial, Family/Other Adjustment, Realistic Expectation, Self-Esteem/Confidence Progress Notes/Response to Tx Contents of Sessions: Adjustment Time with Patient: 30 minutes Premorbid psychological status Premorbid Cognitive, Emotional and Behavioral Status: Stable. The patient has some college years of education and a solid work history prior to this injury. The patient has no psychiatric difficulties, as described above. Substance abuse history is unremarkable. Behavioral Reactions of Patient and Family/Support System: Stable. The patient s family is experiencing ongoing issues of adjustment given the nature of the injury, and this aspect of recovery will require ongoing monitoring. Emotional/Behavioral Status of Patient and Family/Support System: Stable. Pertinent issues, if appropriate to this patients clinical care, are described in detail above. Maximizing acute care outcome It is recommended that the patient be monitored for emergent behavioral impulsivity as the medical condition evolves. This patients neuropathological challenges may limit their rehabilitation potential going forward, and these challenges will require specialized therapeutic skills to maximize outcome. Anticipated Problems Ongoing areas of concern will include behavioral impulsivity, lack of insight and judgment, which is expected to improve with time and treatment. Presently , the patient awake and alert, but frequently agitated/restless consistent with his brain injury. Treatment Plan This clinician will continue to follow with you throughout the course of this patients acute care treatment, and I will be available to meet with the patient s family/support system to facilitate their understanding and the ongoing care of their family member. The goals of neuropsychological intervention shall be both educational and supportive to the family/support system as is deemed clinically appropriate. Additionally, I would recommend a referral to Dr. Ely for ongoing patient and family adjustment issues if they are coming to [facility]. Impression This is a 67 year old man s/p bifrontal ICH on 08/21/2017 now with residual neurocognitive and neurobehavioral deficits including restlessness, agitation, disorientation and hallucinations. 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 The patient will be discharged home. I discussed with the patient and his about complications from his frontal lobe stroke, specifically with regards to impaired insight, awareness and judgment. I told the patient NOT to drive, climb ladders or use power tools, to remove guns, etc. from the home. I told him that he will not return to work any time soon. I told him that he must take his Seroquel as prescribed. I told the that in the event that the patient becomes unruly to call the low pressure boiler operator's office, and provided her my cell phone number to call me in order to facilitate a Mart[place] Act. Case management will work to schedule a follow-up one hour neurobehavioral status exam in one week, and on from there to monitor his progress. The patient was in agreement with all that was told to him. Brice Oswald PhD Sep 03, 2017 4:03 pm
--- NOTE | 2017-09-03 16:45 | HHI.PR ---
Subjective Remarks Follow-up for multiple medical conditions listed in assessment and plan Patient found sitting in a chair with his . He stated that he is doing a lot better. He is ambulating. He stated that his main concern is that his memory isn't as great as it was before. During his interview patient memory seems to be intact and he was answering questions appropriately. Deny any shortness of breathing. He stated that he had 2 episodes of diarrhea yesterday but none today. Objective Vitals Vital Signs Date Time Temp Pulse Resp B/P (MAP) Pulse Ox O2 Delivery O2 Flow Rate FiO2 09/03/17 12:00 98.7 68 20 114/56 (75) 98 09/03/17 08:00 99.0 105 14 141/94 (110) 98 09/03/17 04:00 98.6 82 20 137/99 (112) 96 09/03/17 00:00 98.6 88 21 138/84 (102) 95 09/02/17 20:00 98.2 76 22 130/87 (101) 93 09/02/17 19:00 21 I/O 09/02/17 09/02/17 09/02/17 09/03/17 09/03/17 09/03/17 07:00 15:00 23:00 07:00 15:00 23:00 Intake Total 360 ml 100 ml 240 ml 120 ml 100 ml Output Total 550 ml 500 ml Balance -190 ml 100 ml 240 ml -380 ml 100 ml Intake Oral 360 ml 240 ml 120 ml IV Total 100 ml 100 ml Output Urine Total 550 ml 500 ml # Voids 1 1 # Bowel Movements 0 0 Result Diagram: 09/01/1744909/01/17449 Objective Remarks GENERAL: in NAD CARDIOVASCULAR: Regular rate and rhythm without murmurs, gallops, or rubs. RESPIRATORY: Breath sounds equal bilaterally. No accessory muscle use. GASTROINTESTINAL: Abdomen soft, non-tender, nondistended. MUSCULOSKELETAL: No cyanosis, or edema. BACK: Nontender without obvious deformity. No CVA tenderness. Medications and IVs Current Medications Sodium Chloride 1,000 ml @ 70 mls/hr [id number] ONCE IV Last administered on t 08:18; Start 08/21/17 at 07:06; Stop 08/21/17 at 08:48; Status DC Nicardipine HCl 25 mg/Sodium Chloride 250 ml @ 50 mls/hr TITRATE PRN IV Blood pressure management Last administered on 08/21/17 08:17; Start 08/21/17 at 07 :15; Stop 08/21/17 at 08:48; Status DC Nicardipine HCl (Cardene Inj) 25 mg STK-MED ONCE .ROUTE ; Start 08/21/17 at 07: 06; Stop 08/21/17 at 07:07; Status DC Lorazepam (Ativan Inj) 2 mg STK-MED ONCE .ROUTE ; Start 08/21/17 at 07:38; Stop 08/21/17 at 07:39; Status DC Lorazepam (Ativan Inj) 2 mg STK-MED ONCE .ROUTE ; Start 08/21/17 at 07:40; Stop 08/21/17 at 07:41; Status DC Lorazepam (Ativan Inj) 2 mg ONCE ONCE IV PUSH Last administered on 08/21/17 08:19; Start 08/21/17 at 07:45; Stop 08/21/17 at 07:46; Status DC Fosphenytoin Sodium 1000 mgpe/ Sodium Chloride 70 ml @ 280 mls/hr ONCE ONCE IV Last administered on 08/21/17 08:22; Start 08/21/17 at 08:00; Stop 08/21 at 08:14; Status DC Iodixanol (VISIPAQUE 320 INJ (Rad CT)) 50 ml STK-MED ONCE IVCONTRAST Last administered on 08/21/17 07:51; Start 08/21/17 at 07:51; Stop 08/21/17 at 07 :52; Status DC Nicardipine HCl 25 mg/Sodium Chloride 250 ml @ 50 mls/hr TITRATE PRN IV Blood pressure management; Start 08/21/17 at 08:45; Stop 08/29/17 at 11:48; Status DC Sodium Chloride (NS Flush) 2 ml UNSCH PRN IV FLUSH FLUSH AFTER USING IV ACCESS ; Start 08/21/17 at 08:45; Stop 08/21/17 at 11:58; Status DC Sodium Chloride (NS Flush) 2 ml BID IV FLUSH Last administered on 08/21/17 10 :11; Start 08/21/17 at 09:00; Stop 08/21/17 at 11:58; Status DC Potassium Chloride/Dextrose/ Sod Cl 1,000 ml @ 100 mls/hr Q10H IV Last administered on 08/21/17 10:09; Start 08/21/17 at 09:00; Stop 08/21/17 at 10 :47; Status DC Docusate Sodium (Colace) 100 mg BID PO Last administered on 09/02/17 08:55; Start 08/21/17 at 09:00 Pantoprazole Sodium (Protonix Inj) 40 mg DAILY IVP Last administered on 09:02; Start 08/21/17 at 09:00; Stop 08/27/17 at 14:21; Status DC Ondansetron HCl (Zofran Inj) 4 mg Q6H PRN IV PUSH NAUSEA OR VOMITING Last administered on 08/22/17 22:00; Start 08/21/17 at 08:45 Labetalol HCl (Trandate Inj) 10 mg Q1H PRN IV SYS BP GREATER THAN 140 MMHG Last administered on 09/01/17 12:06; Start 08/21/17 at 08:45 Clonidine (Catapres) 0.1 mg Q6H PRN PO SYS BP GREATER THAN 140 MMHG Last administered on 09/01/17 23:54; Start 08/21/17 at 08:45 Enalaprilat (Vasotec Inj) 1.25 mg Q8H PRN IV PUSH SBP>140, DBP>90 Last administered on 08/30/17 22:03; Start 08/21/17 at 08:45 Etomidate (Amidate Inj) 40 mg STK-MED ONCE .ROUTE Last administered on 09:30; Start 08/21/17 at 09:30; Stop 08/21/17 at 09:31; Status DC Fentanyl Citrate (fentaNYL INJ) 200 mcg STK-MED ONCE .ROUTE Last administered on 08/21/17 09:30; Start 08/21/17 at 09:30; Stop 08/21/17 at 09:31; Status DC Rocuronium [place] (Zemuron Inj) 50 mg STK-MED ONCE .ROUTE Last administered on 08/21/17 09:30; Start 08/21/17 at 09:30; Stop 08/21/17 at 09:31; Status DC Propofol 50 ml @ As Directed STK-MED ONCE .ROUTE Last administered on 10:18; Start 08/21/17 at 09:32; Stop 08/21/17 at 09:33; Status DC Sodium Chloride 1,000 ml @ 40 mls/hr Q24H IV Last administered on 08/26/17 12:27; Start 08/21/17 at 12:00; Stop 08/27/17 at 08:20; Status DC Sodium Chloride (NS Flush) 2 ml UNSCH PRN IV FLUSH FLUSH AFTER USING IV ACCESS ; Start 08/21/17 at 10:45 Sodium Chloride (NS Flush) 2 ml BID IV FLUSH Last administered on 09/03/17 08: 24; Start 08/21/17 at 21:00 Albuterol/ Ipratropium (Duoneb Neb) 1 ampule Q6HR NEB NEB Last administered on 08/25/17 15:43; Start 08/21/17 at 16:00; Stop 08/25/17 at 15:59; Status DC Albuterol/ Ipratropium (Duoneb Neb) 1 ampule Q4HR NEB PRN INH SHORTNESS OF BREATH Last administered on 08/26/17 01:42; Start 08/21/17 at 10:45 Chlorhexidine Gluconate (Peridex 0.12% Liq) 15 ml BID@08,20 MT Last administered on 08/29/17 22:35; Start 08/21/17 at 20:00 Miscellaneous Information 1 Q361D XX ; Start 08/21/17 at 10:45 Chlorhexidine Gluconate (Chlorhexidine 2% Cloth) Taper DAILY@04 TOP Last administered on 09/01/17 07:00; Start 08/22/17 at 04:00; Stop 08/18/18 at 03: 59 Chlorhexidine Gluconate (Chlorhexidine 2% Cloth) 3 pack UNSCH PRN TOP HYGIENIC CARE; Start 08/21/17 at 10:45 Propofol 100 ml @ 2.448 mls/ hr TITRATE PRN IV SEDATION Last administered on 08/25/17 06:00; Start 08/21/17 at 10:45; Stop 08/26/17 at 06:37; Status DC Insulin Aspart (NovoLOG SUPPLEMENTAL SCALE) 1 Q6HR SQ Last administered on 12:00; Start 08/21/17 at 12:00; Stop 08/27/17 at 08:20; Status DC Dextrose (D50w (Vial) Inj) 50 ml UNSCH PRN IV PUSH HYPOGLYCEMIA - SEE COMMENTS ; Start 08/21/17 at 12:15; Stop 09/01/17 at 18:20; Status DC Glucagon (Glucagon Inj) 1 mg UNSCH PRN OTHER HYPOGLYCEMIA-SEE COMMENTS; Start 08/21/17 at 12:15; Stop 09/01/17 at 18:20; Status DC Fentanyl Citrate (fentaNYL INJ) 100 mcg Q2H PRN IV PAIN SCALE 1 TO 10 Last administered on 08/22/17 22:02; Start 08/21/17 at 13:00; Stop 08/24/17 at 09 :30; Status DC Norepinephrine Bitartrate (Levophed Inj) 4 mg STK-MED ONCE .ROUTE ; Start 08/21 at 15:31; Stop 08/21/17 at 15:32; Status DC Gadodiamide (Omniscan Pf Inj) 16 ml STK-MED ONCE IVCONTRAST ; Start 08/21/17 at 16:27; Stop 08/21/17 at 16:28; Status DC Phenytoin Sodium (Dilantin Inj) 200 mg Q8HR IV Last administered on 08/28/17 06:37; Start 08/21/17 at 17:45; Stop 08/28/17 at 11:55; Status DC Norepinephrine Bitartrate 4 mg/ Sodium Chloride 254 ml @ 7.62 mls/hr TITRATE PRN IV Maintain MAP > 65 mmHg Last administered on 08/25/17 08:45; Start at 18:00; Stop 08/28/17 at 11:55; Status DC Sodium Chloride 1,000 ml @ 1,000 mls/hr Q1H IV Last administered on 06:35; Start 08/22/17 at 04:00; Stop 08/22/17 at 05:59; Status DC Lamotrigine (LaMICtal) 200 mg BID PO Last administered on 09/03/17 08:22; Start 08/22/17 at 21:00 Fentanyl Citrate 250 ml @ 5 mls/hr TITRATE PRN IV SEDATION Last administered on 08/23/17 22:25; Start 08/23/17 at 02:15; Stop 08/24/17 at 09:29; Status DC Sertraline HCl (Zoloft) 100 mg DAILY PO Last administered on 09/03/17 08:23; Start 08/24/17 at 09:30 Fentanyl Citrate (fentaNYL INJ) 100 mcg ONCE ONCE IV PUSH Last administered on 08/24/17 11:45; Start 08/24/17 at 11:45; Stop 08/24/17 at 12:00; Status DC Fentanyl Citrate 250 ml @ 5 mls/hr TITRATE PRN IV SEDATION Last administered on 08/25/17 06:01; Start 08/24/17 at 11:45; Stop 08/25/17 at 07:21; Status DC Acetaminophen (Tylenol) 650 mg Q6H PRN PO TEMP>101F Last administered on 16:35; Start 08/24/17 at 15:00 Piperacillin Sod/ Tazobactam Sod 100 ml @ 200 mls/hr Q6H IV Last administered on 08/27/17 01:46; Start 08/25/17 at 08:00; Stop 08/27/17 at 08:38; Status DC Vancomycin HCl 1350 mg/Sodium Chloride 513.5 ml @ 250 mls/hr ONCE ONCE IV Last administered on 08/25/17 09:00; Start 08/25/17 at 09:00; Stop 08/25/17 at 11:03; Status DC Fentanyl Citrate 250 ml @ 5 mls/hr TITRATE PRN IV SEDATION; Start 08/25/17 at 07:30; Stop 08/26/17 at 06:37; Status DC Dexmedetomidine HCl (Precedex Inj) 45 mcg ONCE ONCE IV PUSH ; Start 08/25/17 at 07:30; Stop 08/25/17 at 07:31; Status Cancel Dexmedetomidine HCl 200 mcg/ Sodium Chloride 52 ml @ 4.7 mls/hr TITRATE PRN IV SEDATION Last administered on 08/25/17 17:01; Start 08/25/17 at 07:30; Stop 08/25/17 at 19:26; Status DC Dexmedetomidine HCl (Precedex Inj) 45 mcg ONCE ONCE IV PUSH Last administered on 08/25/17 08:35; Start 08/25/17 at 08:00; Stop 08/25/17 at 08:01; Status DC Norepinephrine Bitartrate 250 ml @ As Directed STK-MED ONCE IV ; Start at 08:50; Stop 08/25/17 at 08:51; Status DC Nicotine (Habitrol 7 Mg Patch.24 Hr) 1 patch DAILY T-DERMAL Last administered on 09/03/17 09:00; Start 08/25/17 at 10:00 Miscellaneous Information 1 DAILY T-DERMAL Last administered on 09/03/17 09:00 ; Start 08/26/17 at 09:00 Methylprednisolone Sodium Succinate (SoluMEDROL INJ) 40 mg Q12HR IV PUSH Last administered on 08/26/17 20:07; Start 08/25/17 at 10:00; Stop 08/27/17 at 08 :20; Status DC Patient Own Medication PT OWN MED: EPCL... DAILY PO ; Start 08/25/17 at 10:06; Stop 08/25/17 at 10:53; Status DC Patient Own Medication PT OWN MED: EPCL... DAILY PO ; Start 08/25/17 at 11:30; Stop 08/25/17 at 13:40; Status DC Sodium Chloride 500 ml @ 999 mls/hr Q31M IV Last administered on 08/25/17 09 :45; Start 08/25/17 at 14:30; Stop 08/25/17 at 15:01; Status DC Lorazepam (Ativan Inj) 2 mg STK-MED ONCE .ROUTE Last administered on 14:50; Start 08/25/17 at 14:49; Stop 08/25/17 at 14:50; Status DC Lorazepam (Ativan Inj) 2 mg Q4H PRN IV AGITATION Last administered on 05:06; Start 08/25/17 at 16:00; Stop 08/26/17 at 09:05; Status DC Haloperidol Lactate (Haldol Inj) 5 mg Q4H PRN IV AGITATION Last administered on 08/29/17 05:17; Start 08/25/17 at 18:45; Stop 08/29/17 at 11:48; Status DC Influenza Virus Vaccine (Flu (Quadrivalent) Vaccine Inj) 0.5 ml ONCE ONCE IM ; Start 08/26/17 at 10:00; Stop 08/26/17 at 10:01; Status Cancel Dexmedetomidine HCl 1000 mcg/ Sodium Chloride 250 ml @ 4.52 mls/hr TITRATE PRN IV SEDATION Last administered on 08/30/17 01:27; Start 08/25/17 at 19:30; Status Future Hold Albuterol/ Ipratropium (Duoneb Neb) 1 ampule Q6HR NEB NEB Last administered on 08/30/17 04:51; Start 08/26/17 at 06:45; Stop 08/30/17 at 06:44; Status DC Lorazepam (Ativan Inj) 2 mg Q6HR PRN IV AGITATION; Start 08/26/17 at 14:00; Stop 08/26/17 at 16:43; Status DC Furosemide (Lasix Inj) 20 mg ONCE ONCE IV PUSH Last administered on 12:26; Start 08/26/17 at 12:30; Stop 08/26/17 at 12:31; Status DC Potassium Chloride 100 ml @ 25 mls/hr ONCE ONCE IV Last administered on 08/26 12:27; Start 08/26/17 at 12:30; Stop 08/26/17 at 16:29; Status DC Insulin Aspart (NovoLOG SUPPLEMENTAL SCALE) 1 BIDAC SQ ; Start 08/27/17 at 16: 00; Stop 09/01/17 at 18:20; Status DC Methylprednisolone Sodium Succinate (SoluMEDROL INJ) 40 mg DAILY IV PUSH Last administered on 08/29/17 09:43; Start 08/27/17 at 09:00; Stop 08/29/17 at 12: 00; Status DC Potassium Chloride 100 ml @ 50 mls/hr Q2H PRN IV For Potassium 2.8 - 3.2 mEq/L ; Start 08/27/17 at 08:30 Potassium Chloride 100 ml @ 50 mls/hr Q2H PRN IV For Potassium 2.8 - 3.2 mEq/ L Last administered on 08/30/17 05:38; Start 08/27/17 at 08:30 Potassium Chloride 100 ml @ 25 mls/hr UNSCH PRN IV For Potassium 3.3 - 3.5 mEq /L; Start 08/27/17 at 08:30 Potassium Chloride 100 ml @ 50 mls/hr Q2H PRN IV For Potassium 3.3 - 3.5 mEq/ L Last administered on 08/31/17 01:07; Start 08/27/17 at 08:30 Magnesium Sulfate 4 gm/Sodium Chloride 100 ml @ 50 mls/hr UNSCH PRN IV For Magnesium 0.9 - 1.1 mg/dL; Start 08/27/17 at 08:30 Magnesium Oxide (Mag-Ox) 800 mg UNSCH PRN PO For Magnesium 1.2 - 1.6 mg/dL; Start 08/27/17 at 08:30 Magnesium Sulfate 2 gm/Sodium Chloride 100 ml @ 50 mls/hr UNSCH PRN IV For Magnesium 1.2 - 1.6 mg/dL; Start 08/27/17 at 08:30 Potassium Phosphate (K-Phos) 2,000 mg Q4H PRN PO For Phosphorus < 2.5 mg/dL; Start 08/27/17 at 08:30 Sodium Phosphate 30 mmol/Sodium Chloride 250 ml @ 42 mls/hr UNSCH PRN IV For Phosphorus < 2.5 mg/dL; Start 08/27/17 at 08:30 Potassium Phosphate (K-Phos) 2,000 mg UNSCH PRN PO/TUBE SEE LABEL COMMENTS; Start 08/27/17 at 08:30 Potassium Phosphate 30 mmol/ Sodium Chloride 260 ml @ 42 mls/hr UNSCH PRN IV SEE LABEL COMMENTS; Start 08/27/17 at 08:30 Ceftriaxone Sodium 1000 mg/ Sodium Chloride 100 ml @ 200 mls/hr Q24H IV Last administered on 09/03/17 08:24; Start 08/27/17 at 09:00; Stop 09/03/17 at 16: 18; Status DC Famotidine (Pepcid) 20 mg BID PO Last administered on 09/03/17 08:23; Start 08/27/17 at 21:00 Hydrochlorothiazide (Microzide) 12.5 mg DAILY PO Last administered on 08:22; Start 08/28/17 at 09:00 Sodium Chloride 50 ml @ As Directed STK-MED ONCE .ROUTE Last administered on 06:38; Start 08/28/17 at 04:24; Stop 08/28/17 at 04:25; Status DC Hydralazine HCl (Apresoline Inj) 20 mg Q4H PRN IV PUSH SBP greater than 145mm Hg Last administered on 08/29/17 02:04; Start 08/28/17 at 07:00; Stop 08/30/17 at 10:20; Status DC Lorazepam (Ativan Inj) 1 mg ONCE STAT IV PUSH Last administered on 08/28/17 07:00; Start 08/28/17 at 06:51; Stop 08/28/17 at 06:57; Status DC Lisinopril (Prinivil) 10 mg DAILY PO Last administered on 09/03/17 08:22; Start 08/28/17 at 09:00 Quetiapine Fumarate (SEROquel) 25 mg DAILY PO ; Start 08/29/17 at 14:00; Stop 08/29/17 at 14:00; Status DC Quetiapine Fumarate (SEROquel) 25 mg STAT ONCE PO Last administered on 15:04; Start 08/28/17 at 11:45; Stop 08/28/17 at 13:10; Status DC Quetiapine Fumarate (SEROquel) 50 mg HS PO Last administered on 08/28/17 22:25 ; Start 08/28/17 at 21:00; Stop 08/29/17 at 11:50; Status DC Quetiapine Fumarate (SEROquel) 25 mg DAILY PO ; Start 08/29/17 at 09:00; Stop 08/29/17 at 09:00; Status DC Phenytoin (Dilantin) 200 mg TID PO Last administered on 09/02/17 08:54; Start 08/28/17 at 13:00; Stop 09/02/17 at 13:29; Status DC Nitroglycerin (Nitrostat Sl) 0.4 mg STAT STAT SL Last administered on 15:06; Start 08/28/17 at 13:17; Stop 08/28/17 at 13:55; Status DC Morphine Sulfate (Morphine Inj) 4 mg ONCE ONCE IV PUSH Last administered on 15:06; Start 08/28/17 at 14:00; Stop 08/28/17 at 14:01; Status DC Lorazepam (Ativan Inj) 1 mg ONCE ONCE IV PUSH Last administered on 08/28/17 18:00; Start 08/28/17 at 18:00; Stop 08/28/17 at 18:01; Status DC Iohexol (Omnipaque 350 Inj) 100 ml STK-MED ONCE IVCONTRAST Last administered on 08/28/17 18:06; Start 08/28/17 at 18:06; Stop 08/28/17 at 18:13; Status DC Clonidine (Catapres-Tts 0.1mg Patch.7d) 1 patch ONCE ONCE T-DERMAL Last administered on 08/29/17 09:43; Start 08/29/17 at 07:30; Stop 08/29/17 at 07:31 ; Status DC Quetiapine Fumarate (SEROquel) 50 mg DAILY PO Last administered on 08/31/17 09 :06; Start 08/29/17 at 14:00; Stop 08/31/17 at 10:49; Status DC Quetiapine Fumarate (SEROquel) 50 mg DAILY PO ; Start 08/30/17 at 09:00; Stop 08/30/17 at 09:00; Status DC Quetiapine Fumarate (SEROquel) 100 mg HS PO Last administered on 09/01/17 20: 04; Start 08/29/17 at 21:00; Stop 09/02/17 at 13:43; Status DC Heparin Sodium (Porcine) (Heparin Inj) 5,000 units Q8HR SQ Last administered on 09/03/17 14:04; Start 08/29/17 at 14:00 Lactobacillus Acidophilus (Lactinex Pkt) 1 gm TID PO Last administered on 14:04; Start 08/29/17 at 18:00 Haloperidol Lactate (Haldol Inj) 5 mg ONCE ONCE IV PUSH ; Start 08/30/17 at 02: 15; Stop 08/30/17 at 02:18; Status DC Lorazepam (Ativan Inj) 2 mg ONCE ONCE IV PUSH ; Start 08/30/17 at 02:15; Stop 08/30/17 at 02:18; Status DC Hydralazine HCl (Apresoline Inj) 10 mg Q1H PRN IV PUSH SBP greater than 145mm Hg; Start 08/30/17 at 10:30 Ziprasidone (Geodon Inj) 10 mg Q12H PRN IM AGITATION Last administered on 21:18; Start 08/30/17 at 14:45; Stop 09/02/17 at 14:44; Status DC Quetiapine Fumarate (SEROquel) 100 mg DAILY PO Last administered on 09/02/17 08:53; Start 09/01/17 at 09:00; Stop 09/02/17 at 13:22; Status DC Potassium Chloride (KCl) 30 meq ONCE ONCE PO Last administered on 08/31/17 13 :45; Start 08/31/17 at 11:00; Stop 08/31/17 at 11:04; Status DC Acetaminophen 100 ml @ 400 mls/hr Q6H PRN IV PAIN SCALE 8 TO 10 Last administered on 09/01/17 14:09; Start 09/01/17 at 12:15; Stop 09/02/17 at 12:15 ; Status DC Melatonin (Melatonin) 10 mg HS PRN PO INSOMNIA Last administered on 09/02/17 21:53; Start 09/01/17 at 12:15 Quetiapine Fumarate (SEROquel) 100 mg Q12HR PO Last administered on 09/03/17 08:23; Start 09/02/17 at 21:00 Oxcarbazepine (Trileptal) 300 mg BID PO Last administered on 09/03/17 08:22; Start 09/02/17 at 21:00 Cefuroxime Axetil (Ceftin) 500 mg Q12HR PO ; Start 09/03/17 at 21:00 A/P Problem List: (1) Intracranial hemorrhage ICD Code: I62.9 - Nontraumatic intracranial hemorrhage, unspecified Status: Acute (2) 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 Status post propofol and fentanyl drips since 08/25. s/p dexmedetomidine for agitation/delirium currently at 0.7 mg/kg per minute discontinued 08/31. On phenytoin to PO 200 mg 3 times a day on 08/28 and follow level, Lamotrigine 200 mg twice a day resumed 08/22, and sertraline 100 mg by mouth daily at bedtime. Neuropsychologist evaluation appreciated. on quetiapine 100 milligrams a.m. -100 mg at night for hallucinations/delirium. -on ziprasidone 10 mg IM every 12 hours for maximum of 3 days severe agitation. -Repeat head CT per neurosurgery on 08/29 revealed evolving bifrontal hemorrhages. - Ofirmev 1 g every 6 hours when necessary 24 hours for VAS pain scale greater than 8/10 Acute respiratory failure - resolved/Right pneumothorax status post chest tube placement (chest tube discontinued 08/27)/MSSA pneumonia -Pulmonary: Extubated on 08/25, initially on nonrebreather facemask, currently on 2 L nasal cannula. bronchodilators as needed. Sputum cultures growing MSSA. s/p chest tube for rt pneumothorax which was discontinued on 08/27. CT chest negative for PE however showed significant right sided pneumonia on 08/28. -Asymptomatic at the moment. Currently on Rocephin. Since patient is asymptomatic will switch to oral medication in which patient sensitive to. Will start Ceftin. Sepsis -ID: Sputum cultures growing MSSA. Concern for aspiration. Started on IV piperacillin/tazobactam on 08/25, de-escalate to ceftriaxone 1 g IV daily on . Received 1 dose of vancomycin on 08/25.. On sufosbuvir/velpalasivir at home for ? Hep C. On hold currently per neurosurgery recommendations -Blood cultures negative. Positive MSSA pneumonia sputum. -Initially on Rocephin. We'll switch to Ceftin. Hypertensive emergency -Control on current regimen. Continue current regimen. -Cardiovascular: Off nicardipine gtt. started on hydrochlorothiazide 12.5 mg daily, lisinopril 10 mg daily. Enalapril/ Labetalol/hydralazine when necessary. Off IV fluids. Added clonidine patch 0.1 mg per week single dose for 7 days on 08/29 Labetalol when necessary. Plan to maintain SBP 135-140mmHg Hepatitis C -Patient is on Epclusa. Patient had a question if this caused intracranial bleed. Per nurse she was told by Dr. Julien might of. Will try to get a hold of his GI physician prescribed this Dr. Velarde to see if this can be restarted. H/O substance abuse/UDS+ amphetamines Education given. Normocytic anemia -stable. Continue to monitor. Prophylaxis: PPI/SCDs. Subcutaneous heparin cleared by neurosurgery and being started on 08/29. Discharge Planning Patient medically clear for discharge to home with home health. Jeimy Walsh MD Sep 03, 2017 16:45
[2017-09-03 20:00] VITALS: BP 123/72; PULSE 88; RESP 20; TEMP 99; O2SAT 95
[2017-09-03] MEDS: CEFUROXIME AXETIL 500 MG TAB PO SCH (21:57)
[2017-09-04] VITALS: BP 138/80; PULSE 82; RESP 18; TEMP 98.8; O2SAT 94
[2017-09-04 04:00] VITALS: BP 143/90; PULSE 84; RESP 20; TEMP 99; O2SAT 95
[2017-09-04] MEDS: CHLORHEXIDINE GLUCONATE 2 % 1 PACK (2 CLOTHS) TOP SCH (04:00)
[2017-09-04] MEDS: HEPARIN SODIUM - SQ 10,000 UNITS/ML VIAL SQ SCH ×2 (05:12→13:05)
[2017-09-04 08:00] VITALS: BP 144/85; PULSE 84; RESP 24; TEMP 98.4; O2SAT 94
[2017-09-04] MEDS: CHLORHEXIDINE 0.12% (ORAL KIT) 15 ML CUP MT SCH (08:00)
--- NOTE | 2017-09-04 08:59 | HHI.NSPN ---
History Chief Complaint: No complaints Interval History 08/21: 67-year-old male presents to the emergency room today approximately 7 AM with history of headache for several days, increasing significantly at 6:30 AM today. His initial blood pressure was 261/143. He was placed on a nicardipine drip for initial blood pressure control. 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 He was reportedly awake and alert upon presentation to the emergency room, with left facial and upper extremity weakness. He reportedly developed increasing speech difficulty following a CT scan this morning, and subsequently was noted to have a seizure which was initially treated with Ativan. Since then he has been more lethargic and nonverbal. 08/22: The patient is obtunded this morning but he is sedated with propofol. Nursing reports that he is off all other sedation and blood pressure drips. She also reports that the patient is spontaneously moving his extremities and responds to noxious stimulation. He did go for a repeat CT brain this morning. 08/23: The patient is agitated and thrashing about in bed when seen. Nursing and the Break Up Worker are present and a needle decompression had been done for a pneumothorax on the right side which was demonstrated on his CXR this morning. They were preparing to place a right-sided chest tube. The patient continues to be intubated and mechanically ventilated. He does have propofol for sedation and fentanyl for pain management infusing. 08/24: The patient is obtunded this morning when seen. He is on propofol for sedation. He remains intubated and mechanically ventilated with a right-sided chest tube. Nursing reports his fentanyl was stopped about 20 minutes prior to being seen. She also reports that the patient is being restarted on his psych meds prior to weaning his sedation. 08/25: When seen this morning the patient continues to be obtunded. He remains intubated and on mechanical ventilation. He had been on propofol which was discontinued and started on dexmedetomidine this morning. The fentanyl drip was also discontinued. The Break Up Worker was in the room discussing the plan of care with the patient's sister when the patient was seen. After seen the Break Up Worker notified this practitioner that the patient was now following commands and the patient was seen again and did follow commands for this practitioner and open his eyes to voice. 08/26/17: Extubated. Remains on Precedex drip for agitation. Spontaneous eye opening. He knows his family. Answers a few questions yes/no. Follows commands all extremities. 08/26/17 CT scan had stable right frontal intracranial hemorrhage with local mass effect. 08/27: This morning the patient is awake and alert. He is mildly agitated and fidgeting about in bed. The dexmedetomidine is still infusing for sedation this morning. He replies he is doing good when asked. He does endorse a slight headache which he says is getting better as well as some slight dizziness. His is present in the room and states that he was up most of the night. 08/28: The patient is drowsy but does respond to voice. He is agitated. He does have dexmedetomidine infusing but the pump is beeping. The Nurse was in another room and notified. He is doing okay and endorses a slight headache. Family is at the bedside. 08/29: The patient is seen in rounds with Dr Kong this morning. He is awake and alert, laying calmly in the bed. He says he is doing good but does have a slight headache that is better. His family says that during the night he was agitated and was given three doses of haloperidol. She reports that the patient is to be started on clonazepam. 3: When seen this morning the patient is awake and alert. He does say he has a slight headache that is improving. He is in soft restraints and is on a dexmedetomidine drip for agitation. He appears calm when seen. Nursing reports that a Psychiatric consult is to be ordered. 4: agitation better, weaning down on Precedex. family reports mental status improving, requests daily therapy. 115: reports thinking clearer, PT in room. denies headaches, seizures, vomiting. 6: The patient is seen in rounds with Dr Kong this morning. He says he is doing good. He reported a headache earlier that was relieved with intravenous acetaminophen. He states that he has been up ambulating and that his gait is steady. He did say he had some chest pain that felt like his indigestion but none at present. His did say his memory is better. She reports he does become more agitated in the evenings. He is not on any drips when seen. Nursing reports that [facility] is in the process of getting authorisation for him there. 09/03: Prior to being seen this morning the patient is seen ambulating around [facility] w/a steady gait. He had no complaints when seen except for epigastric/mid chest discomfort that feels like his GERD symptoms and started when his antibiotic was hung. He did state that he had a headache last night but none at present. 09/04: This morning the patient is awake and alert sitting on the couch in the room. He has no complaints at all. Yesterday Neuropsych and Psychiatry cleared the patient for discharge. The patient stated he has a niece who is a Physical Therapist and will get with her for a therapy program to increase his strength and endurance. System Review Comments Patient has no complaints upon a review of systems except for some arthritis pain and weakness. Exam Results 09/02/17 09/02/17 09/03/17 09/03/17 09/04/17 09/04/17 06:00 18:00 06:00 18:00 06:00 18:00 Intake Total 360 ml 100 ml 360 ml 900 ml 460 ml Output Total 550 ml 500 ml 400 ml Balance -190 ml 100 ml -140 ml 900 ml 60 ml Intake Oral 360 ml 360 ml 800 ml 460 ml IV Total 100 ml 100 ml Output Urine Total 550 ml 500 ml 400 ml # Voids 1 3 2 # Bowel Movements 0 0 1 Vital Signs Date Time Temp Pulse Resp B/P (MAP) Pulse Ox O2 Delivery O2 Flow Rate FiO2 09/04/17 08:00 98.4 84 24 144/85 (104) 94 09/04/17 04:00 99.0 84 20 143/90 (107) 95 09/04/17 00:00 98.8 82 18 138/80 (99) 94 09/03/17 20:00 99.0 88 20 123/72 (89) 95 09/03/17 16:00 99.1 80 20 147/88 (107) 94 09/03/17 12:00 98.7 68 20 114/56 (75) 98 09/03/17 08:00 99.0 105 14 141/94 (110) 98 09/03/17 04:00 98.6 82 20 137/99 (112) 96 09/03/17 00:00 98.6 88 21 138/84 (102) 95 09/02/17 20:00 98.2 76 22 130/87 (101) 93 09/02/17 19:00 21 09/02/17 16:00 98.0 78 18 130/74 (92) 09/02/17 12:00 98.0 86 18 145/85 (105) 09/02/17 08:00 98.0 84 18 139/75 (96) 09/02/17 06:30 141/82 (101) 09/02/17 06:00 81 09/02/17 04:00 82 09/02/17 04:00 98.4 78 16 174/90 (118) 95 09/02/17 02:00 80 09/02/17 00:00 81 09/02/17 00:00 98.4 81 16 155/76 (102) 95 09/01/17 22:00 82 09/01/17 20:00 98.2 72 12 156/75 (102) 99 09/01/17 16:00 99.0 87 22 146/80 (102) 97 09/01/17 12:00 98.7 90 20 153/96 (115) 96 Physical Examination GENERAL: The patient is awake & alert this morning sitting on the couch in his room. His affect is normal and he is not in any apparent distress. HEENT: Normocephalic, atraumatic. PERRLA 3 mm brisk, EOMI. MMM & pink, tongue midline to protrusion. MUSCULOSKELETAL: MOLINA w/o difficulty spontaneously. NEUROLOGICAL: AAOx2 (Person & place, still confused as to time.) Speech clear & appropriate. Follows simple commands w/o difficulty. CN II-XII appear grossly intact. Sensation intact to light touch to all extremities. Motor strength 4+ to 5/5 to all major flexion & extension muscle groups except left deltoid is 4/5. Lab, Micro, Other Results Laboratory Tests Test 09/01/17 18:37 09/02/17 04:15 Troponin I LESS THAN 0.02 NG/ML Phenytoin (Dilantin) Level 3.7 MCG/ML Medical Decision Making Impression and Plan Impression: 1. Bifrontal spontaneous intracranial hemorrhage 2. New onset seizure 3. Hypertension 4. Chronic tobacco use Patient still w/mild confusion, otherwise he is doing. Patient cleared by Neuropsych and Psychiatry for discharge. Plan: Discussed plan of care with patient & Nursing. Will discharge patient home. Issac Duncan [facility] Sep 04, 2017 08:59
[2017-09-04] MEDS: REMOVE OLD PATCH T-DERMAL SCH (09:00)
[2017-09-04] MEDS: SODIUM CHLORIDE 0.9% FLUSH 10 ML FLUSH IV FLUSH SCH (09:00)
[2017-09-04] MEDS: lamoTRIgine 100 MG TAB PO SCH (09:00)
[2017-09-04] MEDS: DOCUSATE SODIUM 100 MG CAP PO SCH (09:00)
[2017-09-04] MEDS ORDERED: HYDR12.57 PO (09:06)
[2017-09-04] MEDS ORDERED: CEFU1TAB20 PO (09:06)
[2017-09-04] MEDS ORDERED: QUET1TAB8 PO (09:06)
[2017-09-04] MEDS ORDERED: OXCA300T PO (09:06)
[2017-09-04] MEDS ORDERED: LISI10TA3 PO (09:06)
[2017-09-04] MEDS ORDERED: ZOLO100T PO (09:06)
[2017-09-04] MEDS: NICOTINE 7 MG/24 HR PATCH T-DERMAL SCH (10:21)
[2017-09-04] MEDS: LISINOPRIL 10 MG TAB PO SCH (10:21)
[2017-09-04] MEDS: CEFUROXIME AXETIL 500 MG TAB PO SCH (10:22)
[2017-09-04] MEDS: QUEtiapine FUMARATE 100 MG TAB PO SCH (10:22)
[2017-09-04] MEDS: HYDROCHLOROTHIAZIDE 12.5 MG CAP PO SCH (10:22)
[2017-09-04] MEDS: FAMOTIDINE 20 MG TAB PO SCH (10:23)
[2017-09-04] MEDS: SERTRALINE HCL 100 MG TAB PO SCH (10:23)
[2017-09-04] MEDS: LACTOBACILLUS ACIDOPHILUS 1 GM PACKET PO SCH ×2 (10:24→13:05)
[2017-09-04] MEDS: OXcarbazepine 300 MG TAB PO SCH (10:44)
[2017-09-04 12:00] VITALS: BP 132/60; PULSE 70; RESP 20; TEMP 98.4; O2SAT 94
--- NOTE | 2017-09-04 14:32 | HHI.PR ---
Subjective Remarks Follow-up for intracranial bleed Patient was discharged by neurosurgeon. He was found with his and his nurse at the bedside. Patient very upset that his sister appealed the discharge and he is not allowed to leave the hospital as he leaves AMA. Patient stated that he does not understand how his sister to keep him in the hospital. He is AAO 4. He has appropriate conversations with me. Patient is very upset with the healthcare system. He stated that it is not fair that his sister does not see how well he is doing and make that appeal without seeing how he is doing. Patient is eating, ambulating on his own and doing all his ADLs. His is home 20/05. She seems to be shocked that his sister appealed his discharge. But stated that his memory is not completely back. The patient is fully functional. Objective Vitals Vital Signs Date Time Temp Pulse Resp B/P (MAP) Pulse Ox O2 Delivery O2 Flow Rate FiO2 09/04/17 12:00 98.4 70 20 132/60 (84) 94 09/04/17 08:00 98.4 84 24 144/85 (104) 94 09/04/17 04:00 99.0 84 20 143/90 (107) 95 09/04/17 00:00 98.8 82 18 138/80 (99) 94 09/03/17 20:00 99.0 88 20 123/72 (89) 95 09/03/17 16:00 99.1 80 20 147/88 (107) 94 I/O 09/03/17 09/03/17 09/03/17 09/04/17 09/04/17 09/04/17 07:00 15:00 23:00 07:00 15:00 23:00 Intake Total 120 ml 100 ml 800 ml 460 ml Output Total 500 ml 400 ml Balance -380 ml 100 ml 800 ml 60 ml Intake Oral 120 ml 800 ml 460 ml IV Total 100 ml Output Urine Total 500 ml 400 ml # Voids 1 2 2 # Bowel Movements 1 Result Diagram: 09/01/1744909/01/17449 Objective Remarks GENERAL: in NAD CARDIOVASCULAR: Regular rate and rhythm without murmurs, gallops, or rubs. RESPIRATORY: Breath sounds equal bilaterally. No accessory muscle use. GASTROINTESTINAL: Abdomen soft, non-tender, nondistended. MUSCULOSKELETAL: No cyanosis, or edema. BACK: Nontender without obvious deformity. No CVA tenderness. Medications and IVs Current Medications Sodium Chloride 1,000 ml @ 70 mls/hr [id number] ONCE IV Last administered on 08:18; Start 08/21/17 at 07:06; Stop 08/21/17 at 08:48; Status DC Nicardipine HCl 25 mg/Sodium Chloride 250 ml @ 50 mls/hr TITRATE PRN IV Blood pressure management Last administered on 08/21/17 08:17; Start 08/21/17 at 07 :15; Stop 08/21/17 at 08:48; Status DC Nicardipine HCl (Cardene Inj) 25 mg STK-MED ONCE .ROUTE ; Start 08/21/17 at 07: 06; Stop 08/21/17 at 07:07; Status DC Lorazepam (Ativan Inj) 2 mg STK-MED ONCE .ROUTE ; Start 08/21/17 at 07:38; Stop 08/21/17 at 07:39; Status DC Lorazepam (Ativan Inj) 2 mg STK-MED ONCE .ROUTE ; Start 08/21/17 at 07:40; Stop 08/21/17 at 07:41; Status DC Lorazepam (Ativan Inj) 2 mg ONCE ONCE IV PUSH Last administered on 08/21/17 08:19; Start 08/21/17 at 07:45; Stop 08/21/17 at 07:46; Status DC Fosphenytoin Sodium 1000 mgpe/ Sodium Chloride 70 ml @ 280 mls/hr ONCE ONCE IV Last administered on 08/21/17 08:22; Start 08/21/17 at 08:00; Stop 08/21 at 08:14; Status DC Iodixanol (VISIPAQUE 320 INJ (Rad CT)) 50 ml STK-MED ONCE IVCONTRAST Last administered on 08/21/17 07:51; Start 08/21/17 at 07:51; Stop 08/21/17 at 07 :52; Status DC Nicardipine HCl 25 mg/Sodium Chloride 250 ml @ 50 mls/hr TITRATE PRN IV Blood pressure management; Start 08/21/17 at 08:45; Stop 08/29/17 at 11:48; Status DC Sodium Chloride (NS Flush) 2 ml UNSCH PRN IV FLUSH FLUSH AFTER USING IV ACCESS ; Start 08/21/17 at 08:45; Stop 08/21/17 at 11:58; Status DC Sodium Chloride (NS Flush) 2 ml BID IV FLUSH Last administered on 08/21/17 10 :11; Start 08/21/17 at 09:00; Stop 08/21/17 at 11:58; Status DC Potassium Chloride/Dextrose/ Sod Cl 1,000 ml @ 100 mls/hr Q10H IV Last administered on 08/21/17 10:09; Start 08/21/17 at 09:00; Stop 08/21/17 at 10 :47; Status DC Docusate Sodium (Colace) 100 mg BID PO Last administered on 09/03/17 21:57; Start 08/21/17 at 09:00 Pantoprazole Sodium (Protonix Inj) 40 mg DAILY IVP Last administered on 09:02; Start 08/21/17 at 09:00; Stop 08/27/17 at 14:21; Status DC Ondansetron HCl (Zofran Inj) 4 mg Q6H PRN IV PUSH NAUSEA OR VOMITING Last administered on 08/22/17 22:00; Start 08/21/17 at 08:45 Labetalol HCl (Trandate Inj) 10 mg Q1H PRN IV SYS BP GREATER THAN 140 MMHG Last administered on 09/01/17 12:06; Start 08/21/17 at 08:45 Clonidine (Catapres) 0.1 mg Q6H PRN PO SYS BP GREATER THAN 140 MMHG Last administered on 09/01/17 23:54; Start 08/21/17 at 08:45 Enalaprilat (Vasotec Inj) 1.25 mg Q8H PRN IV PUSH SBP>140, DBP>90 Last administered on 08/30/17 22:03; Start 08/21/17 at 08:45 Etomidate (Amidate Inj) 40 mg STK-MED ONCE .ROUTE Last administered on 09:30; Start 08/21/17 at 09:30; Stop 08/21/17 at 09:31; Status DC Fentanyl Citrate (fentaNYL INJ) 200 mcg STK-MED ONCE .ROUTE Last administered on 08/21/17 09:30; Start 08/21/17 at 09:30; Stop 08/21/17 at 09:31; Status DC Rocuronium [place] (Zemuron Inj) 50 mg STK-MED ONCE .ROUTE Last administered on 08/21/17 09:30; Start 08/21/17 at 09:30; Stop 08/21/17 at 09:31; Status DC Propofol 50 ml @ As Directed STK-MED ONCE .ROUTE Last administered on 10:18; Start 08/21/17 at 09:32; Stop 08/21/17 at 09:33; Status DC Sodium Chloride 1,000 ml @ 40 mls/hr Q24H IV Last administered on 08/26/17 12:27; Start 08/21/17 at 12:00; Stop 08/27/17 at 08:20; Status DC Sodium Chloride (NS Flush) 2 ml UNSCH PRN IV FLUSH FLUSH AFTER USING IV ACCESS ; Start 08/21/17 at 10:45 Sodium Chloride (NS Flush) 2 ml BID IV FLUSH Last administered on 09/03/17 21: 58; Start 08/21/17 at 21:00 Albuterol/ Ipratropium (Duoneb Neb) 1 ampule Q6HR NEB NEB Last administered on 08/25/17 15:43; Start 08/21/17 at 16:00; Stop 08/25/17 at 15:59; Status DC Albuterol/ Ipratropium (Duoneb Neb) 1 ampule Q4HR NEB PRN INH SHORTNESS OF BREATH Last administered on 08/26/17 01:42; Start 08/21/17 at 10:45 Chlorhexidine Gluconate (Peridex 0.12% Liq) 15 ml BID@08,20 MT Last administered on 08/29/17 22:35; Start 08/21/17 at 20:00 Miscellaneous Information 1 Q361D XX ; Start 08/21/17 at 10:45 Chlorhexidine Gluconate (Chlorhexidine 2% Cloth) Taper DAILY@04 TOP Last administered on 09/04/17 04:00; Start 08/22/17 at 04:00; Stop 08/18/18 at 03: 59 Chlorhexidine Gluconate (Chlorhexidine 2% Cloth) 3 pack UNSCH PRN TOP HYGIENIC CARE; Start 08/21/17 at 10:45 Propofol 100 ml @ 2.448 mls/ hr TITRATE PRN IV SEDATION Last administered on 08/25/17 06:00; Start 08/21/17 at 10:45; Stop 08/26/17 at 06:37; Status DC Insulin Aspart (NovoLOG SUPPLEMENTAL SCALE) 1 Q6HR SQ Last administered on 12:00; Start 08/21/17 at 12:00; Stop 08/27/17 at 08:20; Status DC Dextrose (D50w (Vial) Inj) 50 ml UNSCH PRN IV PUSH HYPOGLYCEMIA - SEE COMMENTS ; Start 08/21/17 at 12:15; Stop 09/01/17 at 18:20; Status DC Glucagon (Glucagon Inj) 1 mg UNSCH PRN OTHER HYPOGLYCEMIA-SEE COMMENTS; Start 08/21/17 at 12:15; Stop 09/01/17 at 18:20; Status DC Fentanyl Citrate (fentaNYL INJ) 100 mcg Q2H PRN IV PAIN SCALE 1 TO 10 Last administered on 08/22/17 22:02; Start 08/21/17 at 13:00; Stop 08/24/17 at 09 :30; Status DC Norepinephrine Bitartrate (Levophed Inj) 4 mg STK-MED ONCE .ROUTE ; Start 08/21 at 15:31; Stop 08/21/17 at 15:32; Status DC Gadodiamide (Omniscan Pf Inj) 16 ml STK-MED ONCE IVCONTRAST ; Start 08/21/17 at 16:27; Stop 08/21/17 at 16:28; Status DC Phenytoin Sodium (Dilantin Inj) 200 mg Q8HR IV Last administered on 08/28/17 06:37; Start 08/21/17 at 17:45; Stop 08/28/17 at 11:55; Status DC Norepinephrine Bitartrate 4 mg/ Sodium Chloride 254 ml @ 7.62 mls/hr TITRATE PRN IV Maintain MAP > 65 mmHg Last administered on 08/25/17 08:45; Start at 18:00; Stop 08/28/17 at 11:55; Status DC Sodium Chloride 1,000 ml @ 1,000 mls/hr Q1H IV Last administered on 06:35; Start 08/22/17 at 04:00; Stop 08/22/17 at 05:59; Status DC Lamotrigine (LaMICtal) 200 mg BID PO Last administered on 09/03/17 21:57; Start 08/22/17 at 21:00 Fentanyl Citrate 250 ml @ 5 mls/hr TITRATE PRN IV SEDATION Last administered on 08/23/17 22:25; Start 08/23/17 at 02:15; Stop 08/24/17 at 09:29; Status DC Sertraline HCl (Zoloft) 100 mg DAILY PO Last administered on 09/04/17 10:23; Start 08/24/17 at 09:30 Fentanyl Citrate (fentaNYL INJ) 100 mcg ONCE ONCE IV PUSH Last administered on 08/24/17 11:45; Start 08/24/17 at 11:45; Stop 08/24/17 at 12:00; Status DC Fentanyl Citrate 250 ml @ 5 mls/hr TITRATE PRN IV SEDATION Last administered on 08/25/17 06:01; Start 08/24/17 at 11:45; Stop 08/25/17 at 07:21; Status DC Acetaminophen (Tylenol) 650 mg Q6H PRN PO TEMP>101F Last administered on 16:35; Start 08/24/17 at 15:00 Piperacillin Sod/ Tazobactam Sod 100 ml @ 200 mls/hr Q6H IV Last administered on 08/27/17 01:46; Start 08/25/17 at 08:00; Stop 08/27/17 at 08:38; Status DC Vancomycin HCl 1350 mg/Sodium Chloride 513.5 ml @ 250 mls/hr ONCE ONCE IV Last administered on 08/25/17 09:00; Start 08/25/17 at 09:00; Stop 08/25/17 at 11:03; Status DC Fentanyl Citrate 250 ml @ 5 mls/hr TITRATE PRN IV SEDATION; Start 08/25/17 at 07:30; Stop 08/26/17 at 06:37; Status DC Dexmedetomidine HCl (Precedex Inj) 45 mcg ONCE ONCE IV PUSH ; Start 08/25/17 at 07:30; Stop 08/25/17 at 07:31; Status Cancel Dexmedetomidine HCl 200 mcg/ Sodium Chloride 52 ml @ 4.7 mls/hr TITRATE PRN IV SEDATION Last administered on 08/25/17 17:01; Start 08/25/17 at 07:30; Stop 08/25/17 at 19:26; Status DC Dexmedetomidine HCl (Precedex Inj) 45 mcg ONCE ONCE IV PUSH Last administered on 08/25/17 08:35; Start 08/25/17 at 08:00; Stop 08/25/17 at 08:01; Status DC Norepinephrine Bitartrate 250 ml @ As Directed STK-MED ONCE IV ; Start at 08:50; Stop 08/25/17 at 08:51; Status DC Nicotine (Habitrol 7 Mg Patch.24 Hr) 1 patch DAILY T-DERMAL Last administered on 09/04/17 10:21; Start 08/25/17 at 10:00 Miscellaneous Information 1 DAILY T-DERMAL Last administered on 09/04/17 09:00 ; Start 08/26/17 at 09:00 Methylprednisolone Sodium Succinate (SoluMEDROL INJ) 40 mg Q12HR IV PUSH Last administered on 08/26/17 20:07; Start 08/25/17 at 10:00; Stop 08/27/17 at 08 :20; Status DC Patient Own Medication PT OWN MED: EPCL... DAILY PO ; Start 08/25/17 at 10:06; Stop 08/25/17 at 10:53; Status DC Patient Own Medication PT OWN MED: EPCL... DAILY PO ; Start 08/25/17 at 11:30; Stop 08/25/17 at 13:40; Status DC Sodium Chloride 500 ml @ 999 mls/hr Q31M IV Last administered on 08/25/17 09 :45; Start 08/25/17 at 14:30; Stop 08/25/17 at 15:01; Status DC Lorazepam (Ativan Inj) 2 mg STK-MED ONCE .ROUTE Last administered on 14:50; Start 08/25/17 at 14:49; Stop 08/25/17 at 14:50; Status DC Lorazepam (Ativan Inj) 2 mg Q4H PRN IV AGITATION Last administered on 05:06; Start 08/25/17 at 16:00; Stop 08/26/17 at 09:05; Status DC Haloperidol Lactate (Haldol Inj) 5 mg Q4H PRN IV AGITATION Last administered on 08/29/17 05:17; Start 08/25/17 at 18:45; Stop 08/29/17 at 11:48; Status DC Influenza Virus Vaccine (Flu (Quadrivalent) Vaccine Inj) 0.5 ml ONCE ONCE IM ; Start 08/26/17 at 10:00; Stop 08/26/17 at 10:01; Status Cancel Dexmedetomidine HCl 1000 mcg/ Sodium Chloride 250 ml @ 4.52 mls/hr TITRATE PRN IV SEDATION Last administered on 08/30/17 01:27; Start 08/25/17 at 19:30; Status Future Hold Albuterol/ Ipratropium (Duoneb Neb) 1 ampule Q6HR NEB NEB Last administered on 08/30/17 04:51; Start 08/26/17 at 06:45; Stop 08/30/17 at 06:44; Status DC Lorazepam (Ativan Inj) 2 mg Q6HR PRN IV AGITATION; Start 08/26/17 at 14:00; Stop 08/26/17 at 16:43; Status DC Furosemide (Lasix Inj) 20 mg ONCE ONCE IV PUSH Last administered on 12:26; Start 08/26/17 at 12:30; Stop 08/26/17 at 12:31; Status DC Potassium Chloride 100 ml @ 25 mls/hr ONCE ONCE IV Last administered on 08/26 12:27; Start 08/26/17 at 12:30; Stop 08/26/17 at 16:29; Status DC Insulin Aspart (NovoLOG SUPPLEMENTAL SCALE) 1 BIDAC SQ ; Start 08/27/17 at 16: 00; Stop 09/01/17 at 18:20; Status DC Methylprednisolone Sodium Succinate (SoluMEDROL INJ) 40 mg DAILY IV PUSH Last administered on 08/29/17 09:43; Start 08/27/17 at 09:00; Stop 08/29/17 at 12: 00; Status DC Potassium Chloride 100 ml @ 50 mls/hr Q2H PRN IV For Potassium 2.8 - 3.2 mEq/L ; Start 08/27/17 at 08:30 Potassium Chloride 100 ml @ 50 mls/hr Q2H PRN IV For Potassium 2.8 - 3.2 mEq/ L Last administered on 08/30/17 05:38; Start 08/27/17 at 08:30 Potassium Chloride 100 ml @ 25 mls/hr UNSCH PRN IV For Potassium 3.3 - 3.5 mEq /L; Start 08/27/17 at 08:30 Potassium Chloride 100 ml @ 50 mls/hr Q2H PRN IV For Potassium 3.3 - 3.5 mEq/ L Last administered on 08/31/17 01:07; Start 08/27/17 at 08:30 Magnesium Sulfate 4 gm/Sodium Chloride 100 ml @ 50 mls/hr UNSCH PRN IV For Magnesium 0.9 - 1.1 mg/dL; Start 08/27/17 at 08:30 Magnesium Oxide (Mag-Ox) 800 mg UNSCH PRN PO For Magnesium 1.2 - 1.6 mg/dL; Start 08/27/17 at 08:30 Magnesium Sulfate 2 gm/Sodium Chloride 100 ml @ 50 mls/hr UNSCH PRN IV For Magnesium 1.2 - 1.6 mg/dL; Start 08/27/17 at 08:30 Potassium Phosphate (K-Phos) 2,000 mg Q4H PRN PO For Phosphorus < 2.5 mg/dL; Start 08/27/17 at 08:30 Sodium Phosphate 30 mmol/Sodium Chloride 250 ml @ 42 mls/hr UNSCH PRN IV For Phosphorus < 2.5 mg/dL; Start 08/27/17 at 08:30 Potassium Phosphate (K-Phos) 2,000 mg UNSCH PRN PO/TUBE SEE LABEL COMMENTS; Start 08/27/17 at 08:30 Potassium Phosphate 30 mmol/ Sodium Chloride 260 ml @ 42 mls/hr UNSCH PRN IV SEE LABEL COMMENTS; Start 08/27/17 at 08:30 Ceftriaxone Sodium 1000 mg/ Sodium Chloride 100 ml @ 200 mls/hr Q24H IV Last administered on 09/03/17 08:24; Start 08/27/17 at 09:00; Stop 09/03/17 at 16: 18; Status DC Famotidine (Pepcid) 20 mg BID PO Last administered on 09/04/17 10:23; Start 08/27/17 at 21:00 Hydrochlorothiazide (Microzide) 12.5 mg DAILY PO Last administered on 10:22; Start 08/28/17 at 09:00 Sodium Chloride 50 ml @ As Directed STK-MED ONCE .ROUTE Last administered on 06:38; Start 08/28/17 at 04:24; Stop 08/28/17 at 04:25; Status DC Hydralazine HCl (Apresoline Inj) 20 mg Q4H PRN IV PUSH SBP greater than 145mm Hg Last administered on 08/29/17 02:04; Start 08/28/17 at 07:00; Stop 08/30/17 at 10:20; Status DC Lorazepam (Ativan Inj) 1 mg ONCE STAT IV PUSH Last administered on 08/28/17 07:00; Start 08/28/17 at 06:51; Stop 08/28/17 at 06:57; Status DC Lisinopril (Prinivil) 10 mg DAILY PO Last administered on 09/04/17 10:21; Start 08/28/17 at 09:00 Quetiapine Fumarate (SEROquel) 25 mg DAILY PO ; Start 08/29/17 at 14:00; Stop 08/29/17 at 14:00; Status DC Quetiapine Fumarate (SEROquel) 25 mg STAT ONCE PO Last administered on 15:04; Start 08/28/17 at 11:45; Stop 08/28/17 at 13:10; Status DC Quetiapine Fumarate (SEROquel) 50 mg HS PO Last administered on 08/28/17 22:25 ; Start 08/28/17 at 21:00; Stop 08/29/17 at 11:50; Status DC Quetiapine Fumarate (SEROquel) 25 mg DAILY PO ; Start 08/29/17 at 09:00; Stop 08/29/17 at 09:00; Status DC Phenytoin (Dilantin) 200 mg TID PO Last administered on 09/02/17 08:54; Start 08/28/17 at 13:00; Stop 09/02/17 at 13:29; Status DC Nitroglycerin (Nitrostat Sl) 0.4 mg STAT STAT SL Last administered on 15:06; Start 08/28/17 at 13:17; Stop 08/28/17 at 13:55; Status DC Morphine Sulfate (Morphine Inj) 4 mg ONCE ONCE IV PUSH Last administered on 15:06; Start 08/28/17 at 14:00; Stop 08/28/17 at 14:01; Status DC Lorazepam (Ativan Inj) 1 mg ONCE ONCE IV PUSH Last administered on 08/28/17 18:00; Start 08/28/17 at 18:00; Stop 08/28/17 at 18:01; Status DC Iohexol (Omnipaque 350 Inj) 100 ml STK-MED ONCE IVCONTRAST Last administered on 08/28/17 18:06; Start 08/28/17 at 18:06; Stop 08/28/17 at 18:13; Status DC Clonidine (Catapres-Tts 0.1mg Patch.7d) 1 patch ONCE ONCE T-DERMAL Last administered on 08/29/17 09:43; Start 08/29/17 at 07:30; Stop 08/29/17 at 07:31 ; Status DC Quetiapine Fumarate (SEROquel) 50 mg DAILY PO Last administered on 08/31/17 09 :06; Start 08/29/17 at 14:00; Stop 08/31/17 at 10:49; Status DC Quetiapine Fumarate (SEROquel) 50 mg DAILY PO ; Start 08/30/17 at 09:00; Stop 08/30/17 at 09:00; Status DC Quetiapine Fumarate (SEROquel) 100 mg HS PO Last administered on 09/01/17 20: 04; Start 08/29/17 at 21:00; Stop 09/02/17 at 13:43; Status DC Heparin Sodium (Porcine) (Heparin Inj) 5,000 units Q8HR SQ Last administered on 09/04/17 13:05; Start 08/29/17 at 14:00 Lactobacillus Acidophilus (Lactinex Pkt) 1 gm TID PO Last administered on 13:05; Start 08/29/17 at 18:00 Haloperidol Lactate (Haldol Inj) 5 mg ONCE ONCE IV PUSH ; Start 08/30/17 at 02: 15; Stop 08/30/17 at 02:18; Status DC Lorazepam (Ativan Inj) 2 mg ONCE ONCE IV PUSH ; Start 08/30/17 at 02:15; Stop 08/30/17 at 02:18; Status DC Hydralazine HCl (Apresoline Inj) 10 mg Q1H PRN IV PUSH SBP greater than 145mm Hg; Start 08/30/17 at 10:30 Ziprasidone (Geodon Inj) 10 mg Q12H PRN IM AGITATION Last administered on 21:18; Start 08/30/17 at 14:45; Stop 09/02/17 at 14:44; Status DC Quetiapine Fumarate (SEROquel) 100 mg DAILY PO Last administered on 09/02/17 08:53; Start 09/01/17 at 09:00; Stop 09/02/17 at 13:22; Status DC Potassium Chloride (KCl) 30 meq ONCE ONCE PO Last administered on 08/31/17 13 :45; Start 08/31/17 at 11:00; Stop 08/31/17 at 11:04; Status DC Acetaminophen 100 ml @ 400 mls/hr Q6H PRN IV PAIN SCALE 8 TO 10 Last administered on 09/01/17 14:09; Start 09/01/17 at 12:15; Stop 09/02/17 at 12:15 ; Status DC Melatonin (Melatonin) 10 mg HS PRN PO INSOMNIA Last administered on 09/02/17 21:53; Start 09/01/17 at 12:15 Quetiapine Fumarate (SEROquel) 100 mg Q12HR PO Last administered on 09/04/17 10:22; Start 09/02/17 at 21:00 Oxcarbazepine (Trileptal) 300 mg BID PO Last administered on 09/04/17 10:44; Start 09/02/17 at 21:00 Cefuroxime Axetil (Ceftin) 500 mg Q12HR PO Last administered on 09/04/17 10:22 ; Start 09/03/17 at 21:00 A/P Problem List: (1) Intracranial hemorrhage ICD Code: I62.9 - Nontraumatic intracranial hemorrhage, unspecified Status: Acute (2) 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 Status post propofol and fentanyl drips since 08/25. s/p dexmedetomidine for agitation/delirium currently at 0.7 mg/kg per minute discontinued 08/31. On phenytoin to PO 200 mg 3 times a day on 08/28 and follow level, Lamotrigine 200 mg twice a day resumed 08/22, and sertraline 100 mg by mouth daily at bedtime. Neuropsychologist evaluation appreciated. on quetiapine 100 milligrams a.m. -100 mg at night for hallucinations/delirium. -on ziprasidone 10 mg IM every 12 hours for maximum of 3 days severe agitation. -Repeat head CT per neurosurgery on 08/29 revealed evolving bifrontal hemorrhages. - Ofirmev 1 g every 6 hours when necessary 24 hours for VAS pain scale greater than 8/10 Acute respiratory failure - resolved/Right pneumothorax status post chest tube placement (chest tube discontinued 08/27)/MSSA pneumonia -Pulmonary: Extubated on 08/25, initially on nonrebreather facemask, currently on 2 L nasal cannula. bronchodilators as needed. Sputum cultures growing MSSA. s/p chest tube for rt pneumothorax which was discontinued on 08/27. CT chest negative for PE however showed significant right sided pneumonia on 08/28. -Asymptomatic at the moment. Status post Rocephin treatment. Patient was started Ceftin yesterday continues to do well. Sepsis -ID: Sputum cultures growing MSSA. Concern for aspiration. Started on IV piperacillin/tazobactam on 08/25, de-escalate to ceftriaxone 1 g IV daily on . Received 1 dose of vancomycin on 08/25.. On sufosbuvir/velpalasivir at home for ? Hep C. On hold currently per neurosurgery recommendations -Blood cultures negative. Positive MSSA pneumonia sputum. -On Ceftin is doing well. Hypertensive emergency -Control on current regimen. Continue current regimen. -Cardiovascular: Off nicardipine gtt. started on hydrochlorothiazide 12.5 mg daily, lisinopril 10 mg daily. Enalapril/ Labetalol/hydralazine when necessary. Off IV fluids. Added clonidine patch 0.1 mg per week single dose for 7 days on 08/29 Labetalol when necessary. Plan to maintain SBP 135-140mmHg Hepatitis C -Patient is on Epclusa. I spoke to over the phone in regards to Epclusa causing intracranial bleed, Dr Velarde stated that he is not aware the medication causing her increasing risks of bleeding. He stated to me to let patient know to continue to hold the medication and for patient to call him tomorrow in regards to this. I relayed the information to the patient and we had an extensive conversation on this and he stated that he does not want to take the medication and will speak with Dr. Velarde if regards to this, -continue to hold Epclusa. H/O substance abuse/UDS+ amphetamines Education given. Normocytic anemia -stable. Continue to monitor. Prophylaxis: PPI/SCDs. Subcutaneous heparin cleared by neurosurgery and being started on 08/29. Discharge Planning Patient medically clear for discharge and was post be discharged today but per patient his sister appealed the discharge. Jeimy Walsh MD Sep 04, 2017 14:32
== END 2017-09-04 15:06 | disposition home or self-care (01) | DRG 64 ==
LOC: NEPC 06:51 → NEDA 07:28 → N03B 09:20
PROVIDERS: ADMIT Neurological Surgery; ATTEND Neurological Surgery
PROC: 0BH17EZ Insertion of Endotracheal Airway into Trachea, Via Natural or Artificial Opening (ICD-10-PCS; principal; 2017-08-21)
PROC: 5A1945Z Respiratory Ventilation, 24-96 Consecutive Hours (ICD-10-PCS; 2017-08-21)
PROC: 05HM33Z Insertion of Infusion Device into Right Internal Jugular Vein, Percutaneous Approach (ICD-10-PCS; 2017-08-21)
PROC: 0W9930Z Drainage of Right Pleural Cavity with Drainage Device, Percutaneous Approach (ICD-10-PCS; 2017-08-23)
DX: I61.5 Nontraumatic intracerebral hemorrhage, intraventricular (principal); G93.40 Encephalopathy, unspecified; J96.00 Acute respiratory failure, unspecified whether with hypoxia or hypercapnia; A41.9 Sepsis, unspecified organism; J15.211 Pneumonia due to Methicillin susceptible Staphylococcus aureus; R56.9 Unspecified convulsions; J93.83 Other pneumothorax; I16.1 Hypertensive emergency; R44.3 Hallucinations, unspecified; R41.844 Frontal lobe and executive function deficit; Z78.1 Physical restraint status; I10 Essential (primary) hypertension; F17.210 Nicotine dependence, cigarettes, uncomplicated; R82.5 Elevated urine levels of drugs, medicaments and biological substances; B19.20 Unspecified viral hepatitis C without hepatic coma; F10.10 Alcohol abuse, uncomplicated; D64.9 Anemia, unspecified
CPT/HCPCS: 31500; 36556; 36620; 70450; 70496; 70498; 70544; 70553; 71010; 71275; 76937; 80048; 80053; 80185; 80186; 80307; 81001; 82435; 82550; 82552; 82565; 82805; 82947; 82948; 83735; 83880; 84100; 84132; 84295; 84443; 84484; 84520; 85025; 85384; 85610; 85730; 86403; 86850; 86900; 86901; 87040; 87070; 87147; 87186; 87205; 87493; 87641; 93005; 93306; 94002; 94003; 94150; 94640; 94664; 94770; 95819; 96374; A9579; C9113; J0131; J0360; J0696; J1165; J1630; J1644; J1815; J1940; J2060; J2270; J2405; J2543; J2920; J3010; J3370; J3480; J3486; J7030; J7040; J7050; Q2009; Q9967